=== PATIENT | female | born 1935 | race Caucasian/White ===

== ENCOUNTER 2017-05-14 10:39 | Emergency (ER) | payer MEDICARE, OTHER ==
[~2017-05-14] VITALS: Ht 162.6 cm; Wt 79.4 kg
[~2017-05-14 10:39] MED LIST: ALCLOMETASONE D15 GM TOP; AMOXICILLIN500 MG; ATENOLOL; CALCIUM 500+D1 EACH PO; CEFUROXIME; CEFUROXIME500 MG PO; CITRACEL; DOXYCYCLINE HY100 MG PO; ESTRACE42.5 GM TOP; FENOFIBRATE; FENOFIBRATE134 MG PO; FISH OIL; FLUOXETINE; FLUOXETINE HCL40 MG PO; GABAPENTIN100 MG PO; GABAPENTIN300 MG PO; GLIMEPIRIDE; GLIMEPIRIDE2 MG PO; HYDROCHLOROTHIAZIDE; HYDROCODON-ACE1 EA11 PO; L-THYROXINE; LEVOFLOXACIN500 MG; LEVOTHYROXINE50 MCG PO; LEVOTHYROXINE88 MCG PO; LISINOPRIL10 MG PO; LYRICA; METOPROLOL TART50 MG PO; NORCO 10-325 T1 EACH PO; NORCO 7.5-3251 EACH PO; OMEPRAZOLE; OMEPRAZOLE20 M1 PO; PHENAZOPYRIDIN100 MG PO; PROBIOTIC & AC1 EACH PO; PROPOXYPHENE; PROZAC20 MG PO; THERAGRAN-M; TOVIAZ4 MG PO; WARFARIN; WARFARIN SODIUM1 MG PO; Z.1.AMLODIPINE-BEN1; ZOLPIDEM; [UNRECOGNIZED DRUG - OTHER]
[2017-05-14] MEDS ORDERED: CEFTRIAXONE SOD 1 GM VIAL IM ONE (12:30)
[2017-05-14] MEDS ORDERED: CEFTIN250 MG/5 M PO (13:51)
[2017-05-14 14:20] VITALS: BP 159/60
== END 2017-05-14 14:00 | disposition home or self-care (01) ==
LOC: FSED 10:39
DX: M54.41 Lumbago with sciatica, right side (principal); N30.90 Cystitis, unspecified without hematuria; I10 Essential (primary) hypertension; E11.9 Type 2 diabetes mellitus without complications; Z87.891 Personal history of nicotine dependence
CPT/HCPCS: 87086; 87186; 99283; J0696

== ENCOUNTER → 2017-12-27 | Outpatient (CLI) | payer MEDICARE, OTHER ==
[~2017-12-27] MED LIST changes: +CEFTIN250 MG/5 M PO
== END ==
LOC: RAD 13:06
DX: M79.605 Pain in left leg (principal); M79.89 Other specified soft tissue disorders
CPT/HCPCS: 93971

== ENCOUNTER 2018-03-17 06:22 | Inpatient (IN) | payer MEDICARE, OTHER ==
[~2018-03-17] VITALS: Ht 162.6 cm; Wt 79.9 kg
[2018-03-17 07:24] LABS: BASOPHILS % 0.1 % (0.0-1.0); EOSINOPHILS % 0.2 % (0.0-6.0); HEMATOCRIT 36.5 % (34.2-44.1); HEMOGLOBIN 12.2 g/dL (12.0-16.0); MEAN CORPUSCULAR HEMOGLOBIN 31.2 pg (28-32); MEAN CORPUSCULAR HGB CONC 33.4 g/dL (31-35); MEAN CORPUSCULAR VOLUME 93.4 fL (81-99); MONOCYTES # (AUTO) 0.7 (0.2-0.8); NEUTROPHILS # (AUTO) 6.5 (2.1-6.9); NEUTROPHILS % 78.3 % (38.7-80.0); PLATELET COUNT 174 x10e3/uL (140-360); RED BLOOD COUNT 3.91 x10e6/uL (3.6-5.1); RED CELL DISTRIBUTION WIDTH 14.2 % (11.7-14.4)
[2018-03-17 07:33] LABS: PROTHROMBIN TIME 24.2 seconds (11.9-14.5)
[2018-03-17 07:34] LABS: PARTIAL THROMBOPLASTIN TIME 50.3 seconds (23.8-35.5)
[2018-03-17 07:43] LABS: ALANINE AMINOTRANSFERASE 23 IU/L (0-55); ALBUMIN 3.3 g/dL (3.5-5.0); ALKALINE PHOSPHATASE 29 IU/L (40-150); ANION GAP 15.2 mmol/L (8-16); BLOOD UREA NITROGEN 27 mg/dL (7-26); BUN/CREATININE RATIO 32 (6-25); CARBON DIOXIDE 26 mmol/L (22-29); CHLORIDE 99 mmol/L (98-107); CREATINE KINASE 199 IU/L (29-168); CREATININE, SERUM 0.84 mg/dL (0.57-1.11); EST GLOMERULAR FILTRATION RATE > 60 ML/MIN (60-); GLUCOSE 145 mg/dL (74-118); MAGNESIUM 1.7 MG/DL (1.3-2.1); POTASSIUM 4.2 mmol/L (3.5-5.1); SODIUM 136 mmol/L (136-145)
[2018-03-17 07:53] LABS: BILIRUBIN,URINE NEGATIVE (NEGATIVE); CLARITY,URINE HAZY (CLEAR); COLOR,URINE YELLOW (YELLOW); KETONES,URINE NEGATIVE (NEGATIVE); LEUKOCYTE ESTERASE ,URINE 2+ (NEGATIVE); NITRITE,URINE NEGATIVE (NEGATIVE); PROTEIN,URINE DIPSTICK TRACE (NEGATIVE); URINE UROBILINOGEN 0.2 mg/dL (0.2 - 1)
[2018-03-17 08:04] LABS: BACTERIA,URINE MANY /HPF; EPITHELIAL CELLS,URINE RARE /LPF
[2018-03-17] MEDS ORDERED: CEPHALEXIN250 MG PO (08:12)
[2018-03-17] MEDS ORDERED: METHENAMINE HIPP1 GM PO (08:12)
[2018-03-17] MEDS ORDERED: DILTIAZEM HCL VIAL 5 ML ONE (08:54)
[2018-03-17] MEDS ORDERED: DILTIAZEM HCL 5 MG/ML 5 ML VIAL IV STA (08:55)
--- NOTE | 2018-03-17 09:00 | Diagnostic Imaging Report ---
CT BRAIN WO HISTORY: Fall COMPARISON: Brain MRI 09/11/2010 Technique: Noncontrast axial scans were obtained from skull base to the vertex. Coronal and sagittal reconstructions obtained from the axial data. One or more of the following dose reduction techniques were used: Automated exposure control, adjustment of the mA and/or kV according to patient size, and/or utilization of iterative reconstruction technique. DISCUSSION: Scalp/Skull: Unremarkable. Brain sulci: Mildly prominent. Ventricles: Compensatory dilatation. Extra-axial spaces: No masses or fluid collections. Carotid siphon calcifications are present. Parenchyma: Mild bilateral deep white matter hypodensity is likely chronic microvascular ischemic change. Otherwise, no masses, hemorrhage, or large vascular territory acute infarct. Dural sinuses: No abnormal densities. Sellar/Suprasellar region: Intact. Skull base: Intact. Incidental findings: Both ocular lenses are thinned. IMPRESSION: 1. No acute intracranial abnormalities. 2. Mild supratentorial chronic microvascular ischemic change. Mild generalized cerebral volume loss. Signed by: Dr. Bentley Saini M.D. on 03/17/2018 8:57 AM
--- NOTE | 2018-03-17 09:05 | Diagnostic Imaging Report ---
CT CERVICAL SPINE WO HISTORY: Fall COMPARISON: Concurrent head CT TECHNIQUE: CT of the cervical spine without contrast. Sagittal and coronal reformations were created. One or more of the following dose reduction techniques were used: Automated exposure control, adjustment of the mA and/or kV according to patient size, and/or utilization of iterative reconstruction technique. FINDINGS: Bone demineralization limits evaluation. Cervical lordosis is straightened. There is no scoliosis or subluxation. No definite acute fracture or compression deformity is seen. The craniocervical junction is intact. No gross spinal canal masses are seen. The paravertebral and paraspinal soft tissues are unremarkable. Mild multilevel spondylosis is most prominent from C4-C5 to C6-C7. Grade 1 anterolisthesis of C7 on T1 is due to prominent left facet arthrosis. Right subclavian lead/line is partially visualized. A 0.9 cm peripherally calcified nodule is seen in the right thyroid lobe. Mild bilateral carotid bulb calcifications are present. IMPRESSION: 1. No acute osseous abnormalities. 2. Mild multilevel spondylosis, most prominent from C4-C5 to C6-C7. 3. Grade 1 anterolisthesis of C7 on T1 due to prominent left facet arthrosis. Signed by: Dr. Bentley Saini M.D. on 03/17/2018 9:02 AM
--- NOTE | 2018-03-17 09:07 | Diagnostic Imaging Report ---
PROCEDURE:HIP LEFT 2-3 VW (+/- PELVIS) COMPARISON:None. INDICATIONS:FALL LEFT HIP PAIN FINDINGS: No acute, displaced fracture or dislocation. The left femoral head projects appropriately over the acetabulum. Mild symmetric joint space narrowing of the hips. Coarse calcification projecting over the upper aspect of the symphysis pubis may represent a degenerated fibroid. Soft tissues are unremarkable. CONCLUSION: no acute osseous abnormality. No displaced left hip fracture. Dictated by: Jorge Jorgensen M.D. on 03/17/2018 at 9:17 Electronically approved by: Jorge Jorgensen M.D. on 03/17/2018 at 9:17
--- NOTE | 2018-03-17 09:09 | Diagnostic Imaging Report ---
PROCEDURE: CHEST SINGLE (PORTABLE) COMPARISON: None. INDICATIONS: fall FINDINGS: Right subclavian central venous port catheter tip projects over the expected region of the superior cavoatrial junction. Lungs are well-inflated. Calcified granulomata right lower lung. No airspace consolidation, pleural effusion, or pneumothorax. Tortuous thoracic aorta with atherosclerotic calcification. Otherwise normal cardiomediastinal contour for technique. No acute osseous abnormality. CONCLUSION: No acute cardiopulmonary abnormality. Dictated by: Jorge Jorgensen M.D. on 03/17/2018 at 9:19 Electronically approved by: Jorge Jorgensen M.D. on 03/17/2018 at 9:19
[2018-03-17] MEDS ORDERED: DIGOXIN INJ 0.25 MG/ML 2 ML AMP ONE (09:39)
[2018-03-17] MEDS ORDERED: ASPIRIN 81 MG CHEW TAB PO ONE (09:45)
[2018-03-17] MEDS ORDERED: DIGOXIN INJ 0.25 MG/ML 2 ML AMP IV ONE (09:45)
[2018-03-17] MEDS ORDERED: DIGOXIN INJ 0.25 MG/ML 2 ML AMP IV NR (10:00)
--- OUTSIDE RECORDS SUMMARY | 2018-03-17 10:09 | XMS REPORT ---
[facility] Address Unknown Phone Unavailable Care Team Providers Care Master At Arms Name Role Phone Yolis DELGADO Unavailable Unavailable Problems This patient has no known problems. Allergies, Adverse Reactions, Alerts This patient has no known allergies or adverse reactions. Medications This patient has no known medications. Results Test Description Test Time Test Comments Text Results Atomic Results Result Comments CHEST SINGLE (PORTABLE) 2018-03-17 09:19:00 [place] [address] Patient Name: MAURIZIO WINN MR #: [id number] : 1935 Age/Sex: 83/F Req #: [id number] Adm Physician: Ordered by: CHOLO DELGADO MD Report #: [id number] Location: ER Room/Bed: Procedure: [id number] DX/CHEST SINGLE (PORTABLE) Exam Date: Exam Time: REPORT STATUS: Signed PROCEDURE: CHEST SINGLE (PORTABLE) COMPARISON: None. INDICATIONS: fall FINDINGS: Right subclavian central venous port catheter tip projects over the expected region of the superior cavoatrial junction. Lungs are well-inflated. Calcified granulomata right lower lung. No airspace consolidation, pleural effusion, or pneumothorax. Tortuous thoracic aorta with atherosclerotic calcification. Otherwise normal cardiomediastinal contour for technique. No acute osseous abnormality. CONCLUSION: No acute cardiopulmonary abnormality. Dictated by: Mendoza Saldaña M.D. on 03/17/2018 at 9:19 Electronically approved by: Mendoza Saldaña M.D. on 03/17/2018 at 9:19 Dictated By: MENDOZA SALDAÑA MD 8 Transcribed By: DREW on 03/17/18918 COPY TO: CHOLO DELGADO MD HIP LEFT 2-3 VW (+/- PELVIS) 2018-03-17 09:17:00 [place] [address] Patient Name: MAURIZIO WINN MR #: [id number] : 1935 Age/Sex: 83/F Req #: [id number] Adm Physician: Ordered by: CHOLO DELGADO MD Report #: [id number] Location: ER Room/Bed: Procedure: [id number] DX/HIP LEFT 2-3 VW (+/- PELVIS) Exam Date: Exam Time: REPORT STATUS: Signed PROCEDURE: HIP LEFT 2-3 VW (+/- PELVIS) COMPARISON: None. INDICATIONS: FALL LEFT HIP PAIN FINDINGS: No acute, displaced fracture or dislocation. The left femoral head projects appropriately over the acetabulum. Mild symmetric joint space narrowing of the hips. Coarse calcification projecting over the upper aspect of the symphysis pubis may represent a degenerated fibroid. Soft tissues are unremarkable. CONCLUSION: no acute osseous abnormality. No displaced left hip fracture. Dictated by: Mendoza Saldaña M.D. on 03/17/2018 at 9:17 Electronically approved by: Mendoza Saldaña M.D. on 03/17/2018 at 9:17 Dictated By: MENDOZA SALDAÑA MD 6 Transcribed By: DREW on 03/17/18 0917 COPY TO: CHOLO DELGADO MD CT CERVICAL SPINE WO 2018-03-17 08:57:00 [place] [address] Patient Name: MAURIZIO WINN MR #: [id number] : 1935 Age/Sex: 83/F Req #: [id number] Adm Physician: Ordered by: CHOLO DELGADO MD Report #: [id number] Location: ER Room/Bed: Procedure: [id number] CT/CT CERVICAL SPINE WO Exam Date: 03/17/18 Exam Time: 809 REPORT STATUS: Signed CT CERVICAL SPINE WO HISTORY: Fall COMPARISO N: Concurrent head CT TECHNIQUE: CT of the cervical spine without contrast. Sagittal and coronal reformations were created. One or more of the following dose reduction techniques were used: Automated exposure control, adjustment of the mA and/or kV according to patient size, and/or utilization of iterative reconstruction technique. FINDINGS: Bone demineralization limits evaluation. Cervical lordosis is straightened. There is no scoliosis or subluxation. No definite acute fracture or compression deformity is seen. The craniocervical junction is intact. No gross spinal canal masses are seen. The paravertebral and paraspinal soft tissues are unremarkable. Mild multilevel spondylosis is most prominent from C4-C5 to C6-C7. Grade 1 anterolisthesis of C7 on T1 is due to prominent left facet arthrosis. Right subclavian lead/line is partially visualized. A 0.9 cm peripherally calcified nodule is seen in the right thyroid lobe. Mild bilateral carotid bulb calcifications are present. IMPRESSION: 1. No acute osseous abnormalities. 2. Mild multilevel spondylosis, most prominent from C4-C5 to C6-C7. 3. Grade 1 anterolisthesis of C7 on T1 due to prominent left facet arthrosis. Signed by: Dr. Bentley Saini M.D. on 03/17/2018 9:02 AM Dictated By: BENTLEY SAINI MD 1 Transcribed By: MIKA on 03/17/18901 COPY TO: CHOLO DELGADO MD CT BRAIN WO 2018-03-17 08:50:00 [place] [address] Patient Name: MAURIZIO WINN MR #: [id number] : 1935 Age/Sex: 83/F Req #: [id number] Adm Physician: Ordered by: CHOLO DELGADO MD Report #: [id number] Location: ER Room/Bed: Procedure: [id number] CT/CT BRAIN WO Exam Date: 03/17/18 Exam Time: 0810 REPORT STATUS: Signed CT BRAIN WO HISTORY: Fall COMPARISON: Brain MRI 09/11/2010 Technique: Noncontrast axial scans were obtained from skull base to the vertex. Coronal and sagittal reconstructions obtained from the axial data. One or more of the following dose reduction techniques were used: Automated exposure control, adjustment of the mA and/or kV according to patient size, and/or utilization of iterative reconstruction technique. DISCUSSION: Scalp/Skull: Unremarkable. Brain sulci: Mildly prominent. Ventricles: Compensatory dilatation. Extra-axial spaces: No masses or fluid collections. Carotid siphon calcifications are present. Parenchyma: Mild bilateral deep white matter hypodensity is likely chronic microvascular ischemic change. Otherwise, no masses, hemorrhage, or large vascular territory acute infarct. Dural sinuses: No abnormal densities. Sellar/Suprasellar region: Intact. Skull base: Intact. Incidental findings: Both ocular lenses are thinned. IMPRESSION: 1. No acute intracranial abnormalities. 2. Mild supratentorial chronic microvascular ischemic change. Mild generalized cerebral volume loss. Signed by: Dr. Bentley Saini M.D. on 03/17/2018 8:57 AM Dictated By: BENTLEY SAINI MD 6 Transcribed By: MIKA on 03/17/18856 COPY TO: CHOLO DELGADO MD
[2018-03-17] MEDS ORDERED: GLIMEPIRIDE2 MG PO (10:45)
--- NOTE | 2018-03-17 10:51 | NUR ---
pt tells nurse she is Diabetic at 1030 BS taken 131
[2018-03-17] MEDS ORDERED: CEFTRIAXONE SOD 1 GM VIAL IM ONE (12:00)
[2018-03-17] MEDS: CEFTRIAXONE SOD 1 GM VIAL IV SCH ×2 (12:27→12:29)
[2018-03-17] MEDS ORDERED: DILTIAZEM HCL 5 MG/ML 5 ML VIAL IV PRN (13:30)
--- NOTE | 2018-03-17 13:42 | Diagnostic Imaging Report ---
CT LUMBAR SPINE WO HISTORY: Fall COMPARISON: None. TECHNIQUE: Axial CT images of the lumbar spine were obtained without contrast. Coronal and sagittal reconstructions obtained from the axial data. One or more of the following dose reduction techniques were used: Automated exposure control, adjustment of the mA and/or kV according to patient size, and/or utilization of iterative reconstruction technique. DISCUSSION: Mild bone demineralization limits evaluation. There are 5 nonrib-bearing lumbar vertebral bodies. Lumbar lordosis is preserved. There is no significant scoliosis or subluxation. Partially visualized moderate to severe T11 vertebral compression fracture appears well corticated. There is complete loss of vertebral body height centrally without significant retropulsion. This may be chronic. No definite additional acute fracture or compression deformity is seen. No gross spinal canal mass is seen. There is mild paraspinal muscle atrophy in the lower lumbar spine. The paravertebral and paraspinal soft tissues are otherwise grossly unremarkable. Moderate multilevel spondylotic changes are present. There are mild degenerative changes in the bilateral sacroiliac joints. L1-L2: Disc bulge without gross canal or foraminal stenosis. L2-L3: Disc bulge without gross canal or foraminal stenosis. L3-L4: At least mild canal stenosis due to disc bulge and ligamentum flavum thickening. Mild right and mild to moderate left foraminal stenoses due to disc bulge and facet arthrosis. L4-L5: At least mild canal stenosis due to disc bulge and ligamentum flavum thickening. Moderate right and mild left foraminal stenoses due to uncovertebral and facet arthrosis. L5-S1: Grade 1 anterolisthesis of L5 on S1 due to severe bilateral L5-S1 facet arthrosis. At least mild canal stenosis due to uncovered disc bulge and ligamentum flavum thickening. Moderate to severe bilateral foraminal stenoses due to uncovered disc bulge and facet arthrosis. Mild bibasilar atelectasis is seen in the lungs. Perinephric fat stranding can be normal for age. Aortoiliac calcific atherosclerosis is present. Colonic diverticulosis is partially visualized. IMPRESSION: 1. Partially visualized moderate to severe T11 vertebral compression fracture may be chronic. No significant fracture retropulsion. 2. Otherwise, no definite acute osseous abnormalities. 3. Moderate multilevel spondylosis. 4. Grade 1 anterolisthesis of L5 on S1 due to severe bilateral L5-S1 facet arthrosis. 5. At least mild degenerative canal stenoses from L3-L4 to L5-S1. 6. Multilevel degenerative foraminal stenoses - moderate on the right at L4-L5; moderate to severe bilaterally at L5-S1. Signed by: Dr. Bentley Saini M.D. on 03/17/2018 1:39 PM
[2018-03-17] MEDS: LIDOCAINE 5% PATCH TP SCH (14:24)
--- NOTE | 2018-03-17 14:25 | NUR ---
VAGINAL BLEEDING OBSERVED MD NOTIFIED VELE[facility] CATHETER D/C AT THIS TIME
[2018-03-17 14:44] LABS: CHOL/HDL RATIO 2.1 (3.0-3.6)
--- NOTE | 2018-03-17 14:51 | Consultation ---
DATE OF CONSULTATION: March 17, 2018 CARDIOLOGY CONSULTATION REASON FOR CONSULTATION: Atrial fibrillation with rapid ventricular response. HISTORY OF PRESENT ILLNESS: This is an 83-year-old woman with history of DVT/PE, on warfarin, diabetes mellitus, hypertension, and hyperlipidemia, who presented with complaints of altered mental status and back pain. The patient has chronic back pain that has been worse in the last month. This morning the patient's daughter found the patient half off the bed due to inability to get the patient up. EMS was called, and the patient was transported to the ER. Of note, the patient's daughter indicates the patient was confused this morning as the patient thought she was in the hospital. The patient denies any chest pain, shortness of breath, orthopnea, PND, or edema. She does endorse palpitations when she gets upset. In the ER, evaluation revealed atrial fibrillation with rapid ventricular response for which cardiology is consulted. REVIEW OF SYSTEMS: Negative except as per HPI. PAST MEDICAL HISTORY: Diabetes mellitus, hypertension, hyperlipidemia, history of PE/DVT, on warfarin. PAST SURGICAL HISTORY: Hysterectomy, bladder suspension. SOCIAL HISTORY: She previously smoked 2 packs a day for 25 years. She quit at the age of 39. No alcohol or drugs. FAMILY HISTORY: Pertinent for mother with myocardial infarction. ALLERGIES: PLEASE SEE EMR. MEDICATIONS: Please see medication list. PHYSICAL EXAMINATION VITALS: Temperature 99.1 degrees, pulse 108, respiratory rate is 20, blood pressure 134/81, oxygen saturation 100%. GENERAL: Elderly woman in no acute distress. HEENT: Normocephalic and atraumatic. Pupils equal. No scleral icterus. NECK: Supple. No thyromegaly or cervical lymphadenopathy. No carotid bruits. LUNGS: Clear to auscultation bilaterally. No wheezes or crackles. CARDIOVASCULAR: Irregularly irregular. Tachycardic. No murmur. Normal S1 and S2. ABDOMEN: Soft and nontender. EXTREMITIES: No edema. NEURO: Nonfocal exam. Chest x-ray with no acute cardiopulmonary abnormality. Hip x-ray with no acute osseous abnormality. No displaced left hip fracture. Cervical spine CT with no acute osseous abnormalities. Mild multilevel spondylosis most prominent from C4-C5 to C6-C7. Grade 1 anterior listhesis of C7 on T1 due to permanent left facet arthrosis. Partially visualized moderate to severe T11 vertebral compression fracture may be chronic. No significant fracture retropulsion. Otherwise, no acute osseous abnormalities. Moderate multilevel spondylosis, grade 1 anterior listhesis of L5-S1 due to severe bilateral L5-S1 facet arthrosis. LABS: WBC is 8.26, hemoglobin 12.2, hematocrit 36.5, and platelets 174,000. Sodium 136, potassium 4.2, chloride 99, CO2 26, BUN 27, creatinine 0.84. INR 2. EKG with atrial fibrillation with rapid ventricular response, minimal voltage criteria for elevation, may be normal variant. Nonspecific S/T abnormalities probably due to digitalis effect. Abnormal ECG. IMPRESSION 1. Atrial fibrillation with rapid ventricular response. 2. History of deep venous thrombosis/pulmonary embolism, on warfarin therapy. 3. Hypertension. 4. Hyperlipidemia. 5. Diabetes mellitus. RECOMMENDATIONS: Check TSH. Obtain echocardiogram for further evaluation. Continue the patient on warfarin for anticoagulation. Her CHADS-VASc score is 5. Will obtain a fasting lipid panel. Titrate up metoprolol. Treatment of urinary tract infection per primary. Thank you for this consult. We will continue to follow. Job#: [id number] KAMRYN DUNN
--- NOTE | 2018-03-17 14:58 | NUR ---
PT C/O PAIN TO FEET STATES SHE NORMALLY TAKES GABAPENTIN FOR NEUROPATHY BUT ALSO TAKES HYDROCODONE 7.5 MG; PER DR ZACARIAS NEW ORDER FOR HYDROCODONE 7.5 MG AT THIS TIME
[2018-03-17] MEDS: HYDROCODONE/APAP 7.5MG-325MG 1 EA TAB PO PRN ×2 (15:00→22:22)
[2018-03-17 15:03] LABS: THYROID STIMULATING HORMONE 0.768 uIU/mL (0.350-4.940)
[2018-03-17] MEDS: ACETAMINOPHEN 325 MG TAB PO PRN (16:08)
--- NOTE | 2018-03-17 17:22 | NUR ---
Left a voicemail for Dr. Silvestre's answering service at this time.
--- NOTE | 2018-03-17 17:24 | NUR ---
Spoke to Dr. Silvestre. New orders obtained at this time.
[2018-03-17] MEDS: METOPROLOL TARTRATE 50 MG TAB PO SCH ×2 (17:39→23:15)
[2018-03-17 20:00] VITALS: BP 139/63
--- NOTE | 2018-03-17 20:00 | NUR ---
patient is a new admit that arrived via stretcher. patient is awake and talking. patient has been helped into the bed. bed is in lowest position and call perrin is within reach. will continue to monitor patient. Addendum: 03/18/18 at 0219 by Juanito Mckeon RN patient is noted with bruising to left buttock and left knee. no complaints of pain or discomfort to bruised areas. will continue to monitor patient.
[2018-03-17] MEDS ORDERED: SODIUM CHLORIDE 0.9% 250ML 250 ML ONE (20:33)
[2018-03-17] MEDS: MEROPENEM 1GM 100 ML IV SCH (21:48)
[2018-03-18] VITALS (7 sets, daily range): BP systolic 118–131; BP diastolic 53–72
[2018-03-18 00:59] LABS: CREATINE KINASE MB 1.6 ng/mL (0-5.0)
[2018-03-18 01:02] LABS: CHOL/HDL RATIO 2.5 (3.0-3.6)
[2018-03-18] MEDS: ACETAMINOPHEN 325 MG TAB PO PRN (03:15)
[2018-03-18] MEDS: MEROPENEM 1GM 100 ML IV SCH ×3 (04:22→20:53)
[2018-03-18] MEDS: METOPROLOL TARTRATE 50 MG TAB PO SCH ×3 (05:07→17:24)
--- NOTE | 2018-03-18 07:00 | NUR ---
received report from the night nurse. patient aware of change, in no distress. bed in lowest position and call perrin within reach.
[2018-03-18 07:55] LABS: CREATINE KINASE MB 1.4 ng/mL (0-5.0)
[2018-03-18] MEDS: LIDOCAINE 5% PATCH TP SCH (08:30)
[2018-03-18] MEDS: HYDROCODONE/APAP 7.5MG-325MG 1 EA TAB PO PRN ×2 (08:30→16:15)
--- NOTE | 2018-03-18 09:20 | NUR ---
CASE MANAGEMENT INITIAL ASSESSMENT Cash Manager to bedside to discuss plan of care with patient/family. CM/SW role and care transitions discussed. Anticipated discharge plan discussed along with duration of care. CM/SW discussed patients right to make decisions in care. CM/SW work hours given. Patient lives: HOUSE WITH DAUGHTER Admit/Transfer: VIA ED FROM HOME POA/Emergency contact: MUMTAZ ONTIVEROS [employer] FOR DR HOLLINGSWORTH Current/Previous Home Health: [facility] PCP/Follow-up Care: Yonatan AYOUB Current/Previous DME: [facility] Other Services: NONE Employment Status: RETIRED Areas of Concerns: NONE Referral Needs: NONE Education Needs: NONE IMM/REYES given and signed (if applicable): REYES Goal for discharge: RETURN HOME WITH NO NEEDS CM/SW left business card at the bedside with contact information. Name and number was also written on the patients whiteboard. Patient verbalized understanding of discussion. CM will follow-up with ongoing discharge and transition of care needs.
[2018-03-18] MEDS: CEFTRIAXONE SOD 1 GM/NS 50 ML 50 ML IV SCH (13:53)
[2018-03-18] MEDS: GABAPENTIN 300 MG CAP PO SCH ×2 (14:25→20:53)
--- NOTE | 2018-03-18 14:45 | NUR ---
Paged Dr. Villa on critical blood culture result
--- NOTE | 2018-03-18 16:35 | Progress Note ---
DATE: CARDIOLOGY PROGRESS NOTE SUBJECTIVE: Patient feeling better. Denies any chest pain, shortness of breath. OBJECTIVE VITAL SIGNS: Temperature 96.8, heart rate is 82, respirations are 19, blood pressure is 118/61, oxygen saturation is 94% on room air. GENERAL: Well-appearing elderly woman in no apparent distress. CARDIOVASCULAR: Irregularly irregular. Normal rate. Normal S1 and S2. LUNGS: Clear to auscultation. ABDOMEN: Soft, nontender. EXTREMITIES: No edema. CARDIOVASCULAR MEDICATIONS: Reviewed. LABORATORY DATA: Reviewed. INR is 2. TELEMETRY MONITORING: Reveals atrial fibrillation. IMPRESSIONS 1. Atrial fibrillation. 2. History OF deep venous thrombosis and pulmonary embolism. 3. Hypertension. 4. Hyperlipidemia. 5. Diabetes mellitus. RECOMMENDATIONS: Echocardiogram has been ordered and is pending results. Patient's heart rate is well controlled on current medication regimen. Continue warfarin for therapeutic INR. Will continue with rate control strategy. Job#: [id number] MORALES
[2018-03-18] MEDS: NON-FORMULARY MEDICATION (Methenamine Hippurate 1 TAB) PO SCH (17:00)
[2018-03-18] MEDS ORDERED: LISINOPRIL 10 MG TAB PO SCH (17:00)
[2018-03-18] MEDS ORDERED: NON-FORMULARY MEDICATION (Methenamine Hippurate 1 TAB) PO SCH (17:00)
[2018-03-18] MEDS: WARFARIN SOD 2 MG TAB PO SCH (17:23)
[2018-03-18] MEDS: LISINOPRIL 20 MG TAB PO SCH (17:23)
--- NOTE | 2018-03-18 17:33 | Diagnostic Imaging Report ---
MRI SPINE LUMBAR WO History: 83-year-old female status post fall with low back pain , Comparison studies:None Technique: Sagittal and axial T2 , sagittal T1 and IR, axial spin density oblique. Intravenous contrast: None Findings: Number of lumbar vertebral bodies: 5. Alignment: Focal kyphosis at T11 No scoliosis. Soft tissues: No T2 hyperintense inflammatory changes. Fatty infiltration of the paraspinous muscles. Paraspinal muscles: No signal abnormalities. Well-preserved. No atrophic changes Lower thoracic cord: Normal in signal and morphology. The tip of the conus is at L1-L2 . Cauda equina: No masses. No arachnoiditis. Vertebrae: Chronic T11 compression fracture with significant anterior wedge deformity. No associated STIR signal. Degenerative changes: L1-L2: Symmetric bulging disc with 3 mm of posterior mass effect. Spinal canal widely patent. Neuroforamina widely patent. L2-L3: Symmetric bulging disc with 3 mm of posterior mass effect. Thickening of the ligament flavum. Mild narrowing of spine canal. Moderate narrowing of the right foramen. L3-L4: Loss of disc height. Symmetric bulging disc with 3.4 mm in posterior mass effect. Thickening of the ligamentum flavum. Moderate to severe narrowing of the spinal canal. Moderate narrowing of bilateral foramen. L4-L5: Loss of disc height. Right asymmetric bulging disc with 2 mm of posterior mass effect. Thickening of the ligament flavum. Moderate to severe narrowing of the spinal canal. Severe right foraminal narrowing. Moderate to severe left foraminal narrowing. Advanced facet arthropathy. L5-S1: Loss of disc height. Spinal canal widely patent. Moderate to severe bilateral foraminal narrowing. Bilateral advanced facet arthropathy IMPRESSION: 1. Chronic T11 compression fracture 2. Spinal canal narrowing greatest at L3-L4 3. Foraminal stenosis greatest at right L4-L5 Signed by: Dr. Craig Garay M.D. on 03/18/2018 5:30 PM
--- NOTE | 2018-03-18 17:40 | Diagnostic Imaging Report ---
History:83-year-old female status post fall with mid back pain Comparison studies: CT lumbar spine 03/17/2018 Technique: Sagittal T1, T2 and STIR without contrast; axial and coronal T2. Findings: Curvature: Focal kyphosis at T11 compression fracture. No scoliosis. Paraspinal soft tissues: No signal abnormalities. Spinal cord: The spinal cord is normal in size and signal intensity through the tip of the conus at L1-L2. Vertebrae: Chronic T11 compression fracture with significant anterior wedge deformity and no STIR signal. Disk spaces: Last disc space at T11-T12. . Disk herniations: Symmetric bulging disc at T11-T12 with 2.7 mm of posterior mass effect. . Foramina: Moderate bilateral foraminal narrowing at T10-T11 and T11-T12 Spinal canal: Moderate narrowing spinal canal at T11-T12. IMPRESSION: Chronic T11 compression fracture, with associated disc herniation and foraminal narrowing. Signed by: Dr. Craig Garay M.D. on 03/18/2018 5:37 PM
--- NOTE | 2018-03-18 20:15 | NUR ---
PATIENT RESTING COMFORTABLY IN BED, NO RESPIRATORY DISTRESS OBSERVED. SHE DENIES CHEST PAIN, CALL LIGHT WITHIN EASY REACH, SHE'S INSTRUCTED TO CALL FOR ASSISTANCE NEEDED.
[2018-03-19] VITALS (7 sets, daily range): BP systolic 105–146; BP diastolic 49–84
[2018-03-19] MEDS: METOPROLOL TARTRATE 50 MG TAB PO SCH ×4 (00:22→19:00)
--- NOTE | 2018-03-19 01:06 | NUR ---
PATIENT IS SOUNDLY ASLEEP, SHE'S EASY TO AROUSE. NO RESPIRATORY DISTRESS OBSERVED, SHE DENIES CHEST PAIN. CALL LIGHT IN EASY REACH, BED ALARM ON.
--- NOTE | 2018-03-19 03:19 | NUR ---
PATIENT ENCOURAGED TO REPOSITION, NO DISTRESS OBSERVED, SHE DENIES CHEST PAIN. CALL LIGHT IN EASY REACH, BED ALARM ON.
[2018-03-19] MEDS ORDERED: SODIUM CHLORIDE 0.9% 250ML 250 ML ONE ×2 (04:31→20:30)
[2018-03-19] MEDS: MEROPENEM 1GM 100 ML IV SCH ×3 (04:50→19:21)
--- NOTE | 2018-03-19 04:50 | NUR ---
IV SITE RED, IV #[id number] INSERTED TO THE LEFT WRIST. PATIENT TOLERATED PROCEDURE WELL, IV ANTIBIOTIC INFUSING ORDERED.
[2018-03-19] MEDS: LEVOTHYROXINE SODIUM 50 MCG TAB PO SCH (06:41)
--- NOTE | 2018-03-19 08:44 | NUR ---
notified Dr. Yonatan Villa concerning patient's positive urine culture for ESBL and blood culture positive for gram negative rods, per MD consult Dr. Blackwell
[2018-03-19] MEDS ORDERED: FLUOXETINE HCL 40 MG PO SCH (09:00)
[2018-03-19] MEDS ORDERED: WARFARIN SOD 1 MG TAB PO SCH (09:00)
[2018-03-19] MEDS ORDERED: NON-FORMULARY MEDICATION (Fenofibrate,Micronized (Fenofibrate) 134 MG) PO SCH (09:00)
[2018-03-19] MEDS ORDERED: LEVOTHYROXINE SODIUM 50 MCG TAB PO SCH (09:00)
[2018-03-19] MEDS: LIDOCAINE 5% PATCH TP SCH (09:40)
[2018-03-19] MEDS: GLIMEPIRIDE 2 MG TAB PO SCH (09:40)
[2018-03-19] MEDS: GABAPENTIN 300 MG CAP PO SCH ×3 (09:40→20:10)
[2018-03-19] MEDS: NON-FORMULARY MEDICATION (Methenamine Hippurate 1 TAB) PO SCH ×2 (09:40→17:00)
[2018-03-19] MEDS: FENOFIBRATE 145 MG TAB PO SCH (09:40)
[2018-03-19] MEDS: FLUOXETINE HCL 20 MG CAP PO SCH (09:40)
[2018-03-19] MEDS: LISINOPRIL 20 MG TAB PO SCH ×2 (09:40→17:25)
[2018-03-19] MEDS: CEFTRIAXONE SOD 1 GM/NS 50 ML 50 ML IV SCH (15:35)
[2018-03-19] MEDS: HYDROCODONE/APAP 7.5MG-325MG 1 EA TAB PO PRN ×2 (15:40→21:40)
[2018-03-19] MEDS: WARFARIN SOD 2 MG TAB PO SCH (17:25)
[2018-03-19] MEDS: ACETAMINOPHEN 325 MG TAB PO PRN (17:25)
--- NOTE | 2018-03-19 18:50 | NUR ---
report given to litigation claim representative nurse, patient aware of change. Patient in no distress, alert and oriented. Call perrin within reach
[2018-03-19] MEDS ORDERED: CEFTRIAXONE SOD 1 GM VIAL IV SCH (19:30)
--- NOTE | 2018-03-19 20:10 | Consultation ---
DATE OF CONSULTATION: March 19, 2018 REASON FOR CONSULTATION: Back pain. The patient is an 83-year-old woman with chronic low back pain who presents with exacerbation of the low back pain. The pain does not radiate down the legs. She is able to walk with a walker. She had an MRI of the lumbar spine, which revealed an old compression fracture of T12, which is well healed. There is multilevel age appropriate facet disease and degenerative changes of the discs comminuting and moderate stenosis at L3-L4. There is no evidence of discitis. Incidentally, the patient has positive blood cultures and urine culture for gram-negative jacey. It is likely that the recent exacerbation of the back pain is related to her urosepsis. She does not require surgical treatment of the lumbar spine. I will sign off. Job#: [id number] KYA
--- NOTE | 2018-03-19 20:12 | Progress Note ---
DATE: March 19, 2018 CARDIOLOGY PROGRESS NOTE SUBJECTIVE: Feeling better. No chest pain or shortness of breath. OBJECTIVE VITAL SIGNS: Afebrile as documented in the EMR. GENERAL: Elderly white female, no acute distress, well-developed. CARDIOVASCULAR: Regular rate and rhythm. No murmurs, rubs, or gallops. LUNGS: Clear to auscultation. ABDOMEN: Soft, nontender. NEURO AND PSYCH: Alert and oriented to person, place and time. Normal affect. CARDIOVASCULAR MEDICATIONS: Reviewed. LABORATORY DATA: Reviewed. TELEMETRY MONITORING: Reveals normal sinus rhythm. IMPRESSION 1. Atrial fibrillation. 2. History of deep venous thrombosis and pulmonary embolism. 3. Hypertension. 4. Hyperlipidemia. 5. Diabetes mellitus. RECOMMENDATIONS: Heart rate is well controlled now. Continue warfarin for goal INR between 2 and 3. Continue rate control strategy. Job#: [id number] KYA
[2018-03-20] VITALS (7 sets, daily range): BP systolic 124–166; BP diastolic 63–86
[2018-03-20] MEDS: HYDROCODONE/APAP 7.5MG-325MG 1 EA TAB PO PRN ×3 (00:10→17:07)
[2018-03-20] MEDS: METOPROLOL TARTRATE 50 MG TAB PO SCH ×4 (00:39→17:55)
[2018-03-20] MEDS: MEROPENEM 1GM 100 ML IV SCH ×3 (03:45→19:37)
[2018-03-20] MEDS: LEVOTHYROXINE SODIUM 50 MCG TAB PO SCH (05:06)
--- NOTE | 2018-03-20 06:55 | NUR ---
Rounded with the power and recovery shift engineer nurse, patient aware of change. Patient in no distress, call perrin within reach, bed in lowest position.
--- NOTE | 2018-03-20 07:58 | NUR ---
Dr. Blackwell called regarding positive blood culture for ESBL, awaiting call back.
--- NOTE | 2018-03-20 08:00 | Progress Note ---
DATE: March 20, 2018 CARDIOLOGY PROGRESS NOTE SUBJECTIVE: No major events overnight. OBJECTIVE VITAL SIGNS: Temperature 96.8, pulse 80, respiratory rate 20, blood pressure 124/72, and satting 95% on room air. GENERAL: Elderly white female, no acute distress. CARDIOVASCULAR: Regular rate and rhythm. No murmurs, rubs, or gallops. Palpable carotid pulses. Palpable radial pulses LUNGS: Clear to auscultation bilaterally. ABDOMEN: Soft, nontender, nondistended. No masses. NEURO AND PSYCH: Alert and oriented to person, place, and time. Normal affect. CARDIOVASCULAR MEDICATIONS: Reviewed. LABORATORY DATA: Reviewed. TELEMETRY DATA: Reviewed, shows rate controlled atrial fibrillation. ASSESSMENT 1. Atrial fibrillation. 2. History of deep venous thrombosis and pulmonary embolism. 3. Hypertension. 4. Hyperlipidemia. 5. Diabetes. RECOMMENDATIONS: Heart rate well controlled. Continue warfarin with INR goal between 2 and 3 Echocardiogram results pending. Thank you for this consult. We will continue to follow. Job#: [id number] PSO
[2018-03-20] MEDS: NON-FORMULARY MEDICATION (Methenamine Hippurate 1 TAB) PO SCH ×2 (09:00→17:00)
--- NOTE | 2018-03-20 09:00 | NUR ---
PA for Dr. Blackwell making rounds and aware of Blood culture results.
[2018-03-20] MEDS: GLIMEPIRIDE 2 MG TAB PO SCH (09:33)
[2018-03-20] MEDS: FLUOXETINE HCL 20 MG CAP PO SCH (09:33)
[2018-03-20] MEDS: LISINOPRIL 20 MG TAB PO SCH ×2 (09:33→17:06)
[2018-03-20] MEDS: LIDOCAINE 5% PATCH TP SCH (09:33)
[2018-03-20] MEDS: FENOFIBRATE 145 MG TAB PO SCH (09:33)
[2018-03-20] MEDS: GABAPENTIN 300 MG CAP PO SCH ×3 (09:33→20:26)
--- NOTE | 2018-03-20 12:55 | Consultation ---
DATE OF CONSULTATION: REASON FOR CONSULTATION: UTI, recommendation on antibiotic with multidrug-resistant pathogen. HISTORY OF PRESENT ILLNESS: This patient, who is very well known to me, is a very pleasant 83-year-old white female with history of DVT, history of PE on Coumadin, history diabetes mellitus, hypertension, obesity, and hyperlipidemia. Apparently, she was found by her daughter at the house confused. The daughter called 911, the patient was admitted. The patient was given IV antibiotic. She is currently doing much better. 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 The patient has history of osteoarthritis, history of obesity, atrial fibrillation, history of DVT, and hypertension. Patient states since she came here, she is doing much better. LABORATORY DATA: Blood cultures showed ESBL E. coli, which was sensitive only to Invanz and meropenem. Her white count is 8.26, hemoglobin 12.2. Her sodium is 136, potassium 4.2, and creatinine 0.84. PHYSICAL EXAMINATION GENERAL: She is currently alert and oriented, does not seem to be in acute distress. VITAL SIGNS: Stable, currently afebrile. HEENT: Normocephalic, does not appear icteric. NECK: Supple. CHEST: Clear bilateral. HEART: S1, S2. No S3, S4, or murmur. ABDOMEN: Soft. Bowel sounds present. No tenderness. EXTREMITIES: No edema. SKIN: No rash. IMPRESSION AND PLAN 1. Sepsis on admission with pyelonephritis with multidrug-resistant ESBL. Agree with meropenem 500 IV q.6 hours. Discontinue Rocephin. Plan on 14 days since we start. 2. May need a PICC line. 3. Debility. 4. We will follow with you. Thank you for asking me to see this patient. Job#: [id number] KATHERINE
[2018-03-20] MEDS: WARFARIN SOD 2 MG TAB PO SCH (17:06)
--- NOTE | 2018-03-20 19:10 | NUR ---
Report given to oncoming shift and walking rounds done.
[2018-03-21] VITALS: BP 151/67
[2018-03-21] MEDS: METOPROLOL TARTRATE 50 MG TAB PO SCH ×3 (01:00→12:22)
[2018-03-21] MEDS: MEROPENEM 1GM 100 ML IV SCH ×2 (03:57→12:21)
[2018-03-21 04:00] VITALS: BP 160/73
[2018-03-21] MEDS: LEVOTHYROXINE SODIUM 50 MCG TAB PO SCH (04:33)
--- NOTE | 2018-03-21 05:11 | NUR ---
PATIENT'S BLOOD PRESSURE ELEVATED. ADMINISTERED METOPROLOL DOSE EARLY.
[2018-03-21 07:43] VITALS: BP 160/73
--- NOTE | 2018-03-21 07:49 | NUR ---
pt resting at this time, no c/o pain or s/s distress. will continue to monitor
[2018-03-21 08:00] VITALS: BP 134/64
[2018-03-21] MEDS: LIDOCAINE 5% PATCH TP SCH (08:59)
[2018-03-21] MEDS: LISINOPRIL 20 MG TAB PO SCH ×2 (08:59→16:05)
[2018-03-21] MEDS: GABAPENTIN 300 MG CAP PO SCH ×2 (08:59→16:04)
[2018-03-21] MEDS: FLUOXETINE HCL 20 MG CAP PO SCH (08:59)
[2018-03-21] MEDS: FENOFIBRATE 145 MG TAB PO SCH (08:59)
[2018-03-21] MEDS: GLIMEPIRIDE 2 MG TAB PO SCH (08:59)
[2018-03-21] MEDS: NON-FORMULARY MEDICATION (Methenamine Hippurate 1 TAB) PO SCH ×2 (08:59→15:53)
[2018-03-21] MEDS: HYDROCODONE/APAP 7.5MG-325MG 1 EA TAB PO PRN (09:06)
--- NOTE | 2018-03-21 11:51 | NUR ---
CM SPOKE TO PATIENT AT BEDSIDE REGARDING [facility]. PATIENT INFORMED OF [facility]. PATIENT GIVEN CHOICE AND CHOOSES [facility]. CHOICE LETTER SIGNED AND PLACED IN FRONT OF CHART. BASIL GARVIN, [facility] LIAISON PICKED UP CLINICAL. PENDING AUTH AND FACILITY APPROVAL FOR TRANSFER. MOT INITIATED AND PLACED IN PACKET ON FRONT OF CHART. PATIENT DISCHARGING TO [facility] H[facility]ITAL: [facility] Address: [address] [facility], [place] [address]
[2018-03-21 12:14] VITALS: BP 140/65
--- NOTE | 2018-03-21 14:34 | NUR ---
PATIENT ACCEPTED TO [facility]: PATIENT DISCHARGING TO [facility]: [facility] Address: [address], [place] [address] ROOM# [id number] CALL REPORT TO: ADMIN ON SITE: CLIFF BARRIENTOS, LOSS PREVENTION INVESTIGATOR RECEIVING PHYSICIAN: MAURICIO AYOUB MD
--- NOTE | 2018-03-21 14:49 | NUR ---
pt stable. report called to Cassia Puga for pt transfer.
[2018-03-21] MEDS: WARFARIN SOD 2 MG TAB PO SCH (16:05)
[2018-03-21 16:22] VITALS: BP 187/72
--- NOTE | 2018-03-21 16:56 | NUR ---
pt left via ems
== END 2018-03-21 16:48 | DRG 872 ==
LOC: ER 06:22 → ERHOLD 09:35 → IMCU 19:50 → OBSVTOIN 03-20 13:55
DX: A41.51 Sepsis due to Escherichia coli [E. coli] (principal); N39.0 Urinary tract infection, site not specified; M51.06 Intervertebral disc disorders with myelopathy, lumbar region; I48.91 Unspecified atrial fibrillation; Z79.01 Long term (current) use of anticoagulants; Z86.718 Personal history of other venous thrombosis and embolism; E78.5 Hyperlipidemia, unspecified; E11.9 Type 2 diabetes mellitus without complications; E66.9 Obesity, unspecified; Z68.30 Body mass index [BMI] 30.0-30.9, adult; Z16.12 Extended spectrum beta lactamase (ESBL) resistance; M54.5 Low back pain; M48.54XD Collapsed vertebra, not elsewhere classified, thoracic region, subsequent encounter for fracture with routine healing; M48.061 Spinal stenosis, lumbar region without neurogenic claudication; Z86.711 Personal history of pulmonary embolism
CPT/HCPCS: 36415; 51700; 70450; 71045; 72125; 72131; 72146; 72148; 80053; 80061; 81001; 82550; 82553; 82948; 83605; 83735; 84443; 84484; 85025; 85610; 85730; 87040; 87071; 87086; 87186; 87205; 93005; 93306; 96361; 96367; 99285; G0378; J0696; J1160; J7050

== ENCOUNTER 2018-10-25 17:23 | Inpatient (IN) | payer MEDICARE, OTHER ==
[~2018-10-25] VITALS: Ht 162.6 cm; Wt 80.1 kg
[~2018-10-25 17:23] MED LIST changes: +CEPHALEXIN250 MG PO; +METHENAMINE HIPP1 GM PO
--- NOTE | 2018-10-25 18:05 | NUR ---
DIRECT ADMISSION RECEIVED. PT IS AAOX4. PT FAMILY AT BEDSIDE. BED IS AT THE LOWEST POSITION AND LOCKED. CALL LIGHT WITH IN EASY REACH. PT DENIES NEEDS AT THIS TIME.
[2018-10-25 18:32] VITALS: BP 158/67
[2018-10-25] MEDS ORDERED: ACETAMINOPHEN 325 MG TAB PO PRN (18:45)
[2018-10-25 19:00] VITALS: BP 158/67
--- NOTE | 2018-10-25 19:00 | NUR ---
BEDSIDE SHIFT REPORT GIVEN TO THE DRUG PURCHASER RN. PT DENIED FURTHER NEEDS.
[2018-10-25] MEDS ORDERED: OMEPRAZOLE40 MG PO (19:15)
[2018-10-25] MEDS ORDERED: NORCO 7.5-3251 EACH PO (19:15)
[2018-10-25 19:29] VITALS: BP 181/77
[2018-10-25 19:30] VITALS: BP 181/77
[2018-10-25] MEDS ORDERED: SODIUM CHLORIDE 0.9% 1000ML 1,000 ML ONE (20:00)
--- NOTE | 2018-10-25 20:00 | NUR ---
Paged Dr. Yonatan Villa for insulin order clarification. Awaiting call back
[2018-10-25 20:11] LABS: BASOPHILS % 0.6 % (0.0-1.0); EOSINOPHILS # (AUTO) 0.2 (0.0-0.4); EOSINOPHILS % 3.6 % (0.0-6.0); HEMATOCRIT 35.4 % (34.2-44.1); HEMOGLOBIN 11.7 g/dL (12.0-16.0); LYMPHOCYTES # (AUTO) 1.8 (1.0-3.2); LYMPHOCYTES % 28.6 % (18.0-39.1); MEAN CORPUSCULAR HEMOGLOBIN 30.3 pg (28-32); MEAN CORPUSCULAR HGB CONC 33.1 g/dL (31-35); MEAN CORPUSCULAR VOLUME 91.7 fL (81-99); MONOCYTES # (AUTO) 0.7 (0.2-0.8); MONOCYTES % 10.2 % (4.4-11.3); NEUTROPHILS # (AUTO) 3.6 (2.1-6.9); NEUTROPHILS % 56.5 % (38.7-80.0); PLATELET COUNT 191 x10e3/uL (140-360); RED BLOOD COUNT 3.86 x10e6/uL (3.6-5.1); RED CELL DISTRIBUTION WIDTH 13.4 % (11.7-14.4)
[2018-10-25] MEDS: MEROPENEM 1GM 100 ML IV SCH (20:11)
[2018-10-25 20:25] LABS: INR 1.95; PROTHROMBIN TIME 22.9 seconds (11.9-14.5)
[2018-10-25 20:34] LABS: ALANINE AMINOTRANSFERASE 11 IU/L (0-55); ALBUMIN 3.4 g/dL (3.5-5.0); ALBUMIN/GLOBULIN RATIO 1.3 (0.8-2.0); ALKALINE PHOSPHATASE 42 IU/L (40-150); ANION GAP 13.8 mmol/L (8-16); BLOOD UREA NITROGEN 19 mg/dL (7-26); BUN/CREATININE RATIO 26 (6-25); CALCIUM 9.7 mg/dL (8.4-10.2); CARBON DIOXIDE 28 mmol/L (22-29); CHLORIDE 104 mmol/L (98-107); CREATININE, SERUM 0.74 mg/dL (0.57-1.11); EST GLOMERULAR FILTRATION RATE > 60 ML/MIN (60-); GLUCOSE 159 mg/dL (74-118); POTASSIUM 3.8 mmol/L (3.5-5.1); SODIUM 142 mmol/L (136-145)
[2018-10-25] MEDS: GABAPENTIN 300 MG CAP PO SCH (20:51)
--- NOTE | 2018-10-25 21:41 | NUR ---
Paged Dr. Yonatan Villa for insulin order clarification. Awaiting call back
--- NOTE | 2018-10-25 23:18 | NUR ---
Paged Dr. Yonatan Villa regarding elevated bp
[2018-10-25] MEDS ORDERED: DEXTROSE 50% SYRINGE 50 ML IV PRN (23:30)
--- NOTE | 2018-10-25 23:32 | NUR ---
Spoke with Dr. Villa, orders received.
[2018-10-25 23:45] VITALS: BP 204/77
[2018-10-26] VITALS (9 sets, daily range): BP systolic 150–204; BP diastolic 66–80
[2018-10-26] MEDS: LEVOTHYROXINE SODIUM 50 MCG TAB PO SCH (05:10)
[2018-10-26 06:21] LABS: BILIRUBIN,URINE NEGATIVE (NEGATIVE); CLARITY,URINE CLEAR (CLEAR); COLOR,URINE YELLOW (YELLOW); KETONES,URINE NEGATIVE (NEGATIVE); LEUKOCYTE ESTERASE ,URINE TRACE (NEGATIVE); NITRITE,URINE NEGATIVE (NEGATIVE); PROTEIN,URINE DIPSTICK TRACE (NEGATIVE); URINE UROBILINOGEN 0.2 mg/dL (0.2 - 1)
[2018-10-26 06:55] LABS: BACTERIA,URINE MODERATE /HPF; EPITHELIAL CELLS,URINE MANY /LPF; WBC,URINE (MAN) 21-50 /HPF (0-5)
--- NOTE | 2018-10-26 07:00 | NUR ---
BEDSIDE SHIFT REPORT RECEIVED FROM THE HYPERTRICHOLOGIST RN. PT DENIES NEEDS AT THIS TIME.
[2018-10-26] MEDS: INSULIN LISPRO 100 UNIT/1 ML 3ML VIAL SQ SCH ×4 (07:30→20:31)
[2018-10-26] MEDS: GLIMEPIRIDE 2 MG TAB PO SCH (07:58)
[2018-10-26] MEDS: AMLODIPINE BESYLATE 5 MG TAB PO SCH ×2 (08:00→16:40)
[2018-10-26] MEDS: LISINOPRIL 10 MG TAB PO SCH ×2 (08:00→16:40)
[2018-10-26] MEDS: GABAPENTIN 300 MG CAP PO SCH ×3 (08:00→20:31)
[2018-10-26] MEDS: FLUOXETINE HCL 20 MG CAP PO SCH (08:01)
[2018-10-26] MEDS: PANTOPRAZOLE SOD 40 MG TABEC PO SCH (08:01)
[2018-10-26] MEDS: FENOFIBRATE 145 MG TAB PO SCH (08:01)
[2018-10-26] MEDS: MEROPENEM 1GM 100 ML IV SCH ×2 (08:03→20:50)
--- NOTE | 2018-10-26 11:05 | NUR ---
Visit made by the Spiritual Care Department Pastoral Visitor, Linn Balbuena. PV provided pastoral presence, prayer, hospitality, and supportive listening. Pastoral Visitor informed pt/family of the scope of Records Administrator Services and availability. BENITA BARTON [employer] Spiritual Care Department O: [phone] Pager: [phone] ([phone] number calling from)
--- NOTE | 2018-10-26 12:00 | NUR ---
DR. AYOUB AT BEDSIDE TO SEE THE PTCindy SILVA TO ADMINISTER METOPROLOL PER THE
[2018-10-26] MEDS: METOPROLOL TARTRATE 50 MG TAB PO SCH ×2 (12:14→16:40)
--- NOTE | 2018-10-26 13:27 | NUR ---
PT OFF UNIT FOR PROCEDURE IN SAFE CONDITION.
--- NOTE | 2018-10-26 14:08 | NUR ---
PT BACK TO UNIT AFTER PROCEDURE. PT DENIES NEEDS AT THIS TIME.
--- NOTE | 2018-10-26 14:50 | Diagnostic Imaging Report ---
EXAMINATION: PA and lateral views of the chest. COMPARISON: No prior chest are available. MRI thoracic spine 03/17/2018 CLINICAL HISTORY: Chest congestion, cough DISCUSSION: Lines/tubes: Right upper chest Port-A-Cath, with catheter distal tip projecting in the right atrium. Lungs: The lungs are well inflated. 1.3 x 1.2 cm nodular density in the anterior aspect of the right lower lobe. Rest of the lungs is clear. There is no evidence of pneumonia or pulmonary edema. Pleura: There is no pleural effusion or pneumothorax. Heart and mediastinum: Mild enlargement of the cardiac silhouette. Pulmonary vasculature is normal. Atherosclerotic calcification of the thoracic and abdominal aorta Bones and soft tissues: No acute bony abnormalities. Anterior wedging of a T11 vertebral body, consistent with compression fracture, relatively stable since MRI of thoracic spine 03/17/2018 IMPRESSION: 1. Mild enlargement of the cardiac silhouette, without acute cardiopulmonary abnormalities. No consolidation or effusion. 2. 1.2 x 1.2 cm pulmonary nodule in the right lower lobe, which is indeterminate. Prior films, if available, would be helpful for comparison. Given the presence of a Port-A-Cath, this may represent a primary or metastatic lesion. 3. Old T11 compression fracture. Signed by: Dr. Juan Francisco Herrera M.D. on 10/26/2018 2:47 PM
--- NOTE | 2018-10-26 15:26 | NUR ---
dictated uti mdr
--- NOTE | 2018-10-26 15:31 | NUR ---
Nutrition Screen Note RD Recommendation for Physician: -Continue diet as ordered Plan of Care: RD following, monitoring for tolerance and adequacy Nutrition reason for involvement: Nutrition Risk Trigger MST Primary Diagnose(s): sepsis due to UTI PMH: DVT/PE, on warfarin, diabetes mellitus, hypertension, and hyperlipidemia Ht: 64in Wt: 176.5lb BMI: 30.3kg/m2 IBW: 120lb +/- 10% RD Assessment: (10/26) Chart reviewed. Labs and meds reviewed. 83yo F, who was admitted for UTI. Pending urine culture. Visited pt in the room. Pt reported good appetite without any GI complains. Pt denied any chewing or swallowing difficulty. Weight has been stable. Current diet is adequate and appropriate. Current Diet: ADA 1800 Malnutrition Evaluation (10/26/2018) The patient does not meet criteria for a specified degree of malnutrition at this time. Will re-evaluate at follow-up as appropriate. Diet Education Needs Assessment: Diet education not indicated. Nutrition Care Level: low Signed: Ivory Araujo, MS, RD, LD
--- NOTE | 2018-10-26 16:17 | NUR ---
OKAY TO GIVE COUMADIN TAB PER DR. AYOUB.
[2018-10-26] MEDS: WARFARIN SOD 1 MG TAB PO SCH (16:39)
--- NOTE | 2018-10-26 18:30 | NUR ---
PT C/O PAIN. LEFT FORE ARM 22 G IV REMOVED. TIP INTACT. NO BLEEDING NOTED. DRESSING APPLIED. PT DENIED FURTHER NEEDS.
--- NOTE | 2018-10-26 19:00 | NUR ---
BEDSIDE SHIFT REPORT GIVEN TO THE AUTOMATION QA TESTER RN. PT DENIED FURTHER NEEDS.
--- NOTE | 2018-10-26 20:40 | NUR ---
START NEW IV TO LEFT FOREARM 20G. PATIENT TOLERATED WELL
--- NOTE | 2018-10-26 21:50 | NUR ---
PAGED DR AYOUB REGARDING TO HIGH BP
--- NOTE | 2018-10-26 22:09 | Consultation ---
DATE OF CONSULTATION: REASON FOR CONSULTATION: UTI. HISTORY OF PRESENT ILLNESS: This patient is a very pleasant and well known to me, 83-year-old white female, comes in with urgency, frequency, and fever and chills. The patient saw Dr. Richie Villa, did urine cultures showed ESBL. The patient is known to have history of bacteriuria with ESBL. She has had history of multiple pyelonephritis before. The patient is being admitted and I am asked to see her. The patient is well known to me, who has history of obesity, DVT, pulmonary embolism, diabetes mellitus, hypertension, and hyperlipidemia. PAST SURGICAL HISTORY: Hysterectomy, bladder suspension. SOCIAL HISTORY: She used to smoke 2 packs a day for 25 years, but quit at age 39. No drug abuse or alcohol abuse. FAMILY HISTORY: Coronary artery disease. REVIEW OF SYSTEMS: HEENT: There is no headache, visual changes, or hearing changes. GI: There is no nausea, no vomiting, no diarrhea. JOINTS: There is chronic aches and pain. LABORATORY DATA: Reviewed. White count 6.44, hemoglobin 11.7, hematocrit 35. Today's sodium 142, potassium 3.8, creatinine 0.74, glucose 165. PHYSICAL EXAMINATION: GENERAL: She is currently alert, oriented, does not seem to be in acute distress. VITAL SIGNS: Stable. Currently afebrile. HEENT: She is not icteric. NECK: Supple. No JVD. No lymphadenopathy. No thyromegaly. CHEST: Clear bilaterally. HEART: S1, S2. No S3, S4. ABDOMEN: Soft. Bowel sounds present. No tenderness. EXTREMITIES: No edema. SKIN: There is no rash. MEDICATIONS: Medication list reviewed. She is currently on insulin, Lopressor, meropenem, Protonix, Norvasc, Neurontin, Synthroid. IMPRESSION: Urinary tract infection with multidrug resistant. Agree with meropenem. We will change to 500 IV every 8 hours. Recheck CBC. Recheck Chem panel. Other medical problems as above. Clinically, seems to be stable. We will follow. MD SEBASTIEN Hood/MAXIME /[id number]
--- NOTE | 2018-10-26 22:43 | NUR ---
SPOKE TO DR AYOUB ABOUT HIGH BP. NEW ORDER RECEIVED.
[2018-10-26] MEDS: HYDROCODONE/APAP 7.5MG-325MG 1 EA TAB PO SCH (23:08)
[2018-10-26] MEDS: HYDRALAZINE HCL 25 MG TAB PO SCH (23:10)
[2018-10-27] VITALS (8 sets, daily range): BP systolic 127–178; BP diastolic 62–84
[2018-10-27] MEDS: LEVOTHYROXINE SODIUM 50 MCG TAB PO SCH (04:59)
[2018-10-27] MEDS: HYDROCODONE/APAP 7.5MG-325MG 1 EA TAB PO SCH (04:59)
[2018-10-27] MEDS ORDERED: HYDROCODONE/APAP 7.5MG-325MG 1 EA TAB PO PRN (05:15)
--- NOTE | 2018-10-27 07:15 | NUR ---
PATIENT IN BED WITH HEAD OF BED ELEVATED WATCHING TV, NO S/S OF DISTRESS NOTED. DENIED PAIN AT THIS TIME. BED IN LOWER POSITION, CALL LIGHT AT REACH.
[2018-10-27] MEDS: INSULIN LISPRO 100 UNIT/1 ML 3ML VIAL SQ SCH ×4 (07:30→20:39)
[2018-10-27] MEDS: GLIMEPIRIDE 2 MG TAB PO SCH (09:21)
[2018-10-27] MEDS: MEROPENEM 1GM 100 ML IV SCH ×2 (09:21→21:04)
[2018-10-27] MEDS: PANTOPRAZOLE SOD 40 MG TABEC PO SCH (09:22)
[2018-10-27] MEDS: METOPROLOL TARTRATE 50 MG TAB PO SCH ×2 (09:22→17:24)
[2018-10-27] MEDS: FENOFIBRATE 145 MG TAB PO SCH (09:22)
[2018-10-27] MEDS: AMLODIPINE BESYLATE 5 MG TAB PO SCH ×2 (09:22→17:24)
[2018-10-27] MEDS: GABAPENTIN 300 MG CAP PO SCH ×3 (09:22→21:04)
[2018-10-27] MEDS: LISINOPRIL 10 MG TAB PO SCH ×2 (09:22→17:25)
[2018-10-27] MEDS: FLUOXETINE HCL 20 MG CAP PO SCH (09:22)
--- NOTE | 2018-10-27 10:53 | NUR ---
SPOKE WITH MD REGARDING BODY RASH, NEW ORDER RECEIVED.
--- NOTE | 2018-10-27 12:44 | NUR ---
CM SPOKE TO PATIENT AT BEDSIDE REGARDING DISCHARGE PLAN AND PLAN OF CARE. PATIENT AWARE DR. AYOUB WANTS TO TRANSFER TO [facility]. PATIENT REQUESTS [facility]. CLINICAL PICKED UP BY THEODORE GARVIN. CHOICE LETTER SIGNED AND PLACED IN CHART. PENDING INSURANCE AUTH. PLANS TO DISCHARGE TOMORROW MORNING. [facility] Address: [address], [place] [address] MOT INITIATED AND GIVEN TO WAFER FABRICATION OPERATOR
[2018-10-27] MEDS: HYDRALAZINE HCL 25 MG TAB PO SCH ×2 (14:40→21:04)
--- NOTE | 2018-10-27 15:52 | NUR ---
PATIENT ASSISTED WITH SHOWER. OUT OF BED TO CHAIR TALKING TO FAMILY MEMBER VISITING. CALL LIGHT AT REACH.
[2018-10-27] MEDS: WARFARIN SOD 1 MG TAB PO SCH (17:24)
[2018-10-27] MEDS: NYSTATIN/TRIAMCINOLONE 15 GM CR TOP SCH (17:59)
--- NOTE | 2018-10-27 22:30 | NUR ---
START NEW IV TO LEFT FOREARM 22G. PATIENT TOLERATED WELL
[2018-10-28 04:30] VITALS: BP 140/62
[2018-10-28] MEDS: LEVOTHYROXINE SODIUM 50 MCG TAB PO SCH (05:49)
--- NOTE | 2018-10-28 07:00 | NUR ---
RCD PT AT BED PT IS ALERT AND ORIENTED RESTING ON BED NO SIGNS OF ANY DISTRESS NOTED IV PATENT BED LOW AND LOCKED CALL LIGHT IN REACH
[2018-10-28] MEDS: INSULIN LISPRO 100 UNIT/1 ML 3ML VIAL SQ SCH ×3 (07:30→16:30)
[2018-10-28 07:55] VITALS: BP 164/72
[2018-10-28] MEDS: MEROPENEM 1GM 100 ML IV SCH (08:00)
[2018-10-28] MEDS: GLIMEPIRIDE 2 MG TAB PO SCH (08:00)
[2018-10-28 09:00] VITALS: BP 164/72
[2018-10-28] MEDS: AMLODIPINE BESYLATE 5 MG TAB PO SCH ×2 (09:00→17:00)
[2018-10-28] MEDS: METOPROLOL TARTRATE 50 MG TAB PO SCH ×2 (09:00→17:00)
[2018-10-28] MEDS: GABAPENTIN 300 MG CAP PO SCH ×2 (09:00→15:00)
[2018-10-28] MEDS: LISINOPRIL 10 MG TAB PO SCH ×2 (09:00→17:00)
[2018-10-28] MEDS: FENOFIBRATE 145 MG TAB PO SCH (09:00)
[2018-10-28] MEDS: FLUOXETINE HCL 20 MG CAP PO SCH (09:00)
[2018-10-28] MEDS: PANTOPRAZOLE SOD 40 MG TABEC PO SCH (09:00)
[2018-10-28] MEDS: HYDRALAZINE HCL 25 MG TAB PO SCH ×2 (09:00→15:00)
[2018-10-28] MEDS: NYSTATIN/TRIAMCINOLONE 15 GM CR TOP SCH ×2 (09:00→17:00)
--- NOTE | 2018-10-28 10:34 | NUR ---
PAGED DR AYOUB TO GET AN ORDER TO ACCESS TO PORT A CATH
--- NOTE | 2018-10-28 10:50 | NUR ---
DR AYOUB RETURNED CALL AND GOT THE ORDER TO ACCESS OF PORT A CATH
[2018-10-28 11:56] VITALS: BP 162/69
--- NOTE | 2018-10-28 14:20 | NUR ---
PT WENT TO PROCEDURE IN SAFE CONDITION
--- NOTE | 2018-10-28 14:49 | NUR ---
PT BACK AFTER THE PROCEDURE
[2018-10-28] MEDS ORDERED: SODIUM CHLORIDE 0.9% 50ML 50 ML ONE (14:50)
[2018-10-28] MEDS ORDERED: IOPAMIDOL 370 MG/ML 200 ML INFUS..BTL INJ ONE (14:51)
--- NOTE | 2018-10-28 15:00 | Diagnostic Imaging Report ---
EXAM: CT Chest WITH intravenous contrast 10/28/2018 9:54 AM INDICATION: Pulmonary Nodule COMPARISON: None TECHNIQUE: Chest was scanned utilizing a multidetector helical scanner from the lung apex through the level of the adrenal glands after administration of IV contrast. Coronal and sagittal reformations were obtained. Routine protocol was performed. IV CONTRAST: 100mL Isovue 370 RADIATION DOSE: Total DLP: 549 mGy*cm. Dose modulation, iterative reconstruction, and/or weight based adjustment of the mA/kV was utilized to reduce the radiation dose to as low as reasonably achievable. COMPLICATIONS: None FINDINGS: LINES/ TUBES: Right IJ tunneled chest port with tip terminating at the superior cavoatrial junction. LUNGS AND AIRWAYS: The central airways are patent. No focal consolidation or pulmonary edema. The nodular opacity seen on the prior chest radiograph of 10/26/2018 corresponds with a 13 mm right lower lobe calcified granuloma. Mild bibasilar dependent subsegmental atelectasis. No suspicious pulmonary nodules. PLEURA: No pleural effusion or pneumothorax. HEART AND MEDIASTINUM: The thyroid gland appears unremarkable. No supraclavicular lymphadenopathy. Several prominent paratracheal lymph nodes measure below 1 cm short axis and do not meet size criteria for lymphadenopathy. No hilar lymphadenopathy. Several subcentimeter calcified right hilar lymph nodes. No axillary, subpectoral, or internal mammary lymphadenopathy. The heart is at the upper limits of normal for size. No pericardial effusion. Scattered atherosclerotic calcifications of the coronary arteries. UPPER ABDOMEN: There is a 1 cm hypodense segment 4 lesion, too small to adequately assess on this single phase postcontrast image. Diffusely decreased hepatic parenchymal attenuation consistent with hepatic steatosis. Status post cholecystectomy. Coarse calcified granulomas throughout the nonenlarged spleen. The partially visualized kidneys appear unremarkable. The adrenal glands appear normal. The pancreas appears normal. BONES: Unchanged T11 compression fracture. No acute osseous injury. Diffuse osteopenia. Degenerative changes of the visualized spine. No suspicious lytic or blastic lesions. SOFT TISSUES: Unremarkable. IMPRESSION: Pulmonary nodule identified on prior chest radiograph corresponds with right lower lobe calcified granuloma. Along with calcified subcentimeter right hilar lymph nodes, this likely represents sequela of prior granulomatous disease. No suspicious pulmonary nodules. Atherosclerotic coronary artery calcifications. Hepatic steatosis. 1 cm segment 4 hypodense lesion is too small to adequately assess on this single phase contrast-enhanced chest CT. Hepatic ultrasound can be considered for further evaluation. Signed by: Chikis Reyes MD on 10/28/2018 2:57 PM
--- NOTE | 2018-10-28 15:35 | NUR ---
REPORT GIVEN TO JENNIFER AT [facility] AND NOTIFIED BOW REHAIRER
[2018-10-28 15:57] VITALS: BP 152/70
--- NOTE | 2018-10-28 16:06 | Progress Note ---
DATE: SUBJECTIVE: Ms. Chong is doing well. No new complaints. REVIEW OF SYSTEMS: HEENT: Negative. PULMONARY: Negative. CARDIAC: Negative. : Negative. GI: Negative. MEDICATIONS: Her medication list also reviewed. She is on hydralazine, Norvasc, Prozac, gabapentin, and meropenem. LABORATORY DATA: Her lab reviewed. White count 6.44. Her urine cultures came back negative. She had a CT of the chest, it showed pulmonary nodules corresponds with right lower lobe calcified granuloma, sequela of prior granulomatous disease. PHYSICAL EXAMINATION: GENERAL: She is currently alert, oriented, does not seem to be in acute distress. VITAL SIGNS: Stable, currently afebrile. HEENT: She is not icteric. NECK: Supple. No JVD. No carotid. No thyromegaly. CHEST: Clear bilateral. HEART: S1, S2. No S3, S4 or murmurs. ABDOMEN: Soft. Bowel sounds present. No tenderness. EXTREMITIES: No edema. IMPRESSION AND PLAN: Urinary tract infection, clinically resolved. Negative cultures, can discontinue antibiotic. Further recommendations to follow. MD SEBASTIEN Hood/MAXIME /[id number]
[2018-10-28] MEDS: WARFARIN SOD 1 MG TAB PO SCH (17:00)
--- NOTE | 2018-10-28 18:38 | NUR ---
PT DISCHARGED TO [facility] IN SAFE CONDITION
== END 2018-10-28 19:06 | DRG 872 ==
LOC: MED/SURG2 17:44
DX: A41.9 Sepsis, unspecified organism (principal); N39.0 Urinary tract infection, site not specified; E11.9 Type 2 diabetes mellitus without complications; I10 Essential (primary) hypertension; I48.91 Unspecified atrial fibrillation; G89.29 Other chronic pain; B96.20 Unspecified Escherichia coli [E. coli] as the cause of diseases classified elsewhere; Z16.12 Extended spectrum beta lactamase (ESBL) resistance; Z87.440 Personal history of urinary (tract) infections; E66.9 Obesity, unspecified; Z86.718 Personal history of other venous thrombosis and embolism; Z86.711 Personal history of pulmonary embolism; E78.5 Hyperlipidemia, unspecified; Z87.891 Personal history of nicotine dependence; Z88.1 Allergy status to other antibiotic agents; Z88.5 Allergy status to narcotic agent; Z88.8 Allergy status to other drugs, medicaments and biological substances; Z79.4 Long term (current) use of insulin; E03.9 Hypothyroidism, unspecified; K21.9 Gastro-esophageal reflux disease without esophagitis; R91.8 Other nonspecific abnormal finding of lung field; Z79.01 Long term (current) use of anticoagulants; Z68.30 Body mass index [BMI] 30.0-30.9, adult
CPT/HCPCS: 36415; 71046; 71260; 80053; 81001; 82948; 85025; 85610; 87086; 97139; J7030; Q9967

== ENCOUNTER 2019-01-08 12:27 | Inpatient (IN) | payer MEDICARE, OTHER ==
[~2019-01-08] VITALS: Ht 162.6 cm; Wt 79.4 kg
[~2019-01-08 12:27] MED LIST changes: +OMEPRAZOLE40 MG PO
[2019-01-08 13:45] LABS: BILIRUBIN,URINE NEGATIVE (NEGATIVE); CLARITY,URINE CLEAR (CLEAR); COLOR,URINE YELLOW (YELLOW); KETONES,URINE NEGATIVE (NEGATIVE); LEUKOCYTE ESTERASE ,URINE TRACE (NEGATIVE); NITRITE,URINE NEGATIVE (NEGATIVE); PROTEIN,URINE DIPSTICK 1+ (NEGATIVE); URINE UROBILINOGEN 0.2 mg/dL (0.2 - 1)
[2019-01-08 13:49] LABS: BASOPHILS % 0.7 % (0.0-1.0); EOSINOPHILS # (AUTO) 0.1 (0.0-0.4); EOSINOPHILS % 2.4 % (0.0-6.0); HEMATOCRIT 36.5 % (34.2-44.1); HEMOGLOBIN 11.9 g/dL (12.0-16.0); LYMPHOCYTES # (AUTO) 1.2 (1.0-3.2); LYMPHOCYTES % 19.9 % (18.0-39.1); MEAN CORPUSCULAR HEMOGLOBIN 29.7 pg (28-32); MEAN CORPUSCULAR HGB CONC 32.6 g/dL (31-35); MONOCYTES # (AUTO) 0.5 (0.2-0.8); MONOCYTES % 8.2 % (4.4-11.3); NEUTROPHILS % 68.5 % (38.7-80.0); PLATELET COUNT 216 x10e3/uL (140-360); RED BLOOD COUNT 4.01 x10e6/uL (3.6-5.1)
[2019-01-08] MEDS ORDERED: SODIUM CHLORIDE 0.9% 1000ML 1,000 ML IV SCH (13:52)
--- NOTE | 2019-01-08 13:52 | NUR ---
PATIENT AMBULATED TO BATHROOM WITH WALKER. URINE/STOOL MIXED, UNABLE TO USE FOR STOOL SAMPLE
[2019-01-08 13:55] LABS: INR 2.22; PARTIAL THROMBOPLASTIN TIME 52.2 seconds (23.8-35.5); PROTHROMBIN TIME 25.3 seconds (11.9-14.5)
[2019-01-08] MEDS ORDERED: ONDANSETRON HCL INJ 2MG/ML 2ML 2 MG/ML VIAL IV PRN (14:00)
[2019-01-08] MEDS ORDERED: SODIUM CHLORIDE 0.9% 500ML 500 ML IV ONE (14:00)
[2019-01-08] MEDS ORDERED: DEXTROSE 50% SYRINGE 50 ML IV PRN (14:00)
[2019-01-08] MEDS ORDERED: HYDROCODONE/APAP 7.5MG-325MG 1 EA TAB PO PRN (14:00)
[2019-01-08] MEDS ORDERED: VANCOMYCIN 250MG/5ML ORAL SOLN PO SCH (14:00)
[2019-01-08] MEDS ORDERED: MEROPENEM 1GM 100 ML IV SCH (14:00)
[2019-01-08 14:02] LABS: ALANINE AMINOTRANSFERASE 10 IU/L (0-55); ALBUMIN 3.5 g/dL (3.5-5.0); ALBUMIN/GLOBULIN RATIO 1.2 (0.8-2.0); ALKALINE PHOSPHATASE 30 IU/L (40-150); ANION GAP 10.9 mmol/L (8-16); BLOOD UREA NITROGEN 10 mg/dL (7-26); BUN/CREATININE RATIO 15 (6-25); CALCIUM 9.5 mg/dL (8.4-10.2); CARBON DIOXIDE 29 mmol/L (22-29); CHLORIDE 102 mmol/L (98-107); CREATINE KINASE 55 IU/L (29-168); CREATININE, SERUM 0.67 mg/dL (0.57-1.11); EST GLOMERULAR FILTRATION RATE > 60 ML/MIN (60-); GLUCOSE 139 mg/dL (74-118); POTASSIUM 3.9 mmol/L (3.5-5.1); SODIUM 138 mmol/L (136-145)
[2019-01-08 14:09] LABS: BACTERIA,URINE RARE /HPF; EPITHELIAL CELLS,URINE FEW /LPF
[2019-01-08 14:17] LABS: B-TYPE NATRIURETIC PEPTIDE2 482.9 pg/mL (0-100)
[2019-01-08 15:20] VITALS: BP 210/103
[2019-01-08 15:40] VITALS: BP 210/103
--- NOTE | 2019-01-08 15:40 | NUR ---
PATIENT RECEIVED FROM ER PER STRETCHER. ALERT AND VERBALLY RESPONSIVE. DENIED PAIN OR DISCOMFORT AT THIS TIME. SKIN WARM AND DRY TO TOUCH, RESPIRATION EVEN AND UNLABORED. ABDOMEN SOFT AND NON DISTENDED, STATED THAT SHE HAD MULTIPLE LOOSE STOOL. HAT PROVIDED FOR STOOL SPECIMEN COLLECTION. ABLE TO AMBULATED WITH HER WALKER TO THE RESTROOM, VOIDED LARGE AMOUNT OF YELLOW URINE. PATIENT ORIENTED TO SURROUNDINGS. BED IN LOWER POSITION AND LOCKED. CALL LIGHT AT REACH, INSTRUCTED TO CALL FOR ASSISTANCE NEEDED.
[2019-01-08] MEDS: INSULIN LISPRO 100 UNIT/1 ML 3ML VIAL SQ SCH ×2 (16:30→20:48)
[2019-01-08] MEDS: SODIUM CHLORIDE 0.9% 1000ML 1,000 ML IV SCH (16:58)
[2019-01-08] MEDS: GABAPENTIN 300 MG CAP PO SCH ×2 (16:58→20:48)
[2019-01-08] MEDS: METOPROLOL TARTRATE 50 MG TAB PO SCH (16:58)
[2019-01-08] MEDS: LISINOPRIL 10 MG TAB PO SCH (16:59)
[2019-01-08] MEDS ORDERED: METOPROLOL TARTRATE 50 MG TAB PO SCH (17:00)
[2019-01-08] MEDS ORDERED: LISINOPRIL 10 MG TAB PO SCH (17:00)
[2019-01-08] MEDS ORDERED: WARFARIN SOD 1 MG TAB PO SCH (17:30)
[2019-01-08] MEDS: VANCOMYCIN 250MG/5ML ORAL SOLN PO SCH ×2 (18:07→23:37)
[2019-01-08 19:46] VITALS: BP 187/87
[2019-01-08 20:27] VITALS: BP 187/87
[2019-01-09] VITALS (8 sets, daily range): BP systolic 156–195; BP diastolic 64–99
[2019-01-09] MEDS: MEROPENEM 1GM 100 ML IV SCH ×2 (01:39→18:30)
[2019-01-09] MEDS: VANCOMYCIN 250MG/5ML ORAL SOLN PO SCH ×4 (05:27→23:47)
[2019-01-09] MEDS: LEVOTHYROXINE SODIUM 50 MCG TAB PO SCH (05:27)
[2019-01-09] MEDS: SODIUM CHLORIDE 0.9% 1000ML 1,000 ML IV SCH ×3 (05:43→19:25)
[2019-01-09] MEDS: INSULIN LISPRO 100 UNIT/1 ML 3ML VIAL SQ SCH ×4 (07:30→20:01)
[2019-01-09] MEDS: METOPROLOL TARTRATE 50 MG TAB PO SCH ×2 (08:14→17:18)
[2019-01-09] MEDS: GABAPENTIN 300 MG CAP PO SCH ×3 (08:14→20:32)
[2019-01-09] MEDS: LISINOPRIL 10 MG TAB PO SCH ×2 (08:14→17:17)
[2019-01-09] MEDS: PANTOPRAZOLE SOD 40 MG TABEC PO SCH (08:14)
--- NOTE | 2019-01-09 10:52 | NUR ---
pt ambulated to bathroom with walker and standby assist; pt had BM and voided urine simultaneously; unable to acquire stool specimen for occult and C. diff testing.
[2019-01-09] MEDS ORDERED: XARELTO10 MG PO (16:47)
[2019-01-09] MEDS ORDERED: DIPHENHYDRAMINE HCL 25 MG CAP PO PRN (17:00)
[2019-01-09] MEDS: HYDROCODONE/APAP 7.5MG-325MG 1 EA TAB PO SCH ×2 (17:18→23:47)
[2019-01-09] MEDS: METHENAMINE HIPPURATE 1 GM PO SCH (17:34)
--- NOTE | 2019-01-09 17:40 | NUR ---
accessed with 3/4 inch Medley needle, good blood return.
--- NOTE | 2019-01-09 18:06 | NUR ---
01/08/19 late entry [id number]
--- NOTE | 2019-01-09 20:10 | NUR ---
BLOOD PRESSURE RECHECKED MANUALLY 174/ 92 MMHG. PATIENT IS ASYMPTOMATIC.
[2019-01-10] VITALS: BP 189/81
--- NOTE | 2019-01-10 00:09 | Consultation ---
DATE OF CONSULTATION: 01/08/2019 The patient was seen on 01/08. Discussed with the patient. Discussed with Internal Medicine. HISTORY OF PRESENT ILLNESS: This patient is well known to me from the admission. She is a very pleasant 84-year-old female, who called me earlier today complaining of fever and chills and not feeling well. I told the patient to come to emergency room. In the emergency room, she was noted to have fever and chills. She says she is feeling really bad. She comes here. She said she is having fever and chills, not feeling well, suprapubic pain. She is known to have history of recurrent urinary tract infection with bacteria. She does take a couple of antibiotic prophylaxis. The patient also is having diarrhea and I was not so sure if there is no blood or pus in it. She was seen in the emergency room. In the emergency room, she was evaluated. Discussed with the ER physician and admitted and started on meropenem and oral vancomycin. I told them to obtain blood cultures, urine cultures, as well as sounds for Clostridium difficile. REVIEW OF SYSTEMS: She is just feeling weak, not doing well, fever, chills, suprapubic discomfort, some nausea, but no vomiting. She feels urgency frequency, although this has been a chronic problem to her. HEENT: Negative. PULMONARY: Negative. CARDIAC: Negative. GENITOURINARY: As above. GASTROINTESTINAL: Nausea as above and diarrhea. LABORATORY DATA: Reviewed her white count was 5.4 and hemoglobin 11. Her sodium 138, potassium 3.9, and creatinine 0.67. PHYSICAL EXAMINATION: GENERAL: She is currently alert, oriented, does not seem to be in acute distress. VITAL SIGNS: Stable, currently afebrile. HEENT: She is not icteric. NECK: Supple. CHEST: Clear. HEART: S1 and S2. No murmurs. ABDOMEN: Soft. Bowel sounds present. EXTREMITIES: No edema. SKIN: No rash. IMPRESSION: 1. Sepsis, fever, and chills. I am not sure if she has pyelonephritis and urinary tract infection versus Clostridium difficile. The plan to obtain blood cultures, urine cultures, stools for Clostridium difficile, to put her on vancomycin p.o. and IV meropenem till we get the information. 2. History of bacteria. 3. History of congestive heart failure. 4. Debility. 5. We will follow. Discussed with the patient. Discussed with the medical team. MD SEBASTIEN Hood/MAXIME /[id number]
--- NOTE | 2019-01-10 02:15 | NUR ---
BLOOD PRESSURE IMPROVED 150/62 MMHG.
[2019-01-10] MEDS: MEROPENEM 1GM 100 ML IV SCH (02:33)
[2019-01-10 04:00] VITALS: BP 170/86
[2019-01-10] MEDS: HYDROCODONE/APAP 7.5MG-325MG 1 EA TAB PO SCH ×2 (05:29→12:00)
[2019-01-10] MEDS: VANCOMYCIN 250MG/5ML ORAL SOLN PO SCH ×2 (05:29→12:00)
[2019-01-10] MEDS: LEVOTHYROXINE SODIUM 50 MCG TAB PO SCH (05:29)
[2019-01-10 06:48] LABS: BASOPHILS % 0.4 % (0.0-1.0); EOSINOPHILS # (AUTO) 0.2 (0.0-0.4); EOSINOPHILS % 4.6 % (0.0-6.0); HEMATOCRIT 28.9 % (34.2-44.1); HEMOGLOBIN 9.2 g/dL (12.0-16.0); LYMPHOCYTES # (AUTO) 0.7 (1.0-3.2); LYMPHOCYTES % 16.3 % (18.0-39.1); MEAN CORPUSCULAR HEMOGLOBIN 30.2 pg (28-32); MEAN CORPUSCULAR HGB CONC 31.8 g/dL (31-35); MEAN CORPUSCULAR VOLUME 94.8 fL (81-99); MONOCYTES # (AUTO) 0.5 (0.2-0.8); MONOCYTES % 11.7 % (4.4-11.3); NEUTROPHILS % 66.6 % (38.7-80.0); PLATELET COUNT 134 x10e3/uL (140-360); RED BLOOD COUNT 3.05 x10e6/uL (3.6-5.1); RED CELL DISTRIBUTION WIDTH 14.2 % (11.7-14.4)
[2019-01-10] MEDS: INSULIN LISPRO 100 UNIT/1 ML 3ML VIAL SQ SCH ×2 (07:30→11:30)
--- NOTE | 2019-01-10 07:34 | NUR ---
PATIENT ASSISTED TO THE BED SIDE COMMODE AND BACK TO BED, VOIDED LARGE AMOUNT OF CLEAR YELLOW URINE. RIGHT CHEST PORT A CATH INTACT, IV FLUID INFUSING ORDERED. BED IN LOWER POSITION, CALL LIGHT AT REACH.
[2019-01-10 07:40] VITALS: BP 147/86
[2019-01-10 07:43] LABS: BLOOD UREA NITROGEN 11 mg/dL (7-26); BUN/CREATININE RATIO 17 (6-25); CALCIUM 8.8 mg/dL (8.4-10.2); CARBON DIOXIDE 27 mmol/L (22-29); CHLORIDE 106 mmol/L (98-107); CREATININE, SERUM 0.66 mg/dL (0.57-1.11); EST GLOMERULAR FILTRATION RATE > 60 ML/MIN (60-); GLUCOSE 107 mg/dL (74-118); SODIUM 139 mmol/L (136-145)
[2019-01-10 08:00] VITALS: BP 147/86
[2019-01-10] MEDS ORDERED: GLIMEPIRIDE 2 MG TAB PO SCH (08:00)
[2019-01-10] MEDS ORDERED: FLUOXETINE HCL 20 MG CAP PO SCH (09:00)
[2019-01-10] MEDS ORDERED: RIVAROXABAN 15 MG TABLET PO SCH (09:00)
[2019-01-10] MEDS: METHENAMINE HIPPURATE 1 GM PO SCH (09:00)
[2019-01-10] MEDS ORDERED: FENOFIBRATE MICRONIZED 134 MG PO SCH (09:00)
[2019-01-10] MEDS: METOPROLOL TARTRATE 50 MG TAB PO SCH (09:31)
[2019-01-10] MEDS: PANTOPRAZOLE SOD 40 MG TABEC PO SCH (09:31)
[2019-01-10] MEDS: LISINOPRIL 10 MG TAB PO SCH (09:31)
[2019-01-10] MEDS: GABAPENTIN 300 MG CAP PO SCH (09:31)
--- NOTE | 2019-01-10 11:29 | NUR ---
PATIENT SITTING UP IN BED TALKING TO FAMILY MEMBER VISITING. BED IN LOWER POSITION, CALL LIGHT AT REACH.
--- NOTE | 2019-01-10 11:32 | NUR ---
MET W THE PT AT THE BEDSIDE. EXPLAINED IMM LETTER. PT VERBALIZED UNDERSTANDING. IMM LETTER WAS SIGNED. COPY TO PT AND COPY TO THE CHART.
[2019-01-10 12:06] VITALS: BP 194/85
--- NOTE | 2019-01-10 14:40 | NUR ---
PATIENT DISCHARGED HOME. DISCHARGE INSTRUCTION AND FOLLOW UP GIVEN TO PATIENT AND DAUGHTER. THEY VERBALIZED UNDERSTANDING. PORT A CATH IV TO RIGHT UPPER CHEST REMOVED WITH TIP INTACT. ALL PERSONAL ITEMS TAKEN WITH PATIENT. LEFT UNIT PER WHEEL CHAIR TO FRONT LOBBY IN STABLE CONDITION.
== END 2019-01-10 14:44 | disposition home or self-care (01) | DRG 872 ==
LOC: ER 12:30 → ERHOLD 15:12 → MED/SURG3 15:20
DX: A41.9 Sepsis, unspecified organism (principal); N39.0 Urinary tract infection, site not specified; E86.0 Dehydration; I11.0 Hypertensive heart disease with heart failure; I50.9 Heart failure, unspecified; E11.40 Type 2 diabetes mellitus with diabetic neuropathy, unspecified; Z79.4 Long term (current) use of insulin; E66.9 Obesity, unspecified; Z68.30 Body mass index [BMI] 30.0-30.9, adult
CPT/HCPCS: 36415; 80048; 80053; 81001; 82550; 82553; 82948; 83605; 83880; 84484; 85025; 85610; 85730; 87040; 87086; 99284; J7030; J7040

== ENCOUNTER 2019-01-11 14:54 | Emergency (ER) | payer MEDICARE, OTHER ==
[~2019-01-11] VITALS: Ht 162.6 cm; Wt 79.4 kg
[~2019-01-11 14:54] MED LIST changes: +XARELTO10 MG PO
[2019-01-11 15:58] LABS: BASOPHILS % 0.6 % (0.0-1.0); EOSINOPHILS # (AUTO) 0.3 (0.0-0.4); EOSINOPHILS % 3.9 % (0.0-6.0); HEMATOCRIT 38.9 % (34.2-44.1); HEMOGLOBIN 12.5 g/dL (12.0-16.0); LYMPHOCYTES # (AUTO) 1.5 (1.0-3.2); MEAN CORPUSCULAR HEMOGLOBIN 29.6 pg (28-32); MEAN CORPUSCULAR HGB CONC 32.1 g/dL (31-35); MEAN CORPUSCULAR VOLUME 92.2 fL (81-99); MONOCYTES # (AUTO) 0.7 (0.2-0.8); MONOCYTES % 10.2 % (4.4-11.3); NEUTROPHILS # (AUTO) 4.4 (2.1-6.9); PLATELET COUNT 188 x10e3/uL (140-360); RED BLOOD COUNT 4.22 x10e6/uL (3.6-5.1); RED CELL DISTRIBUTION WIDTH 14.2 % (11.7-14.4)
[2019-01-11 16:09] LABS: INR 1.86; PROTHROMBIN TIME 22.1 seconds (11.9-14.5)
[2019-01-11 16:10] LABS: PARTIAL THROMBOPLASTIN TIME 43.3 seconds (23.8-35.5)
[2019-01-11 16:18] LABS: ALANINE AMINOTRANSFERASE 13 IU/L (0-55); ALBUMIN 3.6 g/dL (3.5-5.0); ALBUMIN/GLOBULIN RATIO 1.1 (0.8-2.0); ALKALINE PHOSPHATASE 40 IU/L (40-150); BLOOD UREA NITROGEN 16 mg/dL (7-26); BUN/CREATININE RATIO 19 (6-25); CALCIUM 10.1 mg/dL (8.4-10.2); CARBON DIOXIDE 27 mmol/L (22-29); CHLORIDE 102 mmol/L (98-107); CREATINE KINASE 89 IU/L (29-168); CREATININE, SERUM 0.83 mg/dL (0.57-1.11); EST GLOMERULAR FILTRATION RATE > 60 ML/MIN (60-); GLUCOSE 93 mg/dL (74-118); SODIUM 138 mmol/L (136-145)
--- NOTE | 2019-01-11 17:03 | Diagnostic Imaging Report ---
EXAMINATION: Head and cervical spine CT without contrast. HISTORY: Status post fall, head trauma, head and neck pain. COMPARISON: Head and cervical spine CT 03/19/2018 TECHNIQUE: Multidetector axial images were obtained without contrast from the foramen magnum to the vertex and through the cervical spine. The images were reconstructed using brain and bone algorithms. Thin section brain images were reformatted into coronal and sagittal planes. Dose modulation, iterative reconstruction, and/or weight based adjustment of the mA/kV was utilized to reduce the radiation dose to as low as reasonably achievable. HEAD CT FINDINGS: Skull/scalp: Large left parietal scalp swelling/hematoma without underlying fractures. Parenchyma: Stable mild white matter chronic microvascular ischemic changes. No mass, hemorrhage or CT evidence of acute vascular insult. Brain volume: Normal for age. Ventricles: No hydrocephalus or displacement. Arteries: No density suggestive of thrombus. Dural sinuses: No abnormal density. Extra-axial spaces: No abnormal density. Foramen magnum: No mass, Chiari malformation, or basilar invagination. Sella: No obvious mass. Paranasal/mastoid sinuses: Imaged portions unremarkable. CERVICAL SPINE CT FINDINGS: Alignment:Normal alignment and lordosis. Soft tissues: Normal. Vertebrae: Normal height and density. No acute fracture, infection or neoplasm. Degenerative changes: C1-C2: Normal C2-C3: Normal C3-C4: Normal C4-C5: Asymmetric right disc osteophyte complex formation and uncovertebral arthrosis. Mild to moderate right foraminal stenoses. C5-C6: Uncovertebral arthrosis is minimal and the left. No significant stenoses C6-C7: Asymmetric right disc osteophyte and uncovertebral arthrosis. Mild right foraminal stenoses C7-T1: Prominent facet arthrosis on the left without significant stenosis. Minimal degenerative anterolisthesis. IMPRESSION: Head CT: 1. Large acute left parietal scalp hematoma without underlying fractures. 2. No acute postraumatic intracranial hemorrhage. 3. Mild chronic microvascular ischemic changes. Cervical spine CT: 1. No acute fractures or dislocations. 2. Chronic degenerative changes as described are stable. Note: Acute post traumatic spinal cord, vascular or ligamentous injury cannot adequately be assessed with CT. Signed by: Dr. Hyun Morrison M.D. on 01/11/2019 5:00 PM
[2019-01-11] MEDS ORDERED: ASPIRIN 81 MG CHEW TAB PO ONE (18:00)
== END 2019-01-11 18:45 | disposition home or self-care (01) ==
LOC: ER 14:54
DX: S00.83XA Contusion of other part of head, initial encounter (principal); W18.30XA Fall on same level, unspecified, initial encounter; Y92.008 Other place in unspecified non-institutional (private) residence as the place of occurrence of the external cause; I10 Essential (primary) hypertension; E11.9 Type 2 diabetes mellitus without complications; E03.9 Hypothyroidism, unspecified; E78.5 Hyperlipidemia, unspecified; Z86.718 Personal history of other venous thrombosis and embolism
CPT/HCPCS: 36415; 70450; 72125; 80053; 82550; 82553; 82948; 84484; 85025; 85610; 85730; 93005; 99284

== ENCOUNTER → 2019-02-08 | Outpatient (CLI) | payer MEDICARE, OTHER ==
--- NOTE | 2019-02-08 12:44 | Diagnostic Imaging Report ---
EXAMINATION: LUMBAR 3 VIEW INDICATION: Lower back pain COMPARISON: None FINDINGS: Chronic T11 compression fracture with near complete collapse of the anterior vertebral body. No other compression fracture. Minimal retrolisthesis at L2-3 and L3-4. Minimal anterolisthesis at L5-S1. Multilevel degenerative changes with disc space narrowing, osteophyte formation, and facet arthropathy. Mild diffuse osteopenia. Diffuse atherosclerotic arterial calcifications. Nonobstructive bowel gas pattern. Status post cholecystectomy. IMPRESSION: Chronic T11 compression fracture with near complete collapse of the anterior vertebral body. Multilevel degenerative changes. Diffuse osteopenia. Signed by: Chikis Reyes MD on 02/08/2019 12:41 PM
== END ==
LOC: RAD 10:36
PROVIDERS: ATTEND Student in an Organized Health Care Education/Training Program
DX: M54.5 Low back pain (principal)
CPT/HCPCS: 72100

== ENCOUNTER 2019-08-14 02:47 | Emergency (ER) | payer MEDICARE, OTHER ==
[~2019-08-14] VITALS: Ht 162.6 cm; Wt 79.4 kg
--- NOTE | 2019-08-14 05:42 | Diagnostic Imaging Report ---
EXAMINATION: CHEST 2 VIEWS INDICATION: Chest wall pain COMPARISON: Chest x-ray 04/06/2019, Chest CT 10/28/2018 FINDINGS: TUBES and LINES: Right chest wall port with right subclavian central venous catheter component, tip in the right atrium.. LUNGS: Normal lung volumes. Right lower lobe calcified granuloma. Linear opacity in the left midlung likely atelectasis or scarring. No consolidations. PLEURA: No pleural effusion or pneumothorax. HEART AND MEDIASTINUM: Cardiac size is mildly enlarged. Aortic calcifications. BONES AND SOFT TISSUES: No acute osseous lesion. Soft tissues are unremarkable. Stated T11 vertebral body fracture. UPPER ABDOMEN: No free air under the diaphragm. Cholecystectomy clips. IMPRESSION: Moderate cardiomegaly and pulmonary vascular congestion. Signed by: Luis A Cuello DO on 08/14/2019 5:38 AM
--- NOTE | 2019-08-14 05:50 | NUR ---
NOTIFIED ISMA, PT DAUGHTER THAT HER MOTHER IS D/C AND READY TO BE PICKED UP FROM ED TO GO BACK HOME, STATES WILL MAKE HER WAY HERE.
[2019-08-14] MEDS ORDERED: FUROSEMIDE40 MG PO (17:01)
== END 2019-08-14 07:00 | disposition home or self-care (01) ==
LOC: ER 02:47
DX: S20.211A Contusion of right front wall of thorax, initial encounter (principal); W18.30XA Fall on same level, unspecified, initial encounter; Y92.003 Bedroom of unspecified non-institutional (private) residence as the place of occurrence of the external cause; I10 Essential (primary) hypertension; E11.9 Type 2 diabetes mellitus without complications; I48.91 Unspecified atrial fibrillation; E03.9 Hypothyroidism, unspecified; K21.9 Gastro-esophageal reflux disease without esophagitis; Z86.718 Personal history of other venous thrombosis and embolism
CPT/HCPCS: 71046; 93005; 99284

== ENCOUNTER 2019-08-14 11:10 | Inpatient (IN) | payer MEDICARE, OTHER ==
[~2019-08-14] VITALS: Ht 162.6 cm; Wt 79.4 kg
[2019-08-14 11:37] LABS: BASOPHILS % 0.5 % (0.0-1.0); EOSINOPHILS # (AUTO) 0.1 (0.0-0.4); EOSINOPHILS % 1.7 % (0.0-6.0); HEMATOCRIT 33.1 % (34.2-44.1); HEMOGLOBIN 9.9 g/dL (12.0-16.0); LYMPHOCYTES % 13.2 % (18.0-39.1); MEAN CORPUSCULAR HEMOGLOBIN 25.8 pg (28-32); MEAN CORPUSCULAR HGB CONC 29.9 g/dL (31-35); MEAN CORPUSCULAR VOLUME 86.2 fL (81-99); MONOCYTES # (AUTO) 0.7 (0.2-0.8); MONOCYTES % 9.2 % (4.4-11.3); NEUTROPHILS # (AUTO) 5.8 (2.1-6.9); NEUTROPHILS % 75.1 % (38.7-80.0); PLATELET COUNT 291 x10e3/uL (140-360); RED BLOOD COUNT 3.84 x10e6/uL (3.6-5.1)
[2019-08-14 11:55] LABS: INR 2.66; PROTHROMBIN TIME 30.4 seconds (11.9-14.5)
[2019-08-14 12:02] LABS: ALANINE AMINOTRANSFERASE 17 IU/L (0-55); ALBUMIN 3.6 g/dL (3.5-5.0); ALBUMIN/GLOBULIN RATIO 1.1 (0.8-2.0); ALKALINE PHOSPHATASE 51 IU/L (40-150); BLOOD UREA NITROGEN 20 mg/dL (7-26); BUN/CREATININE RATIO 24 (6-25); CALCIUM 9.2 mg/dL (8.4-10.2); CARBON DIOXIDE 30 mmol/L (22-29); CHLORIDE 102 mmol/L (98-107); CREATINE KINASE 94 IU/L (29-168); CREATININE, SERUM 0.85 mg/dL (0.57-1.11); EST GLOMERULAR FILTRATION RATE > 60 ML/MIN (60-); GLUCOSE 271 mg/dL (74-118); SODIUM 140 mmol/L (136-145)
--- NOTE | 2019-08-14 12:17 | Diagnostic Imaging Report ---
EXAM: CHEST SINGLE (PORTABLE) DATE: 08/14/2019 11:52 AM INDICATION: UTI, fall, chest pain COMPARISON: Earlier 08/14/2019 FINDINGS: Right subclavian chest port identified in stable position. The trachea is midline. Stable appearing calcified granuloma noted within the right lower lobe. Subsegmental atelectasis/scarring again noted within the left midlung. There is no evidence for new large focal consolidation, pneumothorax, or significant pleural effusion. The cardiomediastinal silhouette is stable in appearance. No acute osseous abnormality is identified. IMPRESSION: No significant interval change from the prior examination performed earlier 08/14/2019. Signed by: Dr. Shawn Dash MD on 08/14/2019 12:14 PM
[2019-08-14] MEDS ORDERED: ONDANSETRON HCL INJ 2MG/ML 2ML 2 MG/ML VIAL IV STA (12:24)
[2019-08-14] MEDS ORDERED: MORPHINE SULFATE 5 MG/ML VIAL IV ONE (12:30)
[2019-08-14 12:50] LABS: BILIRUBIN,URINE NEGATIVE (NEGATIVE); CLARITY,URINE SL CLOUDY (CLEAR); COLOR,URINE YELLOW (YELLOW); KETONES,URINE NEGATIVE (NEGATIVE); LEUKOCYTE ESTERASE ,URINE 1+ (NEGATIVE); NITRITE,URINE POSITIVE (NEGATIVE); PROTEIN,URINE DIPSTICK 2+ (NEGATIVE); URINE UROBILINOGEN 0.2 mg/dL (0.2 - 1)
[2019-08-14 13:24] LABS: BACTERIA,URINE MANY /HPF; RBC,URINE 0-5 /HPF (0-5)
[2019-08-14 13:25] LABS: EPITHELIAL CELLS,URINE MODERATE /LPF
[2019-08-14] MEDS ORDERED: MEROPENEM 1GM 100 ML IV SCH (13:30)
[2019-08-14] MEDS ORDERED: FUROSEMIDE INJ 10 MG/ML 4 ML VIAL IV ONE (14:15)
--- NOTE | 2019-08-14 14:16 | Emergency Department Note ---
History of Present Illnes History of Present Illness Chief Complaint: Genitourinary Stated Complaint: UTI- Chief Complaint Comment HERE FOR ECOLI IN URINE AND SHORTNESS OF BREATH AFTER FALL YESTERDAY History of Present Illness This is a 84 year old female arrived to the ED for dysuria- pt also complaining of chest pain after a mechanical fall yesterday. Historian: Patient Heel Sprayer Required: No Onset (how long ago): day(s) Location: chest pain- sternal Quality: pressure Radiation: non-radiation Severity: moderate Duration (how long): day(s) Timing of current episode: constant Progression: unchanged Chronicity: new Past Medical/Family History Physician Review I have reviewed the patient's past medical and family history. Any updates have been documented here. 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 NEUROPATHY Past Surgical History: Cholecysctectomy, Hysterectomy, Knee Replacement Other Surgery: BLADDER SUSPENSION Family History Family history of heart diseas: Yes Tetanus Last Tetanus: unknown Review of Systems Review of Systems Constitutional: no symptoms EENTM: no symptoms Cardiovascular: chest pain Gastointestinal/Abdominal: as per HPI, abdominal pain Genitourinary: dysuria, frequency Musculoskeletal: no symptoms Integumentary: no symptoms Neurological: no symptoms, other (oriented to self and place only ) Psychological: as per HPI Endocrine: no symptoms Hematological/Lymphatic: no symptoms Review of other systems All other systems reviewed and negative. Physical Exam Related Data Allergies: Coded Allergies: ciprofloxacin (Verified Allergy, Mild, RASH, 11/20/09) nitrofurantoin (Verified Allergy, Mild, RASH, 11/20/09) morphine (Verified Allergy, 11/09/14) Triage Vital Signs Vital Signs Date Time Temp Pulse Resp B/P (MAP) Pulse Ox O2 Delivery O2 Flow Rate FiO2 08/14/19 11:16 97.8 89 18 202/95 97 Physical Exam CONSTITUTIONAL Constitutional: well-developed, well-nourished HENT HENT: normocephalic, atraumatic, oropharynx clear/moist, nose normal HENT - Ear: left ext ear normal, right ext ear normal EYES Eyes: PERRL, conjunctivae normal NECK Neck: ROM normal PULMONARY Pulmonary: effort normal, breath sounds normal CARDIOVASCULAR Cardiovascular: regular rhythm, heart sounds normal, capillary refill normal, normal rate GASTROINTESTINAL Abdominal: soft (mild tenderness over suprapubic area ) GENITOURINARY SKIN Skin: warm, dry MUSCULOSKELETAL Musculoskeletal: ROM normal NEUROLOGICAL Neurological: alert PSYCHOLOGICAL Psychiatric/behavioral: mood/affect normal Results Laboratory Result Diagram: 08/14/19 1122 08/14/19 1122 Laboratory Laboratory Tests Test 08/14/19 13:10 08/14/19 11:22 08/14/19 11:18 Lactic Acid Level 1.9 mmol/L (0.5-2.0) White Blood Count 7.71 x10e3/uL (4.8-10.8) Red Blood Count 3.84 x10e6/uL (3.6-5.1) Hemoglobin 9.9 g/dL (12.0-16.0) Hematocrit 33.1 % (34.2-44.1) Mean Corpuscular Volume 86.2 fL (81-99) Mean Corpuscular Hemoglobin 25.8 pg (28-32) Mean Corpuscular Hemoglobin Concent 29.9 g/dL (31-35) Red Cell Distribution Width 15.0 % (11.7-14.4) Platelet Count 291 x10e3/uL (140-360) Neutrophils (%) (Auto) 75.1 % (38.7-80.0) Lymphocytes (%) (Auto) 13.2 % (18.0-39.1) Monocytes (%) (Auto) 9.2 % (4.4-11.3) Eosinophils (%) (Auto) 1.7 % (0.0-6.0) Basophils (%) (Auto) 0.5 % (0.0-1.0) Neutrophils # (Auto) 5.8 (2.1-6.9) Lymphocytes # (Auto) 1.0 (1.0-3.2) Monocytes # (Auto) 0.7 (0.2-0.8) Eosinophils # (Auto) 0.1 (0.0-0.4) Basophils # (Auto) 0.0 (0.0-0.1) Absolute Immature Granulocyte (auto 0.02 x10e3/uL (0-0.1) Prothrombin Time 30.4 seconds (11.9-14.5) Prothromb Time International Ratio 2.66 Sodium Level 140 mmol/L (136-145) Potassium Level 4.0 mmol/L (3.5-5.1) Chloride Level 102 mmol/L (98-107) Carbon Dioxide Level 30 mmol/L (22-29) Anion Gap 12.0 mmol/L (8-16) Blood Urea Nitrogen 20 mg/dL (7-26) Creatinine 0.85 mg/dL (0.57-1.11) Estimat Glomerular Filtration Rate > 60 ML/MIN (60-) BUN/Creatinine Ratio 24 (6-25) Glucose Level 271 mg/dL (74-118) Calcium Level 9.2 mg/dL (8.4-10.2) Total Bilirubin 0.5 mg/dL (0.2-1.2) Aspartate Amino Transf (AST/SGOT) 23 IU/L (5-34) Alanine Aminotransferase (ALT/SGPT) 17 IU/L (0-55) Alkaline Phosphatase 51 IU/L (40-150) Creatine Kinase 94 IU/L (29-168) Creatine Kinase MB 3.30 ng/mL (0-5.0) Troponin I 0.015 ng/mL (0-0.300) B-Type Natriuretic Peptide 1008.0 pg/mL (0-100) Total Protein 7.0 g/dL (6.5-8.1) Albumin 3.6 g/dL (3.5-5.0) Globulin 3.4 g/dL (2.3-3.5) Albumin/Globulin Ratio 1.1 (0.8-2.0) Urine Color Yellow (YELLOW) Urine Clarity Sl cloudy (CLEAR) Urine pH 7 (5 - 7) Urine Specific [place] 1.020 (1.010-1.025) Urine Protein 2+ (NEGATIVE) Urine Glucose (UA) 2+ (NEGATIVE) Urine Ketones Negative (NEGATIVE) Urine Blood 1+ (NEGATIVE) Urine Nitrite Positive (NEGATIVE) Urine Bilirubin Negative (NEGATIVE) Urine Urobilinogen 0.2 mg/dL (0.2 - 1) Urine Leukocyte Esterase 1+ (NEGATIVE) Urine RBC 0-5 /HPF (0-5) Urine WBC 11-20 /HPF (0-5) Urine Epithelial Cells Moderate /LPF (NONE) Urine Bacteria Many /HPF (NONE) Lab results reviewed: Yes (2w) Laboratory comments Labs reviewed- unremarkable CBC, CMP marked BNP elevation noted >1000, pt tachypneic, lasix given with improvement noted Laboratory Tests Test 08/14/19 11:18 08/14/19 11:22 Urine Protein 2+ Urine Blood 1+ Urine Leukocyte Esterase 1+ Hemoglobin 9.9 g/dL Hematocrit 33.1 % Mean Corpuscular Hemoglobin 25.8 pg Mean Corpuscular Hemoglobin Concent 29.9 g/dL Red Cell Distribution Width 15.0 % Lymphocytes (%) (Auto) 13.2 % Prothrombin Time 30.4 seconds Carbon Dioxide Level 30 mmol/L Glucose Level 271 mg/dL Microbiology Date/Time Source Procedure Growth Status 08/14/19 11:18 Urine,Clean Catch Urine Culture Pending Received UA- shows LE, urine culture and sensitivity reviewed shows ESBL with sensitivity to Meropenem/Imipenem Given pt's change in mental status concerns of impending Severe Sepsis Blood cultures, lactic acid obtained BSA (meropenem given) Pt admitted for IV antibiotics and further management Imaging Y: Yes Impressions FINDINGS: Right subclavian chest port identified in stable position. The trachea is midline. Stable appearing calcified granuloma noted within the right lower lobe. Subsegmental atelectasis/scarring again noted within the left midlung. There is no evidence for new large focal consolidation, pneumothorax, or significant pleural effusion. The cardiomediastinal silhouette is stable in appearance. No acute osseous abnormality is identified. Critical Care Time Critical care time exclusive o: separately billable procedures Subsequent provider I assumed direction of critical care for this patient from another provider of my specialty. Assessment & Plan Assessment & Plan Problems: (1) Urinary tract infection due to ESBL Klebsiella (2) Confusion (3) UTI (urinary tract infection) Assessment & Plan Severe Sepsis 2/2 ESBL UTI -blood cultures, lactic acid obtained (1.9, no indications for repeat lactic acid) -Meropenem started, pt admitted for further work up and management Reassessment Reassessment Vital Signs Date Time Temp Pulse Resp B/P (MAP) Pulse Ox O2 Delivery O2 Flow Rate FiO2 08/14/19 14:01 81 18 162/104 99 08/14/19 11:16 97.8 89 18 202/95 97 Pt re-evaluated at bedside, informed of the need for hospital admission, hemody namically stable at time of admission Depart Disposition: ADMITTED Last Vital Signs Date Time Temp Pulse Resp B/P (MAP) Pulse Ox O2 Delivery O2 Flow Rate FiO2 08/14/19 11:16 97.8 89 18 202/95 97 Home Meds Reported Medications Rivaroxaban (XARELTO) 10 Mg Tablet, 15 MG PO DAILY 01/09/19 Hydrocodone Bit/Acetaminophen (NORCO 7.5-325 TABLET) 1 Each Tablet, 1 EA PO Q6H, TAB 10/25/18 Omeprazole (OMEPRAZOLE) 40 Mg Capsule.dr, 20 MG PO DAILY 10/25/18 Glimepiride (GLIMEPIRIDE) 2 Mg Tablet, 2 MG PO DAILY, TAB 03/17/18 Methenamine Hippurate (METHENAMINE HIPPURATE) 1 Gm Tablet, 1 GM PO BID 03/17/18 Fluoxetine Hcl (FLUOXETINE HCL) 40 Mg Capsule, 40 MG PO DAILY 11/14/14 Metoprolol Tartrate (METOPROLOL TARTRATE) 50 Mg Tablet, 50 MG PO BID, TAB 06/24/14 Levothyroxine Sodium (LEVOTHYROXINE SODIUM) 50 Mcg Tablet, 50 MCG PO DAILY, TAB 06/24/14 Gabapentin (GABAPENTIN) 300 Mg Capsule, 600 MG PO TID, CAP 06/24/14 Fenofibrate,Micronized (FENOFIBRATE) 134 Mg Capsule, 134 MG PO DAILY 06/24/14 Lisinopril (LISINOPRIL) 10 Mg Tablet, 20 MG PO BID, TAB 06/24/14 Medications in the ED Morphine Sulfate 4 mg ONCE ONCE IV ; Start 08/14/19 at 12:30; Stop 08/14/19 at 12:31; Status UNV Ondansetron HCl 4 mg NOW STAT IV ; Start 08/14/19 at 12:24; Stop 08/14/19 at 12:27; Status DC Meropenem 100 ml @ 100 mls/hr Q12HR@0100,1300 IV ; Start 08/14/19 at 13:30; Stop 08/21/19 at 13:29 MARCIO ZACARIAS DO August 14, 2019 13:24
[2019-08-14 16:30] VITALS: BP 193/84
--- NOTE | 2019-08-14 16:30 | NUR ---
PT RECEIVED FROM ER. PT IS AAOX2. PERIODS OF CONFUSION FOR THE PT PER THE REPORT. EDUCATED PT ABOUT FALL PRECAUTIONS. PT VERBALIZED UNDERSTANDING. CALL LIGHT WITH IN EASY REACH. INSTRUCTED PT TO USE CALL LIGHT FOR ALL THE NEEDS. BED IS LOW AND LOCKED. SIDE RAILS X2. BED ALARM IS ON. PT DENIES NEEDS AT THIS TIME.
--- NOTE | 2019-08-14 16:45 | NUR ---
PAGED DR. Yonatan AYOUB REGARDING PT VITAL SIGNS. BP 194/81, HR 91 BLOOD SUGAR 146. WAITING FOR THE RESPONSE FROM THE .
[2019-08-14 17:00] VITALS: BP 193/84
--- NOTE | 2019-08-14 17:00 | NUR ---
HOME MEDS RECONFIRMED WITH PT AND DAUGHTER.
[2019-08-14] MEDS ORDERED: FUROSEMIDE40 MG PO (17:01)
--- NOTE | 2019-08-14 17:05 | NUR ---
PAGED RESPIRATORY REGARDING EKG PER HEALTH AND FITNESS INSTRUCTOR.
--- NOTE | 2019-08-14 17:25 | NUR ---
CALL BACK RECEIVED FROM DR. Yonatan AYOUB. NEW ORDERS RECEIVED. NO INSULIN FOR THE PT.
[2019-08-14] MEDS ORDERED: HYDROCODONE/APAP 7.5MG-325MG 1 EA TAB PO PRN (17:45)
[2019-08-14] MEDS: LISINOPRIL 20 MG TAB PO SCH (17:56)
[2019-08-14] MEDS: METOPROLOL TARTRATE 50 MG TAB PO SCH (17:56)
--- NOTE | 2019-08-14 18:00 | NUR ---
PT IS NON COMPLIANT WITH FALL PRECAUTIONS. PT IS AMBULATING WITHOUT ASSISTANCE. REFUSED YELLOW SOCKS.
--- NOTE | 2019-08-14 19:05 | NUR ---
Patient visited in room during nursing rounds. Patient alert and oriented x2. Ambulatory with standby assist in room prn. On scheduled IV antibiotics. Pt states she feels fine at this time. Call perrin within reach. Will monitor closely.
--- NOTE | 2019-08-14 19:10 | NUR ---
BEDSIDE SHIFT REPORT GIVEN TO THE TENANT SELECTOR RN. PT DENIED FURTHER NEEDS.
[2019-08-14 19:17] VITALS: BP 194/81
[2019-08-14 19:53] LABS: HYPOCHROMASIA SLIGHT; PLATELET ESTIMATE ADEQUATE; PLATELET MORPHOLOGY COMMENT FEW LARGE; RBC MORPHOLOGY COMMENT NORMAL
[2019-08-14 20:00] VITALS: BP 145/71
[2019-08-14 21:00] VITALS: BP 145/71
[2019-08-14] MEDS: MEROPENEM 1GM 100 ML IV SCH (22:30)
[2019-08-14] MEDS: GABAPENTIN 300 MG CAP PO SCH (22:30)
[2019-08-14] MEDS ORDERED: SODIUM CHLORIDE 0.9% 250ML 250 ML ONE (22:31)
[2019-08-15] VITALS (9 sets, daily range): BP systolic 136–194; BP diastolic 53–91
[2019-08-15 05:34] LABS: BASOPHILS % 0.4 % (0.0-1.0); EOSINOPHILS # (AUTO) 0.1 (0.0-0.4); EOSINOPHILS % 0.8 % (0.0-6.0); HEMATOCRIT 31.9 % (34.2-44.1); HEMOGLOBIN 9.7 g/dL (12.0-16.0); LYMPHOCYTES # (AUTO) 0.9 (1.0-3.2); LYMPHOCYTES % 12.6 % (18.0-39.1); MEAN CORPUSCULAR HEMOGLOBIN 25.7 pg (28-32); MEAN CORPUSCULAR HGB CONC 30.4 g/dL (31-35); MEAN CORPUSCULAR VOLUME 84.4 fL (81-99); MONOCYTES # (AUTO) 0.8 (0.2-0.8); NEUTROPHILS # (AUTO) 5.5 (2.1-6.9); NEUTROPHILS % 74.9 % (38.7-80.0); PLATELET COUNT 264 x10e3/uL (140-360); RED BLOOD COUNT 3.78 x10e6/uL (3.6-5.1); RED CELL DISTRIBUTION WIDTH 14.9 % (11.7-14.4)
[2019-08-15 05:59] LABS: ALANINE AMINOTRANSFERASE 16 IU/L (0-55); ALBUMIN 3.3 g/dL (3.5-5.0); ALKALINE PHOSPHATASE 39 IU/L (40-150); ANION GAP 13.6 mmol/L (8-16); BLOOD UREA NITROGEN 15 mg/dL (7-26); BUN/CREATININE RATIO 22 (6-25); CARBON DIOXIDE 26 mmol/L (22-29); CHLORIDE 104 mmol/L (98-107); CREATININE, SERUM 0.68 mg/dL (0.57-1.11); EST GLOMERULAR FILTRATION RATE > 60 ML/MIN (60-); GLUCOSE 164 mg/dL (74-118); POTASSIUM 3.6 mmol/L (3.5-5.1); SODIUM 140 mmol/L (136-145)
[2019-08-15] MEDS: MEROPENEM 1GM 100 ML IV SCH (06:15)
[2019-08-15] MEDS: LEVOTHYROXINE SODIUM 50 MCG TAB PO SCH (06:15)
[2019-08-15] MEDS: METOPROLOL TARTRATE 50 MG TAB PO SCH ×2 (06:16→16:34)
[2019-08-15] MEDS: PANTOPRAZOLE SOD 40 MG TABEC PO SCH (06:16)
[2019-08-15] MEDS: LISINOPRIL 20 MG TAB PO SCH ×2 (06:16→16:34)
--- NOTE | 2019-08-15 07:00 | NUR ---
BEDSIDE SHIFT REPORT RECEIVED FROM THE HEAVY FORGER RN. EDUCATED PT ABOUT FALL PRECAUTIONS. PT VERBALIZED UNDERSTANDING. CALL LIGHT WITH IN EASY REACH. INSTRUCTED PT TO USE CALL LIGHT FOR ALL THE NEEDS. BED IS LOW AND LOCKED. SIDE RAILS X2. BED ALARM IS ON. PT DENIES NEEDS AT THIS TIME.
[2019-08-15] MEDS: NON-FORMULARY MEDICATION (Methenamine Hippurate 1 GM) PO SCH ×2 (07:59→16:21)
[2019-08-15] MEDS: GLIMEPIRIDE 2 MG TAB PO SCH (08:00)
[2019-08-15] MEDS: FENOFIBRATE 145 MG TAB PO SCH (08:00)
[2019-08-15] MEDS: FUROSEMIDE 40 MG TAB PO SCH (08:00)
[2019-08-15] MEDS: GABAPENTIN 300 MG CAP PO SCH (08:00)
[2019-08-15] MEDS: RIVAROXABAN 15 MG TABLET PO SCH (08:10)
[2019-08-15] MEDS ORDERED: NON-FORMULARY MEDICATION (Fenofibrate,Micronized (Fenofibrate) 134 MG) PO SCH (09:00)
[2019-08-15] MEDS ORDERED: FLUOXETINE HCL 20 MG CAP PO SCH (09:00)
--- NOTE | 2019-08-15 10:13 | NUR ---
CONSULT [id number]
--- NOTE | 2019-08-15 11:00 | NUR ---
DR. Yonatan AYOUB AT BEDSIDE. INFORMED PT ELEVATED BP. NO NEW ORDERS RECEIVED.
[2019-08-15] MEDS: CEFTRIAXONE SOD 1 GM/NS 50 ML 50 ML IV SCH (12:30)
--- NOTE | 2019-08-15 12:38 | Consultation ---
DATE OF CONSULTATION: REASON FOR CONSULTATION: Altered mental status. HISTORY OF PRESENT ILLNESS: This patient, who is an 84-year-old female, well known to me, multiple UTI and bacteriuria. The patient comes in with altered mental status. The patient, who does not provide any further information. History was taken mainly from the chart. Discussed with Internal Medicine. The patient was currently on [place], Tricor, Neurontin, Protonix, lisinopril, and meropenem. LABORATORY DATA: Her blood cultures negative. Urine cultures, gram-negative rods. White count 7.79, hemoglobin 9.7, and hematocrit 31. Her sodium 140, potassium 3.6 with creatinine 0.65. PAST MEDICAL HISTORY: This patient, who is known to me from previous admissions for UTI and multiple sepsis. PAST SURGICAL HISTORY: Obesity, debility, and congestive heart failure. ALLERGIES: NKA. SOCIAL HISTORY: There is no smoking, drug abuse, or alcohol abuse. FAMILY HISTORY: Otherwise noncontributory. REVIEW OF SYSTEMS: Could not be obtained. PHYSICAL EXAMINATION: GENERAL: She is confused. Does not seem to be in acute distress. VITAL SIGNS: Stable, afebrile. HEENT: Not icteric. NECK: Supple. CHEST: Clear. HEART: S1 and S2. No S3, S4, or murmurs. ABDOMEN: Soft. IMPRESSION: Altered mental status, concerned of metabolic versus sepsis. Her white count is normal. There is no white count. There is no fever. I would recommend to discontinue oral medication, which can affect her mental status. Obtain blood cultures. We will put her on Rocephin in the meantime. Recheck CBC. Recheck chem panel. Obtain procalcitonin level. Obtain chest x-ray, CT of the abdomen and further recommendations to follow. MD SEBASTIEN Hood/MAXIME /[id number]
[2019-08-15] MEDS ORDERED: IOPAMIDOL 370 MG/ML 200 ML INFUS..BTL INJ ONE (14:45)
[2019-08-15] MEDS ORDERED: SODIUM CHLORIDE 0.9% 50ML 50 ML ONE (14:45)
--- NOTE | 2019-08-15 14:45 | NUR ---
PT OFF UNIT FOR CT IN SAFE CONDITION.
--- NOTE | 2019-08-15 15:48 | NUR ---
PT IS BACK TO UNIT AFTER CT. PT DENIES NEEDS AT THIS TIME.
[2019-08-15] MEDS: HYDRALAZINE HCL 25 MG TAB PO SCH ×2 (17:13→20:53)
--- NOTE | 2019-08-15 19:00 | NUR ---
BEDSIDE SHIFT REPORT GIVEN TO THE ACCOUNT SUPPORT ANALYST RN. PT DENIED FURTHER NEEDS.
--- NOTE | 2019-08-15 19:05 | NUR ---
Patient visited in room during nursing rounds. Patient alert and oriented x3. Ambulatory with standby assist in room prn. On scheduled IV antibiotics. Pt states she feels fine at this time. Call perrin within reach. Will monitor closely.
--- NOTE | 2019-08-15 19:47 | NUR ---
Paged Dr. Lexy Villa with regards to latest fingerstick blood glucose of 589. Pt claims she just ate. Awaiting on MD call back for further orders.
--- NOTE | 2019-08-15 20:00 | NUR ---
Dr. Lexy Villa called via phone and was informed of latest fingerstick blood glucose level of 589. MD ordered to change diet from cardiac to 1800 theodore ADA diet. MD ordered to just check patient and report to him fingerstick blood glucose after 2 hours.
--- NOTE | 2019-08-15 20:50 | NUR ---
Fingerstick blood glucose at this time was 202. Pt asymptomatic.
--- NOTE | 2019-08-15 22:10 | NUR ---
Fingerstick blood glucose was 243. Dr Lexy Villa was paged to report this result.
--- NOTE | 2019-08-15 22:45 | NUR ---
Dr. Lexy Villa called back and received latest fingerstick blood glucose as 243. No sliding scale ordered.
[2019-08-15] MEDS: HYDROCODONE/APAP 7.5MG-325MG 1 EA TAB PO PRN (23:55)
[2019-08-16] VITALS (8 sets, daily range): BP systolic 142–182; BP diastolic 63–88
[2019-08-16] MEDS: HYDROCODONE/APAP 7.5MG-325MG 1 EA TAB PO PRN ×3 (06:15→20:11)
[2019-08-16] MEDS: PANTOPRAZOLE SOD 40 MG TABEC PO SCH (06:15)
[2019-08-16] MEDS: LEVOTHYROXINE SODIUM 50 MCG TAB PO SCH (06:15)
--- NOTE | 2019-08-16 07:00 | NUR ---
BEDSIDE SHIFT REPORT RECEIVED FROM THE VARNISH DIPPER RN. EDUCATED PT ABOUT FALL PRECAUTIONS. PT VERBALIZED UNDERSTANDING. CALL LIGHT WITH IN EASY REACH. INSTRUCTED PT TO USE CALL LIGHT FOR ALL THE NEEDS. BED IS LOW AND LOCKED. SIDE RAILS X2. BED ALARM IS ON. PT DENIES NEEDS AT THIS TIME.
[2019-08-16] MEDS: NON-FORMULARY MEDICATION (Methenamine Hippurate 1 GM) PO SCH ×2 (08:19→16:12)
[2019-08-16] MEDS: GLIMEPIRIDE 2 MG TAB PO SCH (08:19)
[2019-08-16] MEDS: HYDRALAZINE HCL 25 MG TAB PO SCH ×3 (08:20→20:59)
[2019-08-16] MEDS: METOPROLOL TARTRATE 50 MG TAB PO SCH ×2 (08:20→16:13)
[2019-08-16] MEDS: FUROSEMIDE 40 MG TAB PO SCH (08:20)
[2019-08-16] MEDS: LISINOPRIL 20 MG TAB PO SCH ×2 (08:21→16:13)
[2019-08-16] MEDS: FENOFIBRATE 145 MG TAB PO SCH (08:21)
[2019-08-16] MEDS: RIVAROXABAN 15 MG TABLET PO SCH (08:21)
--- NOTE | 2019-08-16 09:37 | Diagnostic Imaging Report ---
EXAM: CT Abdomen and Pelvis WITH intravenous contrast INDICATION: Urinary tract infection COMPARISON: Lumbar spine CT 03/17/2018 TECHNIQUE: Abdomen and pelvis were scanned utilizing a multidetector helical scanner from the lung base to the pubic symphysis after administration of IV contrast. Coronal and sagittal reformations were obtained. Routine protocol was performed. Scan was performed during portal venous phase. IV CONTRAST: 100mL of Isovue 370 ORAL CONTRAST: Water RADIATION DOSE: Total DLP: 621 mGy*cm Dose modulation, iterative reconstruction, and/or weight based adjustment of the mA/kV was utilized to reduce the radiation dose to as low as reasonably achievable. FINDINGS: LOWER THORAX: 1 cm right lower lobe calcified granuloma. No focal consolidation. Mild bibasilar subsegmental atelectasis. Multichamber cardiomegaly. Port catheter tip in the proximal right atrium. HEPATOBILIARY: Unchanged 1 cm pericaval hypodense liver lesion. Diffuse hepatic steatosis. Status post cholecystectomy. SPLEEN: Calcified granulomas in the spleen. PANCREAS: No focal masses or ductal dilatation. ADRENALS: No adrenal nodules. KIDNEYS/URETERS: No hydronephrosis, stones, or solid mass lesions. PELVIC ORGANS/BLADDER: [place] calcifications at the bladder neck. Asymmetric soft tissue thickening measures up to 1.6 cm at the left posterior bladder just medial to the left ureteral orifice. Status post hysterectomy. PERITONEUM / RETROPERITONEUM: No free air or fluid. LYMPH NODES: No lymphadenopathy. VESSELS: Diffuse atherosclerotic calcifications of the nonaneurysmal abdominal aorta and major branches. GI TRACT: Severe diverticulosis. No CT evidence of diverticulitis. No abnormal bowel thickening. No bowel obstruction. Normal appendix. BONES AND SOFT TISSUES: Diffuse osteopenia. No acute osseous injury. Chronic T11 compression fracture, unchanged from the lumbar spine CT of 03/17/2018. IMPRESSION: Choking calcifications of the neck of the bladder and asymmetric soft tissue thickening/mass just medial to the left ureteral orifice. Recommend urological consult for possible cystoscopic evaluation. Unchanged 1 cm pericaval hypodense liver lesion remains indeterminate on this single phase contrast-enhanced CT. Severe diverticulosis. No CT evidence of diverticulitis. Chronic T11 compression fracture. Signed by: Chikis Reyes MD on 08/16/2019 9:23 AM
--- NOTE | 2019-08-16 11:43 | Progress Note ---
DATE: SUBJECTIVE: The patient is seen and evaluated. Available labs and notes reviewed. Discussed with the nurse. Uneventful night. Overall, the patient is back to her baseline mentally per my discussion with staff. REVIEW OF SYSTEMS: No nausea, vomiting, fever, chills, chest pain, shortness of breath, headache, rash, dysuria. The patient wants to go home. MEDICATION LIST: Reviewed. The patient is on Rocephin, antibiotic lane. LABORATORY STUDIES: No new CBC or BMP. Her white count was 7.29 with a hemoglobin level of 9.7 and platelet count of 264. Creatinine was 0.68. Procalcitonin level pending. Potassium of 3.6. MICROBIOLOGY: Urine culture showed ESBL Escherichia coli greater than 100,000 and also Streptococcus species CFU/mL. RADIOLOGY STUDIES: CT abdomen and pelvis on 08/14, sever diverticulosis with no CT evidence of diverticulitis. Also, showed choking calcification of the neck of the bladder and asymptomatic soft-tissue thickening/mass just medial to the left urethral orifice, was recommended urological consult for possible cystoscopy evaluation. PHYSICAL EXAMINATION: VITAL SIGNS: Temperature 97.3. The patient never had fever. Her maximum temperature is 99.3 this admission, pulse 93, respirations 20, and blood pressure 182/81. GENERAL: Alert and oriented, in no acute distress. CV: S1 and S2. CHEST: Equal expansion. Clear to auscultation. ABDOMEN: Soft, nontender. No distention. HEENT: Moist. No pallor. No JVD. ASSESSMENT AND PLAN: 1. Altered mental status, seems to be resolved. 2. Extended-spectrum beta-lactamase Escherichia coli and Streptococcus species on a urine culture. The patient does have some dysuria. CT as above, but remains afebrile with white counts within normal limits. She seems to be doing better with Rocephin, so not sure if the Escherichia coli extended-spectrum beta-lactamase is causing problem. We will discuss with Dr. Blackwell. 3. Anemia. 4. Hypertension. 5. Hyperlipidemia. 6. Hypothyroidism. The patient remains on Rocephin, wants to go home. Further management of this patient is based on daily findings on laboratory and physical examination. Discussed with Dr. Blackwell. Discussed with staff. Dictated by Russ Jain PA-C (Al) MD JAGUAR Hood/MAXIME /[id number]
--- NOTE | 2019-08-16 12:26 | NUR ---
DR. JEWELL INFORMED REGARDING NEW CONSULT.
[2019-08-16] MEDS ORDERED: DEXTROSE 50% SYRINGE 50 ML IV PRN (12:30)
[2019-08-16] MEDS: INSULIN REGULAR, HUMAN 100 UNIT/1 ML 3ML VIAL SQ SCH ×3 (13:00→20:59)
[2019-08-16] MEDS: CEFTRIAXONE SOD 1 GM/NS 50 ML 50 ML IV SCH (13:15)
--- NOTE | 2019-08-16 16:59 | Consultation ---
DATE OF CONSULTATION: 08/16/2019 Urology Consultation REASON FOR CONSULTATION: Complicated urinary tract infection and possible bladder outlet obstruction. HISTORY OF PRESENT ILLNESS: Marly Chong is an 84-year-old woman with recurrent urinary tract infections. The patient is currently admitted with an ESBL urinary tract infection. The patient in 2009 underwent cystoscopy with injection of perivesical Coaptite for intrinsic sphincteric deficiency and urinary incontinence, this procedure failed. The patient also saw a urogynecologist in the [facility], who did some sort of surgery in her bladder neck that did not work out as well. The patient is currently admitted with an E. coli ESBL as well as an Enterococcus urinary tract infection, and Urological consultation was sought due to abnormal CT findings. The patient denies any previous urolithiasis. PAST MEDICAL AND SURGICAL HISTORY: 1. Obesity. 2. Debility. 3. Congestive heart failure. 4. Diabetes mellitus. 5. Hypertension. 6. Hypercholesterolemia. 7. Status post total abdominal hysterectomy. 8. Bilateral salpingo-oophorectomy. 9. 4, para 4, by spontaneous vaginal delivery. CURRENT MEDICATIONS: Please refer to the MAR. SOCIAL HISTORY: The patient denies current smoking, ethanol, or drug use. She used to smoke, she quit. 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 She is . ALLERGIES: CIPRO, MORPHINE, AND NITROFURANTOIN. FAMILY HISTORY: Noncontributory to the active urological problems. The patient's daughter has rheumatoid arthritis and lives with her. REVIEW OF SYSTEMS: Discussed as above with history of present illness and past medical history, otherwise negative for all systems. PHYSICAL EXAMINATION: GENERAL: Elderly woman lying in bed, in no apparent distress. She is currently afebrile. VITAL SIGNS: Currently stable. ABDOMEN: Soft, nondistended, nontender. Obese. GENITOURINARY: The patient has a diaper at the present time, it is wet with urine, that is not bloody. For the remaining physical examination systems, please refer the ERT sheet and the history and physical. LABORATORY STUDIES: Urinalysis significant for 11 to 20 wbc's with many bacteria. Urine culture significant for ESBL E. coli as well as enterococcus. The patient creatinine is 0.68. White blood cell count 7290, hemoglobin 9.7, and platelets 264,000. CT scan of the abdomen and pelvis was done with contrast, it revealed junky calcification in the bladder neck and asymmetric soft tissue thickening measuring 1.6 cm in the left posterior bladder, just medial to the left ureteral orifice and the patient is status post hysterectomy. The patient has a T11 compression fracture, an unchanged 1 cm pericaval hyperdense liver lesion. ASSESSMENT: 1. Complicated urinary tract infections. 2. Mixed type urinary incontinence. 3. Obesity. 4. Anemia. PLANS: 1. Defer the hematological and electrolyte abnormalities to the primary team. 2. I deferred the choice of antibiotics to Infectious Disease consult. 3. Once the patient is an outpatient, we will follow her for a urodynamic study. 4. The patient will definitely need a cystoscopic examination due to the abnormalities noted on CT. Thank you much for involving us in care of your patient. We will be happy to follow her along with you as well as an outpatient. Selvin Montoya MD [place]/MODL /[id number] cc: MD MAURICIO Hood MD
--- NOTE | 2019-08-16 19:05 | NUR ---
Received patient awake, not in distress, call light within easy reach, advised to call for assistance anytime when needed. Will continue to monitor patient.
--- NOTE | 2019-08-16 19:15 | NUR ---
BEDSIDE SHIFT REPORT GIVEN TO THE CREAM TESTER RN. PT DENIED FURTHER NEEDS.
[2019-08-17] VITALS (9 sets, daily range): BP systolic 121–190; BP diastolic 63–93
[2019-08-17] MEDS: HYDROCODONE/APAP 7.5MG-325MG 1 EA TAB PO PRN ×3 (02:49→20:26)
[2019-08-17] MEDS: LEVOTHYROXINE SODIUM 50 MCG TAB PO SCH (05:16)
--- NOTE | 2019-08-17 07:16 | NUR ---
bedside rounding done with incoming nurse, call light within easy reach
[2019-08-17] MEDS: INSULIN REGULAR, HUMAN 100 UNIT/1 ML 3ML VIAL SQ SCH ×4 (07:30→21:00)
[2019-08-17] MEDS ORDERED: PHENAZOPYRIDINE HCL 100 MG TAB PO PRN (08:00)
[2019-08-17] MEDS: LISINOPRIL 20 MG TAB PO SCH ×2 (09:00→17:21)
[2019-08-17] MEDS: NON-FORMULARY MEDICATION (Methenamine Hippurate 1 GM) PO SCH ×2 (09:00→17:00)
[2019-08-17] MEDS: METOPROLOL TARTRATE 50 MG TAB PO SCH ×2 (09:41→17:20)
[2019-08-17] MEDS: FUROSEMIDE 40 MG TAB PO SCH (09:41)
[2019-08-17] MEDS: FENOFIBRATE 145 MG TAB PO SCH (09:42)
[2019-08-17] MEDS: PANTOPRAZOLE SOD 40 MG TABEC PO SCH (09:42)
[2019-08-17] MEDS: RIVAROXABAN 15 MG TABLET PO SCH (09:42)
[2019-08-17] MEDS: GLIMEPIRIDE 2 MG TAB PO SCH (09:43)
[2019-08-17] MEDS: HYDRALAZINE HCL 25 MG TAB PO SCH ×3 (09:43→20:25)
--- NOTE | 2019-08-17 11:44 | Progress Note ---
DATE: SUBJECTIVE: The patient is seen and evaluated. Available labs and notes reviewed. Discussed with the patient and Dr. Blackwell in details. REVIEW OF SYSTEMS: Remains comfortable in bed. No nausea, vomiting, fever, chills, chest pain, or shortness of breath. She thinks she is doing better. PHYSICAL EXAMINATION: VITAL SIGNS: Temperature 97.9, pulse is 107, respiration 22, and blood pressure 153/91. GENERAL: Alert and oriented x2. She does not know what year it is, but she knows her name and she knows in [place] and in hospital. CV: S1 and S2. CHEST: Equal expansion. Clear to auscultation. No acute distress. ABDOMEN: Soft, obese, and nontender. HEENT: Moist. No pallor. No JVD. EXTREMITIES: No edema. Moves all. No acute distress. MEDICATIONS: The patient as far as Infectious Disease point of view is on Rocephin. LABORATORY STUDIES: No new CBC or BMP available. MICROBIOLOGY: No new microbiology studies available. RADIOLOGY: No new radiology available. ASSESSMENT AND PLAN: 1. Altered mental status, seems to be improving. Urodynamic is scheduled as an outpatient after the patient is discharged. 2. Extended-spectrum beta-lactamases Escherichia coli and Streptococcus in a urine. Continue with antibiotics for now and other medical conditions including hypertension. 3. Hyperlipidemia. 4. Hypothyroidism. 5. Anemia. 6. Debility. 7. Obesity. 8. Continue to monitor the patient clinically and follow with the labs. Please refer to chart for more information. Dictated by Russ Jain PA-C (Al) Mert Blackwell MD /MODL /[id number]
[2019-08-17] MEDS: CEFTRIAXONE SOD 1 GM/NS 50 ML 50 ML IV SCH (13:34)
--- NOTE | 2019-08-17 19:24 | NUR ---
walking rounds complete, pt stable at shift change, bedside report given to on coming nurse.
--- NOTE | 2019-08-17 23:30 | NUR ---
Pt Blood pressure 190/94, p102. Called and left message for Dr. Lexy Villa to return call. Received call back at 12a. New orders given to give Metoprolol 50mg x1 now. Then increase Metoprolol 50mg from BID to TID. Medication given to patient and informed of new order prescribed my Dr. Villa. Will Cont to monitor patient.
[2019-08-18] VITALS (8 sets, daily range): BP systolic 130–176; BP diastolic 72–98
[2019-08-18] MEDS ORDERED: METOPROLOL TARTRATE 50 MG TAB PO ONE (00:15)
--- NOTE | 2019-08-18 00:30 | NUR ---
Rechecked patient blood pressure. 160/89, 94pulse. Pt resting quietly. No complains at this time
[2019-08-18] MEDS: LEVOTHYROXINE SODIUM 50 MCG TAB PO SCH (05:44)
[2019-08-18] MEDS: HYDROCODONE/APAP 7.5MG-325MG 1 EA TAB PO PRN ×3 (05:44→20:54)
[2019-08-18] MEDS: HYDRALAZINE HCL 25 MG TAB PO SCH ×3 (06:20→20:50)
[2019-08-18] MEDS: INSULIN REGULAR, HUMAN 100 UNIT/1 ML 3ML VIAL SQ SCH ×4 (07:30→21:00)
[2019-08-18] MEDS: NON-FORMULARY MEDICATION (Methenamine Hippurate 1 GM) PO SCH ×2 (09:00→17:40)
[2019-08-18] MEDS: PANTOPRAZOLE SOD 40 MG TABEC PO SCH (09:07)
[2019-08-18] MEDS: GLIMEPIRIDE 2 MG TAB PO SCH (09:07)
[2019-08-18] MEDS: FUROSEMIDE 40 MG TAB PO SCH (09:07)
[2019-08-18] MEDS: RIVAROXABAN 15 MG TABLET PO SCH (09:08)
[2019-08-18] MEDS: FENOFIBRATE 145 MG TAB PO SCH (09:08)
[2019-08-18] MEDS: LISINOPRIL 20 MG TAB PO SCH ×2 (09:08→17:40)
[2019-08-18] MEDS: METOPROLOL TARTRATE 50 MG TAB PO SCH ×3 (09:08→20:51)
--- NOTE | 2019-08-18 11:38 | Progress Note ---
DATE: SUBJECTIVE: The patient is seen and evaluated. Available labs and notes reviewed. REVIEW OF SYSTEMS: The patient complained of being depressed and she states that she was on Prozac at home. No nausea, vomiting, fever, chills, chest pain, shortness of breath. Dysuria better. PHYSICAL EXAMINATION: VITAL SIGNS: Temperature 98.7, pulse is 92, respiration 20, blood pressure 150/85. GENERAL: Alert and oriented, no acute distress. CV: S1, S2. CHEST: Equal expansion. Clear to auscultation. No acute distress. ABDOMEN: Soft, obese, and nontender. No distention. HEENT: Moist. No pallor. No JVD. EXTREMITIES: Moves all. No edema of the extremities. MEDICATION/ANTIBIOTICS: The patient is on Rocephin. LABORATORY STUDIES: No new CBC or BMP from today. Serology: Coronavirus PCR 08/14/2019 not detected. Blood culture 08/14/2019, negative. Urine culture showing enterococcus faecalis not VRE and E coli ESBL on 08/14/2019-patient most likely colonized. RADIOLOGY STUDIES: No new radiology studies available. ASSESSMENT AND PLAN: 1. Altered mental status, improving. 2. Extended-spectrum beta-lactamases Escherichia coli and Streptococcus on urine culture-most likely colonization since the patient's mental status has improved significantly being on Rocephin. 3. The patient is casual for urodynamic studies as outpatient. 4. Depression. 5. Hypothyroidism. 6. Hyperlipidemia. 7. Anemia. 8. Debility. 9. Obesity. 10. Hypertension. Current to monitor patient clinically. Follow with the labs. Discussed with Dr. Blackwell in details. Please refer to chart for more information. Dictated by Russ Jain PA-C (Al) Mert Blackwell MD /MODL /[id number]
[2019-08-18] MEDS ORDERED: FLUOXETINE HCL 20 MG CAP PO SCH (12:30)
[2019-08-18] MEDS: CEFTRIAXONE SOD 1 GM/NS 50 ML 50 ML IV SCH (13:46)
--- NOTE | 2019-08-18 19:09 | NUR ---
walking rounds complete, pt alert resp even and unlabored at shift change, report given to oncoming nurse.
--- NOTE | 2019-08-18 23:37 | NUR ---
Patient blood pressure 174/98, 84. Spoke with Dr. Tello pal for Dr. Yonatan Villa- New order for Hydralazine 10mg IV Q4hrs PRN for blood pressure > 150/90. Order read back to .
[2019-08-18] MEDS ORDERED: HYDRALAZINE HCL 20 MG/ML VIAL IV PRN (23:45)
[2019-08-19] VITALS (7 sets, daily range): BP systolic 127–159; BP diastolic 68–81
[2019-08-19] MEDS: HYDROCODONE/APAP 7.5MG-325MG 1 EA TAB PO PRN ×4 (02:25→21:52)
[2019-08-19] MEDS: LEVOTHYROXINE SODIUM 50 MCG TAB PO SCH (05:18)
--- NOTE | 2019-08-19 07:00 | NUR ---
BEDSIDE SHIFT REPORT RECEIVED FROM LIVESTOCK NUTRITIONIST RN. PT DENIES NEEDS AT THIS TIME.
[2019-08-19] MEDS: INSULIN REGULAR, HUMAN 100 UNIT/1 ML 3ML VIAL SQ SCH ×4 (07:30→21:50)
[2019-08-19] MEDS: NON-FORMULARY MEDICATION (Methenamine Hippurate 1 GM) PO SCH ×2 (08:18→17:00)
[2019-08-19] MEDS: PANTOPRAZOLE SOD 40 MG TABEC PO SCH (08:18)
[2019-08-19] MEDS: GLIMEPIRIDE 2 MG TAB PO SCH ×2 (08:18→17:31)
[2019-08-19] MEDS: METOPROLOL TARTRATE 50 MG TAB PO SCH ×3 (08:19→21:50)
[2019-08-19] MEDS: HYDRALAZINE HCL 25 MG TAB PO SCH ×3 (08:19→21:50)
[2019-08-19] MEDS: LISINOPRIL 20 MG TAB PO SCH ×2 (08:19→17:31)
[2019-08-19] MEDS: FUROSEMIDE 40 MG TAB PO SCH (08:19)
[2019-08-19] MEDS: FENOFIBRATE 145 MG TAB PO SCH (08:20)
[2019-08-19] MEDS: RIVAROXABAN 15 MG TABLET PO SCH (08:20)
[2019-08-19] MEDS: FLUOXETINE HCL 20 MG CAP PO SCH (08:20)
[2019-08-19] MEDS: CEFTRIAXONE SOD 1 GM/NS 50 ML 50 ML IV SCH (12:11)
[2019-08-19] MEDS: AMLODIPINE BESYLATE 5 MG TAB PO SCH (15:03)
--- NOTE | 2019-08-19 15:30 | NUR ---
Nutrition Screen Note RD Recommendation for Physician: -Continue current diet as ordered Plan of Care: RD following, monitoring for tolerance and adequacy Nutrition reason for involvement: Length of stay Primary Diagnose(s): UTI due to ESBL Klebsiella PMH: Obesity, Debility, Congestive heart failure, Diabetes mellitus, Hypertension, Hypercholesterolemia. Ht: 64 in Wt: 175 lb BMI: 30 kg/m2 IBW: [address] Assessment: (08/19/19) Chart reviewed. Labs and meds reviewed. Pt is an 84 year old female admitted with UTI. Family member was present at time of visit. Pt stated she is eating >50% of meals. It is recorded that pt consumed 75-100% of meals yesterday. Pt was unsure of any recent weight changes and stated she usually weighs 170 lbs. No N/V/D/C noted. Will continue to monitor unless consulted sooner Current Diet: 1800 ADA Malnutrition Evaluation (08/19/19) The patient does not meet criteria for a specified degree of malnutrition at this time. Will re-evaluate at follow-up as appropriate. Diet Education Needs Assessment: pt was interested in diet education materials regarding a diabetic diet Learner(s): pt, family member Barriers: None Cultural/Language Modifications: No cultural/language modifications Readiness: Acceptance Method: explanation/ discussion, handout Topics: Carbohydrate counting, reading the food label Understanding/Compliance: pt and family member verbalized understanding Nutrition Care Level: low Signed: Helena Allan, RD, LD
[2019-08-19] MEDS: MEROPENEM 500MG/ NS 50ML 50 ML IV SCH (17:38)
--- NOTE | 2019-08-19 18:38 | Progress Note ---
DATE: Internal Medicine Progress Note. SUBJECTIVE: The patient is doing well, complaining of back pain. OBJECTIVE: VITAL SIGNS: On the blood pressure 144/68, temperature 38.2, heart rate 95 per minute, respiratory rate is 20 per minute, ox saturation 97%. HEART: Regular rhythm. Normal S1, S2 sound. LUNGS: Clear bilaterally. ABDOMEN: Soft. LABORATORY DATA: On the CBC; white count normal 7.29, hemoglobin 9.7, hematocrit 31.9, platelet count 264,000. On the BMP shows sodium 140, potassium 3.6, chloride 104, CO2 26, BUN 15, creatinine 0.68, BUN and creatinine ratio 22, GFR is 60, glucose 164, calcium 9.0, total bilirubin 1.0, AST 25, ALT 16, alkaline phosphatase 39. Centeno virus test negative. CT of the abdomen and pelvis was done. calcifications on the neck of the bladder, asymmetric and soft tissue thickening mass medial to the left ureteral orifice. Recommend urological consultation for possible cystoscopic evaluation, unchanged 1 cm hypodense liver lesion remains indeterminate in this single phase contrast enhanced CT, severe diverticulosis no evidence of diverticulitis, chronic T11 compression fracture. IMPRESSION: 1. UTI. 2. Hypothyroidism. 3. Hyperlipidemia. 4. Hypertension. 5. Obesity. 6. Confusion. PLAN: Dr. Lynch has been consulted, she is going to see the patient as an outpatient, continue meropenem 500 mg IV q.6 hours, based on the urine culture report, continue Norvasc 5 mg daily, amoxicillin 250 mg q.8 hours. Continue fenofibrate 145 mg daily, Prozac 40 mg daily, furosemide 20 mg daily. Continue glimepiride 2 mg twice a day due to uncontrolled diabetes, this has been increased to 2 mg twice a day. Continue penicillin 25 mg three times a day. Continue apresoline 10 mg IV q.4 hours as needed for hypertension. Continue [place] 7.5/325 q.6 hours as needed for pain. Continue levothyroxine 50 mcg daily, lisinopril 20 mg twice a day, metoprolol 50 mg three times a day, Protonix 40 mg daily, Pyridium 100 mg three times a day as needed for muscle spasms, Xarelto 50 mg daily, Januvia 100 mg daily 1 g twice a day. MD CAMRYN Rizzo/MAXIME /[id number]
--- NOTE | 2019-08-19 19:05 | NUR ---
Patient visited in room during nursing rounds. Patient alert and oriented x3. Ambulatory in room with standby assist prn. On contact isolation for ESBL of urine. Pt on scheduled IV antibiotics. Intermittent pain on lower back and both feet but will me medicated accordingly. Call perrin within reach. Will monitor closely.
[2019-08-19] MEDS: AMOXICILLIN 250 MG CAP PO SCH (21:50)
[2019-08-19] MEDS ORDERED: AMOXICILLIN SUSP 250 MG/5 ML SUSP PO SCH (22:00)
[2019-08-20] VITALS (7 sets, daily range): BP systolic 130–150; BP diastolic 57–86
[2019-08-20] MEDS: HYDROCODONE/APAP 7.5MG-325MG 1 EA TAB PO PRN ×4 (03:37→23:15)
[2019-08-20] MEDS: MEROPENEM 500MG/ NS 50ML 50 ML IV SCH ×3 (06:20→11:50)
[2019-08-20] MEDS: AMOXICILLIN 250 MG CAP PO SCH (06:20)
[2019-08-20] MEDS: PANTOPRAZOLE SOD 40 MG TABEC PO SCH (06:20)
[2019-08-20] MEDS: LEVOTHYROXINE SODIUM 50 MCG TAB PO SCH (06:20)
--- NOTE | 2019-08-20 07:00 | NUR ---
BEDSIDE SHIFT REPORT RECEIVED FROM ANNUAL GIVING OFFICER RN. PT DENIES NEEDS AT THIS TIME.
[2019-08-20] MEDS: INSULIN REGULAR, HUMAN 100 UNIT/1 ML 3ML VIAL SQ SCH ×4 (07:30→21:13)
[2019-08-20] MEDS: NON-FORMULARY MEDICATION (Methenamine Hippurate 1 GM) PO SCH ×2 (09:00→16:34)
[2019-08-20] MEDS: GLIMEPIRIDE 2 MG TAB PO SCH ×2 (09:24→16:34)
[2019-08-20] MEDS: HYDRALAZINE HCL 25 MG TAB PO SCH ×3 (09:25→16:35)
[2019-08-20] MEDS: SITAGLIPTIN 100 MG TAB PO SCH (09:25)
[2019-08-20] MEDS: FUROSEMIDE 40 MG TAB PO SCH (09:25)
[2019-08-20] MEDS: METOPROLOL TARTRATE 50 MG TAB PO SCH ×3 (09:25→21:13)
[2019-08-20] MEDS: LISINOPRIL 20 MG TAB PO SCH ×2 (09:26→16:34)
[2019-08-20] MEDS: FLUOXETINE HCL 20 MG CAP PO SCH (09:26)
[2019-08-20] MEDS: FENOFIBRATE 145 MG TAB PO SCH (09:26)
[2019-08-20] MEDS: AMLODIPINE BESYLATE 5 MG TAB PO SCH (09:26)
[2019-08-20] MEDS: RIVAROXABAN 15 MG TABLET PO SCH (09:26)
--- NOTE | 2019-08-20 14:08 | NUR ---
PROGRESS [id number]
--- NOTE | 2019-08-20 14:16 | Progress Note ---
DATE: Internal Medicine Progress Note SUBJECTIVE: The patient is doing well except for pain. PHYSICAL EXAMINATION: HEART: Showed regular rhythm. Normal S1 and S2 sound. LUNGS: Clear bilaterally. ABDOMEN: Soft. VITAL SIGNS: Blood pressure 150/86, temperature 97.3, heart rate 82 per minute, respiratory rate 19 per minute, and oxygen saturation 100%. LABORATORY DATA: On the CBC; white blood count 7.29, hemoglobin 9.7, hematocrit 31.9, and platelet count 264,000. The blood sugar is 189. On the last BMP; sodium 140, potassium 3.6, chloride 104, CO2 26, BUN 15, creatinine 0.68, and glucose 164. AST 25, ALT 16, calcium 9.0, and alkaline phosphatase 39. Total protein 6.5, albumin 3.3, globulin 3.2, and procalcitonin 0.06. FINAL IMPRESSION: 1. Urinary tract infection. 2. Hypothyroidism. 3. Hyperlipidemia. 4. Hypertension. 5. Obesity. 6. Confusion. 7. Uncontrolled diabetes mellitus type 2. PLAN OF TREATMENT: We are going to continue with current medication regimen, which includes meropenem 500 g IV q.6 hours, amlodipine 5 mg daily, and amoxicillin 250 mg q.8 hours due to multidrug-resistant bacteria. Continue fenofibrate 145 mg daily, Prozac 40 mg daily, furosemide 40 mg daily, and glimepiride has been increased to 2 mg twice a day. Continue hydralazine 25 mg 3 times a day and hydralazine 10 mg IV q.4 hours as needed for hypertension. Continue with hydrocodone one tablet q.6 hours as needed for pain 7.5/325 mg tablet. Continue monitoring blood sugar before meals and at bedtime. Continue levothyroxine 50 mcg daily, lisinopril 20 mg twice a day, metoprolol 50 mg 3 times a day, Protonix 40 mg daily, and Pyridium 100 mg 3 times a day as needed for bladder spasms. Continue Xarelto 50 mg daily, Januvia 100 mg daily, and methenamine hippurate 1 g twice a day. We are going to increase the hydralazine to 25 mg q.6 hours due to uncontrolled hypertension. MD CAMRYN Rizzo/MAXIME /[id number]
--- NOTE | 2019-08-20 16:22 | Progress Note ---
DATE: SUBJECTIVE: Ms. Chong is doing better. She is alert and oriented. No complaints at present time. REVIEW OF SYSTEMS: HEENT: Negative. PULMONARY: Negative. CARDIAC: Negative. PHYSICAL EXAMINATION: GENERAL: She is currently alert and oriented. Does not seem to be in acute distress. VITAL SIGNS: Stable, afebrile. HEENT: She is not icteric. NECK: Supple. CHEST: Clear. HEART: S1 and S2. No S3, S4, or murmurs. ABDOMEN: Soft. Bowel sounds present. No tenderness. EXTREMITIES: No edema. SKIN: No rash. IMPRESSION: 1. Altered mental status, concerned this is metabolic. 2. Colonization with multidrug-resistant pathogen. Can discontinue antibiotic. 3. Discontinue amoxicillin. Discontinue meropenem. 4. History of hypertension, history of hypothyroidism. The patient probably could be discharged home on Wednesday with Hiprex 1 g p.o. b.i.d. Follow up as an outpatient. MD SEBASTIEN Hood/MAXIME /[id number]
--- NOTE | 2019-08-20 19:05 | NUR ---
Patient visited in room during nursing rounds. Patient alert and oriented x3. Ambulatory in room with standby assist prn. On contact isolation for ESBL of urine. Pt on scheduled IV antibiotics. Intermittent pain on lower back, chest and both feet but will me medicated accordingly. Otherwise, pt is stable. Call perrin within reach. Will monitor closely.
[2019-08-21] MEDS: HYDRALAZINE HCL 25 MG TAB PO SCH ×3 (00:19→11:34)
[2019-08-21 00:40] VITALS: BP 139/98
[2019-08-21 04:00] VITALS: BP 150/74
[2019-08-21] MEDS: HYDROCODONE/APAP 7.5MG-325MG 1 EA TAB PO PRN (05:00)
[2019-08-21] MEDS: LEVOTHYROXINE SODIUM 50 MCG TAB PO SCH (05:00)
[2019-08-21] MEDS: PANTOPRAZOLE SOD 40 MG TABEC PO SCH (05:00)
--- NOTE | 2019-08-21 07:00 | NUR ---
received bedside report. pt is alert sitting on the side of bed, states she has to use the bathroom. pt ambulated to restroom with walker and standby assist. no s/s of distress. pt was instructed to pull the restroom call light when she was finished so she can be helped back into bed.
[2019-08-21] MEDS: INSULIN REGULAR, HUMAN 100 UNIT/1 ML 3ML VIAL SQ SCH ×2 (07:30→11:35)
[2019-08-21 07:51] VITALS: BP 145/80
[2019-08-21 08:07] VITALS: BP 145/80
[2019-08-21] MEDS: NON-FORMULARY MEDICATION (Methenamine Hippurate 1 GM) PO SCH (08:58)
[2019-08-21] MEDS: SITAGLIPTIN 100 MG TAB PO SCH (08:59)
[2019-08-21] MEDS: GLIMEPIRIDE 2 MG TAB PO SCH (08:59)
[2019-08-21] MEDS: FUROSEMIDE 40 MG TAB PO SCH (08:59)
[2019-08-21] MEDS: METOPROLOL TARTRATE 50 MG TAB PO SCH (09:00)
[2019-08-21] MEDS: FENOFIBRATE 145 MG TAB PO SCH (09:00)
[2019-08-21] MEDS: LISINOPRIL 20 MG TAB PO SCH (09:00)
[2019-08-21] MEDS: AMLODIPINE BESYLATE 5 MG TAB PO SCH (09:00)
[2019-08-21] MEDS: FLUOXETINE HCL 20 MG CAP PO SCH (09:00)
[2019-08-21] MEDS: RIVAROXABAN 15 MG TABLET PO SCH (09:01)
[2019-08-21] MEDS ORDERED: HYDRALAZINE HCL25 MG PO (10:49)
[2019-08-21] MEDS ORDERED: METOPROLOL TART50 MG PO (10:50)
[2019-08-21] MEDS ORDERED: HIPREX1 GM PO (10:53)
[2019-08-21 11:24] VITALS: BP 137/76
--- NOTE | 2019-08-21 12:00 | Progress Note ---
DATE: SUBJECTIVE: The patient is seen and evaluated. Available labs and notes reviewed. Discussed with Dr. Villa. REVIEW OF SYSTEMS: The patient wants to go home. No nausea, vomiting, fever, chills, chest pain, or shortness of breath. OBJECTIVE: VITAL SIGNS: Temperature 97.5, pulse is 86, respirations 16, blood pressure 145/80. MEDICATIONS: Medication list reviewed. As far as Infectious Disease point of view, the patient is off antibiotics at this point. LABORATORY STUDIES: No new CBC or BMP available. MICROBIOLOGY: No new microbiology studies available RADIOLOGY: No new radiology studies available. PHYSICAL EXAMINATION: GENERAL: Alert and oriented, in no acute distress. CV: S1, S2. CHEST: Equal expansion. Clear to auscultation. No acute distress. ABDOMEN: Soft, nontender. No distention. HEENT: Moist. No pallor. No JVD. ASSESSMENT AND PLAN: 1. Altered mental status, concerned metabolic-resolved. 2. MDR colonization of the urine. 3. Status post antibiotic. 4. Hypertension. 5. Hypothyroidism. 6. Obesity/debility. 7. The patient is status post IV antibiotics. From Infectious Disease point of view, the patient can be discharged with Hiprex 1 p.o. b.i.d. for six months. The patient to follow up with Dr. Blackwell in 3 weeks. Further management of this patient is based on daily findings on laboratory and physical examination. Prescription in chart. Discussed with Dr. Villa as well. Please refer to chart for more information. MD SEBASTIEN Hood/MAXIME /[id number]
== END 2019-08-21 13:44 | disposition home or self-care (01) | DRG 871 ==
LOC: ER 11:10 → ERHOLD 13:07 → MED/SURG2 16:25
DX: A41.9 Sepsis, unspecified organism (principal); G93.41 Metabolic encephalopathy; N39.0 Urinary tract infection, site not specified; R41.82 Altered mental status, unspecified; I48.91 Unspecified atrial fibrillation; I25.10 Atherosclerotic heart disease of native coronary artery without angina pectoris; E11.9 Type 2 diabetes mellitus without complications; I11.0 Hypertensive heart disease with heart failure; I50.9 Heart failure, unspecified; E66.9 Obesity, unspecified; N39.46 Mixed incontinence; D64.9 Anemia, unspecified; B96.20 Unspecified Escherichia coli [E. coli] as the cause of diseases classified elsewhere; B95.2 Enterococcus as the cause of diseases classified elsewhere; E03.9 Hypothyroidism, unspecified; F32.9 Major depressive disorder, single episode, unspecified; E78.5 Hyperlipidemia, unspecified; R53.81 Other malaise; Z16.12 Extended spectrum beta lactamase (ESBL) resistance; Z90.710 Acquired absence of both cervix and uterus; Z68.30 Body mass index [BMI] 30.0-30.9, adult; Z87.440 Personal history of urinary (tract) infections; Z90.722 Acquired absence of ovaries, bilateral; Z90.79 Acquired absence of other genital organ(s); Z87.891 Personal history of nicotine dependence; Z79.84 Long term (current) use of oral hypoglycemic drugs
CPT/HCPCS: 36415; 71045; 74177; 80053; 81001; 82550; 82553; 82948; 83605; 83880; 84145; 84484; 85025; 85610; 87040; 87086; 87186; 87635; 93005; 96360; 96372; 99284; J0360; J0696; J1817; J1940; J7050; Q9967

== ENCOUNTER → 2019-10-09 | Day surgery (SDC) | payer MEDICARE, OTHER ==
[2019-10-04 11:06] LABS: BASOPHILS % 0.7 % (0.0-1.0); EOSINOPHILS # (AUTO) 0.2 (0.0-0.4); EOSINOPHILS % 2.8 % (0.0-6.0); HEMATOCRIT 33.8 % (34.2-44.1); LYMPHOCYTES # (AUTO) 1.5 (1.0-3.2); LYMPHOCYTES % 24.1 % (18.0-39.1); MEAN CORPUSCULAR HEMOGLOBIN 24.6 pg (28-32); MEAN CORPUSCULAR HGB CONC 29.6 g/dL (31-35); MONOCYTES # (AUTO) 0.6 (0.2-0.8); MONOCYTES % 10.1 % (4.4-11.3); NEUTROPHILS # (AUTO) 3.8 (2.1-6.9); PLATELET COUNT 268 x10e3/uL (140-360); RED BLOOD COUNT 4.07 x10e6/uL (3.6-5.1); RED CELL DISTRIBUTION WIDTH 17.7 % (11.7-14.4)
[2019-10-04 11:23] LABS: ANION GAP 14.4 mmol/L (8-16); BLOOD UREA NITROGEN 18 mg/dL (7-26); BUN/CREATININE RATIO 23 (6-25); CALCIUM 9.7 mg/dL (8.4-10.2); CARBON DIOXIDE 27 mmol/L (22-29); CHLORIDE 103 mmol/L (98-107); CREATININE, SERUM 0.78 mg/dL (0.57-1.11); EST GLOMERULAR FILTRATION RATE > 60 ML/MIN (60-); GLUCOSE 162 mg/dL (74-118); POTASSIUM 4.4 mmol/L (3.5-5.1); SODIUM 140 mmol/L (136-145)
--- NOTE | 2019-10-04 12:24 | Diagnostic Imaging Report ---
EXAMINATION: CHEST 2 VIEWS INDICATION: Pre-operative COMPARISON: Chest radiograph 08/14/2019 FINDINGS: LINES/TUBES:Right chest port unchanged. LUNGS:The lungs are well-inflated. New hazy peripheral left mid lung opacity. Unchanged right lower lung calcified granuloma. PLEURA:No pleural effusion or pneumothorax. MEDIASTINUM:The cardiomediastinal silhouette appears normal in size and shape. Atherosclerotic calcifications of the thoracic aorta. BONES/SOFT TISSUES:No acute osseous injury. Unchanged chronic T11 compression fracture. ABDOMEN:No free air under the diaphragm. IMPRESSION: New peripheral left midlung hazy opacity. Pneumonia should be clinically excluded in the preoperative setting. Signed by: Chikis Reyes MD on 10/04/2019 12:20 PM
[2019-10-04 13:28] LABS: ANISOCYTOSIS SLIGHT; HYPOCHROMASIA SLIGHT; PLATELET ESTIMATE ADEQUATE; PLATELET MORPHOLOGY COMMENT NORMAL
[2019-10-04 13:29] LABS: POLYCHROMASIA FEW; RBC MORPHOLOGY COMMENT ABNORMAL
[~2019-10-09] MED LIST changes: +ACETAMINOPHEN 1000 MG/100 ML IV ONE; +B&O 60MG R/S 60 MG SUPP PR ONE; +DESFLURANE 240 ML BTL INH ONE; +DEXAMETHASONE SOD PHOS INJ 4 MG/ML VIAL ONE; +FENTANYL CITRATE/PF 100MCG/2 ML INJ ONE; +FUROSEMIDE40 MG PO; +GENTAMICIN 80MG/NS 100 ML 100 ML IV ONE; +HIPREX1 GM PO; +HYDRALAZINE HCL25 MG PO; +HYDROMORPHONE 2MG/ML 2 MG/ML ML ONE; +IOPAMIDOL 300MG/ML 50ML INFUS..BTL IV ONE; +ONDANSETRON HCL INJ 2MG/ML 2ML 2 MG/ML VIAL ONE; +PIPERACILLIN/TAZO 2.25 GM 50 ML IV ONE; +PROPOFOL IV EMULSION 10 MG/ML 20 ML VIAL ONE
[2019-10-09 09:00] VITALS: BP 149/74
--- NOTE | 2019-11-06 06:31 | Operative Report ---
DATE OF PROCEDURE: 10/09/2019 SURGEON: Selvin Montoya MD PREOPERATIVE DIAGNOSIS: Urinary tract infections. POSTOPERATIVE DIAGNOSES: 1. Urinary tract infections. 2. Urethral stenosis. 3. Atrophic (senile) vaginitis. OPERATIONS PERFORMED: 1. Cystourethroscopy with calibration and dilation of urethra (separate procedure was performed for the urethral stenosis). 2. Cystourethroscopy with bilateral ureteral catheterization and retrograde ureteropyelography (separate procedure was performed for the urinary tract infections). 3. Interpretation of retrograde ureteropyelography, no radiologist present. 4. Pelvic examination under anesthesia. ANESTHESIA: General. COMPLICATIONS: None. CLINICAL SUMMARY: Marly Chong is an 84-year-old woman, who has had some sort of bladder neck surgery by another urologist. We believe that may have been procedure. The patient had other prior surgeries involving bulking agents. The patient is brought to the operating room for the above procedure. She is aware of the risks of bleeding, infection, injury to adjacent structures, need for further procedures and elected to proceed. OPERATIVE PROCEDURE IN DETAIL: Informed consent was verified. Marly Chong was properly identified, taken to the operating room, placed on the cystoscopy table in supine position. Anesthesia was uneventfully begun. The patient was then carefully gently repositioned in dorsal lithotomy position with all pressure points well padded. Her genitalia were prepared and draped in the usual sterile fashion. The cystoscope sheath with the visual obturator in place was inserted in patient's urethra. It was severely scarred. We popped across the blockage and into the patient's bladder. There was obvious signs of prior bulking agent injection. Panendoscopy of the bladder revealed trabeculations and a significant amount of debris within the bladder. Initially, this yellow debris appeared to be stones, but it was not, but appears to be old blood clots as well as old inflammatory substances. We evacuated all the stuff out of the bladder, but there were no suspicious lesions, there were no tumors, and there were no true stones. Ureteral catheter was used to cannulate each ureter and retrograde ureteropyelography was performed. Interpretation of retrograde ureteropyelography contrast was instilled in retrograde fashion bilaterally. There were no tumors, no stones, and no diverticula. Unobstructed drainage was observed bilaterally fluoroscopically. There was radiopaque material periurethrally, which we believe is previous bulking agent injection. We proceeded with finishing out her dilating procedure by dilating the patient's urethra with 32-Eritrean in size this allowed us to place a 24-Eritrean Dos Santos catheter, irrigated to and fro to ensure it worked properly. Pelvic examination under anesthesia revealed severely atrophic (senile) vaginitis. No abnormal palpable pelvic masses could be appreciated. There were no obvious mucosal lesions. The patient was then uneventfully reversed from anesthesia and taken to recovery room in stable condition. There were no complications to the procedure. She tolerated the procedure well. PLANS: Plans will be to follow the patient up in several weeks to remove her Dos Santos catheter. Ongoing urological followup is a must. MD SPENCER Masters/EDVINL /[id number]
== END | disposition home or self-care (01) ==
LOC: OR 05:15
PROVIDERS: ATTEND Urology
DX: N35.92 Unspecified urethral stricture, female (principal); N39.0 Urinary tract infection, site not specified; N32.89 Other specified disorders of bladder; N95.2 Postmenopausal atrophic vaginitis; N39.46 Mixed incontinence; E66.9 Obesity, unspecified; E03.9 Hypothyroidism, unspecified; E11.9 Type 2 diabetes mellitus without complications; I11.0 Hypertensive heart disease with heart failure; I50.9 Heart failure, unspecified; I48.91 Unspecified atrial fibrillation; F41.9 Anxiety disorder, unspecified; Z88.6 Allergy status to analgesic agent; Z88.1 Allergy status to other antibiotic agents; Z88.2 Allergy status to sulfonamides; Z01.810 Encounter for preprocedural cardiovascular examination; Z01.812 Encounter for preprocedural laboratory examination; Z01.818 Encounter for other preprocedural examination; Z11.59 Encounter for screening for other viral diseases; Z79.84 Long term (current) use of oral hypoglycemic drugs; Z79.02 Long term (current) use of antithrombotics/antiplatelets; Z68.30 Body mass index [BMI] 30.0-30.9, adult
CPT/HCPCS: 36415 ×2; 52281; 71046; 74420; 80048; 82948; 85025; 87071; 87086; 87186; 87205; 88305; 93005; C1758; J0131; J1100; J1170; J1580; J2405; J2543; J2704; J3010; Q9967; U0002; 88300

== ENCOUNTER 2020-01-16 06:46 | Emergency (ER) | payer MEDICARE, OTHER ==
[~2020-01-16] VITALS: Ht 162.6 cm; Wt 79.4 kg
[~2020-01-16 06:46] MED LIST changes: -ACETAMINOPHEN 1000 MG/100 ML IV ONE; -B&O 60MG R/S 60 MG SUPP PR ONE; -DESFLURANE 240 ML BTL INH ONE; -DEXAMETHASONE SOD PHOS INJ 4 MG/ML VIAL ONE; -FENTANYL CITRATE/PF 100MCG/2 ML INJ ONE; -GENTAMICIN 80MG/NS 100 ML 100 ML IV ONE; -HYDROMORPHONE 2MG/ML 2 MG/ML ML ONE; -IOPAMIDOL 300MG/ML 50ML INFUS..BTL IV ONE; -ONDANSETRON HCL INJ 2MG/ML 2ML 2 MG/ML VIAL ONE; -PIPERACILLIN/TAZO 2.25 GM 50 ML IV ONE; -PROPOFOL IV EMULSION 10 MG/ML 20 ML VIAL ONE
[2020-01-16 07:24] LABS: BASOPHILS # (AUTO) 0.1 (0.0-0.1); BASOPHILS % 0.8 % (0.0-1.0); EOSINOPHILS # (AUTO) 0.1 (0.0-0.4); EOSINOPHILS % 1.5 % (0.0-6.0); HEMATOCRIT 33.8 % (34.2-44.1); HEMOGLOBIN 10.1 g/dL (12.0-16.0); LYMPHOCYTES # (AUTO) 1.4 (1.0-3.2); LYMPHOCYTES % 19.6 % (18.0-39.1); MEAN CORPUSCULAR HEMOGLOBIN 24.2 pg (28-32); MEAN CORPUSCULAR HGB CONC 29.9 g/dL (31-35); MEAN CORPUSCULAR VOLUME 80.9 fL (81-99); MONOCYTES # (AUTO) 0.9 (0.2-0.8); MONOCYTES % 12.3 % (4.4-11.3); NEUTROPHILS # (AUTO) 4.7 (2.1-6.9); NEUTROPHILS % 65.5 % (38.7-80.0); PLATELET COUNT 300 x10e3/uL (140-360); RED BLOOD COUNT 4.18 x10e6/uL (3.6-5.1); RED CELL DISTRIBUTION WIDTH 17.4 % (11.7-14.4)
[2020-01-16 07:52] LABS: CLARITY,URINE SL CLOUDY (CLEAR); COLOR,URINE YELLOW (YELLOW); LEUKOCYTE ESTERASE ,URINE MODERATE (NEGATIVE); NITRITE,URINE POSITIVE (NEGATIVE)
[2020-01-16 07:53] LABS: BILIRUBIN,URINE NEGATIVE (NEGATIVE); KETONES,URINE NEGATIVE (NEGATIVE); PROTEIN,URINE DIPSTICK 1+ (NEGATIVE); URINE UROBILINOGEN 0.2 mg/dL (0.2 - 1)
[2020-01-16 08:04] LABS: BACTERIA,URINE MANY /HPF; EPITHELIAL CELLS,URINE FEW /LPF; RBC,URINE 0-5 /HPF (0-5); WBC,URINE (MAN) >50 /HPF (0-5)
[2020-01-16 08:16] LABS: ALANINE AMINOTRANSFERASE 20 IU/L (0-55); ALBUMIN 3.7 g/dL (3.5-5.0); ALBUMIN/GLOBULIN RATIO 1.1 (0.8-2.0); ALKALINE PHOSPHATASE 46 IU/L (40-150); ANION GAP 14.3 mmol/L (8-16); BLOOD UREA NITROGEN 20 mg/dL (7-26); BUN/CREATININE RATIO 23 (6-25); CALCIUM 10.7 mg/dL (8.4-10.2); CARBON DIOXIDE 28 mmol/L (22-29); CHLORIDE 100 mmol/L (98-107); CREATINE KINASE 69 IU/L (29-168); CREATININE, SERUM 0.88 mg/dL (0.57-1.11); EST GLOMERULAR FILTRATION RATE > 60 ML/MIN (60-); GLUCOSE 170 mg/dL (74-118); MAGNESIUM 1.3 MG/DL (1.3-2.1); POTASSIUM 4.3 mmol/L (3.5-5.1); SODIUM 138 mmol/L (136-145)
--- OUTSIDE RECORDS SUMMARY | 2020-01-16 08:21 | XMS REPORT | Continuity of Care Document ---
Author Author [facility] t Organization [facility] Address [address] [place] [address] Phone Unavailable Care Team Providers Care Art Glass Designer Name Role Phone ANITRA SHARPE, MAURICIO PCP MEDINA JEWELL Attphys Unavailable AYOUB, SOUHEIL Attphys Unavailable TED MILLER Attphys Unavailable ELLAJuan SALGIOVANNI Attphys Unavailable TIERRA, S AMBICA Attphys Unavailable AYOUB, SOUHEIL Admphys Unavailable Payers Payer Name Policy Type Policy Number Effective Date Expiration Date S ource Medicare A & B [id number] 2019 00:00:00 [facility] [id number] 2019 00:00[facility]00 [facility] [id number] 2011 00:00:00 [facility] Problems Condition Name Condition Details Condition Category Status Onset Date Resolution Date Last Treatment Date Treating Clinician Comments Source Pyelonephritis Pyelonephritis Problem Active 2015-09-20 00:00:00 [facility] Confusion Confusion Problem Active 2014-06-24 00:00:00 [facility] Fall at home Fall at home Problem Active 2014-06-24 00:00:00 [facility] Urinary tract infection UTI (urinary tract infection) Problem Active 2014-06-24 00:00:00 [facility] Chest pain Chest pain Problem Active [facility] Diarrhea Diarrhea Problem Active [facility] Syncope Syncope Problem Active [facility] Gastrointestinal hemorrhage GIH (gastrointestinal hemorrhage) Problem Active [facility] Allergies, Adverse Reactions, Alerts Allergy Name Allergy Type Status Severity Reaction(s) Onset Date Inacti ve Date Treating Clinician Comments Source Sulfa (Sulfonamide Antibiotics) DA Active 2015-08-25 00 :00:00 [facility] nitrofurantoin DA Active 2015-08-25 00:00:00 [facility] ciprofloxacin DA Active 2015-08-25 00:00:00 [facility] Morphine Allergy to Substance Active 2014-11-09 00:00:00 [facility] Nitrofurantoin Allergy to Substance Active Mild RASH 2009-11-20 00:00 :00 [facility] Ciprofloxacin Allergy to Substance Active Mild RASH 2009-11-20 00:00: 00 [facility] Medications Ordered Medication Name Filled Medication Name Start Date Stop Da te Current Medication? Ordering Clinician Indication Dosage Frequency Signature (SIG) Comments Components Source Cefuroxime Axetil (Ceftin) 250 Mg/5 Ml Susp.recon, 500 Mg Oral Cefuroxime Axetil (Ceftin) 250 Mg/5 Ml Susp.recon, 500 Mg Oral 2017-05-14 00:00:00 2018-03-05 3 00:00:00 Shirley Jurado Md 500 Twice A Day [facility] Fenofibrate,Micronized (Fenofibrate) 134 Mg Capsule Fe nofibrate,Micronized (Fenofibrate) 134 Mg Capsule Yes 134 Daily [facility] Fluoxetine Hcl 40 Mg Capsule Fluoxetine Hcl 40 Mg Capsule Y es 40 Daily [facility] Gabapentin 300 Mg Capsule Gabapentin 300 Mg Capsule Yes 600 Three Times A Day [facility] Glimepiride 2 Mg Tablet Glimepiride 2 Mg Tablet Yes 2 Daily [facility] Hydrocodone Bit/Acetaminophen (Midway 7.5-325 Tablet) 1 Each Tablet Hydrocodone Bit/Acetaminophen (Midway 7.5-325 Tablet) 1 Each Tablet Yes 1 Every 6 Hours [facility] Levothyroxine Sodium 50 Mcg Tablet Levothyroxine Sodium 50 Mcg Tablet Yes 50 Daily [facility] Lisinopril 10 Mg Tablet Lisinopril 10 Mg Tablet Yes 20 Twice A Day [facility] Methenamine Hippurate 1 Gm Tablet Methenamine Hippurate 1 Gm Tablet Yes 1 Twice A Day [facility] Metoprolol Tartrate 50 Mg Tablet Metoprolol Tartrate 50 Mg Tablet Yes 50 Twice A Day [facility] Omeprazole 40 Mg Capsule. Omeprazole 40 Mg Capsule. Yes 20 Daily [facility] Rivaroxaban (Xarelto) 10 Mg Tablet Rivaroxaban (Xarelto) 10 Mg Tablet Yes 15 Daily [facility] Cephalexin 250 Mg Capsule, 250 Mg Oral Cephalexin 250 Mg Capsule , 250 Mg Oral 2019-01-09 00:00:00 No 250 Twice A Day [facility] Warfarin Sodium 1 Mg Tablet, 2 Mg Oral Warfarin Sodium 1 Mg Tabl et, 2 Mg Oral 2019-01-09 00:00:00 No 2 Daily [facility] Calcium Carbonate/Vitamin D3 (Calcium 50 0+D Tablet Chew) 1 Each Tab.chew, 4 Tab Oral Calcium Carbonate/Vitamin D3 (Calcium 50 0+D Tablet Chew) 1 Each Tab.chew, 4 Tab Oral 2018-03-17 00:00:00 No 4 Twice A Day [facility] Cefuroxime Axetil (Cefuroxime) 500 Mg Tablet, 500 Mg O ral Cefuroxime Axetil (Cefuroxime) 500 Mg Tablet, 500 Mg Oral 2018-03-17 00:00:00 No 500 3XWK [facility] Glimepiride 2 Mg Tablet, 2 Mg Oral Glimepiride 2 Mg Tablet, 2 Mg Oral 2018-03-17 00:00:00 No 2 Daily [facility] Hydrocodone Bit/Acetaminophen (Midway 7.5-325 Tablet) 1 Each Tablet, 1 Ea Oral Hydrocodone Bit/Acetaminophen (Midway 7.5-325 Tablet) 1 Each Tablet, 1 Ea Oral 2018-03-17 00:00:00 No 1 As Needed [facility] Lactobac Cmb #3/Fos/Pantethine (Probioti c & Acidophilus Cap) 1 Each Capsule, 1 Cap Oral Lactobac Cmb #3/Fos/Pantethine (Probioti c & Acidophilus Cap) 1 Each Capsule, 1 Cap Oral 2018-03-17 00:00:00 No 1 Twic e A Day [facility] Omeprazole 20 Mg Tablet.dr, 20 Mg Oral Omeprazole 20 Mg Tablet.d r, 20 Mg Oral 2018-03-17 00:00:00 No 20 Daily [facility] Phenazopyridine Hcl 100 Mg Tablet, 200 Mg Oral Phenazo pyridine Hcl 100 Mg Tablet, 200 Mg Oral 2018-03-17 00:00:00 No 200 Twic e A Day [facility] Fesoterodine Fumarate (Toviaz) 4 Mg Tab.er.24h, 4 Mg O ral Fesoterodine Fumarate (Toviaz) 4 Mg Tab.er.24h, 4 Mg Oral 2016-08-20 00:00:00 No 4 Daily [facility] Fluoxetine Hcl (Prozac) 20 Mg Capsule, 40 Mg Oral Fluo xetine Hcl (Prozac) 20 Mg Capsule, 40 Mg Oral 2016-08-20 00:00:00 No 40 Bibiana y [facility] Alclometasone Dipropionate 15 Gm Cream..g., Topicall y Alclometasone Dipropionate 15 Gm Cream..g., Topically 2016-08-19 00:00:00 No Twice A Day [facility] Estradiol (Estrace) 42.5 Gm Cr, 1 Each Topically Estra diol (Estrace) 42.5 Gm Cr, 1 Each Topically 2016-08-19 00:00:00 No 1 2XWK [facility] Hydrocodone Bit/Acetaminophen (Midway 10-325 Tablet) 1 Each Tablet, Oral Hydrocodone Bit/Acetaminophen (Midway 10-325 Tablet) 1 Each Tablet, Oral 2016-08-19 00:00:00 No As Needed [facility] Doxycycline Hyclate 100 Mg Capsule, 100 Mg Oral Doxycy bhat Hyclate 100 Mg Capsule, 100 Mg Oral 2014-11-15 00:00:00 No 100 Twi ce A Day [facility] Fluoxetine Hcl (Prozac) 20 Mg Capsule, 20 Mg Oral Fluo xetine Hcl (Prozac) 20 Mg Capsule, 20 Mg Oral 2014-11-14 00:00:00 No 20 Bibiana y [facility] Gabapentin 100 Mg Capsule, 200 Mg Oral Gabapentin 100 Mg Capsule , 200 Mg Oral 2014-11-14 00:00:00 No 200 Twice Daily Breakfas t & Lunch [facility] Hydrocodone Bit/Acetaminophen (Hydrocodo n-Acetaminophen 5-325) 1 Each Tablet, 1 Dose Oral Hydrocodone Bit/Acetaminophen (Hydrocodo n-Acetaminophen 5-325) 1 Each Tablet, 1 Dose Oral 2014-11-14 00:00:00 No 1 Every 4 Hours as needed for Pain [facility] Amlodipine Besylate/Benazepril (Amlodipine-Benazepril 5-10 Mg) 1 Each Capsule, Amlodipine Besylate/Benazepril (Amlodipine-Benazepril 5-10 Mg) 1 Each Capsule, 2014-06-24 00:00:00 [facility] Atenolol , Atenolol , 2014-06-24 00:00:00 [facility] Cefuroxime , Cefuroxime , 2014-06-24 00:00:00 [facility] Citracel + D , Citracel + D , 2014-06-24 00:00:00 [facility] Fenofibrate , Fenofibrate , 2014-06-24 00:00:00 [facility] Fish Oil , Fish Oil , 2014-06-24 00:00:00 [facility] Fluoxetine , Fluoxetine , 2014-06-24 00:00:00 [facility] Glimepiride , Glimepiride , 2014-06-24 00:00:00 [facility] Hydrochlorothiazide , Hydrochlorothiazide , 2014-06-24 00:00:00 [facility] L-Thyroxine , L-Thyroxine , 2014-06-24 00:00:00 [facility] Lyrica , Lyrica , 2014-06-24 00:00:00 [facility] Omeprazole , Omeprazole , 2014-06-24 00:00:00 [facility] Propoxyphene , Propoxyphene , 2014-06-24 00:00:00 [facility] Theragran-M , Theragran-M , 2014-06-24 00:00:00 [facility] Warfarin , Warfarin , 2014-06-24 00:00:00 [facility] Zolpidem , Zolpidem , 2014-06-24 00:00:00 [facility] Procedures Procedure Date / Time Performed Performing Clinician [facility] e Colonoscopy with polypectomy 2019-06-02 00:00:00 DEVON AYOUB [facility] Computed tomography of brain without radiopaque contrast 202 00:00:00 MAURICIO AYOUB [facility] MRI joint upr extrem w/o dye 2019-04-26 00:00:00 KAYLA JARAMILLO I [facility] X-ray of chest, two views 2019-04-06 00:00:00 MAURICIO AYOUB [facility] Computed tomography of brain without radiopaque contrast 201 12-13-08 00:00:00 TED RUEDA [facility] Computed tomography of cervical spine without contrast 01-11 00:00:00 TED RUEDA [facility] Computed tomography of chest with contrast 2018-10-28 00:00:00 MAURICIO DIALLO [facility] X-ray of chest, two views 2018-10-26 00:00:00 MAURICIO AYOUB [facility] Encounters Start Date/Time End Date/Time Encounter Type Admission Type Attendi ng Clinicians Care Facility Care Department Encounter ID Source 2019-05-31 17:11:00 2019-06-04 14:47:00 Discharged Inpatient (obs) 1 MAURICIO AYOUB [facility] [id number] [facility] 2019-04-26 08:25:00 2019-04-26 08:25:00 Registered Clinic 3 KAYLA GRADY [facility] [id number] [facility] 2019-04-06 15:53:00 2019-04-06 15:53:00 [id number] [facility] 2019-02-08 10:36:00 2019-02-08 10:36:00 Registered Clinic 3 KAYLA GRADY [facility] [id number] [facility] 2019-01-11 14:54:00 2019-01-11 18:45:00 Departed Emergency Room 1 MARCIO MAYORGA [facility] [id number] [facility] 2019-01-08 15:12:00 2019-01-10 14:44:00 Discharged Inpatient [facility] [id number] [facility] 2018-10-25 17:44:00 2018-10-28 19:06:00 [facility] [id number] [facility] 2018-03-20 13:55:00 2018-03-21 16:48:00 Discharged Inpatient 1 JEANNINE AYOUBRONNI [facility] [id number] [facility] 2017-12-27 13:06:00 2017-12-27 13:06:00 Registered Clinic [facility] [id number] [facility] 2017-05-14 10:39:00 2017-05-14 14:00:00 Departed Emergency Room [facility] [id number] [facility] 2016-08-20 07:10:00 2016-08-20 07:10:00 Registered Surgical Day Care [facility] [id number] [facility] Results Test Description Test Time Test Comments Results Result Comments Source - CT C-SPINE W/O CONT 2020-01-02 07:21:00 Name : MAURIZIO WINN [facility] Bean Zazueta : 1935 Age/S: 84 / F [address] [place] [address] Unit #: [id number] Loc: [place] [address] Phys: Nba Enriquez DO Acct: [id number] Dis Date: Status: REG ER PHONE #: [phone] Exam Date: 01/02/2020 07 FAX #: [phone] Reason: NECK PAIN EXAMS: CPT CODE: [id number] CT C-SPINE W/O CONT 19449 CT cervical spine without contrast 01/02/2020 HISTORY: Neck pain. PROCEDURE: Multiple axial images from the skull base to the thoracic inlet were obtained without contrast. Coronal and sagittal reconstructed images were performed CT imaging performed at this location utilizes radiation dose optimization techniques which include one or more of the following: -Automated exposure control -Adjustment of the mA and/or kV according to patient size -Use of iterative reconstruction technique CT Radiation Dose DLP 258.61 mGy-cm No prior exams are available for comparison FINDINGS: There is straightening of the cervical spine. Vertebral body heights are maintained. No malalignment is identified. There is no lucency to suggest an acute fracture. No aggressive lesion is present. No prevertebral soft tissue swelling is evident. No lymphadenopathy or mass lesion is present. Mild bilateral carotid calcifications are present. C2-C3: No significant spinal canal stenosis or neural foraminal narrowing. C3-C4: No significant spinal canal stenosis or neural foraminal narrowing. C4-C5: Disc space narrowing is present with moderate lateral osteophytes. There is moderate right neural foraminal narrowing. No significant left neural foraminal narrowing or spinal canal stenosis. C5-C6: Disc space narrowing and osteophytes are present. There is mild bilateral neural foraminal narrowing but no significant spinal canal stenosis. C6-C7: Disc space narrowing and osteophytes are present. There is mild bilateral neural foraminal narrowing and no significant spinal canal stenosis. C7-T1: Left facet hypertrophy results in mild left neural foraminal narrowing. No right neural foraminal narrowing or spinal canal PAGE 1 Signed Report (CONTINUED) Name: MAURIZIO WINN [facility] Bean Zazueta : 1935 Age/S: 84 / F [address] [place] [address] Unit #: [id number] Loc: [place] [address] Phys: Nba Enriquez DO Acct: [id number] Dis Date: Status: REG ER PHONE #: [phone] Exam Date: 01/02/2020 07 FAX #: [phone] Reason: NECK PAIN EXAMS: CPT CODE: [id number] CT C-SPINE W/O CONT 78907 <Continued> stenosis. IMPRESSION: 1. No fracture or dislocation involving cervical spine. 2. Straightening of cervical spine may be related to patient positioning or muscle spasm. 3. Moderate right neural foraminal narrowing at C4-5. 4. Other mild degenerative changes as described. SL: [id number] at 0721 Reported and signed by: Justin Buck M.D. CC: Nba Enriquez DO Technologist:RT Paula(R)(CT) CTDI: DLP: Trnscb Date/Time: 01/02/2020 (720) [email or web address] Orig Print D/T: S: 01/02/2020 (723) PAGE 2 Signed Report ALCOHOL 2020-01-02 07:17:00 Test Item ALCOHOL (test code = ALC) 4.9 mg/dL <10 N Et hyl Alcohol Interpretation: 100 mg/dL - Legally Intoxicated 300-400 mg/dL - Severely Intoxicated >400 mg/dL - Potentially LethalThe pharmacological response to blood alcohol levels mayvary from individual to individual. Signs of intoxicationcan be observed at levels of 50-100 mg/dL. Results are for Medical purposes only, and not for Legal orEmployment evaluation purposes. BASIC METABOLIC [id number] 07:17:00* Test Item Value Reference Range Interpretation Comments SODIUM (test code = NA) 138 mEq/L 134-147 N POTASSIUM (test code = K) 3.8 mEq/L 3.4-5.0 N CHLORIDE (test code = CL) 102 mEq/L 100-108 N CARBON DIOXIDE (test code = CO2) 29 mEq/L 21-33 N ANION GAP (test code = GAP) 11 0-20 N GLUCOSE (test code = GLU) 145 mg/dL 70-110 H BLOOD UREA NITROGEN (test code = BUN) 19 mg/dL 7-18 H GLOMERULAR FILTRATION RATE (test code = GFR) 59.5 70-80 L Units of measure = ml/min/1.73 m2 CREATININE (test code = CREAT) 0.9 mg/dL 0.6-1.3 N CALCIUM (test code = CA) 9.7 mg/dL 8.0-10.5 N HEPATIC FUNCTION [id number] 07:17:00* Test Item Value Reference Range Interpretation Comments TOTAL PROTEIN (test code = PROT) 6.8 g/dL 6.4-8.2 N ALBUMIN (test code = ALB) 3.80 g/dL 3.4-5.0 N BILIRUBIN TOTAL (test code = BILT) 0.60 mg/dL 0.0-1.0 N BILIRUBIN DIRECT (test code = BILD) 0.30 MG/DL 0.0-0.30 N BILIRUBIN INDIRECT (test code = BILIND) 0.30 MG/DL SGOT/AST (test code = AST) 39 IUnit/L 15-37 H SGPT/ALT (test code = ALT) 14 IUnit/L 30-65 L ALKALINE PHOSPHATASE TOTAL (test code = ALKP) 46 IUnit/L 20-125 N [id number] 07:17:00* Test Item Value Reference Range Interpretation Comments TROPONIN-I (test code = TROPI) 0.017 ng/mL 0.000-0.045 N Negative: <= 0.045 Positive: >= 0.046 Correlation with serial results, other cardiac markers andclinical findings is necessary to determine the clinicalsignificance of this result. Results using different methodologies should not be comparedto one another as quantitative results may vary by method. PROTHROMBIN [id number] 07:15:00* Test Item Value Reference Range Interpretation Comments PROTHROMBIN TIME PATIENT (test code = PTP) 16.5 SECONDS 9.3-12.9 H INTERNATIONAL NORMAL RATIO (test code = INR) 1.5 0.8-1.2 H TARGET INR BY INDICATION Indication INR1. Prophylaxis of venous thrombosis 2.0 - 3.0 (orthopedic surgery), Prophylaxis of venous thrombosis (other than high-risk surgery), Treatment of Deep Vein Thrombosis/Pulmonary Embolism, Prevention of systemic embolism - Tissue heart valves, Acute Myocardial Infarction (to prevent systemic embolism), Valvular heart disease, Atrial Fibrillation, Bileaflet mechanical valve in aortic position.2. Mechanical prosthetic valves (high risk), 2.5 - 3.5 Presence of Lupus Anticoagulant or Antiphospholipid Antibodies, Prevention of systemic embolism - Acute Myocardial Infarction (to prevent recurrent infarct). THROMBOPLASTIN TIME [id number] 07:15:00* Test Item Value Reference Range Interpretation Comments THROMBOPLASTIN TIME PARTIAL (test code = PTT) 28.9 Seconds 25.0-39. 5 N Therapeutic Range: 50.4 - 88.3 Seconds Effective 07/19/2018 - CT HEAD/BRAIN W/O [id number] 07:03:00 Name: MAURIZIO WINN [facility] : 1935 Age/S: 84 / F [address] [place] [address] Unit #: [id number] Loc: [place] [address] Phys: Nba Enriquez DO Acct: [id number] Dis Date: Status: REG ER PHONE #: [phone] Exam Date: 01/02/2020 0700 FAX #: [phone] Reason: fall/ head injury EXAMS: CPT CODE: [id number] CT HEAD/BRAIN W/O CONT 07972 CT head without contrast 01/02/2020 HISTORY: Fall. Head injury PROCEDURE: Multiple axial images from the skull base to the skull vertex were obtained without contrast. Coronal and sagittal reconstructed images were performed CT imaging performed at this location utilizes radiation dose optimization techniques which include one or more of the following: -Automated exposure control -Adjustment of the mA and/or kV according to patient size -Use of iterative reconstruction technique CT Radiation Dose DLP 522.55 mGy-cm No prior exams are available for comparison FINDINGS: Left frontal scalp soft tissue swelling is present. No acute intracranial hemorrhage, midline shift, extra-axial fluid collection, or hydrocephalus is present. No cortical hypodensity to suggest an acute infarct is present. There is moderate atrophy. There are moderate white matter hypodensities. The visualized mastoid air cells are clear. There is no paranasal sinus air-fluid level. Distal internal carotid arterial theodore cifications are present. IMPRESSION: 1. No acute intrac ranial abnormality. 2. Moderate atrophy and moderate chronic microvascu lar ischemic changes. SL: [id number] at 0703 Reported and signed by: Justin Buck M.D. CC: Nba Enriquez DO Technologist:Marina Valderrama RT(R)(CT) CTDI: DLP: Trnscb Date/Time: 01/02/2020 (702) [email or web address] Orig Print D/T: S: 01/02/2020 (705) PAGE 1 Signed Report CBC W/AUTO [id number] 06:59:00* Test Item Value Reference Range Interpretation Comments WHITE BLOOD CELL (test code = WBC) 7.19 x10 3/uL 4.5-11.0 N RED BLOOD CELL (test code = RBC) 4.06 x10 6/uL 3.54-5.02 N HEMOGLOBIN (test code = HGB) 10.1 g/dL 11.0-15.0 L HEMATOCRIT (test code = HCT) 34.2 % 33.0-45.0 N MEAN CELL VOLUME (test code = MCV) 84.2 fL 81.0-99.0 N MEAN CELL HGB (test code = MCH) 24.9 pg 27.0-33.0 L MEAN CELL HGB CONCETRATION (test code = MCHC) 29.5 g/dL 33.0-37. 0 L RED CELL DISTRIBUTION WIDTH CV (test code = RDW) 17.2 % 11.5- 14.5 H RED CELL DISTRIBUTION WIDTH SD (test code = RDW-SD) 52.9 fL 37 .0-54.0 N PLATELET COUNT (test code = PLT) 286 x10 3/uL 150-400 N MEAN PLATELET VOLUME (test code = MPV) 10.9 fL 7.0-9.0 H NEUTROPHIL % (test code = NT%) 75.2 % 56.0-77.0 N IMMATURE GRANULOCYTE % (test code = IG%) 0.3 % 0.0-2.0 N LYMPHOCYTE % (test code = LY%) 12.9 % 14.0-32.0 L MONOCYTE % (test code = MO%) 8.3 % 4.8-9.0 N EOSINOPHIL % (test code = EO%) 2.5 % 0.3-3.7 N BASOPHIL % (test code = BA%) 0.8 % 0.0-2.0 N NUCLEATED RBC % (test code = NRBC%) 0.0 % 0-0 N NEUTROPHIL # (test code = NT#) 5.40 x10 3/uL 2.0-7.6 N IMMATURE GRANULOCYTE # (test code = IG#) 0.02 x10 3/uL 0.00-0.03 N LYMPHOCYTE # (test code = LY#) 0.93 x10 3/uL 1.0-3.8 L MONOCYTE # (test code = MO#) 0.60 x10 3/uL 0.1-0.8 N EOSINOPHIL # (test code = EO#) 0.18 x10 3/uL 0.0-0.2 N BASOPHIL # (test code = BA#) 0.06 x10 3/uL 0.0-0.2 N NUCLEATED RBC # (test code = NRBC#) 0.00 x10 3/uL 0.0-0.1 N MANUAL DIFF REQUIRED (test code = MDIFF) NO - XR PELVIS 04/06 [id number] 06:30:00 FAX: Nba Fernando DO [phone] [place]: St: REG Name: Shraddha MICHAELMAURIZIO CANALES [facility] : [birth year] Age/S: 84/F [address] [place] [address] Unit #: [id number] Loc: [place] [address] Phys: Nba Enriquez DO Acct: [id number] Dis Date: Status: REG ER PHONE #: [phone] Exam Date: 01/02/2020 06 FAX #: [phone] Reason: PELVIC PAIN EXAMS: CPT CODE: [id number] XR PELVIS 1/2 VIEWS 62288 Study: - XR PELVIS 1/2 VIEWS 01/01 6:12 AM Patient Name: MAURIZIO WINN MR: [id number] : 1935; Age: 84 years y/o Female Ordering Physician: Afsaneh Enriquez DO Clinical Indication: Pelvic pain related to a fall. Comparison: None PELVIS, 1 view: IMPR ESSION: No acute fracture, dislocation, or suspicious focal os seous lesion. Mild foreshortening of both femoral necks is li francisco related to positioning, but could be further evaluated with additio nal views if clinically indicated. Mild to moderate shawnee mbosacral spondylosis and facet arthrosis. 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 The soft tissues are normal. SL: ANALISA- Electronic ally Signed by Daya Muniz on 01/02/2020 at 0630 Reported and signed by: Gregor calderon M.D. CC: Nba Enriquez DO Brianne hnologist: RT Kendall([place]) Trnscrd Date/T jamar/By: 01/02/2020 (0630) : By: [email or web address] Orig Print D/T: S: 0 (8597) PAGE 1 Signed Report - XR CHEST 1 [id number] 06:29:00 FAX: Nba Fernando DO [phone] [place]: St: REG Name: MAURIZIO RAGSDALE [facility] : [birth year] Age/S: 84/F [address] [place] [address] Unit #: [id number] Loc: [place] [address] Phys: Nba Enriquez DO Acct: [id number] Dis Date: Status: REG ER PHONE #: [phone] Exam Date: 01/02/2020621 FAX #: [phone] Reason: CHEST PAIN EXAMS: CPT CODE: [id number] XR CHEST 1 V 76719 Study: - XR CHEST 1 V 01/02/2020 6:12 AM Patient Name: MAURIZIO WINN MR: [id number] : 1935; Age: 84 years y/o Female Ordering Physician: Nba Enriquez DO Clinical Indication: CHEST PAIN Comparison: FINDINGS LUNGS: The lungs are clear of cons olidation, pleural effusion, and pneumothorax. Stable calcified granuloma in the right lung base. Stable focal eventration of the right hemidiaphr agm. HEART AND MEDIASTINUM: Interval mild cardiomegaly. LINES: Interval right subclavian Port-A-Cath with tip overlying the at riocaval junction. OSSEOUS STRUCTURES: No fracture, dislocation, o r suspicious focal osseous lesion. OTHER: None. IMPRESSION: Interval mild cardiomegaly. Old granulomatous disease. SL: ALICE INTER-H at 0629 Reported and signed by: Gregor Mnuiz M.D. PAGE 1 Signed Report (CONTINUED) FAX: Nba Fernando DO [phone] [place]: St: REG Name: MAURIZIO WINN [facility] : 1935 Age/S: 84/F [address] [place], [place] [address] Unit #: [id number] Loc: [place] [address] Phys: Nba Enriquez DO Acct: [id number] Dis Date: Status: REG ER PHONE #: [phone] Exam Date: 01/02/2020621 FAX #: [phone] Reason: CHEST PAIN EXAMS: CPT CODE: [id number] XR CHEST 1 V 73319 <Continued> CC: Nba Enriquez DO Technologist: RT Kendall(R) Trnscrd Date/Time/By: 01/02/2020 (628) : By: [email or web address] Orig Print D/T: S: 01/02/2020 (0671) PAGE 2 Signed Report CHEST 2 VIEWS 2019-10-04 12:18:00 [place] [address] Patient Name: MAURIZIO WINN MR #: [id number] : 1935 Age/Sex: 84/F Req #: [id number] Adm Physician: Ordered by: MEDINA JEWELL MD Report #: [id number] Location: OR Room/Bed: Procedure: DX/CHEST 2 VIEWS Exam Date: 10/04/19 Exam Time: 1156 REPORT STATUS: Signed EXAMINATION: CHEST 2 VIEWS INDICATION: Pre-operative COMPARISON: Chest radiograph 08/14/2019 FINDINGS: LINES/TUBES:Right chest port unchanged. LUNGS:The lungs are well-inflated. New hazy peripheral left mid lung opacity. Unchanged right lower lung calcified granuloma. PLEURA:No pleural effusion or pneumot horax. MEDIASTINUM:The cardiomediastinal silhouette appears normal in size and shape. Atherosclerotic calcifications of the thoracic aorta. BONES/SO FT TISSUES:No acute osseous injury. Unchanged chronic T11 compression fracture . ABDOMEN:No free air under the diaphragm. IMPRESSION: New perip heral left midlung hazy opacity. Pneumonia should be clinically excluded in th e preoperative setting. Signed by: Jocelyn Mathur MD on 10/04/2019 12:20 PM Dictated By: JOCELYN MATHUR MD 1220 COPY TO: MEDINA JEWELL MD CT ABDOMEN/PELVIS [id number] 09:12:00 [place] [address] Patient Name: MAURIZIO WINN MR #: [id number] : 1935 Age/Sex: 84/F Req #: [id number] Adm Physician: MAURICIO AYOUB MD Ordered by: AUSTYN VERA MD Report #: [id number] Location: MED/SURG2 Room/Bed: [facility] Procedure: [id number] CT/CT ABDOMEN/PE LVIS W Exam Date: 08/15/19 Exam Time: 1512 REPORT STATUS: Signed EXAM: CT Abdomen and Pelvis WITH intravenous contrast INDICATION: Urinary tract infection COMPARISON: Lumbar spine CT 03/17/2018 TECHNIQUE: Abdomen and pelvis were scanned utilizing a multidetector helical scanner from the lung base to the pubic symphysis after administration of IV contrast. Coronal and sagittal refo rmations were obtained. Routine protocol was performed. Scan was performed dur ing portal venous phase. IV CONTRAST: 100mL of Isovue 370 ORAL CONTR AST: Water RADIATION DOSE: Total DLP: 621 mGy*cm Dose modulation, i terative reconstruction, and/or weight based adjustment of the mA/kV was utili zed to reduce the radiation dose to as low as reasonably achievable. FIN DINGS: LOWER THORAX: 1 cm right lower lobe calcified granuloma. No focal con solidation. Mild bibasilar subsegmental atelectasis. Multichamber cardiomegaly . Port catheter tip in the proximal right atrium. HEPATOBILIARY: Unchanged 1 cm pericaval hypodense liver lesion. Diffuse hepatic steatosis. Status post cholecystectomy. SPLEEN: Calcified granulomas in the spleen. PANCREAS: No focal masses or ductal dilatation. ADRENALS: No adrenal nodules. KIDN EYS/URETERS: No hydronephrosis, stones, or solid mass lesions. PELVIC ORGANS/B LADDER: [place] calcifications at the bladder neck. Asymmetric soft tissue thic kening measures up to 1.6 cm at the left posterior bladder just medial to the left ureteral orifice. Status post hysterectomy. PERITONEUM / RETROPERITONE UM: No free air or fluid. LYMPH NODES: No lymphadenopathy. VESSELS: Diffuse atherosclerotic calcifications of the nonaneurysmal abdominal aorta and major branches. GI TRACT: Severe diverticulosis. No CT evidence of diverticulitis . No abnormal bowel thickening. No bowel obstruction. Normal appendix. AIDAN PB AND SOFT TISSUES: Diffuse osteopenia. No acute osseous injury. Chronic T11 compression fracture, unchanged from the lumbar spine CT of 03/17/2018. IM PRESSION: Choking calcifications of the neck of the bladder and asymmetric so ft tissue thickening/mass just medial to the left ureteral orifice. Recommend urological consult for possible cystoscopic evaluation. Unchanged 1 cm pe ricaval hypodense liver lesion remains indeterminate on this single phase cont rast-enhanced CT. Severe diverticulosis. No CT evidence of diverticulitis. Chronic T11 compression fracture. Signed by: Jocelyn Mathur MD on 08/16/19 9:23 AM Dictated By: JOCELYN MATHUR MD 2 Transcribed By: MIKA on 08/16/19922 COPY TO: AUSTYN VERA MD CHEST SINGLE (PORTABLE)2019-08-14 12:11:00 [place] [address] Patient Name: MAURIZIO WINN MR #: [id number] : 1935 Age/Sex: 84/F Req #: [id number] Adm Physician: Ordered by: MARCIO ZACARIAS DO Report #: [id number] Location: ER Room/Bed: Procedure: [id number] DX/CHEST SIN GLE (PORTABLE) Exam Date: 08/14/19 Exam Time: 1152 REPORT STATUS: Signed EXAM: CHEST SINGLE (PORTABLE) DATE: 08/14/2019 11:52 AM INDICATION: UTI, fall, chest pain COMPARISON: Earlier 08/14/2019 FINDINGS: Right subclavia n chest port identified in stable position. The trachea is midline. Stable appearing calcified granuloma noted within the right lower lobe. Subsegmental atelectasis/scarring again noted within the left midlung. There is no evidence for new large focal consolidation, pneumothorax, or significant pleural effus ion. The cardiomediastinal silhouette is stable in appearance. No acute oss eous abnormality is identified. IMPRESSION: No significant interv al change from the prior examination performed earlier 08/14/2019. Signed by: Dr. Shawn Dash MD on 08/14/2019 12:14 PM Dictated By: SHAWN DASH MD 1214 Transcribed By: MIKA on 08/14/19 1214 COPY TO: MARCIO ZACARIAS DO CHEST 2 [id number] 05:36:00 [place] [address] Patient Name: MAURIZIO WINN MR #: [id number] : 1935 Age/Sex: 84/F Req #: [id number] Adm Physician: Ordered by: TED MILLER DO Report #: [id number] Location: ER Room/Bed: Procedure: [id number] DX/CHEST 2 VIEWS Exam Date: 08/14/19 Exam Time: 0340 REPORT STATUS: Signed EXAMINATION: CHEST 2 VIEWS INDICATION: Chest wall pain COMPARISON: Chest x-ray 020, Chest CT 10/28/2018 FINDINGS: TUBES and LINES: Right chest wall port with right subclavian central venous catheter component, tip in the right atrium.. LUNGS: Normal lung volumes. Right lower lobe calcified gra nuloma. Linear opacity in the left midlung likely atelectasis or scarring. No consolidations. PLEURA: No pleural effusion or pneumothorax. HEART A ND MEDIASTINUM: Cardiac size is mildly enlarged. Aortic calcifications. AIDAN PB AND SOFT TISSUES: No acute osseous lesion. Soft tissues are unremarkable . Stated T11 vertebral body fracture. UPPER ABDOMEN: No free air under the diaphragm. Cholecystectomy clips. IMPRESSION: Moderate cardiomegaly a nd pulmonary vascular congestion. Signed by: Luis A Edgar DO on 0 5:38 AM Dictated By: LUIS A EDGAR DO 7 Transcribed By: MIKA on 08/14/19537 COPY TO: TED MILLER DO Bedside [id number] 20:58:00* Test Item Value Reference Range Interpretation Comments Bedside Glucose (test code = 43573-5) 138 70-120 H Meter ID: [id number] CenterUrine [id number] 20:33:00* Test Item Value Reference Range Interpretation Comments Urine Color (test code = 5778-6) YELLOW YELLOW [facility] Mqkprse7562-09-99 20:33:00* Test Item Value Reference Range Interpretation Comments Urine Clarity (test code = 73770-2) HAZY CLEAR [facility] Specific Zxniyke2875-47-04 20:33:00 * Test Item Value Reference Range Interpretation Comments Urine Specific [place] (test code = 5811-5) 1.015 1.010-1.02 5 [facility] [id number] 20:33:00* Test Item Value Reference Range Interpretation Comments Urine pH (test code = 53791-8) 6 5-7 [facility] Leukocyte Gjwrmgjy3659-33-73 20:33:00* Test Item Value Reference Range Interpretation Comments Urine Leukocyte Esterase (test code = 5799-2) NEGATIVE NEGATIVE [facility] Jtsmymc5640-49-71 20:33:00* Test Item Value Reference Range Interpretation Comments Urine Nitrite (test code = 54154-8) NEGATIVE NEGATIVE [facility] Iwvegab8488-53-87 20:33:00* Test Item Value Reference Range Interpretation Comments Urine Protein (test code = 5804-0) NEGATIVE NEGATIVE [facility] Glucose (UA)2019-06-03 20:33:00* Test Item Value Reference Range Interpretation Comments Urine Glucose (UA) (test code = 2349-9) NEGATIVE NEGATIVE [facility] Vjnexsm6691-06-28 20:33:00* Test Item Value Reference Range Interpretation Comments Urine Ketones (test code = 68186-9) NEGATIVE NEGATIVE [facility] Nurpytoebxsi2872-31-26 20:33:00* Test Item Value Reference Range Interpretation Comments Urine Urobilinogen (test code = 50386-0) 0.2 0.2-1 [facility] Rmnsygcxe8082-37-65 20:33:00* Test Item Value Reference Range Interpretation Comments Urine Bilirubin (test code = 1978-6) NEGATIVE NEGATIVE [facility] Mvmjd5331-91-15 20:33:00* Test Item Value Reference Range Interpretation Comments Urine Blood (test code = 73894-5) NEGATIVE NEGATIVE [facility] [id number] 20:33:00* Test Item Value Reference Range Interpretation Comments Urine WBC (test code = 5821-4) >50 0-5 H [facility] [id number] 20:33:00* Test Item Value Reference Range Interpretation Comments Urine RBC (test code = 77031-8) NONE 0-5 [facility] Tinbcvqz7359-36-65 20:33:00* Test Item Value Reference Range Interpretation Comments Urine Bacteria (test code = 23392-6) MANY NONE H [facility] Epithelial Xycsj4942-50-70 20:33:00 * Test Item Value Reference Range Interpretation Comments Urine Epithelial Cells (test code = 21297-8) MANY NONE [facility] Center[facility]2020-02-29 18:48:00* Test Item Value Reference Range Interpretation Comments Hemoglobin (test code = 83510-1) 10.6 12.0-16.0 L [facility] Center[facility]ematocrit2020-02-29 18:48:00* Test Item Value Reference Range Interpretation Comments Hematocrit (test code = 4544-3) 33.4 34.2-44.1 L [facility] CenterCT BRAIN [id number] 07:09:00 [place] [address] Patient Name: MAURIZIO WINN MR #: [id number] : 1935 Age/Sex: 84/F Req #: [id number] Adm Physician: MAURICIO AYOUB MD Ordered by: MAURICIO AYOUB MD Report #: [id number] Location: MED/SURG2 Room/Bed: [facility] Procedure: [id number] C T/CT BRAIN WO Exam Date: 06/02/19 Exam Time: 0641 REPORT STATUS: Signed Exam: Head CT without contrast History: Trauma, fall Comparison studies: Multiple head CTs which date to 12/31/2010, most recent head CT 01/11/2019 Technique: Axial images were obtained from the skull base to the vertex. Coronal and sagi ttal images reconstructed from the axial data. Dose modulation, iterative rec onstruction, and/or weight based adjustment of the mA/kV was utilized to reduc e the radiation dose to as low as reasonably achievable. Radiation dose : Total DLP: 806.22 mGy*cm. Estimated effective dose: DLP x 0.015 Intra venous contrast: None Findings: Scalp: No abnormalities. Bones: No f ractures or concerning lytic or blastic lesions. Incidental small left frontal outer table osteoma and lucent foci in the right parietal calvarium (possibly hemangiomas) are unchanged from remote exams which date to 12/23/2010. Br ain sulci: Moderately prominent. Ventricles: Mild compensatory dilatation. No hydrocephalus. Extra-axial spaces: No masses, no fluid collection. Paren chyma: No mass, acute hemorrhage or acute cortical vascular insults. A few sc attered hypodensities in the supratentorial white matter are nonspecific but a re most compatible with chronic small vessel ischemic changes. Sellar/cardoza prasellar region: No abnormalities. Craniocervical junction: Patent foramen ma gnum. No Chiari one malformation. Incidental findings: Atherosclerotic c alcifications in the carotid siphons. IMPRESSION: No intracranial ab normalities. Chronic findings: 1. Mild generalized parenchymal volume lo ss. 2. Mild microvascular ischemic changes. Signed by: Dr. Mendoza Singh M.D. on 06/02/2019 7:17 AM Dictated By: MENDOZA SINGH MD Electronical ly Signed By: MENDOZA SINGH MD on 06/02/19716 Transcribed By: MIKA on 716 COPY TO: MAURICIO AYOUB MD MRI SHOULDER LEFT WO 2019-04-26 10:02:00 [place] [address] Patient Name: MAURIZIO WINN MR #: [id number] : 1935 Age/Sex: 84/F Req #: [id number] Adm Physician: Ordered by: KAYLA JARAMILLO MD Report #: [id number] Location: MRI Room/Bed: Procedure: [id number] MRI/ MRI SHOULDER LEFT WO Exam Date: Exam Time: REPORT STATUS: Signed MRI of the left shoulder without contrast. History: Shoulder pain. Decreased range of mo tion. Fall. Comparison: None Technique: Coronal PD FS, sagital PD FS, and axial PD and PD FS. Findings: Rotator cuff: Rotator cuff tendinosis with midsubstance degeneration and articular sided partial tear involving the anterior fibers of the supraspinatus and infraspinatus tendons at the humeral insertion site. This is best seen on series 4 image 15 coronal. Osseous a cromion complex: Type II acromion with mild lateral downsloping. Moderate dege nerative arthrosis at the acromioclavicular joint with undersurface spurring a nd narrowing of the supraspinatus tendon outlet. Glenohumeral joint: Degene ration and fraying of the labrum. The articular cartilage surfaces are within. The humeral head is well-seated in the glenoid fossa. Moderate size glenohume ral joint effusion and synovitis extending into the subcoracoid space. Bi ceps tendon: Intra-articular biceps tendinosis with fraying of the biceps anch or. Other findings: Fracture deformity at the superior lateral humeral head with associated bone marrow edema and soft tissue edema best seen on coronal series 4 image 14 through 19. Impression: Fracture deformity at the sup erior lateral humeral head with associated bone marrow edema and soft tissue e ward. Rotator cuff tendinosis with midsubstance degeneration and articular sided partial tear involving the anterior fibers of the supraspinatus and in fraspinatus tendons at the humeral insertion site Moderate size glenohumera l joint effusion and synovitis extending into the subcoracoid space. Intr a-articular biceps tendinosis with fraying of the biceps anchor. Signed by: Dr. Nasir Sampson M.D. on 04/26/2019 10:06 AM Dictated By: NASIR SAMPSON MD, MD 1006 Transcribed By: MIKA on 04/26/19 1006 COPY TO: KAYLA JARAMILLO MD CHEST 2 [id number] 16:35:00 [place] [address] Patient Name: MAURIZIO WINN MR #: [id number] : 1935 Age/Sex: 84/F Req #: [id number] Adm Physician: Ordered by: MAURICIO AYOUB MD Report #: [id number] Location: [facility] Room/Bed: Procedure: [id number] DX/ CHEST 2 VIEWS Exam Date: 04/06/19 Exam Time: 1600 REPORT STATUS: Signed EXAMINATION: CHEST 2 VIEWS INDICATION: Cough COMPARISON: Chest radiograph 10/04 FINDINGS: LINES/TUBES:Right chest port unchanged. ANA ROSA GS:The lungs are mildly hyper inflated. No focal pneumonia or pulmonary edema. Unchanged 13 mm right lower lobe calcified granuloma. PLEURA:No pleural ef fusion or pneumothorax. MEDIASTINUM:Cardiomediastinal silhouette is stably enlarged. Atherosclerotic calcifications of the thoracic aorta. BONES/SOF T TISSUES:Unchanged T11 compression fracture. ABDOMEN:No free air under the diaphragm. IMPRESSION: No focal pneumonia or pulmonary edema. S igned by: Jocelyn Mathur MD on 04/06/2019 4:38 PM Dictated By: JOCELYN MATHUR MD 1638 Transcribed By: CHILANGO Castaneda on 04/06/191637 COPY TO: MAURICIO AYOUB MD LUMBAR 3 VIEW 2019-02-08 12:39:00 [place] [address] Patient Name: MAURIZIO WINN MR #: [id number] : 1935 Age/Sex: 84/F Req #: [id number] Adm Physician: Ordered by: KAYLA JARAMILLO MD Report #: [id number] Location: [facility] Room/Bed: Procedure: [id number] DX/L UMBAR 3 VIEW Exam Date: 02/08/19 Exam Time: 1115 REPORT STATUS: Signed EXAMINATION: LUMBAR 3 VIEW INDICATION: Lower back pain COMPARISON: None FINDINGS: Chronic T11 compression fracture with near complete collapse of the anterior vertebral body. No other compression fracture. Minimal retroli sthesis at L2-3 and L3-4. Minimal anterolisthesis at L5-S1. Multilevel degener ative changes with disc space narrowing, osteophyte formation, and facet arthr opathy. Mild diffuse osteopenia. Diffuse atherosclerotic arterial calcificatio ns. Nonobstructive bowel gas pattern. Status post cholecystectomy. IMPRES BLUE: Chronic T11 compression fracture with near complete collapse of the ant erior vertebral body. Multilevel degenerative changes. Diffuse osteopenia . Signed by: Jocelyn Mathur MD on 02/08/2019 12:41 PM Dictated By: KENNETH MATHUR MD 1241 Transcribed By: MIKA on 02/08/19 1241 COPY TO: KAYLA JARAMILLO MD Blood Oyeymnb9880-58-35 13:38:00* Test Item Value Reference Range Interpretation Comments Blood Culture (test code = [id number]) NO GROWTH AFTER 5 DAYS, FINAL [facility]PORT [facility] [id number] 16:52:00 [facility] [address] [place] [address] Patient Name: MAURIZIO WINN MR #: [id number] : 1935 Age/Sex: 84/F Req #: [id number] Adm Physician: Ordered by: TED RUEDA LADLE MECHANIC Report #: [id number] Location: ER Room/Bed: Procedure: [id number] CT /CT BRAIN WO Exam Date: 01/11/19 Exam Time: 1617 REPORT STATUS: Signed EXAMINATION: Head and cervical spine CT without contrast. HISTORY: Status post fall, h ead trauma, head and neck pain. COMPARISON: Head and cervical spine CT 018 TECHNIQUE: Multidetector axial images were obtained without contrast from the foramen magnum to the vertex and through the cervical spine. The images we re reconstructed using brain and bone algorithms. Thin section brain images w ere reformatted into coronal and sagittal planes. Dose modulation, iterative reconstruction, and/or weight based adjustment of the mA/kV was utilized to r educe the radiation dose to as low as reasonably achievable. HEAD CT F INDINGS: Skull/scalp: Large left parietal scalp swelling/hematoma without underlying fractures. Parenchyma: Stable mild white matter chronic mi crovascular ischemic changes. No mass, hemorrhage or CT evidence of acute vasc ular insult. Brain volume: Normal for age. Ventricles: No hydro cephalus or displacement. Arteries: No density suggestive of thrombus. Dural sinuses: No abnormal density. Extra-axial spaces: No abnor mal density. Foramen magnum: No mass, Chiari malformation, or basilar in vagination. Sella: No obvious mass. Paranasal/mastoid sinuses: Imaged portions unremarkable. CERVICAL SPINE CT FINDINGS: Alignment: Normal alignment and lordosis. Soft tissues: Normal. Vertebrae: Nor mal height and density. No acute fracture, infection or neoplasm. Dege nerative changes: C1-C2: Normal C2-C3: Normal C3-C4: Normal C4-C5: Asymmetric right disc osteophyte complex formation and uncovertebral ar throsis. Mild to moderate right foraminal stenoses. C5-C6: Uncovertebral ar throsis is minimal and the left. No significant stenoses C6-C7: Asymmetri c right disc osteophyte and uncovertebral arthrosis. Mild right foraminal sten oses C7-T1: Prominent facet arthrosis on the left without significant steno sis. Minimal degenerative anterolisthesis. IMPRESSION: Head CT: 1. Large acute left parietal scalp hematoma without underlying fractures. 2. No acute postraumatic intracranial hemorrhage. 3. Mild chronic microvascular i schemic changes. Cervical spine CT: 1. No acute fractures or dislocation s. 2. Chronic degenerative changes as described are stable. Note: Acute post traumatic spinal cord, vascular or ligamentous injury cannot adequately b e assessed with CT. Signed by: Dr. Shayla Morrison M.D. on 01/11/2019 5:00 PM Dictated By: SHAYLA MORRISON MD 99 COPY TO: NAY RUEDA NP CT CERVICAL SPINE [id number] 16:52:00 [place] [address] Patient Name: MAURIZIO WINN MR #: [id number] : 1935 Age/Sex: 84/F Req #: [id number] Adm Physician: Ordered by: TED RUEDA NP Report #: [id number] Location: ER Room/Bed: Procedure: [id number] CT /CT CERVICAL SPINE WO Exam Date: 01/11/19 Exam Time: 1617 REPORT STATUS: Signed EXAM INATION: Head and cervical spine CT without contrast. HISTORY: Status pos t fall, head trauma, head and neck pain. COMPARISON: Head and cervical spine C T 03/19/2018 TECHNIQUE: Multidetector axial images were obtained without contr ast from the foramen magnum to the vertex and through the cervical spine. The images were reconstructed using brain and bone algorithms. Thin section brain images were reformatted into coronal and sagittal planes. Dose modulation, iterative reconstruction, and/or weight based adjustment of the mA/kV was util ized to reduce the radiation dose to as low as reasonably achievable. HEAD CT FINDINGS: Skull/scalp: Large left parietal scalp swelling/hematom a without underlying fractures. Parenchyma: Stable mild white matter c hronic microvascular ischemic changes. No mass, hemorrhage or CT evidence of a cute vascular insult. Brain volume: Normal for age. Ventricles: No hydrocephalus or displacement. Arteries: No density suggestive of t hrombus. Dural sinuses: No abnormal density. Extra-axial spaces: No abnormal density. Foramen magnum: No mass, Chiari malformation, or b asilar invagination. Sella: No obvious mass. Paranasal/mastoid sinuses: Imaged portions unremarkable. CERVICAL SPINE CT FINDINGS: A lignment:Normal alignment and lordosis. Soft tissues: Normal. Verteb teo: Normal height and density. No acute fracture, infection or neoplasm. Degenerative changes: C1-C2: Normal C2-C3: Normal C3-C4: Nor mal C4-C5: Asymmetric right disc osteophyte complex formation and uncoverte bral arthrosis. Mild to moderate right foraminal stenoses. C5-C6: Uncover tebral arthrosis is minimal and the left. No significant stenoses C6-C7: Asymmetric right disc osteophyte and uncovertebral arthrosis. Mild right darcy inal stenoses C7-T1: Prominent facet arthrosis on the left without signific ant stenosis. Minimal degenerative anterolisthesis. IMPRESSION: Head CT: 1. Large acute left parietal scalp hematoma without underlying fractures. 2. No acute postraumatic intracranial hemorrhage. 3. Mild chronic microv ascular ischemic changes. Cervical spine CT: 1. No acute fractures or di slocations. 2. Chronic degenerative changes as described are stable. Not e: Acute post traumatic spinal cord, vascular or ligamentous injury cannot spencer quately be assessed with CT. Signed by: Dr. Shayla Morrison M.D. on 01/11/2019 5:00 PM Dictated By: SHAYLA MORRISON MD 99 Transcribed By: MIKA on 01/11/191699 COPY TO: TED RUEDA NP Creatine Kinase [id number] 16:28:00* Test Item Value Reference Range Interpretation Comments Creatine Kinase MB (test code = 99037-0) 2.30 0-5.0 [place] [id number] 16:28:00* Test Item Value Reference Range Interpretation Comments Troponin I (test code = KIU0329) 0.007 0-0.300 [facility] [id number] 16:28:00* Test Item Value Reference Range Interpretation Comments Creatine Kinase MB (test code = 01346-0) 2.30 0-5.0 [place] [id number] 16:28:00* Test Item Value Reference Range Interpretation Comments Troponin I (test code = HON5750) 0.007 0-0.300 [facility] Partial Thromboplast Time 2019-01-11 16:24:00* Test Item Value Reference Range Interpretation Comments Activated Partial Thromboplast Time (test code = 79609-7) 43.3 23.8-35.5 H [facility] Thromboplast Time 2019-01-11 16:24:00* Test Item Value Reference Range Interpretation Comments Activated Partial Thromboplast Time (test code = 74321-1) 43.3 23.8-35.5 [facility] Ycnth2061-98-25 16:23:00* Test Item Value Reference Range Interpretation Comments Sodium Level (test code = 2951-2) 138 136-145 [facility] Yewtv3850-40-37 16:23:00* Test Item Value Reference Range Interpretation Comments Potassium Level (test code = 2823-3) 4.0 3.5-5.1 [facility] CenterChloride Mjqwc6389-27-11 16:23:00* Test Item Value Reference Range Interpretation Comments Chloride Level (test code = 2075-0) 102 98-107 [facility] CenterCarbon Dioxide Rmukl7246-04-02 16:23:00* Test Item Value Reference Range Interpretation Comments Carbon Dioxide Level (test code = 2028-9) 27 22-29 [facility] CenterAnion Oud3529-49-83 16:23:00* Test Item Value Reference Range Interpretation Comments Anion Gap (test code = 63660-5) 13.0 8-16 [facility] CenterBlood Urea Sfapkaqo8895-70-38 16:23:00* Test Item Value Reference Range Interpretation Comments Blood Urea Nitrogen (test code = 3094-0) 16 7-26 [facility] CenterCreatinine2019-10-09 16:23:00* Test Item Value Reference Range Interpretation Comments Creatinine (test code = 2160-0) 0.83 0.57-1.11 [facility] CenterBUN/Creatinine Gwbmv1389-11-60 16:23:00* Test Item Value Reference Range Interpretation Comments BUN/Creatinine Ratio (test code = 3097-3) 19 6-25 [facility] CenterEstimat Glomerular Filtration Rate 2019-01-11 16:23:00* Test Item Value Reference Range Interpretation Comments Estimat Glomerular Filtration Rate (test code = 069643453) > 60 >60 Ranges were taken from the National Kidney Disease Education Program and the [facility] literature.Reference ranges:60 or greater: Twyubs19-71 ( for 3 consecutive months): Chronic kidney disease 15 or less: Kidney failureEnnis Regional Medical CenterGlucose Lpzpx6384-81-09 16:23:00* Test Item Value Reference Range Interpretation Comments Glucose Level (test code = IBQ0037) 93 74-118 [facility] CenterCalcium Cnyhe6392-89-33 16:23:00* Test Item Value Reference Range Interpretation Comments Calcium Level (test code = 14059-8) 10.1 8.4-10.2 [facility] CenterTotal Ffoenpoov7266-21-50 16:23:00* Test Item Value Reference Range Interpretation Comments Total Bilirubin (test code = 1975-2) 0.5 0.2-1.2 [facility] CenterAspartate Amino Transf (AST/SGOT) 2019-01-11 16:23:00* Test Item Value Reference Range Interpretation Comments Aspartate Amino Transf (AST/SGOT) (test code = Aspartate Amino Transf (AST/SGOT)) 21 5-34 [facility] CenterAlanine Aminotransferase (ALT/SGPT) 2019-01-11 16:23:00* Test Item Value Reference Range Interpretation Comments Alanine Aminotransferase (ALT/SGPT) (test code = 1742-6) 13 0-55 [facility] CenterTotal Halsidb7641-69-73 16:23:00* Test Item Value Reference Range Interpretation Comments Total Protein (test code = 2885-2) 7.0 6.5-8.1 [facility] CenterAlbumin2019-10-09 16:23:00* Test Item Value Reference Range Interpretation Comments Albumin (test code = 1751-7) 3.6 3.5-5.0 [facility] CenterGlobulin2019-10-09 16:23:00* Test Item Value Reference Range Interpretation Comments Globulin (test code = 97128-4) 3.4 2.3-3.5 [facility] CenterAlbumin/Globulin Afoji2432-89-11 16:23:00 * Test Item Value Reference Range Interpretation Comments Albumin/Globulin Ratio (test code = 1759-0) 1.1 0.8-2.0 [facility] CenterAlkaline Ixsrxbuzzsh6968-43-07 16:23:00* Test Item Value Reference Range Interpretation Comments Alkaline Phosphatase (test code = 6768-6) 40 40-150 [facility] CenterCreatine Crwefp6720-69-12 16:23:00* Test Item Value Reference Range Interpretation Comments Creatine Kinase (test code = 2157-6) 89 29-168 [facility] Uvghh8543-53-40 16:23:00* Test Item Value Reference Range Interpretation Comments Sodium Level (test code = 2951-2) 138 136-145 [facility] CenterPotassium Hdjzk5649-14-96 16:23:00* Test Item Value Reference Range Interpretation Comments Potassium Level (test code = 2823-3) 4.0 3.5-5.1 [facility] CenterChloride Prkmp5515-91-63 16:23:00* Test Item Value Reference Range Interpretation Comments Chloride Level (test code = 2075-0) 102 98-107 [facility] CenterCarbon Dioxide Kbxid9902-30-31 16:23:00* Test Item Value Reference Range Interpretation Comments Carbon Dioxide Level (test code = 2028-9) 27 22-29 [facility] CenterAnion Dik5583-90-97 16:23:00* Test Item Value Reference Range Interpretation Comments Anion Gap (test code = 70827-1) 13.0 8-16 [facility] CenterBlood Urea Seugspmy6356-94-57 16:23:00* Test Item Value Reference Range Interpretation Comments Blood Urea Nitrogen (test code = 3094-0) 16 7-26 [facility] CenterCreatinine2019-10-09 16:23:00* Test Item Value Reference Range Interpretation Comments Creatinine (test code = 2160-0) 0.83 0.57-1.11 [facility] CenterBUN/Creatinine Nizhh5507-82-11 16:23:00* Test Item Value Reference Range Interpretation Comments BUN/Creatinine Ratio (test code = 3097-3) 19 6-25 [facility] CenterEstimat Glomerular Filtration Rate 2019-01-11 16:23:00* Test Item Value Reference Range Interpretation Comments Estimat Glomerular Filtration Rate (test code = 236740250) > 60 >60 Ranges were taken from the National Kidney Disease Education Program and the [facility] literature.Reference ranges:60 or greater: Dubbyb46-82 ( for 3 consecutive months): Chronic kidney disease 15 or less: Kidney failureEnnis Regional Medical CenterGlucose Aaowr1093-00-40 16:23:00* Test Item Value Reference Range Interpretation Comments Glucose Level (test code = WZH8204) 93 74-118 [facility] CenterCalcium Sbewa6788-69-45 16:23:00* Test Item Value Reference Range Interpretation Comments Calcium Level (test code = 23579-7) 10.1 8.4-10.2 [facility] CenterTotal Fmhwaugbj2919-03-07 16:23:00* Test Item Value Reference Range Interpretation Comments Total Bilirubin (test code = 1975-2) 0.5 0.2-1.2 [facility] CenterAspartate Amino Transf (AST/SGOT) 2019-01-11 16:23:00* Test Item Value Reference Range Interpretation Comments Aspartate Amino Transf (AST/SGOT) (test code = Aspartate Amino Transf (AST/SGOT)) 21 5-34 [facility] CenterAlanine Aminotransferase (ALT/SGPT) 2019-01-11 16:23:00* Test Item Value Reference Range Interpretation Comments Alanine Aminotransferase (ALT/SGPT) (test code = 1742-6) 13 0-55 [facility] CenterTotal Vdmmbfy2311-70-67 16:23:00* Test Item Value Reference Range Interpretation Comments Total Protein (test code = 2885-2) 7.0 6.5-8.1 [facility] CenterAlbumin2019-10-09 16:23:00* Test Item Value Reference Range Interpretation Comments Albumin (test code = 1751-7) 3.6 3.5-5.0 [facility] CenterGlobulin2019-10-09 16:23:00* Test Item Value Reference Range Interpretation Comments Globulin (test code = 16520-1) 3.4 2.3-3.5 [facility] CenterAlbumin/Globulin Bggid5930-76-84 16:23:00 * Test Item Value Reference Range Interpretation Comments Albumin/Globulin Ratio (test code = 1759-0) 1.1 0.8-2.0 [facility] CenterAlkaline Fzhqprmqsnp8168-07-93 16:23:00* Test Item Value Reference Range Interpretation Comments Alkaline Phosphatase (test code = 6768-6) 40 40-150 [facility] CenterCreatine Vvxjwi8853-92-98 16:23:00* Test Item Value Reference Range Interpretation Comments Creatine Kinase (test code = 2157-6) 89 29-168 [facility] CenterProthrombin Keio6206-39-67 16:10:00* Test Item Value Reference Range Interpretation Comments Prothrombin Time (test code = 5902-2) 22.1 11.9-14.5 H [facility] CenterProthromb Time International Ratio 2019-01-11 16:10:00* Test Item Value Reference Range Interpretation Comments Prothromb Time International Ratio (test code = 6301-6) 1.86 Oral Anticoagulant Therapy INR Values:1. Low Intensity Therapy 1.5 - 2.02 . Moderate Intensity Therapy 2.0 - 3.03. High Intensity Therapy(1) 2.5 - 3. 54. High Intensity Therapy(2) 3.0 - 4.05. Panic Value INR > 5.0 [facility] CenterProthrombin Sebi6333-73-97 16:10:00* Test Item Value Reference Range Interpretation Comments Prothrombin Time (test code = 5902-2) 22.1 11.9-14.5 H [facility] CenterProthromb Time International Ratio 2019-01-11 16:10:00* Test Item Value Reference Range Interpretation Comments Prothromb Time International Ratio (test code = 6301-6) 1.86 Oral Anticoagulant Therapy INR Values:1. Low Intensity Therapy 1.5 - 2.02 . Moderate Intensity Therapy 2.0 - 3.03. High Intensity Therapy(1) 2.5 - 3. 54. High Intensity Therapy(2) 3.0 - 4.05. Panic Value INR > 5.0 [facility] CenterWhite Blood Cabfe1266-45-09 16:01:00* Test Item Value Reference Range Interpretation Comments White Blood Count (test code = 6690-2) 6.99 4.8-10.8 [facility] CenterRed Blood Hoanl0544-81-33 16:01:00* Test Item Value Reference Range Interpretation Comments Red Blood Count (test code = 789-8) 4.22 3.6-5.1 [facility] CenterHemoglobin2019-10-09 16:01:00* Test Item Value Reference Range Interpretation Comments Hemoglobin (test code = 61089-4) 12.5 12.0-16.0 [facility] CenterHematocrit2019-10-09 16:01:00* Test Item Value Reference Range Interpretation Comments Hematocrit (test code = 4544-3) 38.9 34.2-44.1 [facility] CenterMean Corpuscular Ueaswx1506-78-53 16:01:00* Test Item Value Reference Range Interpretation Comments Mean Corpuscular Volume (test code = 787-2) 92.2 81-99 [facility] CenterMean Corpuscular Qsxbgxfqui3261-14-89 16:01:00* Test Item Value Reference Range Interpretation Comments Mean Corpuscular Hemoglobin (test code = 785-6) 29.6 28-32 [facility] CenterMean Corpuscular Hemoglobin Concent 2019-01-11 16:01:00* Test Item Value Reference Range Interpretation Comments Mean Corpuscular Hemoglobin Concent (test code = 786-4) 32.1 31-35 [facility] CenterRed Cell Distribution Mnryh4328-69-01 16:01:00* Test Item Value Reference Range Interpretation Comments Red Cell Distribution Width (test code = 98022-7) 14.2 11.7 -14.4 [facility] CenterPlatelet Usecd8808-46-94 16:01:00* Test Item Value Reference Range Interpretation Comments Platelet Count (test code = 777-3) 188 140-360 [facility] CenterNeutrophils (%) (Auto)2019-01-11 16:01:00 * Test Item Value Reference Range Interpretation Comments Neutrophils (%) (Auto) (test code = 47669-4) 63.0 38.7-80.0 [facility] CenterLymphocytes (%) (Auto)2019-01-11 16:01:00 * Test Item Value Reference Range Interpretation Comments Lymphocytes (%) (Auto) (test code = 736-9) 22.0 18.0-39.1 [facility] CenterMonocytes (%) (Auto)2019-01-11 16:01:00* Test Item Value Reference Range Interpretation Comments Monocytes (%) (Auto) (test code = 5905-5) 10.2 4.4-11.3 [facility] CenterEosinophils (%) (Auto)2019-01-11 16:01:00 * Test Item Value Reference Range Interpretation Comments Eosinophils (%) (Auto) (test code = 713-8) 3.9 0.0-6.0 [facility] CenterBasophils (%) (Auto)2019-01-11 16:01:00* Test Item Value Reference Range Interpretation Comments Basophils (%) (Auto) (test code = 706-2) 0.6 0.0-1.0 [facility] CenterIM GRANULOCYTES %2019-01-11 16:01:00* Test Item Value Reference Range Interpretation Comments IM GRANULOCYTES % (test code = IM GRANULOCYTES %) 0.3 0.0- 1.0 [facility] CenterNeutrophils # (Auto)2019-01-11 16:01:00* Test Item Value Reference Range Interpretation Comments Neutrophils # (Auto) (test code = 751-8) 4.4 2.1-6.9 [facility] CenterLymphocytes # (Auto)2019-01-11 16:01:00* Test Item Value Reference Range Interpretation Comments Lymphocytes # (Auto) (test code = 44771-6) 1.5 1.0-3.2 [facility] CenterMonocytes # (Auto)2019-01-11 16:01:00* Test Item Value Reference Range Interpretation Comments Monocytes # (Auto) (test code = 742-7) 0.7 0.2-0.8 [facility] CenterEosinophils # (Auto)2019-01-11 16:01:00* Test Item Value Reference Range Interpretation Comments Eosinophils # (Auto) (test code = 711-2) 0.3 0.0-0.4 [facility] CenterBasophils # (Auto)2019-01-11 16:01:00* Test Item Value Reference Range Interpretation Comments Basophils # (Auto) (test code = 704-7) 0.0 0.0-0.1 [facility] CenterAbsolute Immature Granulocyte (auto 2019-01-11 16:01:00* Test Item Value Reference Range Interpretation Comments Absolute Immature Granulocyte (auto (ginger t code = Absolute Immature Granulocyte (auto) 0.02 0-0.1 [facility] CenterWhite Blood Difrl7996-13-55 16:01:00* Test Item Value Reference Range Interpretation Comments White Blood Count (test code = 6690-2) 6.99 4.8-10.8 [facility] CenterRed Blood Fqwun9005-43-64 16:01:00* Test Item Value Reference Range Interpretation Comments Red Blood Count (test code = 789-8) 4.22 3.6-5.1 [facility] CenterMean Corpuscular Rfykvg2031-46-85 16:01:00* Test Item Value Reference Range Interpretation Comments Mean Corpuscular Volume (test code = 787-2) 92.2 81-99 [facility] CenterMean Corpuscular Gsjyefqlsz1767-04-49 16:01:00* Test Item Value Reference Range Interpretation Comments Mean Corpuscular Hemoglobin (test code = 785-6) 29.6 28-32 [facility] CenterMean Corpuscular Hemoglobin Concent 2019-01-11 16:01:00* Test Item Value Reference Range Interpretation Comments Mean Corpuscular Hemoglobin Concent (test code = 786-4) 32.1 31-35 [facility] CenterRed Cell Distribution Roqsy7151-37-97 16:01:00* Test Item Value Reference Range Interpretation Comments Red Cell Distribution Width (test code = 77232-9) 14.2 11.7 -14.4 [facility] CenterPlatelet Fbfup3518-50-31 16:01:00* Test Item Value Reference Range Interpretation Comments Platelet Count (test code = 777-3) 188 140-360 [facility] CenterNeutrophils (%) (Auto)2019-01-11 16:01:00 * Test Item Value Reference Range Interpretation Comments Neutrophils (%) (Auto) (test code = 46523-6) 63.0 38.7-80.0 [facility] CenterLymphocytes (%) (Auto)2019-01-11 16:01:00 * Test Item Value Reference Range Interpretation Comments Lymphocytes (%) (Auto) (test code = 736-9) 22.0 18.0-39.1 [facility] CenterMonocytes (%) (Auto)2019-01-11 16:01:00* Test Item Value Reference Range Interpretation Comments Monocytes (%) (Auto) (test code = 5905-5) 10.2 4.4-11.3 [facility] CenterEosinophils (%) (Auto)2019-01-11 16:01:00 * Test Item Value Reference Range Interpretation Comments Eosinophils (%) (Auto) (test code = 713-8) 3.9 0.0-6.0 [facility] CenterBasophils (%) (Auto)2019-01-11 16:01:00* Test Item Value Reference Range Interpretation Comments Basophils (%) (Auto) (test code = 706-2) 0.6 0.0-1.0 [facility] CenterIM GRANULOCYTES %2019-01-11 16:01:00* Test Item Value Reference Range Interpretation Comments IM GRANULOCYTES % (test code = IM GRANULOCYTES %) 0.3 0.0- 1.0 [facility] CenterNeutrophils # (Auto)2019-01-11 16:01:00* Test Item Value Reference Range Interpretation Comments Neutrophils # (Auto) (test code = 751-8) 4.4 2.1-6.9 [facility] CenterLymphocytes # (Auto)2019-01-11 16:01:00* Test Item Value Reference Range Interpretation Comments Lymphocytes # (Auto) (test code = 73740-2) 1.5 1.0-3.2 [facility] CenterMonocytes # (Auto)2019-01-11 16:01:00* Test Item Value Reference Range Interpretation Comments Monocytes # (Auto) (test code = 742-7) 0.7 0.2-0.8 [facility] CenterEosinophils # (Auto)2019-01-11 16:01:00* Test Item Value Reference Range Interpretation Comments Eosinophils # (Auto) (test code = 711-2) 0.3 0.0-0.4 [facility] CenterBasophils # (Auto)2019-01-11 16:01:00* Test Item Value Reference Range Interpretation Comments Basophils # (Auto) (test code = 704-7) 0.0 0.0-0.1 [facility] CenterAbsolute Immature Granulocyte (auto 2019-01-11 16:01:00* Test Item Value Reference Range Interpretation Comments Absolute Immature Granulocyte (auto (ginger t code = Absolute Immature Granulocyte (auto) 0.02 0-0.1 [facility] CenterBedside Ouebvoy2150-87-78 15:36:00* Test Item Value Reference Range Interpretation Comments Bedside Glucose (test code = 93231-7) 96 70-120 Meter ID: [id number] CenterBlood Culture 2019-01-11 13:38:00* Test Item Value Reference Range Interpretation Comments Blood Culture (test code = 05665097) NO GROWTH AFTER 72 HOURS [facility]CR [facility]A [facility] DIGITAL 2019-01-11 08:27:46 - SCR MAMM BILATERAL CORA CAD DIGITALBILATERAL DIGITAL SCREENING MAMMOGRAM 3D/2D WITH CAD: 01/11/2019CLINICAL: Asymptomatic. Digital breast tomosynthesis was performed in addition to routine CC and MLO views. Current mammographic images were evaluated by either a [employer] M-Vu or a [employer] Image[employer]er CAD (computer aided detection system). Comparison is made to exams dated 11/01/2017 mammogram, 10/29/2016 mammogram, and 10/30/2015 mammogram - [facility]. There are scattered fibroglandular tissues in both breasts. There are benign vascular calcifications in both breasts. No suspicious mass, architectural distortion, malignant type calcification, or lymph node abnormality detected. Breast architecture is stable compared to prior exams.IMPRESSION: BENIGNThere is no mammographic evidence of malignancy. Resume annual screening mammography in one year. Anabel iraheta/patricia:01/11/2019 08:27:46 [employer]pillar Operator: Nerissa BONILLA, [facility]letter sent: BIRADS 1-2 Normal Mammogram BI-RADS: 2 Benign Blood Ltonpif9381-41-24 13:38:00* Test Item Value Reference Range Interpretation Comments Blood Culture (test code = 61305625) NO GROWTH AFTER 48 HOURS [facility] CenterBedside Axokkdc1134-48-89 11:55:00* Test Item Value Reference Range Interpretation Comments Bedside Glucose (test code = 75478-0) 99 70-120 Meter ID: [id number] [facility] Hospitalodium Level 2019-01-10 07:46:00* Test Item Value Reference Range Interpretation Comments Sodium Level (test code = 2951-2) 139 136-145 [facility] CenterPotassium Dsint0815-69-55 07:46:00* Test Item Value Reference Range Interpretation Comments Potassium Level (test code = 2823-3) 4.0 3.5-5.1 [facility] CenterChloride Vuxdm9871-06-18 07:46:00* Test Item Value Reference Range Interpretation Comments Chloride Level (test code = 2075-0) 106 98-107 [facility] CenterCarbon Dioxide Hkebr8471-95-42 07:46:00* Test Item Value Reference Range Interpretation Comments Carbon Dioxide Level (test code = 2028-9) 27 22-29 [facility] CenterAnion Toe3827-86-98 07:46:00* Test Item Value Reference Range Interpretation Comments Anion Gap (test code = 25968-6) 10.0 8-16 [facility] CenterBlood Urea Nkndzytf4518-61-26 07:46:00* Test Item Value Reference Range Interpretation Comments Blood Urea Nitrogen (test code = 3094-0) 11 7-26 [facility] CenterCreatinine2019-10-08 07:46:00* Test Item Value Reference Range Interpretation Comments Creatinine (test code = 2160-0) 0.66 0.57-1.11 [facility] CenterBUN/Creatinine Amfsk4677-64-10 07:46:00* Test Item Value Reference Range Interpretation Comments BUN/Creatinine Ratio (test code = 3097-3) 17 6-25 [facility] CenterEstimat Glomerular Filtration Rate 2019-01-10 07:46:00* Test Item Value Reference Range Interpretation Comments Estimat Glomerular Filtration Rate (test code = 229363093) > 60 >60 Ranges were taken from the National Kidney Disease Education Program and the [facility] Kidney Foundation literature.Reference ranges:60 or greater: Fbrlzg73-24 ( for 3 consecutive months): Chronic kidney disease 15 or less: Kidney failureEnnis [facility] Medical CenterGlucose Cpiri3678-35-39 07:46:00* Test Item Value Reference Range Interpretation Comments Glucose Level (test code = RME1390) 107 74-118 [facility] CenterCalcium Xfsil6040-19-56 07:46:00* Test Item Value Reference Range Interpretation Comments Calcium Level (test code = 13755-6) 8.8 8.4-10.2 [facility] CenterWhite Blood Ujhag4672-00-48 07:33:00* Test Item Value Reference Range Interpretation Comments White Blood Count (test code = 6690-2) 4.54 4.8-10.8 L [facility] CenterRed Blood Gkvhz6777-93-64 07:33:00* Test Item Value Reference Range Interpretation Comments Red Blood Count (test code = 789-8) 3.05 3.6-5.1 L [facility] CenterHemoglobin2019-10-08 07:33:00* Test Item Value Reference Range Interpretation Comments Hemoglobin (test code = 47928-5) 9.2 12.0-16.0 L [facility] CenterHematocrit2019-10-08 07:33:00* Test Item Value Reference Range Interpretation Comments Hematocrit (test code = 4544-3) 28.9 34.2-44.1 L [facility] CenterMean Corpuscular Ejsnqx8378-69-29 07:33:00* Test Item Value Reference Range Interpretation Comments Mean Corpuscular Volume (test code = 787-2) 94.8 81-99 [facility] CenterMean Corpuscular Mcigpslkci0822-08-81 07:33:00* Test Item Value Reference Range Interpretation Comments Mean Corpuscular Hemoglobin (test code = 785-6) 30.2 28-32 [facility] CenterMean Corpuscular Hemoglobin Concent 2019-01-10 07:33:00* Test Item Value Reference Range Interpretation Comments Mean Corpuscular Hemoglobin Concent (test code = 786-4) 31.8 31-35 [facility] CenterRed Cell Distribution Nnihm2613-08-04 07:33:00* Test Item Value Reference Range Interpretation Comments Red Cell Distribution Width (test code = 95623-3) 14.2 11.7 -14.4 [facility] CenterPlatelet Rvjzz9985-54-65 07:33:00* Test Item Value Reference Range Interpretation Comments Platelet Count (test code = 777-3) 134 140-360 L [facility] CenterNeutrophils (%) (Auto)2019-01-10 07:33:00 * Test Item Value Reference Range Interpretation Comments Neutrophils (%) (Auto) (test code = 48522-1) 66.6 38.7-80.0 [facility] CenterLymphocytes (%) (Auto)2019-01-10 07:33:00 * Test Item Value Reference Range Interpretation Comments Lymphocytes (%) (Auto) (test code = 736-9) 16.3 18.0-39.1 L [facility] CenterMonocytes (%) (Auto)2019-01-10 07:33:00* Test Item Value Reference Range Interpretation Comments Monocytes (%) (Auto) (test code = 5905-5) 11.7 4.4-11.3 H [facility] CenterEosinophils (%) (Auto)2019-01-10 07:33:00 * Test Item Value Reference Range Interpretation Comments Eosinophils (%) (Auto) (test code = 713-8) 4.6 0.0-6.0 [facility] CenterBasophils (%) (Auto)2019-01-10 07:33:00* Test Item Value Reference Range Interpretation Comments Basophils (%) (Auto) (test code = 706-2) 0.4 0.0-1.0 [facility] CenterIM GRANULOCYTES %2019-01-10 07:33:00* Test Item Value Reference Range Interpretation Comments IM GRANULOCYTES % (test code = IM GRANULOCYTES %) 0.4 0.0- 1.0 [facility] CenterNeutrophils # (Auto)2019-01-10 07:33:00* Test Item Value Reference Range Interpretation Comments Neutrophils # (Auto) (test code = 751-8) 3.0 2.1-6.9 [facility] CenterLymphocytes # (Auto)2019-01-10 07:33:00* Test Item Value Reference Range Interpretation Comments Lymphocytes # (Auto) (test code = 72787-7) 0.7 1.0-3.2 L [facility] CenterMonocytes # (Auto)2019-01-10 07:33:00* Test Item Value Reference Range Interpretation Comments Monocytes # (Auto) (test code = 742-7) 0.5 0.2-0.8 [facility] CenterEosinophils # (Auto)2019-01-10 07:33:00* Test Item Value Reference Range Interpretation Comments Eosinophils # (Auto) (test code = 711-2) 0.2 0.0-0.4 [facility] CenterBasophils # (Auto)2019-01-10 07:33:00* Test Item Value Reference Range Interpretation Comments Basophils # (Auto) (test code = 704-7) 0.0 0.0-0.1 [facility] CenterAbsolute Immature Granulocyte (auto 2019-01-10 07:33:00* Test Item Value Reference Range Interpretation Comments Absolute Immature Granulocyte (auto (ginger t code = Absolute Immature Granulocyte (auto) 0.02 0-0.1 [facility] CenterB-Type Natriuretic Xstlicq8528-93-77 14:18:00* Test Item Value Reference Range Interpretation Comments B-Type Natriuretic Peptide (test code = 10040-7) 482.9 0-100 [facility] [facility] Natriuretic Tfnsasv3974-45-39 14:18:00* Test Item Value Reference Range Interpretation Comments B-Type Natriuretic Peptide (test code = 75778-5) 482.9 0-100 [facility] Jyydewf6975-07-34 14:18:00* Test Item Value Reference Range Interpretation Comments B-Type Natriuretic Peptide (test code = 33794-9) 482.9 0-100 [facility] Mjznjhu2977-06-35 14:18:00* Test Item Value Reference Range Interpretation Comments B-Type Natriuretic Peptide (test code = 31245-0) 482.9 0-100 [facility] CenterCreatine Kinase KQ7047-66-60 14:14:00* Test Item Value Reference Range Interpretation Comments Creatine Kinase MB (test code = 59784-3) 1.70 0-5.0 [facility] CenterTroponin [id number] 14:14:00* Test Item Value Reference Range Interpretation Comments Troponin I (test code = ABR8891) < 0.001 0-0.300 [facility] CenterCreatine Kinase VE4922-74-90 14:14:00* Test Item Value Reference Range Interpretation Comments Creatine Kinase MB (test code = 08397-0) 1.70 0-5.0 [facility] CenterTroponin [id number] 14:14:00* Test Item Value Reference Range Interpretation Comments Troponin I (test code = JCS6135) < 0.001 0-0.300 [facility] CenterUrine FRK3112-73-05 14:09:00* Test Item Value Reference Range Interpretation Comments Urine WBC (test code = 5821-4) 6-10 0-5 [facility] CenterUrine NDY5867-77-01 14:09:00* Test Item Value Reference Range Interpretation Comments Urine RBC (test code = 44074-3) 6-10 0-5 H [facility] CenterU[facility] Gpoinddp2094-84-77 14:09:00* Test Item Value Reference Range Interpretation Comments Urine Bacteria (test code = 18336-7) RARE NONE [facility] CenterU[facility] Epithelial Zblwn4923-16-65 14:09:00 * Test Item Value Reference Range Interpretation Comments Urine Epithelial Cells (test code = 63961-0) FEW NONE [facility] CenterU[facility] ZLT1208-31-77 14:09:00* Test Item Value Reference Range Interpretation Comments Urine WBC (test code = 5821-4) 6-10 0-5 [facility] CenterU[facility] BDN4626-69-29 14:09:00* Test Item Value Reference Range Interpretation Comments Urine RBC (test code = 12417-9) 6-10 0-5 H [facility] CenterUrine Awlbukac7255-84-19 14:09:00* Test Item Value Reference Range Interpretation Comments Urine Bacteria (test code = 77414-7) RARE NONE [facility] CenterU[facility] Epithelial Cyyvl1707-73-99 14:09:00 * Test Item Value Reference Range Interpretation Comments Urine Epithelial Cells (test code = 94574-3) FEW NONE [facility] CenterU[facility] WPZ2687-58-54 14:09:00* Test Item Value Reference Range Interpretation Comments Urine WBC (test code = 5821-4) 6-10 0-5 [facility] CenterU[facility] DFR8958-15-65 14:09:00* Test Item Value Reference Range Interpretation Comments Urine RBC (test code = 32883-2) 6-10 0-5 H [facility] CenterUrine Nyieuotb0836-15-47 14:09:00* Test Item Value Reference Range Interpretation Comments Urine Bacteria (test code = 65606-9) RARE NONE [facility] CenterUrine Epithelial Odeaj4771-57-77 14:09:00 * Test Item Value Reference Range Interpretation Comments Urine Epithelial Cells (test code = 03781-4) FEW NONE [facility] CenterWhite Blood Xtbng0004-03-69 14:07:00* Test Item Value Reference Range Interpretation Comments White Blood Count (test code = 6690-2) 5.84 4.8-10.8 [facility] CenterRed Blood Eebya5820-51-24 14:07:00* Test Item Value Reference Range Interpretation Comments Red Blood Count (test code = 789-8) 4.01 3.6-5.1 [facility] CenterHemoglobin2019-10-06 14:07:00* Test Item Value Reference Range Interpretation Comments Hemoglobin (test code = 57749-2) 11.9 12.0-16.0 L [facility] CenterHematocrit2019-10-06 14:07:00* Test Item Value Reference Range Interpretation Comments Hematocrit (test code = 4544-3) 36.5 34.2-44.1 [facility] CenterMean Corpuscular Ixsrvu1670-53-83 14:07:00* Test Item Value Reference Range Interpretation Comments Mean Corpuscular Volume (test code = 787-2) 91.0 81-99 [facility] CenterMean Corpuscular Vjqspsdmxv6272-40-95 14:07:00* Test Item Value Reference Range Interpretation Comments Mean Corpuscular Hemoglobin (test code = 785-6) 29.7 28-32 [facility] CenterMean Corpuscular Hemoglobin Concent 2019-01-08 14:07:00* Test Item Value Reference Range Interpretation Comments Mean Corpuscular Hemoglobin Concent (test code = 786-4) 32.6 31-35 [facility] CenterRed Cell Distribution Fbxwx2436-84-94 14:07:00* Test Item Value Reference Range Interpretation Comments Red Cell Distribution Width (test code = 75932-6) 14.0 11.7 -14.4 [facility] CenterPlatelet Mmrfh9127-63-19 14:07:00* Test Item Value Reference Range Interpretation Comments Platelet Count (test code = 777-3) 216 140-360 [facility] CenterNeutrophils (%) (Auto)2019-01-08 14:07:00 * Test Item Value Reference Range Interpretation Comments Neutrophils (%) (Auto) (test code = 47927-8) 68.5 38.7-80.0 [facility] CenterLymphocytes (%) (Auto)2019-01-08 14:07:00 * Test Item Value Reference Range Interpretation Comments Lymphocytes (%) (Auto) (test code = 736-9) 19.9 18.0-39.1 [facility] CenterMonocytes (%) (Auto)2019-01-08 14:07:00* Test Item Value Reference Range Interpretation Comments Monocytes (%) (Auto) (test code = 5905-5) 8.2 4.4-11.3 [facility] CenterEosinophils (%) (Auto)2019-01-08 14:07:00 * Test Item Value Reference Range Interpretation Comments Eosinophils (%) (Auto) (test code = 713-8) 2.4 0.0-6.0 [facility] CenterBasophils (%) (Auto)2019-01-08 14:07:00* Test Item Value Reference Range Interpretation Comments Basophils (%) (Auto) (test code = 706-2) 0.7 0.0-1.0 [facility] CenterIM GRANULOCYTES %2019-01-08 14:07:00* Test Item Value Reference Range Interpretation Comments IM GRANULOCYTES % (test code = IM GRANULOCYTES %) 0.3 0.0- 1.0 [facility] CenterNeutrophils # (Auto)2019-01-08 14:07:00* Test Item Value Reference Range Interpretation Comments Neutrophils # (Auto) (test code = 751-8) 4.0 2.1-6.9 [facility] CenterLymphocytes # (Auto)2019-01-08 14:07:00* Test Item Value Reference Range Interpretation Comments Lymphocytes # (Auto) (test code = 49287-7) 1.2 1.0-3.2 [facility] CenterMonocytes # (Auto)2019-01-08 14:07:00* Test Item Value Reference Range Interpretation Comments Monocytes # (Auto) (test code = 742-7) 0.5 0.2-0.8 [facility] CenterEosinophils # (Auto)2019-01-08 14:07:00* Test Item Value Reference Range Interpretation Comments Eosinophils # (Auto) (test code = 711-2) 0.1 0.0-0.4 [facility] CenterBasophils # (Auto)2019-01-08 14:07:00* Test Item Value Reference Range Interpretation Comments Basophils # (Auto) (test code = 704-7) 0.0 0.0-0.1 [facility] CenterAbsolute Immature Granulocyte (auto 2019-01-08 14:07:00* Test Item Value Reference Range Interpretation Comments Absolute Immature Granulocyte (auto (ginger t code = Absolute Immature Granulocyte (auto) 0.02 0-0.1 [facility] CenterProthrombin Xjik1030-00-85 14:07:00* Test Item Value Reference Range Interpretation Comments Prothrombin Time (test code = 5902-2) 25.3 11.9-14.5 H [facility] CenterProthromb Time International Ratio 2019-01-08 14:07:00* Test Item Value Reference Range Interpretation Comments Prothromb Time International Ratio (test code = 6301-6) 2.22 Oral Anticoagulant Therapy INR Values:1. Low Intensity Therapy 1.5 - 2.02 . Moderate Intensity Therapy 2.0 - 3.03. High Intensity Therapy(1) 2.5 - 3. 54. High Intensity Therapy(2) 3.0 - 4.05. Panic Value INR > 5.0 [facility] CenterActivated Partial Thromboplast Time 2019-01-08 14:07:00* Test Item Value Reference Range Interpretation Comments Activated Partial Thromboplast Time (test code = 15406-2) 52.2 23.8-35.5 H [facility] CenterProthrombin Aaji5247-89-43 14:07:00* Test Item Value Reference Range Interpretation Comments Prothrombin Time (test code = 5902-2) 25.3 11.9-14.5 H [facility] CenterProthromb Time International Ratio 2019-01-08 14:07:00* Test Item Value Reference Range Interpretation Comments Prothromb Time International Ratio (test code = 6301-6) 2.22 Oral Anticoagulant Therapy INR Values:1. Low Intensity Therapy 1.5 - 2.02 . Moderate Intensity Therapy 2.0 - 3.03. High Intensity Therapy(1) 2.5 - 3. 54. High Intensity Therapy(2) 3.0 - 4.05. Panic Value INR > 5.0 [facility] CenterActivated Partial Thromboplast Time 2019-01-08 14:07:00* Test Item Value Reference Range Interpretation Comments Activated Partial Thromboplast Time (test code = 31408-4) 52.2 23.8-35.5 [facility] Wqckg4749-72-34 14:06:00* Test Item Value Reference Range Interpretation Comments Sodium Level (test code = 2951-2) 138 136-145 [facility] CenterPotassium Sgulf9463-10-21 14:06:00* Test Item Value Reference Range Interpretation Comments Potassium Level (test code = 2823-3) 3.9 3.5-5.1 [facility] CenterChloride Bsgdo9727-45-00 14:06:00* Test Item Value Reference Range Interpretation Comments Chloride Level (test code = 2075-0) 102 98-107 [facility] CenterCarbon Dioxide Febjc7873-82-68 14:06:00* Test Item Value Reference Range Interpretation Comments Carbon Dioxide Level (test code = 2028-9) 29 22-29 [facility] CenterAnion Exy0928-08-68 14:06:00* Test Item Value Reference Range Interpretation Comments Anion Gap (test code = 20915-6) 10.9 8-16 [facility] CenterBlood Urea Claslkzb0970-29-84 14:06:00* Test Item Value Reference Range Interpretation Comments Blood Urea Nitrogen (test code = 3094-0) 10 7-26 [facility] CenterCreatinine2019-10-06 14:06:00* Test Item Value Reference Range Interpretation Comments Creatinine (test code = 2160-0) 0.67 0.57-1.11 [facility] CenterBUN/Creatinine Xzciy7910-78-89 14:06:00* Test Item Value Reference Range Interpretation Comments BUN/Creatinine Ratio (test code = 3097-3) 15 6-25 [facility] CenterEstimat Glomerular Filtration Rate 2019-01-08 14:06:00* Test Item Value Reference Range Interpretation Comments Estimat Glomerular Filtration Rate (test code = 194709121) > 60 >60 Ranges were taken from the National Kidney Disease Education Program and the [facility] Foundation literature.Reference ranges:60 or greater: Zbtzgk08-57 ( for 3 consecutive months): Chronic kidney disease 15 or less: Kidney failureEnnis [facility] Medical CenterGlucose Cnpvl5794-12-16 14:06:00* Test Item Value Reference Range Interpretation Comments Glucose Level (test code = UOE4204) 139 74-118 H [facility] CenterCalcium Iqlex2600-50-32 14:06:00* Test Item Value Reference Range Interpretation Comments Calcium Level (test code = 97487-1) 9.5 8.4-10.2 [facility] CenterLactic Acid Wokvv5687-65-64 14:06:00* Test Item Value Reference Range Interpretation Comments Lactic Acid Level (test code = Lactic Acid Level) 12.7 4.5- 19.8 [facility] CenterTotal Usveubetl5301-50-52 14:06:00* Test Item Value Reference Range Interpretation Comments Total Bilirubin (test code = 1975-2) 0.5 0.2-1.2 [facility] CenterAspartate Amino Transf (AST/SGOT) 2019-01-08 14:06:00* Test Item Value Reference Range Interpretation Comments Aspartate Amino Transf (AST/SGOT) (test code = Aspartate Amino Transf (AST/SGOT)) 18 5-34 [facility] CenterAlanine Aminotransferase (ALT/SGPT) 2019-01-08 14:06:00* Test Item Value Reference Range Interpretation Comments Alanine Aminotransferase (ALT/SGPT) (test code = 1742-6) 10 0-55 [facility] CenterTotal Rtgciih3869-69-34 14:06:00* Test Item Value Reference Range Interpretation Comments Total Protein (test code = 2885-2) 6.5 6.5-8.1 [facility] CenterAlbumin2019-10-06 14:06:00* Test Item Value Reference Range Interpretation Comments Albumin (test code = 1751-7) 3.5 3.5-5.0 [facility] CenterGlobulin2019-10-06 14:06:00* Test Item Value Reference Range Interpretation Comments Globulin (test code = 59539-9) 3.0 2.3-3.5 [facility] CenterAlbumin/Globulin Wsxbz9767-84-62 14:06:00 * Test Item Value Reference Range Interpretation Comments Albumin/Globulin Ratio (test code = 1759-0) 1.2 0.8-2.0 [facility] CenterAlkaline Crfwqpnnlow0493-37-11 14:06:00* Test Item Value Reference Range Interpretation Comments Alkaline Phosphatase (test code = 6768-6) 30 40-150 L [facility] CenterCreatine Ebfhds6940-20-14 14:06:00* Test Item Value Reference Range Interpretation Comments Creatine Kinase (test code = 2157-6) 55 29-168 [facility] CenterLactic Acid Jhczu7004-46-13 14:06:00* Test Item Value Reference Range Interpretation Comments Lactic Acid Level (test code = Lactic Acid Level) 12.7 4.5- 19.8 [facility] CenterTotal Bzphydeme1259-96-78 14:06:00* Test Item Value Reference Range Interpretation Comments Total Bilirubin (test code = 1975-2) 0.5 0.2-1.2 [facility] CenterAspartate Amino Transf (AST/SGOT) 2019-01-08 14:06:00* Test Item Value Reference Range Interpretation Comments Aspartate Amino Transf (AST/SGOT) (test code = Aspartate Amino Transf (AST/SGOT)) 18 5-34 [facility] CenterAlanine Aminotransferase (ALT/SGPT) 2019-01-08 14:06:00* Test Item Value Reference Range Interpretation Comments Alanine Aminotransferase (ALT/SGPT) (test code = 1742-6) 10 0-55 [facility] CenterTotal Orjlhib6932-92-54 14:06:00* Test Item Value Reference Range Interpretation Comments Total Protein (test code = 2885-2) 6.5 6.5-8.1 [facility] CenterAlbumin2019-10-06 14:06:00* Test Item Value Reference Range Interpretation Comments Albumin (test code = 1751-7) 3.5 3.5-5.0 [facility] CenterGlobulin2019-10-06 14:06:00* Test Item Value Reference Range Interpretation Comments Globulin (test code = 93274-4) 3.0 2.3-3.5 [facility] CenterAlbumin/Globulin Zghcf9481-68-41 14:06:00 * Test Item Value Reference Range Interpretation Comments Albumin/Globulin Ratio (test code = 1759-0) 1.2 0.8-2.0 [facility] CenterAlkaline Ksqyxjkrzjc9025-88-18 14:06:00* Test Item Value Reference Range Interpretation Comments Alkaline Phosphatase (test code = 6768-6) 30 40-150 L [facility] CenterCreatine Cmdjas8080-65-80 14:06:00* Test Item Value Reference Range Interpretation Comments Creatine Kinase (test code = 2157-6) 55 29-168 [facility] CenterLactic Acid Rozdn1577-53-27 14:06:00* Test Item Value Reference Range Interpretation Comments Lactic Acid Level (test code = Lactic Acid Level) 12.7 4.5- 19.8 [facility] CenterLactic Acid Cykhw1954-33-50 14:06:00* Test Item Value Reference Range Interpretation Comments Lactic Acid Level (test code = Lactic Acid Level) 12.7 4.5- 19.8 [facility] CenterUrine Jufef7319-54-24 13:59:00* Test Item Value Reference Range Interpretation Comments Urine Color (test code = 5778-6) YELLOW YELLOW [facility] CenterUrine Uadfyuq5082-00-91 13:59:00* Test Item Value Reference Range Interpretation Comments Urine Clarity (test code = 71221-1) CLEAR CLEAR [facility] CenterUrine Specific Mhzmdfi2269-05-08 13:59:00 * Test Item Value Reference Range Interpretation Comments Urine Specific [place] (test code = 5811-5) 1.010 1.010-1.02 5 [facility] CenterUrine gS2528-89-07 13:59:00* Test Item Value Reference Range Interpretation Comments Urine pH (test code = 00906-3) 7 5-7 [facility] CenterUrine Leukocyte Nfeaxedh7649-73-22 13:59:00* Test Item Value Reference Range Interpretation Comments Urine Leukocyte Esterase (test code = 40083-3) TRACE NEGATIV E H [facility] CenterUrine Yvjeuxb6346-53-22 13:59:00* Test Item Value Reference Range Interpretation Comments Urine Nitrite (test code = 18854-6) NEGATIVE NEGATIVE [facility] CenterUrine Xcvalnz0179-26-85 13:59:00* Test Item Value Reference Range Interpretation Comments Urine Protein (test code = 73662-9) 1+ NEGATIVE H [facility] CenterUrine Glucose (UA)2019-01-08 13:59:00* Test Item Value Reference Range Interpretation Comments Urine Glucose (UA) (test code = 50629-9) NEGATIVE NEGATIVE [facility] CenterUrine Tetuzbi2203-42-68 13:59:00* Test Item Value Reference Range Interpretation Comments Urine Ketones (test code = 26637-6) NEGATIVE NEGATIVE [facility] CenterUrine Mmzjmjqskuht8761-93-68 13:59:00* Test Item Value Reference Range Interpretation Comments Urine Urobilinogen (test code = 64725-9) 0.2 0.2-1 [facility] Bgegybrrw2260-74-65 13:59:00* Test Item Value Reference Range Interpretation Comments Urine Bilirubin (test code = 1977-8) NEGATIVE NEGATIVE [facility] Omdze5721-07-25 13:59:00* Test Item Value Reference Range Interpretation Comments Urine Blood (test code = 97731-3) TRACE NEGATIVE H [facility] CenterUrine Jbmrq5795-73-63 13:59:00* Test Item Value Reference Range Interpretation Comments Urine Color (test code = 5778-6) YELLOW YELLOW [facility] CenterUrine Jhykltp6612-20-92 13:59:00* Test Item Value Reference Range Interpretation Comments Urine Clarity (test code = 07376-1) CLEAR CLEAR [facility] CenterUrine Specific Gtzcghj7573-85-50 13:59:00 * Test Item Value Reference Range Interpretation Comments Urine Specific [place] (test code = 5811-5) 1.010 1.010-1.02 5 [facility] CenterUrine qM8322-60-33 13:59:00* Test Item Value Reference Range Interpretation Comments Urine pH (test code = 90264-8) 7 5-7 [facility] CenterUrine Leukocyte Zleptoya9126-13-95 13:59:00* Test Item Value Reference Range Interpretation Comments Urine Leukocyte Esterase (test code = 82635-2) TRACE NEGATIV E H [facility] CenterUrine Gixsatt9002-31-35 13:59:00* Test Item Value Reference Range Interpretation Comments Urine Nitrite (test code = 37381-5) NEGATIVE NEGATIVE [facility] Nbeuugy8874-17-25 13:59:00* Test Item Value Reference Range Interpretation Comments Urine Protein (test code = 03040-0) 1+ NEGATIVE H [facility] Glucose (UA)2019-01-08 13:59:00* Test Item Value Reference Range Interpretation Comments Urine Glucose (UA) (test code = 63055-8) NEGATIVE NEGATIVE [facility] CenterUrine Zeqqnpt8355-18-55 13:59:00* Test Item Value Reference Range Interpretation Comments Urine Ketones (test code = 97316-7) NEGATIVE NEGATIVE [facility] CenterUrine Oqftzrnkjpzo4301-99-51 13:59:00* Test Item Value Reference Range Interpretation Comments Urine Urobilinogen (test code = 64828-7) 0.2 0.2-1 [facility] CenterUrine Qsculukcy3751-61-23 13:59:00* Test Item Value Reference Range Interpretation Comments Urine Bilirubin (test code = 1977-8) NEGATIVE NEGATIVE [facility] Lnbsn7093-60-54 13:59:00* Test Item Value Reference Range Interpretation Comments Urine Blood (test code = 91146-9) TRACE NEGATIVE H [facility] CenterUrine Dftxz2504-95-64 13:59:00* Test Item Value Reference Range Interpretation Comments Urine Color (test code = 5778-6) YELLOW YELLOW [facility] CenterUrine Lhdcgfk4970-59-37 13:59:00* Test Item Value Reference Range Interpretation Comments Urine Clarity (test code = 86716-9) CLEAR CLEAR [facility] CenterUrine Specific Lkludzu4037-85-88 13:59:00 * Test Item Value Reference Range Interpretation Comments Urine Specific [place] (test code = 5811-5) 1.010 1.010-1.02 5 [facility] CenterUrine oK8648-11-31 13:59:00* Test Item Value Reference Range Interpretation Comments Urine pH (test code = 14508-7) 7 5-7 [facility] CenterUrine Leukocyte Zjewtbqg7165-88-58 13:59:00* Test Item Value Reference Range Interpretation Comments Urine Leukocyte Esterase (test code = 06834-0) TRACE NEGATIV E H [facility] CenterUrine Wlwgsru5845-50-72 13:59:00* Test Item Value Reference Range Interpretation Comments Urine Nitrite (test code = 65032-7) NEGATIVE NEGATIVE [facility] CenterUrine Pnkzhpt6972-14-13 13:59:00* Test Item Value Reference Range Interpretation Comments Urine Protein (test code = 29592-6) 1+ NEGATIVE H [facility] CenterUrine Glucose (UA)2019-01-08 13:59:00* Test Item Value Reference Range Interpretation Comments Urine Glucose (UA) (test code = 11935-4) NEGATIVE NEGATIVE [facility] CenterUrine Uifbmwx1407-57-21 13:59:00* Test Item Value Reference Range Interpretation Comments Urine Ketones (test code = 32582-6) NEGATIVE NEGATIVE [facility] CenterU[facility] Mkrgujlhkhxs9370-76-14 13:59:00* Test Item Value Reference Range Interpretation Comments Urine Urobilinogen (test code = 11136-5) 0.2 0.2-1 [facility] CenterUrine Ywrvfvegk4632-01-97 13:59:00* Test Item Value Reference Range Interpretation Comments Urine Bilirubin (test code = 1977-8) NEGATIVE NEGATIVE [facility] CenterU[facility] Vnsok4891-92-82 13:59:00* Test Item Value Reference Range Interpretation Comments Urine Blood (test code = 87448-1) TRACE NEGATIVE H [facility] CenterBedside Yjabror7771-07-04 15:50:00* Test Item Value Reference Range Interpretation Comments Bedside Glucose (test code = 17511-3) 92 70-120 Meter ID: [id number] [facility] Glucose 2018-10-28 15:50:00* Test Item Value Reference Range Interpretation Comments Bedside Glucose (test code = 04710-2) 92 70-120 Meter ID: [id number] [facility] E2378-77-14 14:47:00 [facility] [address] [address] Patient Name: MAURIZIO WINN MR #: [id number] : 1935 Age/Sex: 83/F Req #: [id number] Adm Physician: MAURICIO AYOUB MD Ordered by: MAURICIO AYOUB MD Report #: [id number] Location: [facility]UR[facility] Room/Bed: [facility] Procedure: [id number] C T/CT CHEST W Exam Date: 10/28/18 Exam Time: 1420 REPORT STATUS: Signed EXAM: CT Chest WITH intravenous contrast 10/28/2018 9:54 AM INDICATION: Pulmonary Nodule COMPARISON: None TECHNIQUE: Chest was scanned utilizing a multidetector alejandro theodore scanner from the lung apex through the level of the adrenal glands after a dministration of IV contrast. Coronal and sagittal reformations were obtained. Routine protocol was performed. IV CONTRAST: 100mL Isovue 370 RADIATION DOSE: Total DLP: 549 mGy*cm. Dose modulation, iterative reconstruction, and/or weight based adjustment of the mA/kV was utilized to reduce the radiation dose to as low as reasonably achievable. COMPLICATIONS: None FINDINGS: LINES/ TUBES: Right IJ tunneled chest port with tip terminating at the superior cavoatrial junction. LUNGS AND AIRWAYS: The central airways are patent. No focal consolidation or pulmonary edema. The nodular opacity seen on the prior chest radiograph of 10/26/2018 corresponds with a 13 mm right lower lobe calcified granuloma. Mild bibasilar dependent subsegmental atelectasis. No darius picious pulmonary nodules. PLEURA: No pleural effusion or pneumothorax. HEART AND MEDIASTINUM: The thyroid gland appears unremarkable. No supraclavi cular lymphadenopathy. Several prominent paratracheal lymph nodes measure belo w 1 cm short axis and do not meet size criteria for lymphadenopathy. No hilar lymphadenopathy. Several subcentimeter calcified right hilar lymph nodes. No a xillary, subpectoral, or internal mammary lymphadenopathy. The heart is at the upper limits of normal for size. No pericardial effusion. Scattered atheroscl erotic calcifications of the coronary arteries. UPPER ABDOMEN: There is a 1 cm hypodense segment 4 lesion, too small to adequately assess on this sin gle phase postcontrast image. Diffusely decreased hepatic parenchymal attenuat ion consistent with hepatic steatosis. Status post cholecystectomy. Coarse theodore cified granulomas throughout the nonenlarged spleen. The partially visualized kidneys appear unremarkable. The adrenal glands appear normal. The pancreas ap pears normal. BONES: Unchanged T11 compression fracture. No acute osseous i njury. Diffuse osteopenia. Degenerative changes of the visualized spine. No cardoza spicious lytic or blastic lesions. SOFT TISSUES: Unremarkable. IMPRE SSION: Pulmonary nodule identified on prior chest radiograph corresponds with right lower lobe calcified granuloma. Along with calcified subcentimeter right hilar lymph nodes, this likely represents sequela of prior granulomatous dis ease. No suspicious pulmonary nodules. Atherosclerotic coronary artery ca lcifications. Hepatic steatosis. 1 cm segment 4 hypodense lesion is too sma ll to adequately assess on this single phase contrast-enhanced chest CT. Hepat ic ultrasound can be considered for further evaluation. Signed by: Mandy Mathur MD on 10/28/2018 2:57 PM Dictated By: JOCELYN MATHUR MD [id number] Transcribed By: MIKA on 10/28/18 1 071 COPY TO: MAURICIO AYOUB MD CHEST 2 JJFFP0896-31-86 14:42:00 [facility] [address] [address] Patient Name: MAURIZIO WINN MR #: [id number] : 1935 Age/Sex: 83[id number] Req #: [id number] Adm Physician: MAURICIO AYOUB MD Ordered by: MAURICIO AYOUB MD Report #: [id number] Location: MED/SURG2 Room/Bed: [facility] Procedure: [id number] D X/CHEST 2 VIEWS Exam Date: 10/26/18 Exam Time: 1325 REPORT STATUS: Signed EXAMINA TION: PA and lateral views of the chest. COMPARISON: No prior chest are renan ilable. MRI thoracic spine 03/17/2018 CLINICAL HISTORY: Chest congestion, cough DISCUSSION: Lines/tubes: Right upper chest Port-A-Cath, wi th catheter distal tip projecting in the right atrium. Lungs: The lungs are well inflated. 1.3 x 1.2 cm nodular density in the anterior aspect of the right lower lobe. Rest of the lungs is clear. There is no evidence of pneumoni a or pulmonary edema. Pleura: There is no pleural effusion or pneumothorax . Heart and mediastinum: Mild enlargement of the cardiac silhouette. Pulm onary vasculature is normal. Atherosclerotic calcification of the thoracic and abdominal aorta Bones and soft tissues: No acute bony abnormalities. A nterior wedging of a T11 vertebral body, consistent with compression fracture, relatively stable since MRI of thoracic spine 03/17/2018 IMPRESSION: 1. Mild enlargement of the cardiac silhouette, without acute cardiopulmonary abnormalities. No consolidation or effusion. 2. 1.2 x 1.2 cm pulmonary no dule in the right lower lobe, which is indeterminate. Prior films, if availabl e, would be helpful for comparison. Given the presence of a Port-A-Cath, this may represent a primary or metastatic lesion. 3. Old T11 compression frac ture. Signed by: Dr. Juan Francisco Muro M.D. on 10/26/2018 2:47 PM Dictated By: JUAN FRANCISCO MURO MD 46 Transcribed By: MIKA on 10/26/181446 COPY TO: MAURICIO AYOUB MD Urine [id number] 06:55:00* Test Item Value Reference Range Interpretation Comments Urine WBC (test code = 5821-4) 21-50 0-5 [facility] CCW9611-08-58 06:55:00* Test Item Value Reference Range Interpretation Comments Urine RBC (test code = 04715-6) 6-10 0-5 H [facility] Zzwzccmm8969-07-72 06:55:00* Test Item Value Reference Range Interpretation Comments Urine Bacteria (test code = 60908-0) MODERATE NONE [facility] Epithelial Marod3388-74-68 06:55:00 * Test Item Value Reference Range Interpretation Comments Urine Epithelial Cells (test code = 42098-8) MANY NONE [facility] Psxgz3907-33-90 06:52:00* Test Item Value Reference Range Interpretation Comments Urine Color (test code = 5778-6) YELLOW YELLOW [facility] Ixlyoak9392-07-42 06:52:00* Test Item Value Reference Range Interpretation Comments Urine Clarity (test code = 16532-9) CLEAR CLEAR [facility] Center[facility] Specific Keqyhey6374-50-91 06:52:00 * Test Item Value Reference Range Interpretation Comments Urine Specific [place] (test code = 5811-5) 1.015 1.010-1.02 5 [facility] kU8698-71-31 06:52:00* Test Item Value Reference Range Interpretation Comments Urine pH (test code = 60554-6) 7 5-7 [facility] Leukocyte Wdudhmbu4102-78-28 06:52:00* Test Item Value Reference Range Interpretation Comments Urine Leukocyte Esterase (test code = 90916-3) TRACE NEGATIV E H [facility] Center[facility] Bezsdit9793-34-67 06:52:00* Test Item Value Reference Range Interpretation Comments Urine Nitrite (test code = 75194-6) NEGATIVE NEGATIVE [facility] Wkuenog3270-03-16 06:52:00* Test Item Value Reference Range Interpretation Comments Urine Protein (test code = 34005-2) TRACE NEGATIVE H [facility] Center[facility] Glucose (UA)2018-10-26 06:52:00* Test Item Value Reference Range Interpretation Comments Urine Glucose (UA) (test code = 28456-2) NEGATIVE NEGATIVE [facility] Nrtlkgf0092-46-10 06:52:00* Test Item Value Reference Range Interpretation Comments Urine Ketones (test code = 40703-3) NEGATIVE NEGATIVE [facility] Dswgactrngfu5924-95-92 06:52:00* Test Item Value Reference Range Interpretation Comments Urine Urobilinogen (test code = 28339-1) 0.2 0.2-1 [facility] Hipfgicfz3353-46-63 06:52:00* Test Item Value Reference Range Interpretation Comments Urine Bilirubin (test code = 1977-8) NEGATIVE NEGATIVE [facility] Iqruw8372-70-93 06:52:00* Test Item Value Reference Range Interpretation Comments Urine Blood (test code = 13106-4) TRACE NEGATIVE [facility] Tnjrv8971-18-70 20:34:00* Test Item Value Reference Range Interpretation Comments Sodium Level (test code = 2951-2) 142 136-145 [facility] CenterPotassium Vvuhh4042-87-43 20:34:00* Test Item Value Reference Range Interpretation Comments Potassium Level (test code = 2823-3) 3.8 3.5-5.1 [facility] CenterChloride Fkprs3720-73-96 20:34:00* Test Item Value Reference Range Interpretation Comments Chloride Level (test code = 2075-0) 104 98-107 [facility] CenterCarbon Dioxide Iyilv8147-55-53 20:34:00* Test Item Value Reference Range Interpretation Comments Carbon Dioxide Level (test code = 2028-9) 28 22-29 [facility] CenterAnion Hda3785-82-76 20:34:00* Test Item Value Reference Range Interpretation Comments Anion Gap (test code = 47284-9) 13.8 8-16 [facility] CenterBlood Urea Jnzybpgm2469-35-48 20:34:00* Test Item Value Reference Range Interpretation Comments Blood Urea Nitrogen (test code = 3094-0) 19 7-26 [facility] CenterCreatinine2019-07-23 20:34:00* Test Item Value Reference Range Interpretation Comments Creatinine (test code = 2160-0) 0.74 0.57-1.11 [facility] CenterBUN/Creatinine Lllcm8313-37-93 20:34:00* Test Item Value Reference Range Interpretation Comments BUN/Creatinine Ratio (test code = 3097-3) 26 6-25 H [facility] CenterEstimat Glomerular Filtration Rate 2018-10-25 20:34:00* Test Item Value Reference Range Interpretation Comments Estimat Glomerular Filtration Rate (test code = 436416849) > 60 >60 Ranges were taken from the National Kidney Disease Education Program and the [facility] Kid[facility] Foundation literature.Reference ranges:60 or greater: Rxcifu88-63 ( for 3 consecutive months): Chronic kidney disease 15 or less: Kidney failureEnnis Regional Medical CenterGlucose Lulas7861-73-17 20:34:00* Test Item Value Reference Range Interpretation Comments Glucose Level (test code = TER3230) 159 74-118 H [facility] CenterCalcium Uzopu0961-31-14 20:34:00* Test Item Value Reference Range Interpretation Comments Calcium Level (test code = 73126-9) 9.7 8.4-10.2 [facility] CenterTotal Fpiuczuum5577-59-58 20:34:00* Test Item Value Reference Range Interpretation Comments Total Bilirubin (test code = 1975-2) 0.3 0.2-1.2 [facility] CenterAspartate Amino Transf (AST/SGOT) 2018-10-25 20:34:00* Test Item Value Reference Range Interpretation Comments Aspartate Amino Transf (AST/SGOT) (test code = Aspartate Amino Transf (AST/SGOT)) 17 5-34 [facility] CenterAlanine Aminotransferase (ALT/SGPT) 2018-10-25 20:34:00* Test Item Value Reference Range Interpretation Comments Alanine Aminotransferase (ALT/SGPT) (test code = 1742-6) 11 0-55 [facility] CenterTotal Erljtuz0248-13-73 20:34:00* Test Item Value Reference Range Interpretation Comments Total Protein (test code = 2885-2) 6.0 6.5-8.1 L [facility] CenterAlbumin2019-07-23 20:34:00* Test Item Value Reference Range Interpretation Comments Albumin (test code = 1751-7) 3.4 3.5-5.0 L [facility] CenterGlobulin2019-07-23 20:34:00* Test Item Value Reference Range Interpretation Comments Globulin (test code = 73920-6) 2.6 2.3-3.5 [facility] CenterAlbumin/Globulin Engqx8798-97-82 20:34:00 * Test Item Value Reference Range Interpretation Comments Albumin/Globulin Ratio (test code = 1759-0) 1.3 0.8-2.0 [facility] CenterAlkaline Hmqvelhzoav6784-80-51 20:34:00* Test Item Value Reference Range Interpretation Comments Alkaline Phosphatase (test code = 6768-6) 42 40-150 [facility] CenterProthrombin Srsm2007-74-21 20:27:00* Test Item Value Reference Range Interpretation Comments Prothrombin Time (test code = 5902-2) 22.9 11.9-14.5 H [facility] CenterProthromb Time International Ratio 2018-10-25 20:27:00* Test Item Value Reference Range Interpretation Comments Prothromb Time International Ratio (test code = 6301-6) 1.95 Oral Anticoagulant Therapy INR Values:1. Low Intensity Therapy 1.5 - 2.02 . Moderate Intensity Therapy 2.0 - 3.03. High Intensity Therapy(1) 2.5 - 3. 54. High Intensity Therapy(2) 3.0 - 4.05. Panic Value INR > 5.0 [facility] CenterWhite Blood Ehxhb4073-07-36 20:14:00* Test Item Value Reference Range Interpretation Comments White Blood Count (test code = 6690-2) 6.44 4.8-10.8 [facility] CenterRed Blood Yvakr3173-95-88 20:14:00* Test Item Value Reference Range Interpretation Comments Red Blood Count (test code = 789-8) 3.86 3.6-5.1 [facility] CenterHemoglobin2019-07-23 20:14:00* Test Item Value Reference Range Interpretation Comments Hemoglobin (test code = 58054-9) 11.7 12.0-16.0 L [facility] CenterHematocrit2019-07-23 20:14:00* Test Item Value Reference Range Interpretation Comments Hematocrit (test code = 4544-3) 35.4 34.2-44.1 [facility] CenterMean Corpuscular Mssoda9072-97-04 20:14:00* Test Item Value Reference Range Interpretation Comments Mean Corpuscular Volume (test code = 787-2) 91.7 81-99 [facility] CenterMean Corpuscular Auotetyskj0894-57-15 20:14:00* Test Item Value Reference Range Interpretation Comments Mean Corpuscular Hemoglobin (test code = 785-6) 30.3 28-32 [facility] CenterMean Corpuscular Hemoglobin Concent 2018-10-25 20:14:00* Test Item Value Reference Range Interpretation Comments Mean Corpuscular Hemoglobin Concent (test code = 786-4) 33.1 31-35 [facility] CenterRed Cell Distribution Ucbgx1943-93-46 20:14:00* Test Item Value Reference Range Interpretation Comments Red Cell Distribution Width (test code = 40764-9) 13.4 11.7 -14.4 [facility] CenterPlatelet Emqgk3865-14-08 20:14:00* Test Item Value Reference Range Interpretation Comments Platelet Count (test code = 777-3) 191 140-360 [facility] CenterNeutrophils (%) (Auto)2018-10-25 20:14:00 * Test Item Value Reference Range Interpretation Comments Neutrophils (%) (Auto) (test code = 94466-4) 56.5 38.7-80.0 [facility] CenterLymphocytes (%) (Auto)2018-10-25 20:14:00 * Test Item Value Reference Range Interpretation Comments Lymphocytes (%) (Auto) (test code = 736-9) 28.6 18.0-39.1 [facility] CenterMonocytes (%) (Auto)2018-10-25 20:14:00* Test Item Value Reference Range Interpretation Comments Monocytes (%) (Auto) (test code = 5905-5) 10.2 4.4-11.3 [facility] CenterEosinophils (%) (Auto)2018-10-25 20:14:00 * Test Item Value Reference Range Interpretation Comments Eosinophils (%) (Auto) (test code = 713-8) 3.6 0.0-6.0 [facility] CenterBasophils (%) (Auto)2018-10-25 20:14:00* Test Item Value Reference Range Interpretation Comments Basophils (%) (Auto) (test code = 706-2) 0.6 0.0-1.0 [facility] CenterIM GRANULOCYTES %2018-10-25 20:14:00* Test Item Value Reference Range Interpretation Comments IM GRANULOCYTES % (test code = IM GRANULOCYTES %) 0.5 0.0- 1.0 [facility] CenterNeutrophils # (Auto)2018-10-25 20:14:00* Test Item Value Reference Range Interpretation Comments Neutrophils # (Auto) (test code = 751-8) 3.6 2.1-6.9 [facility] CenterLymphocytes # (Auto)2018-10-25 20:14:00* Test Item Value Reference Range Interpretation Comments Lymphocytes # (Auto) (test code = 46815-0) 1.8 1.0-3.2 [facility] CenterMonocytes # (Auto)2018-10-25 20:14:00* Test Item Value Reference Range Interpretation Comments Monocytes # (Auto) (test code = 742-7) 0.7 0.2-0.8 [facility] CenterEosinophils # (Auto)2018-10-25 20:14:00* Test Item Value Reference Range Interpretation Comments Eosinophils # (Auto) (test code = 711-2) 0.2 0.0-0.4 [facility] CenterBasophils # (Auto)2018-10-25 20:14:00* Test Item Value Reference Range Interpretation Comments Basophils # (Auto) (test code = 704-7) 0.0 0.0-0.1 [facility] CenterAbsolute Immature Granulocyte (auto 2018-10-25 20:14:00* Test Item Value Reference Range Interpretation Comments Absolute Immature Granulocyte (auto (ginger t code = Absolute Immature Granulocyte (auto) 0.03 0-0.1 [facility]2018-12-18 07:15:00* Test Item Value Reference Range Interpretation Comments Blood Culture (test code = 85369909) NO GROWTH AFTER 5 DAYS, FINAL REPORT [facility]2018-12-18 07:15:00* Test Item Value Reference Range Interpretation Comments Blood Culture (test code = 08468754) NO GROWTH AFTER 5 DAYS, FINAL REPORT [facility]2018-12-16 07:15:00* Test Item Value Reference Range Interpretation Comments Blood Culture (test code = 78607556) NO GROWTH AFTER 72 HOURS [facility]2018-12-16 07:11:00* Test Item Value Reference Range Interpretation Comments Blood Culture (test code = 600-7) Organism: ESCHERICHIA COLI-ESBL [facility]2018-12-16 07:11:00* Test Item Value Reference Range Interpretation Comments Blood Culture (test code = 600-7) Organism: ESCHERICHIA COLI-ESBL [facility]2018-12-16 07:11:00* Test Item Value Reference Range Interpretation Comments Blood Culture (test code = 600-7) No Result Data Provided [facility]2018-12-16 07:11:00* Test Item Value Reference Range Interpretation Comments Blood Culture (test code = 600-7) No Result Data Provided [facility] Qbjdmms0579-49-06 07:11:00* Test Item Value Reference Range Interpretation Comments Blood Culture (test code = 600-7) No Result Data Provided [facility]2018-12-15 08:09:00* Test Item Value Reference Range Interpretation Comments Urine Culture (test code = 630-4) Organism: ESCHERICHIA COLI-ESBL [facility]2018-12-15 08:09:00* Test Item Value Reference Range Interpretation Comments Urine Culture (test code = 630-4) Organism: ESCHERICHIA COLI-ESBL [facility]2018-12-15 08:09:00* Test Item Value Reference Range Interpretation Comments Urine Culture (test code = 630-4) No Result Data Provided [facility]2018-12-15 08:09:00* Test Item Value Reference Range Interpretation Comments Urine Culture (test code = 630-4) No Result Data Provided [facility]2018-12-15 08:09:00* Test Item Value Reference Range Interpretation Comments Urine Culture (test code = 630-4) No Result Data Provided [facility] CenterMRI SPINE THORACIC EP7807-01-23 17:30:00 [facility] [address] [place] [address] Patient Name: MAURIZIO WINN MR #: [id number] : 1935 Age/Sex: 83/F Req #: [id number] Adm Physician: MAURICIO AYOUB MD Ordered by: TOBY CLIFFORD MD Report #: [id number] Location: [facility] Room/Bed: [address] [address] Procedure: [id number] MRI/MRI SPINE THORACIC WO Exam Date: 03/17/18 Exam T jamar: 1856 REPORT STATUS: Signed History:83-year-old female status post fall with mid back pain Comparison stud ies: CT lumbar spine 03/17/2018 Technique: Sagittal T1, T2 and STIR without co ntrast; axial and coronal T2. Findings: Curvature: Focal kyphosis a t T11 compression fracture. No scoliosis. Paraspinal soft tissues: No signal a bnormalities. Spinal cord: The spinal cord is normal in size and signal intens ity through the tip of the conus at L1-L2. Vertebrae: Chronic T11 compr ession fracture with significant anterior wedge deformity and no STIR signal. Disk spaces: Last disc space at T11-T12. . Disk herniations: Symmetric bu lging disc at T11-T12 with 2.7 mm of posterior mass effect. . Foramina: Mode rate bilateral foraminal narrowing at T10-T11 and T11-T12 Spinal canal: Modera te narrowing spinal canal at T11-T12. IMPRESSION: Chronic T11 com pression fracture, with associated disc herniation and foraminal narrowing. Signed by: Dr. Craig Villanueva M.D. on 03/18/2018 5:37 PM Dictated By: CRAIG VILLANUEVA MD 36 Transcribed By: MIKA on 03/18/181736 COPY TO: TOBY CLIFFORD MD MRI SPINE LUMBAR [id number] 17:15:00 [address] [address] Patient Name: MAURIZIO WINN MR #: [id number] : 1935 Age/Sex: 83/F Req #: [id number] Adm Physician: MAURICIO AYOUB MD Ordered by: TOBY CLIFFORD MD Report #: [id number] Location: [facility] Room/Bed: [address] [address] Procedure: [id number] MRI/MRI SPINE LUMBAR WO Exam Date: 03/17/18 Exam Jeremiah e: 9108 REPORT STATUS: Signed MR I SPINE LUMBAR WO History: 83-year-old female status post fall with low ba ck pain , Comparison studies:None Technique: Sagittal and axi al T2 , sagittal T1 and IR, axial spin density oblique. Intravenous contrast: None Findings: Number of lumbar vertebral bodies: 5. Alignment: Focal kyphosis at T11 No scoliosis. Soft tissues: No T2 hyperintense inflammat ory changes. Fatty infiltration of the paraspinous muscles. Paraspinal muscl es: No signal abnormalities. Well-preserved. No atrophic changes Lower tho racic cord: Normal in signal and morphology. The tip of the conus is at L1-L2 . Cauda equina: No masses. No arachnoiditis. Vertebrae: Chronic T11 c ompression fracture with significant anterior wedge deformity. No associated S TIR signal. Degenerative changes: L1-L2: Symmetric bulging disc with 3 mm of posterior mass effect. Spinal canal widely patent. Neuroforamina wide ly patent. L2-L3: Symmetric bulging disc with 3 mm of posterior mass eff ect. Thickening of the ligament flavum. Mild narrowing of spine canal. Moderat e narrowing of the right foramen. L3-L4: Loss of disc height. Symmetric bulging disc with 3.4 mm in posterior mass effect. Thickening of the ligament um flavum. Moderate to severe narrowing of the spinal canal. Moderate narrowin g of bilateral foramen. L4-L5: Loss of disc height. Right asymmetric bulg ing disc with 2 mm of posterior mass effect. Thickening of the ligament flavum . Moderate to severe narrowing of the spinal canal. Severe right foraminal kodi rowing. Moderate to severe left foraminal narrowing. Advanced facet arthropath y. L5-S1: Loss of disc height. Spinal canal widely patent. Moderate to se eddie bilateral foraminal narrowing. Bilateral advanced facet arthropathy IMPRESSION: 1. Chronic T11 compression fracture 2. Spinal canal kodi rowing greatest at L3-L4 3. Foraminal stenosis greatest at right L4-L5 Signed by: Dr. Craig Villanueva M.D. on 03/18/2018 5:30 PM Dictated By: ST BILLY VILLANUEVA MD 29 T ranscribed By: MIKA on 03/18/181729 COPY TO: TOBY CLIFFORD MD Creatine Mqfocw3026-27-91 07:55:00* Test Item Value Reference Range Interpretation Comments Creatine Kinase (test code = 2157-6) 101 -168 [facility] CenterCreatine Kinase XS2716-72-76 07:55:00* Test Item Value Reference Range Interpretation Comments Creatine Kinase MB (test code = 96419-2) 1.40 0-5.0 [facility] CenterTroponin Y4319-68-25 07:55:00* Test Item Value Reference Range Interpretation Comments Troponin I (test code = WSS9119) 0.006 0-0.300 [facility] CenterCreatine Tnkpsk2821-22-54 07:55:00* Test Item Value Reference Range Interpretation Comments Creatine Kinase (test code = 2157-6) 101 29-168 [facility] CenterCreatine Kinase QJ9101-46-16 07:55:00* Test Item Value Reference Range Interpretation Comments Creatine Kinase MB (test code = 86324-7) 1.40 0-5.0 [facility] CenterTroponin Z4643-65-63 07:55:00* Test Item Value Reference Range Interpretation Comments Troponin I (test code = FXZ7514) 0.006 0-0.300 [facility] CenterTriglycerides Stobe1603-81-08 01:14:00* Test Item Value Reference Range Interpretation Comments Triglycerides Level (test code = 2571-8) 112 0-149 [facility] CenterCholesterol Zxcns0569-27-23 01:14:00* Test Item Value Reference Range Interpretation Comments Cholesterol Level (test code = 2093-3) 95 0-199 Less than 200 mg/dL Low Iocl024 - 239 mg/dL Borderline Dxds618 m g/dl and greater High Risk [facility] CenterLDL Ilajhkijnwx0439-39-97 01:14:00* Test Item Value Reference Range Interpretation Comments LDL Cholesterol (test code = 2089-1) 35 60-130 L [facility] Fqgtcxdaund4439-30-37 01:14:00* Test Item Value Reference Range Interpretation Comments HDL Cholesterol (test code = 2085-9) 38 40-60 L [facility] CenterCholesterol/HDL Skuge7838-41-25 01:14:00 * Test Item Value Reference Range Interpretation Comments Cholesterol/HDL Ratio (test code = 9830-1) 2.5 3.0-3.6 L [facility] CenterTriglycerides Lcfiq5816-31-78 01:14:00* Test Item Value Reference Range Interpretation Comments Triglycerides Level (test code = 2571-8) 112 0-149 [facility] CenterCholesterol Yojub1783-13-12 01:14:00* Test Item Value Reference Range Interpretation Comments Cholesterol Level (test code = 2093-3) 95 0-199 Less than 200 mg/dL Low Mphz538 - 239 mg/dL Borderline Bqno951 m g/dl and greater High Risk [facility] CenterLDL Uadfoykzhlp4245-55-04 01:14:00* Test Item Value Reference Range Interpretation Comments LDL Cholesterol (test code = 2089-1) 35 60-130 L [facility] Ulultqlzgpf2983-72-97 01:14:00* Test Item Value Reference Range Interpretation Comments HDL Cholesterol (test code = 2085-9) 38 40-60 L [facility] CenterCholesterol/HDL Nqzdc3614-52-70 01:14:00 * Test Item Value Reference Range Interpretation Comments Cholesterol/HDL Ratio (test code = 9830-1) 2.5 3.0-3.6 L [facility] CenterTriglycerides Xpupt6778-61-62 01:14:00* Test Item Value Reference Range Interpretation Comments Triglycerides Level (test code = 2571-8) 112 0-149 [facility] CenterCholesterol Cltxh1108-37-82 01:14:00* Test Item Value Reference Range Interpretation Comments Cholesterol Level (test code = 2093-3) 95 0-199 Less than 200 mg/dL Low Nlmy868 - 239 mg/dL Borderline Izlu547 m g/dl and greater High Risk [facility] CenterLDL Mqbgfgiibsx8616-30-50 01:14:00* Test Item Value Reference Range Interpretation Comments LDL Cholesterol (test code = 2089-1) 35 60-130 L [facility] Aecylwtmbsa4193-33-81 01:14:00* Test Item Value Reference Range Interpretation Comments HDL Cholesterol (test code = 2085-9) 38 40-60 L [facility] CenterCholesterol/HDL Pgbph8170-78-13 01:14:00 * Test Item Value Reference Range Interpretation Comments Cholesterol/HDL Ratio (test code = 9830-1) 2.5 3.0-3.6 L [facility] CenterTriglycerides Adley4926-95-60 01:14:00* Test Item Value Reference Range Interpretation Comments Triglycerides Level (test code = 2571-8) 112 0-149 [facility] CenterCholesterol Usxim9379-79-82 01:14:00* Test Item Value Reference Range Interpretation Comments Cholesterol Level (test code = 2093-3) 95 0-199 Less than 200 mg/dL Low Nfxa401 - 239 mg/dL Borderline Kmgb901 m g/dl and greater High Risk [facility] CenterLDL Siyjifkftxa7171-24-77 01:14:00* Test Item Value Reference Range Interpretation Comments LDL Cholesterol (test code = 2089-1) 35 60-130 L [facility] Hpttrabgvzl6918-48-85 01:14:00* Test Item Value Reference Range Interpretation Comments HDL Cholesterol (test code = 2085-9) 38 40-60 L [facility] CenterCholesterol/HDL Xgtui2449-61-08 01:14:00 * Test Item Value Reference Range Interpretation Comments Cholesterol/HDL Ratio (test code = 9830-1) 2.5 3.0-3.6 L [facility] CenterTriglycerides Odxjb8222-52-43 01:14:00* Test Item Value Reference Range Interpretation Comments Triglycerides Level (test code = 2571-8) 112 0-149 [facility] CenterCholesterol Eahnx2784-70-01 01:14:00* Test Item Value Reference Range Interpretation Comments Cholesterol Level (test code = 2093-3) 95 0-199 Less than 200 mg/dL Low Uxfm536 - 239 mg/dL Borderline Svjf001 m g/dl and greater High Risk [facility] CenterLDL Wiazkdzvmkh2376-13-90 01:14:00* Test Item Value Reference Range Interpretation Comments LDL Cholesterol (test code = 2089-1) 35 60-130 L [facility] CenterHDL Xcgrlployie0280-20-41 01:14:00* Test Item Value Reference Range Interpretation Comments HDL Cholesterol (test code = 2085-9) 38 40-60 L [facility] CenterCholesterol/HDL Jwlbt4268-55-43 01:14:00 * Test Item Value Reference Range Interpretation Comments Cholesterol/HDL Ratio (test code = 9830-1) 2.5 3.0-3.6 L [facility] CenterBedside Xtonicz4514-37-80 20:35:00* Test Item Value Reference Range Interpretation Comments Bedside Glucose (test code = 76439-6) 106 70-120 Meter ID: [id number] Regional Medical CenterThyroid Stimulating Hormone (TSH)2018-03-17 15:07:00* Test Item Value Reference Range Interpretation Comments Thyroid Stimulating Hormone (TSH) (test code = 51802-4) 0.768 0.350-4.940 [facility] CenterThyroid Stimulating Hormone (TSH) 2018-03-17 15:07:00* Test Item Value Reference Range Interpretation Comments Thyroid Stimulating Hormone (TSH) (test code = 49495-9) 0.768 0.350-4.940 [facility] CenterThyroid Stimulating Hormone (TSH) 2018-03-17 15:07:00* Test Item Value Reference Range Interpretation Comments Thyroid Stimulating Hormone (TSH) (test code = 25501-9) 0.768 0.350-4.940 [facility] CenterThyroid Stimulating Hormone (TSH) 2018-03-17 15:07:00* Test Item Value Reference Range Interpretation Comments Thyroid Stimulating Hormone (TSH) (test code = 49114-1) 0.768 0.350-4.940 [facility] CenterThyroid Stimulating Hormone (TSH) 2018-03-17 15:07:00* Test Item Value Reference Range Interpretation Comments Thyroid Stimulating Hormone (TSH) (test code = 90141-7) 0.768 0.350-4.940 [facility] CenterCT LUMBAR SPINE NO1305-04-26 13:26:00 [facility] [address] [place] [address] Patient Name: MAURIZIO WINN MR #: [id number] : 1935 Age/Sex: 83/F Req #: [id number] Adm Physician: MAURICIO AYOUB MD Ordered by: MARCIO MAYORGA MD Report #: [id number] Location: [facility] Room/Bed: [place] [address] Procedure: [id number] CT/CT LUMBAR SPINE WO Exam Date: 03/17/18 Exam Time: 1245 REPORT STATUS: Signed CT L UMBAR SPINE WO HISTORY: Fall COMPARISON: None. TECHNIQUE: Axi al CT images of the lumbar spine were obtained without contrast. Coronal and sagittal reconstructions obtained from the axial data. One or more of the fol lowing dose reduction techniques were used: Automated exposure control, adjust ment of the mA and/or kV according to patient size, and/or utilization of iter ative reconstruction technique. DISCUSSION: Mild bone demineralization li mits evaluation. There are 5 nonrib-bearing lumbar vertebral bodies. Lumbar lordosis is preserved. There is no significant scoliosis or subluxation. Partially visualized moderate to severe T11 vertebral compression fracture matteo ears well corticated. There is complete loss of vertebral body height centrall y without significant retropulsion. This may be chronic. No definite additi onal acute fracture or compression deformity is seen. No gross spinal canal ma ss is seen. There is mild paraspinal muscle atrophy in the lower lumbar spine. The paravertebral and paraspinal soft tissues are otherwise grossly unremar kable. Moderate multilevel spondylotic changes are present. There are mild degenerative changes in the bilateral sacroiliac joints. L1-L2: Disc bulge without gross canal or foraminal stenosis. L2-L3: Disc bulge without gross canal or foraminal stenosis. L3-L4: At least mild canal stenosis due to d isc bulge and ligamentum flavum thickening. Mild right and mild to moderate le ft foraminal stenoses due to disc bulge and facet arthrosis. L4-L5: At le ast mild canal stenosis due to disc bulge and ligamentum flavum thickening. Mo derate right and mild left foraminal stenoses due to uncovertebral and facet a rthrosis. L5-S1: Grade 1 anterolisthesis of L5 on S1 due to severe bilatera l L5-S1 facet arthrosis. At least mild canal stenosis due to uncovered disc bu lge and ligamentum flavum thickening. Moderate to severe bilateral foraminal s tenoses due to uncovered disc bulge and facet arthrosis. Mild bibasilar a telectasis is seen in the lungs. Perinephric fat stranding can be normal for a ge. Aortoiliac calcific atherosclerosis is present. Colonic diverticulosis is partially visualized. IMPRESSION: 1. Partially visualized moderate to s evere T11 vertebral compression fracture may be chronic. No significant fractu re retropulsion. 2. Otherwise, no definite acute osseous abnormalities. 3. Moderate multilevel spondylosis. 4. Grade 1 anterolisthesis of L5 on S1 due to severe bilateral L5-S1 facet arthrosis. 5. At least mild degenerative ca nal stenoses from L3-L4 to L5-S1. 6. Multilevel degenerative foraminal stenos es - moderate on the right at L4-L5; moderate to severe bilaterally at L5-S1. Signed by: Dr. Bentley Saini M.D. on 03/17/2018 1:39 PM Dictated B y: BENTLEY SAINI MD 38 COPY TO: MARCIO MAYORGA MD CHEST SINGLE (PORTABLE)2018-03-17 09:19:00 [place] [address] Patient Name: MAURIZIO WINN MR #: [id number] : 1935 Age/Sex: 83/F Req #: [id number] Adm Physician: Ordered by: CHOLO DELGADO MD Report #: [id number] Location: ER Room/Bed: Procedure: [id number] DX/C HEST SINGLE (PORTABLE) Exam Date: Exam Time: REPORT STATUS: Signed PROCEDURE: CHEST SINGLE (PORTABLE) COMPARISON: None. INDICATIONS: fall FINDINGS: Right subclavian central venous port catheter tip projects over the expected region of the superior cavoatrial junction. Lungs are well-inflated. C alcified granulomata right lower lung. No airspace consolidation, pleural eff usion, or pneumothorax. Tortuous thoracic aorta with atherosclerotic calci fication. Otherwise normal cardiomediastinal contour for technique. No acute osseous abnormality. CONCLUSION: No acute cardiopulmonary abnor mality. Dictated by: Mendoza Jorgensen M.D. on 03/17/2018 at 9:19 E lectronically approved by: Mendoza Jorgensen M.D. on 03/17/2018 at 9:19 Dictated By: MENDOZA JORGENSEN MD 8 Transcribed By: DREW on 03/17/18918 COPY TO: KARAN DELGADO MD HIP LEFT 2-3 VW (+/- PELVIS)2018-03-17 09:17:00 [facility] [address] [place] [address] Patient Name: MAURIZIO WINN MR #: [id number] : 1935 Age/Sex: 83/F Req #: [id number] Adm Physician: Ordered by: CHOLO DELGADO MD Report #: [id number] Location: ER Room/Bed: Procedure: [id number] DX/H IP LEFT 2-3 VW (+/- PELVIS) Exam Date: Exam Time: REPORT STATUS: Signed PROCEDURE: HIP LEFT 2-3 VW (+/- PELVIS) COMPARISON: None. INDICATIONS: F ALL LEFT HIP PAIN FINDINGS: No acute, displaced fracture or dislocati on. The left femoral head projects appropriately over the acetabulum. Mild sy mmetric joint space narrowing of the hips. Coarse calcification projecting ov er the upper aspect of the symphysis pubis may represent a degenerated fibroi d. Soft tissues are unremarkable. CONCLUSION: no acute os seous abnormality. No displaced left hip fracture. Dictated by: Mendoza Jorgensen M.D. on 03/17/2018 at 9:17 Electronically approved by: Mendoza Jorgensen M.D. on 03/17/2018 at 9:17 Dictated By: MENDOZA JORGENSEN MD Electronical ly Signed By: MENDOZA JORGENSEN MD on 03/17/18916 Transcribed By: DREW on 916 COPY TO: CHOLO DELGADO MD CT CERVICAL SPINE [id number] 08:57:00 [facility] [address] [place], [place] [address] Patient Name: MAURIZIO WINN MR #: [id number] : 1935 Age/Sex: 83/F [facility] #: [id number] Req #: [id number] Adm Physician: Ordered by: CHOLO DELGADO MD Report #: [id number] Location: ER Room/Bed: Procedure: [id number] CT/C T CERVICAL SPINE WO Exam Date: 03/17/18 Exam Time: 0 810 REPORT STATUS: Signed CT CER VICAL SPINE WO HISTORY: Fall COMPARISON: Concurrent head [employer]IST NIQUE: CT of the cervical spine without contrast. Sagittal and coronal reform ations were created. One or more of the following dose reduction techniques w ere used: Automated exposure control, adjustment of the mA and/or kV according to patient size, and/or utilization of iterative reconstruction technique. FINDINGS: Bone demineralization limits evaluation. Cervical lordosis is straightened. There is no scoliosis or subluxation. No definite acute fract ure or compression deformity is seen. The craniocervical junction is intact. No gross spinal canal masses are seen. The paravertebral and paraspinal s oft tissues are unremarkable. Mild multilevel spondylosis is most prominen t from C4-C5 to C6-C7. Grade 1 anterolisthesis [...] COPY TO: CHOLO DELGADO MD CT BRAIN [id number] 08:50:00 [place] [address] Patient Name: MAURIZIO WINN MR #: [id number] : 1935 Age/Sex: 83/F Req #: [id number] Adm Physician: Ordered by: CHOLO DELGADO MD Report #: [id number] Location: ER Room/Bed: Procedure: [id number] CT/C T BRAIN WO Exam Date: 03/17/18 Exam Time: 0810 REPORT STATUS: Signed CT BRAIN WO HISTORY: Fall COMPARISON: Brain MRI 09/11/2010 Technique: Noncontr ast axial scans were obtained from skull base to the vertex. Coronal and sagi ttal reconstructions obtained from the axial data. One or more of the followi ng dose reduction techniques were used: Automated exposure control, adjustment of the mA and/or kV according to patient size, and/or utilization of iterative reconstruction technique. DISCUSSION: Scalp/Skull: Unremarkable. B rain sulci: Mildly prominent. Ventricles: Compensatory dilatation. Extra-axi al spaces: No masses or fluid collections. Carotid siphon calcifications a re present. Parenchyma: Mild bilateral deep white matter hypodensity is likely chronic microvascular ischemic change. Otherwise, no masses, hemorrh age, or large vascular territory acute infarct. Dural sinuses: No abnormal densities. Sellar/Suprasellar region: Intact. Skull base: Intact. Inciden noy findings: Both ocular lenses are thinned. IMPRESSION: 1. No acute in tracranial abnormalities. 2. Mild supratentorial chronic microvascular ischem ic change. Mild generalized cerebral volume loss. Signed by: Dr. Fuad Saini M.D. on 03/17/2018 8:57 AM Dictated By: BENTLYE SAINI MD E lectronically Signed By: BENTLEY SAINI MD on 03/17/18856 Transcribed By: Sona WONG on 03/17/18856 COPY TO: CHOLO DELGADO MD Urine WBC 2018-03-17 08:04:00* Test Item Value Reference Range Interpretation Comments Urine WBC (test code = 5821-4) 11-20 0-5 H [facility] CenterUrine DWF3110-38-04 08:04:00* Test Item Value Reference Range Interpretation Comments Urine RBC (test code = 12381-9) 11-20 0-5 H [facility] CenterUrine Sljyxmtr4657-66-88 08:04:00* Test Item Value Reference Range Interpretation Comments Urine Bacteria (test code = 01411-6) MANY NONE H [facility] CenterUrine Epithelial Gupuq7945-31-02 08:04:00 * Test Item Value Reference Range Interpretation Comments Urine Epithelial Cells (test code = 68256-8) RARE NONE [facility] CenterUrine Jhwxt9442-74-33 07:53:00* Test Item Value Reference Range Interpretation Comments Urine Color (test code = 5778-6) YELLOW YELLOW [facility] CenterUrine Ubqnlvp7352-34-59 07:53:00* Test Item Value Reference Range Interpretation Comments Urine Clarity (test code = 52797-5) HAZY CLEAR [facility] CenterUrine Specific Ystfunr5440-74-92 07:53:00 * Test Item Value Reference Range Interpretation Comments Urine Specific [place] (test code = 5811-5) 1.015 1.010-1.02 5 [facility] CenterUrine jR2604-26-69 07:53:00* Test Item Value Reference Range Interpretation Comments Urine pH (test code = 79272-4) 6 5-7 [facility] CenterU[facility] Leukocyte Phmielrr2435-00-65 07:53:00* Test Item Value Reference Range Interpretation Comments Urine Leukocyte Esterase (test code = 5799-2) 2+ NEGATIVE H [facility] CenterUrine Djqxzoh0192-89-04 07:53:00* Test Item Value Reference Range Interpretation Comments Urine Nitrite (test code = 13001-1) NEGATIVE NEGATIVE [facility] CenterUrine Rdvaber6987-42-43 07:53:00* Test Item Value Reference Range Interpretation Comments Urine Protein (test code = 5804-0) TRACE NEGATIVE H [facility] CenterUrine Glucose (UA)2018-03-17 07:53:00* Test Item Value Reference Range Interpretation Comments Urine Glucose (UA) (test code = 2349-9) NEGATIVE NEGATIVE [facility] Eptocks7508-74-30 07:53:00* Test Item Value Reference Range Interpretation Comments Urine Ketones (test code = 97316-3) NEGATIVE NEGATIVE [facility] Soshayldselv0581-11-44 07:53:00* Test Item Value Reference Range Interpretation Comments Urine Urobilinogen (test code = 75463-0) 0.2 0.2-1 [facility] Wbzjkvagj0754-05-27 07:53:00* Test Item Value Reference Range Interpretation Comments Urine Bilirubin (test code = 1978-6) NEGATIVE NEGATIVE [facility] Sosvb5397-92-29 07:53:00* Test Item Value Reference Range Interpretation Comments Urine Blood (test code = 29031-9) 4+ NEGATIVE [facility] Jscff6505-77-42 07:47:00* Test Item Value Reference Range Interpretation Comments Sodium Level (test code = 2951-2) 136 136-145 [facility] CenterPotassium Forso9183-70-69 07:47:00* Test Item Value Reference Range Interpretation Comments Potassium Level (test code = 2823-3) 4.2 3.5-5.1 [facility] CenterChloride Jzvpy8624-22-88 07:47:00* Test Item Value Reference Range Interpretation Comments Chloride Level (test code = 2075-0) 99 98-107 [facility] CenterCarbon Dioxide Wskbt9622-03-86 07:47:00* Test Item Value Reference Range Interpretation Comments Carbon Dioxide Level (test code = 2028-9) 26 22-29 [facility] CenterAnion Kvs5957-01-81 07:47:00* Test Item Value Reference Range Interpretation Comments Anion Gap (test code = 68524-0) 15.2 8-16 [facility] CenterBlood Urea Eqlqljqx7406-78-09 07:47:00* Test Item Value Reference Range Interpretation Comments Blood Urea Nitrogen (test code = 3094-0) 27 7-26 H [facility] CenterCreatinine2018-12-13 07:47:00* Test Item Value Reference Range Interpretation Comments Creatinine (test code = 2160-0) 0.84 0.57-1.11 [facility] CenterBUN/Creatinine Pntqe3621-04-27 07:47:00* Test Item Value Reference Range Interpretation Comments BUN/Creatinine Ratio (test code = 3097-3) 32 6-25 H [facility] CenterEstimat Glomerular Filtration Rate 2018-03-17 07:47:00* Test Item Value Reference Range Interpretation Comments Estimat Glomerular Filtration Rate (test code = 865110268) > 60 >60 Ranges were taken from the National Kidney Disease Education Program and the [facility] Kidney Foundation literature.Reference ranges:60 or greater: Beebco72-99 ( for 3 consecutive months): Chronic kidney disease 15 or less: Kidney failureEnnis Regional Medical CenterGlucose Jpvcs4642-52-60 07:47:00* Test Item Value Reference Range Interpretation Comments Glucose Level (test code = ZNW0350) 145 74-118 H [facility] CenterCalcium Amthk5067-78-37 07:47:00* Test Item Value Reference Range Interpretation Comments Calcium Level (test code = 20446-0) 10.0 8.4-10.2 [facility] CenterMagnesium Rfddx2997-23-10 07:47:00* Test Item Value Reference Range Interpretation Comments Magnesium Level (test code = 11688-8) 1.7 1.3-2.1 [facility] CenterTotal Xtrtlecof3560-89-89 07:47:00* Test Item Value Reference Range Interpretation Comments Total Bilirubin (test code = 1975-2) 0.8 0.2-1.2 [facility] CenterAspartate Amino Transf (AST/SGOT) 2018-03-17 07:47:00* Test Item Value Reference Range Interpretation Comments Aspartate Amino Transf (AST/SGOT) (test code = Aspartate Amino Transf (AST/SGOT)) 25 5-34 [facility] CenterAlanine Aminotransferase (ALT/SGPT) 2018-03-17 07:47:00* Test Item Value Reference Range Interpretation Comments Alanine Aminotransferase (ALT/SGPT) (test code = 1742-6) 23 0-55 [facility] CenterTotal Oaqjdsx0525-99-73 07:47:00* Test Item Value Reference Range Interpretation Comments Total Protein (test code = 2885-2) 6.5 6.5-8.1 [facility] CenterAlbumin2018-12-13 07:47:00* Test Item Value Reference Range Interpretation Comments Albumin (test code = 1751-7) 3.3 3.5-5.0 L [facility] CenterGlobulin2018-12-13 07:47:00* Test Item Value Reference Range Interpretation Comments Globulin (test code = 34792-3) 3.2 2.3-3.5 [facility] CenterAlbumin/Globulin Dssos7799-81-91 07:47:00 * Test Item Value Reference Range Interpretation Comments Albumin/Globulin Ratio (test code = 1759-0) 1.0 0.8-2.0 [facility] CenterAlkaline Nqhkjotaetk1599-24-46 07:47:00* Test Item Value Reference Range Interpretation Comments Alkaline Phosphatase (test code = 6768-6) 29 40-150 L [facility] CenterMagnesium Jdudb5837-13-49 07:47:00* Test Item Value Reference Range Interpretation Comments Magnesium Level (test code = 28273-5) 1.7 1.3-2.1 [facility] CenterMagnesium Umwoz6977-03-29 07:47:00* Test Item Value Reference Range Interpretation Comments Magnesium Level (test code = 19316-6) 1.7 1.3-2.1 [facility] CenterMagnesium Fdvwx9553-04-89 07:47:00* Test Item Value Reference Range Interpretation Comments Magnesium Level (test code = 41186-6) 1.7 1.3-2.1 [facility] CenterMagnesium Jnhnv7069-69-02 07:47:00* Test Item Value Reference Range Interpretation Comments Magnesium Level (test code = 20801-2) 1.7 1.3-2.1 [facility] CenterLactic Acid Zecof3235-24-37 07:36:00* Test Item Value Reference Range Interpretation Comments Lactic Acid Level (test code = Lactic Acid Level) 10.1 4.5- 19.8 [facility] CenterLactic Acid Tdheb5450-84-08 07:36:00* Test Item Value Reference Range Interpretation Comments Lactic Acid Level (test code = Lactic Acid Level) 10.1 4.5- 19.8 [facility] CenterProthrombin Ukdg5257-47-22 07:35:00* Test Item Value Reference Range Interpretation Comments Prothrombin Time (test code = 5902-2) 24.2 11.9-14.5 H [facility] CenterProthromb Time International Ratio 2018-03-17 07:35:00* Test Item Value Reference Range Interpretation Comments Prothromb Time International Ratio (test code = 6301-6) 2.00 Oral Anticoagulant Therapy INR Values:1. Low Intensity Therapy 1.5 - 2.02 . Moderate Intensity Therapy 2.0 - 3.03. High Intensity Therapy(1) 2.5 - 3. 54. High Intensity Therapy(2) 3.0 - 4.05. Panic Value INR > 5.0 [facility] CenterActivated Partial Thromboplast Time 2018-03-17 07:35:00* Test Item Value Reference Range Interpretation Comments Activated Partial Thromboplast Time (test code = 27851-0) 50.3 23.8-35.5 H [facility] CenterActivated Partial Thromboplast Time 2018-03-17 07:35:00* Test Item Value Reference Range Interpretation Comments Activated Partial Thromboplast Time (test code = 08694-2) 50.3 23.8-35.5 H [facility] CenterWhite Blood Hhuvn7493-31-13 07:32:00* Test Item Value Reference Range Interpretation Comments White Blood Count (test code = 6690-2) 8.26 4.8-10.8 [facility] CenterRed Blood Dkeol2634-85-26 07:32:00* Test Item Value Reference Range Interpretation Comments Red Blood Count (test code = 789-8) 3.91 3.6-5.1 [facility] CenterHemoglobin2018-12-13 07:32:00* Test Item Value Reference Range Interpretation Comments Hemoglobin (test code = 64780-4) 12.2 12.0-16.0 [facility] CenterHematocrit2018-12-13 07:32:00* Test Item Value Reference Range Interpretation Comments Hematocrit (test code = 4544-3) 36.5 34.2-44.1 [facility] CenterMean Corpuscular Jihouj8848-85-06 07:32:00* Test Item Value Reference Range Interpretation Comments Mean Corpuscular Volume (test code = 787-2) 93.4 81-99 [facility] CenterMean Corpuscular Zocnhfwwva4512-46-03 07:32:00* Test Item Value Reference Range Interpretation Comments Mean Corpuscular Hemoglobin (test code = 785-6) 31.2 28-32 [facility] CenterMean Corpuscular Hemoglobin Concent 2018-03-17 07:32:00* Test Item Value Reference Range Interpretation Comments Mean Corpuscular Hemoglobin Concent (test code = 786-4) 33.4 31-35 [facility] CenterRed Cell Distribution Ysjxb7251-33-58 07:32:00* Test Item Value Reference Range Interpretation Comments Red Cell Distribution Width (test code = 65226-6) 14.2 11.7 -14.4 [facility] CenterPlatelet Gnutq3581-12-60 07:32:00* Test Item Value Reference Range Interpretation Comments Platelet Count (test code = 777-3) 174 140-360 [facility] CenterNeutrophils (%) (Auto)2018-03-17 07:32:00 * Test Item Value Reference Range Interpretation Comments Neutrophils (%) (Auto) (test code = 57786-9) 78.3 38.7-80.0 [facility] CenterLymphocytes (%) (Auto)2018-03-17 07:32:00 * Test Item Value Reference Range Interpretation Comments Lymphocytes (%) (Auto) (test code = 736-9) 12.0 18.0-39.1 L [facility] CenterMonocytes (%) (Auto)2018-03-17 07:32:00* Test Item Value Reference Range Interpretation Comments Monocytes (%) (Auto) (test code = 5905-5) 9.0 4.4-11.3 [facility] CenterEosinophils (%) (Auto)2018-03-17 07:32:00 * Test Item Value Reference Range Interpretation Comments Eosinophils (%) (Auto) (test code = 713-8) 0.2 0.0-6.0 [facility] CenterBasophils (%) (Auto)2018-03-17 07:32:00* Test Item Value Reference Range Interpretation Comments Basophils (%) (Auto) (test code = 706-2) 0.1 0.0-1.0 [facility] CenterIM GRANULOCYTES %2018-03-17 07:32:00* Test Item Value Reference Range Interpretation Comments IM GRANULOCYTES % (test code = IM GRANULOCYTES %) 0.4 0.0- 1.0 [facility] CenterNeutrophils # (Auto)2018-03-17 07:32:00* Test Item Value Reference Range Interpretation Comments Neutrophils # (Auto) (test code = 751-8) 6.5 2.1-6.9 [facility] CenterLymphocytes # (Auto)2018-03-17 07:32:00* Test Item Value Reference Range Interpretation Comments Lymphocytes # (Auto) (test code = 75992-9) 1.0 1.0-3.2 [facility] CenterMonocytes # (Auto)2018-03-17 07:32:00* Test Item Value Reference Range Interpretation Comments Monocytes # (Auto) (test code = 742-7) 0.7 0.2-0.8 [facility] CenterEosinophils # (Auto)2018-03-17 07:32:00* Test Item Value Reference Range Interpretation Comments Eosinophils # (Auto) (test code = 711-2) 0.0 0.0-0.4 [facility] CenterBasophils # (Auto)2018-03-17 07:32:00* Test Item Value Reference Range Interpretation Comments Basophils # (Auto) (test code = 704-7) 0.0 0.0-0.1 [facility] CenterAbsolute Immature Granulocyte (auto 2018-03-17 07:32:00* Test Item Value Reference Range Interpretation Comments Absolute Immature Granulocyte (auto (ginger t code = Absolute Immature Granulocyte (auto) 0.03 0-0.1 [facility] CenterBedside Qumvqky3782-18-17 08:06:00* Test Item Value Reference Range Interpretation Comments Bedside Glucose (test code = 43613-3) 101 70-120 Meter ID: [id number] Regional Medical CenterWhite Blood Count 2016-08-17 10:57:00* Test Item Value Reference Range Interpretation Comments White Blood Count (test code = 6690-2) 5.6 4.5-10.6 [facility] [id number] 10:57:00* Test Item Value Reference Range Interpretation Comments Red Blood Count (test code = 789-8) 4.00 3.6-5.1 [facility]oglobin2017-[facility]-15 10:57:00* Test Item Value Reference Range Interpretation Comments Hemoglobin (test code = 43939-8) 12.5 11.6-14.5 [facility]Hematocrit2017-05-15 10:57:00* Test Item Value Reference Range Interpretation Comments Hematocrit (test code = 4544-3) 37.7 34.2-44.1 [facility] CenterMean Corpuscular Acaeeh7281-69-74 10:57:00* Test Item Value Reference Range Interpretation Comments Mean Corpuscular Volume (test code = 787-2) 94.3 81-99 [facility]Mean Corpuscular Dyaskjcoda9716-53-49 10:57:00* Test Item Value Reference Range Interpretation Comments Mean Corpuscular Hemoglobin (test code = 785-6) 31.3 28-32 [facility] Hemoglobin Concent 2016-08-17 10:57:00* Test Item Value Reference Range Interpretation Comments Mean Corpuscular Hemoglobin Concent (test code = 786-4) 33.2 31-35 [facility] Cell Distribution Ddopl5570-72-47 10:57:00* Test Item Value Reference Range Interpretation Comments Red Cell Distribution Width (test code = 86230-5) 13.3 11.7 -14.4 [facility] CenterPlatelet Iwyik0291-13-78 10:57:00* Test Item Value Reference Range Interpretation Comments Platelet Count (test code = 777-3) 180 140-360 [facility] CenterNeutrophils (%) (Auto)2016-08-17 10:57:00 * Test Item Value Reference Range Interpretation Comments Neutrophils (%) (Auto) (test code = 08123-5) 52.9 38.7-80.0 [facility] CenterLymphocytes (%) (Auto)2016-08-17 10:57:00 * Test Item Value Reference Range Interpretation Comments Lymphocytes (%) (Auto) (test code = 736-9) 33.6 18.0-39.1 [facility] CenterMonocytes (%) (Auto)2016-08-17 10:57:00* Test Item Value Reference Range Interpretation Comments Monocytes (%) (Auto) (test code = 5905-5) 9.8 4.4-11.3 [facility] CenterEosinophils (%) (Auto)2016-08-17 10:57:00 * Test Item Value Reference Range Interpretation Comments Eosinophils (%) (Auto) (test code = 713-8) 3.0 0.0-6.0 [facility] CenterBasophils (%) (Auto)2016-08-17 10:57:00* Test Item Value Reference Range Interpretation Comments Basophils (%) (Auto) (test code = 706-2) 0.5 0.0-1.0 [facility] CenterIM GRANULOCYTES %2016-08-17 10:57:00* Test Item Value Reference Range Interpretation Comments IM GRANULOCYTES % (test code = IM GRANULOCYTES %) 0.2 0.0- 1.0 [facility] CenterNeutrophils # (Auto)2016-08-17 10:57:00* Test Item Value Reference Range Interpretation Comments Neutrophils # (Auto) (test code = 751-8) 3.0 2.1-6.9 [facility] CenterLymphocytes # (Auto)2016-08-17 10:57:00* Test Item Value Reference Range Interpretation Comments Lymphocytes # (Auto) (test code = 36644-8) 1.9 1.0-3.2 [facility] CenterMonocytes # (Auto)2016-08-17 10:57:00* Test Item Value Reference Range Interpretation Comments Monocytes # (Auto) (test code = 742-7) 0.6 0.2-0.8 [facility] CenterEosinophils # (Auto)2016-08-17 10:57:00* Test Item Value Reference Range Interpretation Comments Eosinophils # (Auto) (test code = 711-2) 0.2 0.0-0.4 [facility] CenterBasophils # (Auto)2016-08-17 10:57:00* Test Item Value Reference Range Interpretation Comments Basophils # (Auto) (test code = 704-7) 0.0 0.0-0.1 [facility] CenterAbsolute Immature Granulocyte (auto 2016-08-17 10:57:00* Test Item Value Reference Range Interpretation Comments Absolute Immature Granulocyte (auto (ginger t code = Absolute Immature Granulocyte (auto) 0.01 0-0.1 [facility]
[2020-01-16] MEDS ORDERED: CEFTRIAXONE SOD 1 GM/NS 50 ML 50 ML IV ONE (08:30)
--- NOTE | 2020-01-16 08:32 | Emergency Department Note ---
History of Present Illnes History of Present Illness Chief Complaint: General Medicine Complaints History of Present Illness This is a 85 year old female Patient in from home with complaints of general malaise and feeling weak since last night. Patient had a recent fall about 2 weeks ago for which she was seen at [facility]. Patient reports that she was recently treated for a UTI with antibiotics. Patient has followed up with Dr. Villa after that visit. Patient does report her blood pressure being high recently. No other complaints verbalized at this time. Patient is A&Ox4. No acute distress noted. Historian: Patient Arrival Mode: Car [employer]er Required: No Onset (how long ago): hour(s) Location: GENERALIZED Quality: MALAISE Radiation: Reports non-radiation Severity: moderate Onset quality: gradual Timing of current episode: constant Progression: unchanged Chronicity: recurrent Context: Denies recent illness Relieving factors: none Exacerbating factors: none Associated symptoms: Reports denies other symptoms Past Medical/Family History Physician Review I have reviewed the patient's past medical and family history. Any updates have been documented here. 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 Past Surgical History: Cholecysctectomy, Hysterectomy, Knee Replacement Other Surgery: BLADDER SUSPENSION Social History Smoking Cessation: Never Smoker Counseling Performed: No Alcohol Use: None Any Illegal Drug Use: No TB Exposure/Symptoms: No Physically hurt or threatened: No Family History Family history of heart diseas: Yes Other Last Tetanus: unknown Any Pre-Existing Lines (PICC,: No Review of Systems Review of Systems Constitutional: Reports as per HPI, Reports malaise, Reports weakness EENTM: Reports no symptoms Cardiovascular: Reports no symptoms Respiratory: Reports no symptoms Gastrointestinal: Reports no symptoms Genitourinary: Reports no symptoms Musculoskeletal: Reports no symptoms Integumentary: Reports no symptoms Neurological: Reports no symptoms Psychological: Reports no symptoms Endocrine: Reports no symptoms Hematological/Lymphatic: Reports no symptoms Physical Exam Related Data Allergies: Coded Allergies: ciprofloxacin (Verified Allergy, Mild, RASH, 11/20/09) nitrofurantoin (Verified Allergy, Mild, RASH, 11/20/09) Sulfa (Sulfonamide Antibiotics) (Verified Allergy, Unknown, 10/09/19) morphine (Verified Allergy, Unknown, 10/09/19) Triage Vital Signs Vital Signs Date Time Temp Pulse Resp B/P (MAP) Pulse Ox O2 Delivery O2 Flow Rate FiO2 01/16/20 06:55 97.8 85 16 180/98 100 Room Air Vital signs reviewed: Yes Physical Exam CONSTITUTIONAL Constitutional: Present well-developed, Present well-nourished HENT HENT: Present normocephalic, Present atraumatic, Present oropharynx clear/moist, Present nose normal HENT L/R: Present left ext ear normal, Present right ext ear normal EYES Eyes: Reports PERRL, Reports conjunctivae normal NECK Neck: Present ROM normal PULMONARY Pulmonary: Present effort normal, Present breath sounds normal CARDIOVASCULAR Cardiovascular: Present irregular rhythm, Present heart sounds normal, Present capillary refill normal, Present normal rate GASTROINTESTINAL Abdominal: Present soft, Present nontender, Present bowel sounds normal GENITOURINARY Genitourinary: Present exam deferred SKIN Skin: Present warm, Present dry MUSCULOSKELETAL Musculoskeletal: Present ROM normal NEUROLOGICAL Neurological: Present alert, Present oriented x 3, Present no gross motor or sensory deficits PSYCHOLOGICAL Psychological: Present mood/affect normal, Present judgement normal Results Laboratory Result Diagram: 01/16/20 0710 01/16/20 0710 Laboratory Laboratory Tests Test 01/16/20 07:10 White Blood Count 7.14 x10e3/uL (4.8-10.8) Red Blood Count 4.18 x10e6/uL (3.6-5.1) Hemoglobin 10.1 g/dL (12.0-16.0) Hematocrit 33.8 % (34.2-44.1) Mean Corpuscular Volume 80.9 fL (81-99) Mean Corpuscular Hemoglobin 24.2 pg (28-32) Mean Corpuscular Hemoglobin Concent 29.9 g/dL (31-35) Red Cell Distribution Width 17.4 % (11.7-14.4) Platelet Count 300 x10e3/uL (140-360) Neutrophils (%) (Auto) 65.5 % (38.7-80.0) Lymphocytes (%) (Auto) 19.6 % (18.0-39.1) Monocytes (%) (Auto) 12.3 % (4.4-11.3) Eosinophils (%) (Auto) 1.5 % (0.0-6.0) Basophils (%) (Auto) 0.8 % (0.0-1.0) Neutrophils # (Auto) 4.7 (2.1-6.9) Lymphocytes # (Auto) 1.4 (1.0-3.2) Monocytes # (Auto) 0.9 (0.2-0.8) Eosinophils # (Auto) 0.1 (0.0-0.4) Basophils # (Auto) 0.1 (0.0-0.1) Absolute Immature Granulocyte (auto 0.02 x10e3/uL (0-0.1) Urine Color Yellow (YELLOW) Urine Clarity Sl cloudy (CLEAR) Urine pH 8 (5 - 7) Urine Specific [place] 1.020 (1.010-1.025) Urine Protein 1+ (NEGATIVE) Urine Glucose (UA) Negative (NEGATIVE) Urine Ketones Negative (NEGATIVE) Urine Blood Trace (NEGATIVE) Urine Nitrite Positive (NEGATIVE) Urine Bilirubin Negative (NEGATIVE) Urine Urobilinogen 0.2 mg/dL (0.2 - 1) Urine Leukocyte Esterase Moderate (NEGATIVE) Urine RBC 0-5 /HPF (0-5) Urine WBC >50 /HPF (0-5) Urine Epithelial Cells Few /LPF (NONE) Urine Bacteria Many /HPF (NONE) Sodium Level 138 mmol/L (136-145) Potassium Level 4.3 mmol/L (3.5-5.1) Chloride Level 100 mmol/L (98-107) Carbon Dioxide Level 28 mmol/L (22-29) Anion Gap 14.3 mmol/L (8-16) Blood Urea Nitrogen 20 mg/dL (7-26) Creatinine 0.88 mg/dL (0.57-1.11) Estimat Glomerular Filtration Rate > 60 ML/MIN (60-) BUN/Creatinine Ratio 23 (6-25) Glucose Level 170 mg/dL (74-118) Calcium Level 10.7 mg/dL (8.4-10.2) Magnesium Level 1.3 MG/DL (1.3-2.1) Total Bilirubin 0.9 mg/dL (0.2-1.2) Aspartate Amino Transf (AST/SGOT) 36 IU/L (5-34) Alanine Aminotransferase (ALT/SGPT) 20 IU/L (0-55) Alkaline Phosphatase 46 IU/L (40-150) Creatine Kinase 69 IU/L (29-168) Creatine Kinase MB 2.10 ng/mL (0-5.0) Troponin I 0.018 ng/mL (0-0.300) B-Type Natriuretic Peptide 428.7 pg/mL (0-100) Total Protein 7.1 g/dL (6.5-8.1) Albumin 3.7 g/dL (3.5-5.0) Globulin 3.4 g/dL (2.3-3.5) Albumin/Globulin Ratio 1.1 (0.8-2.0) Lab results reviewed: Yes Procedures 12 Lead ECG Interpretation ECG Interpretation : ECG: ECG 1 Cotton Buyer: Interpreted by ED physician Date: Jan 16, 2020 Time: 07:25 Rhythm: atrial fibrillation Rate: normal BPM: 87 QRS axis: left ST segments normal: Yes T waves normal: Yes Clinical Impression: abnormal ECG Additional Comments POOR RWP Assessment & Plan Medical Decision Making MDM general malaise, dysuria - likely uti - check cbc, chem, cardiacs, ecg, ua/cx - r/o stemi/nstemi, renal insuff, anemia, uti Reassessment Reassessment I REVIEWED PREVIOUS CX/SENS's - LAST ONE 10/09/19 GREW E COLI AND ENTEROCOCCUS - BOTH SENS TO AMPICILLIN - WILL DC HOME WITH AUGMENTIN, I SPOKE WITH DR Cyn JEWELL - HE WILL F/U CX FROM TODAY AND SEE PT IN CLINIC - F/U S TALYA, RTED PRN Assessment & Plan Final Impression: (1) UTI (urinary tract infection) Depart Disposition: HOME, SELF-CARE Last Vital Signs Date Time Temp Pulse Resp B/P (MAP) Pulse Ox O2 Delivery O2 Flow Rate FiO2 01/16/20 06:55 97.8 85 16 180/98 100 Room Air Home Meds Reported Medications Metoprolol Tartrate (METOPROLOL TARTRATE) 50 Mg Tablet, 50 MG PO TID, #90 TAB 08/21/19 Furosemide (FUROSEMIDE) 40 Mg Tablet, 40 MG PO PRN 08/14/19 Rivaroxaban (XARELTO) 10 Mg Tablet, 15 MG PO DAILY 01/09/19 Hydrocodone Bit/Acetaminophen (NORCO 7.5-325 TABLET) 1 Each Tablet, 1 EA PO Q6H, TAB 10/25/18 Omeprazole (OMEPRAZOLE) 40 Mg Capsule.dr, 20 MG PO DAILY 10/25/18 Glimepiride (GLIMEPIRIDE) 2 Mg Tablet, 2 MG PO DAILY, TAB 03/17/18 Methenamine Hippurate (METHENAMINE HIPPURATE) 1 Gm Tablet, 1 GM PO BID 03/17/18 Fluoxetine Hcl (FLUOXETINE HCL) 40 Mg Capsule, 40 MG PO DAILY 11/14/14 Levothyroxine Sodium (LEVOTHYROXINE SODIUM) 50 Mcg Tablet, 50 MCG PO DAILY, TAB 06/24/14 Gabapentin (GABAPENTIN) 300 Mg Capsule, 600 MG PO TID, CAP 06/24/14 Fenofibrate,Micronized (FENOFIBRATE) 134 Mg Capsule, 134 MG PO DAILY 06/24/14 Lisinopril (LISINOPRIL) 10 Mg Tablet, 20 MG PO BID, TAB 06/24/14 Medications in the ED Ceftriaxone Sodium 50 ml @ 100 mls/hr ONCE ONCE IV ; Start 01/16/20 at 08:30; Stop 01/16/20 at 08:59; Status UNV CHOLO DELGADO MD Jan 16, 2020 08:32
[2020-01-16 08:44] LABS: INR 1.55; PARTIAL THROMBOPLASTIN TIME 38.9 seconds (23.8-35.5); PROTHROMBIN TIME 19.3 seconds (11.9-14.5)
== END 2020-01-16 09:47 | disposition home or self-care (01) ==
LOC: ER 07:30
DX: N39.0 Urinary tract infection, site not specified (principal); I10 Essential (primary) hypertension; E11.65 Type 2 diabetes mellitus with hyperglycemia; E11.40 Type 2 diabetes mellitus with diabetic neuropathy, unspecified; E78.5 Hyperlipidemia, unspecified; I48.91 Unspecified atrial fibrillation; K21.9 Gastro-esophageal reflux disease without esophagitis; R94.31 Abnormal electrocardiogram [ECG] [EKG]
CPT/HCPCS: 36415; 80053; 81001; 82550; 82553; 83735; 83880; 84484; 85025; 85610; 85730; 87086; 93005; 99284; J0696; 87186

== ENCOUNTER 2020-01-23 15:22 | Inpatient (IN) | payer MEDICARE, OTHER ==
[~2020-01-23] VITALS: Ht 162.6 cm; Wt 87.3 kg
--- NOTE | 2020-01-23 15:29 | Emergency Department Note ---
History of Present Illnes History of Present Illness Chief Complaint: General Medicine Complaints History of Present Illness This is a 85 year old female sent by Dr Blackwell for evaluation of continued diarrheal illness. . Arrival Mode: [place] [facility] Onset (how long ago): day(s) (3) Radiation: Reports non-radiation Severity: moderate Duration (how long): day(s) (3) Timing of current episode: constant Progression: worsening Chronicity: recurrent Context: Reports recent illness Relieving factors: none Exacerbating factors: none Associated symptoms: Reports weakness Treatments prior to arrival: none Previous service: medications given, one or more referrals, re-evaluation Past Medical/Family History Physician Review I have reviewed the patient's past medical and family history. Any updates have been documented here. 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 Past Surgical History: Cholecysctectomy, Hysterectomy, Knee Replacement Other Surgery: BLADDER SUSPENSION Social History Smoking Cessation: Never Smoker Alcohol Use: None Any Illegal Drug Use: No Other Last Tetanus: unknown Review of Systems Review of Systems Constitutional: Reports weakness EENTM: Reports no symptoms Cardiovascular: Reports no symptoms Respiratory: Reports no symptoms Gastrointestinal: Reports diarrhea, Reports nausea Genitourinary: Reports no symptoms Musculoskeletal: Reports no symptoms Integumentary: Reports no symptoms Neurological: Reports no symptoms Psychological: Reports no symptoms Endocrine: Reports no symptoms Hematological/Lymphatic: Reports no symptoms Physical Exam Related Data Allergies: Coded Allergies: ciprofloxacin (Verified Allergy, Mild, RASH, 11/20/09) nitrofurantoin (Verified Allergy, Mild, RASH, 11/20/09) Sulfa (Sulfonamide Antibiotics) (Verified Allergy, Unknown, 10/09/19) morphine (Verified Allergy, Unknown, 10/09/19) Triage Vital Signs Vital Signs Date Time Temp Pulse Resp B/P (MAP) Pulse Ox O2 Delivery O2 Flow Rate FiO2 01/23/20 15:33 97.6 78 16 143/90 97 Room Air Vital signs reviewed: Yes Physical Exam CONSTITUTIONAL Constitutional: Present ill appearing HENT HENT: Present normocephalic, Present atraumatic, Present oropharynx clear/moist, Present nose normal HENT L/R: Present left ext ear normal, Present right ext ear normal EYES Eyes: Reports PERRL, Reports conjunctivae normal NECK Neck: Present ROM normal PULMONARY Pulmonary: Present effort normal, Present breath sounds normal CARDIOVASCULAR Cardiovascular: Present regular rhythm, Present heart sounds normal, Present capillary refill normal, Present normal rate GASTROINTESTINAL Abdominal: Present soft, Present nontender, Present bowel sounds normal GENITOURINARY Genitourinary: Present exam deferred SKIN Skin: Present warm, Present dry MUSCULOSKELETAL Musculoskeletal: Present ROM normal NEUROLOGICAL Neurological: Present alert, Present oriented x 3, Present no gross motor or sensory deficits PSYCHOLOGICAL Psychological: Present mood/affect normal, Present judgement normal Results Laboratory Lab results reviewed: Yes Imaging Imaging results reviewed: Yes Impressions [place] [id number] Patient Name: MAURIZIO WINN MR #: [id number] : 1935 Age/Sex: 85/F Req #: [id number] Adm Physician: Ordered by: TED MILLER DO Report #: [id number] Location: ER Room/Bed: Procedure: [id number] CT/CT ABDOMEN/PELVIS W Exam Date: 01/23/20 Exam Time: 163 REPORT STATUS: Signed EXAM: CT of the abdomen and pelvis with intravenous contrast HISTORY: ^diarrheal illness ^[id number] ^1630 COMPARISON: 08/15/2019 TECHNIQUE: Abdomen and pelvis were scanned utilizing a multidetector helical scanner. Coronal and sagittal reformations were obtained. Scan was performed during the portal venous phase. DOSE REDUCTION: The examination was performed according to the departmental dose-optimization program, which includes automated exposure control, adjustment of the mA and/or kV according to patient size and/or use of iterative reconstruction technique. FINDINGS: LINES and TUBES: None. LOWER THORAX: Small bilateral pleural effusions. Cardiomegaly. Coronary calcifications. HEPATOBILIARY: 1 cm pericaval hypodense lesion. Low hepatic attenuation. No biliary ductal dilation. GALLBLADDER: Cholecystectomy. SPLEEN: No splenomegaly. PANCREAS: No focal masses or ductal dilatation. ADRENALS: No adrenal nodules. KIDNEYS/URETERS: Kidneys enhance symmetrically. No hydronephrosis. Subcentimeter hypodensity in the left kidney is too small to characterize. No stones. GI TRACT: Diverticulosis, most severe at the sigmoid colon, without evidence of acute diverticulitis. No abnormal distention, wall thickening, or evidence of bowel obstruction. Appendix is normal. PELVIC ORGANS/BLADDER: Bladder stones with debris. LYMPH NODES: No lymphadenopathy. VESSELS: Scattered vascular calcifications. PERITONEUM / RETROPERITONEUM: No free air or fluid. BONES: Scattered degenerative changes. Old T11 compression fracture. SOFT TISSUES: Unremarkable. IMPRESSION: 1. No findings to explain this patient's diarrhea. 2. Additional stable findings as described above. Specifically, recommend nonemergent multiphase CT or MRI for evaluation of the indeterminate liver lesion. Signed by: Lucio Howell MD on 01/23/2020 5:01 PM Dictated By: LUCIO HOWELL DO 00 Transcribed By: MIKA on 01/23/201700 COPY TO: TED MILLER DO~ Assessment & Plan Medical Decision Making MDM Diff Dx : covid-19 infection, c diff colitis, UTI, sepsis, ischemic colitis, Assessment & Plan Final Impression: (1) Diarrhea (2) UTI (urinary tract infection) Depart Disposition: ADMITTED Home Meds Reported Medications Metoprolol Tartrate (METOPROLOL TARTRATE) 50 Mg Tablet, 50 MG PO TID, #90 TAB 08/21/19 Furosemide (FUROSEMIDE) 40 Mg Tablet, 40 MG PO PRN 08/14/19 Rivaroxaban (XARELTO) 10 Mg Tablet, 15 MG PO DAILY 01/09/19 Hydrocodone Bit/Acetaminophen (NORCO 7.5-325 TABLET) 1 Each Tablet, 1 EA PO Q6H, TAB 10/25/18 Omeprazole (OMEPRAZOLE) 40 Mg Capsule.dr, 20 MG PO DAILY 10/25/18 Glimepiride (GLIMEPIRIDE) 2 Mg Tablet, 2 MG PO DAILY, TAB 03/17/18 Methenamine Hippurate (METHENAMINE HIPPURATE) 1 Gm Tablet, 1 GM PO BID 03/17/18 Fluoxetine Hcl (FLUOXETINE HCL) 40 Mg Capsule, 40 MG PO DAILY 11/14/14 Levothyroxine Sodium (LEVOTHYROXINE SODIUM) 50 Mcg Tablet, 50 MCG PO DAILY, TAB 06/24/14 Gabapentin (GABAPENTIN) 300 Mg Capsule, 600 MG PO TID, CAP 06/24/14 Fenofibrate,Micronized (FENOFIBRATE) 134 Mg Capsule, 134 MG PO DAILY 06/24/14 Lisinopril (LISINOPRIL) 10 Mg Tablet, 20 MG PO BID, TAB 06/24/14 TED MILLER DO Jan 23, 2020 15:29
[2020-01-23] MEDS ORDERED: SODIUM CHLORIDE 0.9% 1000ML 1,000 ML IV STA (15:33)
--- OUTSIDE RECORDS SUMMARY | 2020-01-23 15:59 | XMS REPORT | Continuity of Care Document ---
Author Author [facility] t Organization [facility] Address [address] [place] [address] Phone Unavailable Care Team Providers Care Kiln Furniture Saw Tender Name Role Phone ANITRA SHARPE, MD MARTÍNEZ PCP HAMEMILY, MEDINA Attphys Unavailable AYOUB, SOUHEIL Attphys Unavailable MILLERTED Attphys Unavailable ELLA, I SALMAN Attphys Unavailable TIERRA, S AMBICA Attphys Unavailable AYOUB, SOUHEIL Admphys Unavailable Payers Payer Name Policy Type Policy Number Effective Date Expiration Date S oscar [facility] Ppo [id number] 2019 00:00:00 [facility] Medicare A & B [id number] 1999 00:00:00 [facility] Cdc Review [id number] [facility] Hmo [id number] 2011 00:00:00 [facility] Problems Condition Name Condition Details Condition Category Status Onset Date Resolution Date Last Treatment Date Treating Clinician Comments Source Pyelonephritis Pyelonephritis Problem Active 2015-09-20 00:00:00 [facility] Confusion Confusion Problem Active 2014-06-24 00:00:00 [facility] Fall at home Fall at home Problem Active 2014-06-24 00:00:00 [facility] Urinary tract infection UTI (urinary tract infection) Problem Active 2014-06-24 00:00:00 [facility] Chest pain Chest pain Problem Active [facility] Diarrhea Diarrhea Problem Active [facility] Syncope Syncope Problem Active [facility] Gastrointestinal hemorrhage GIH (gastrointestinal hemorrhage) Problem Active [facility] Urinary tract infection due to extended- spectrum beta lactamase (ESBL)-producing Klebsiella Problem Active [facility] Allergies, Adverse Reactions, Alerts Allergy Name Allergy Type Status Severity Reaction(s) Onset Date Inacti ve Date Treating Clinician Comments Source Sulfa (Sulfonamide Antibiotics) Allergy to substance Active 2019-10-09 00:00:00 [facility] Morphine Allergy to substance Active 2019-10-09 00:00:00 [facility] Sulfa (Sulfonamide Antibiotics) DA Active 2015-08-25 00 :00:00 [facility] nitrofurantoin DA Active 2015-08-25 00:00:00 [facility] ciprofloxacin DA Active 2015-08-25 00:00:00 [facility] Nitrofurantoin Allergy to substance Active Mild RASH 2009-11-20 00:00 :00 [facility] Ciprofloxacin Allergy to substance Active Mild RASH 2009-11-20 00:00: 00 [facility] Family History Family Member Diagnosis Comments Start Date Stop Date Source 33 FATHER Family history of malignant neoplasm [facility] 33 FATHER Family history of leukemia [facility] 33 FATHER Family history of myocardial infarction [facility] 32 MOTHER Family history of congestive heart failure [facility] 32 MOTHER Family history of malignant neoplasm [facility] 09 BROTHER Family history of malignant neoplasm of bone [facility] 18 DAUGHTER Family history of diabetes mellitus [facility] 18 DAUGHTER Family history of arthritis [facility] Social History Social Habit Start Date Stop Date Quantity Comments Source Sex Assigned At 1935 00:00:00 1935 00:00:[address] [facility] Medications Ordered Medication Name Filled Medication Name Start Date Stop Da te Current Medication? Ordering Clinician Indication Dosage Frequency Signature (SIG) Comments Components Source Cefuroxime Axetil (Ceftin) 250 Mg/5 Ml SUSP.RECON Cefu roxime Axetil (Ceftin) 250 Mg/5 Ml SUSP.RECON 2017-05-14 12:51:00 2018-03-17 00:00:00 No 500 Twice A Day [facility] Fenofibrate,Micronized (Fenofibrate) 134 Mg CAPSULE Fe nofibrate,Micronized (Fenofibrate) 134 Mg CAPSULE Yes [address] [facility] Fluoxetine Hcl Fluoxetine Hcl Yes [address] [facility] Furosemide Furosemide Yes [address] [facility] Gabapentin Gabapentin Yes [address] [facility] Glimepiride Glimepiride Yes [address] [facility] Hydrocodone Bit/Acetaminophen (Kemah 7.5-325 Tablet) 1 Each TABLET Hydrocodone Bit/Acetaminophen (Kemah 7.5-325 Tablet) 1 Each TABLET Yes 1 Every 6 Hours [facility] Levothyroxine Sodium Levothyroxine Sodium Yes [address] [facility] Lisinopril Lisinopril Yes [address] [facility] Methenamine Hippurate Methenamine Hippurate Yes [address] [facility] Metoprolol Tartrate Metoprolol Tartrate Yes [address] A [address] [facility] Omeprazole Omeprazole Yes 20 Daily [facility] Rivaroxaban (Xarelto) 10 Mg TABLET Rivaroxaban (Xarelto) 10 Mg TABLET Yes [address] [facility] Hydralazine Hcl Hydralazine Hcl 2019-10-03 00:00:00 No 25 Three Times A Day [facility] Methenamine Hippurate (Hiprex) 1 Gm TABLET Methenamine Hippurate (Hiprex) 1 Gm TABLET 2019-10-03 00:00:00 No [address] [facility] Metoprolol Tartrate Metoprolol Tartrate 2019-10-03 00:00:00 No 50 Twice A Day [facility] Cephalexin Cephalexin 2019-01-09 00:00:00 No [address] [facility] Warfarin Sodium Warfarin Sodium 2019-01-09 00:00:[address] [facility] Calcium Carbonate/Vitamin D3 (Calcium 500+D Tablet Cortney w) 1 Each TAB.CHEW Calcium Carbonate/Vitamin D3 (Calcium 500+D Tablet Chew) 1 Each TAB.CHEW 2018-03-17 00:00:00 No [address] [facility] Cefuroxime Axetil (Cefuroxime) 500 Mg TABLET Cefuroxim e Axetil (Cefuroxime) 500 Mg TABLET 2018-03-17 00:00:[address] [facility] Glimepiride Glimepiride 2018-03-17 00:00:[address] [facility] Hydrocodone Bit/Acetaminophen (Kemah 7.5-325 Tablet) 1 Each TABLET Hydrocodone Bit/Acetaminophen (Kemah 7.5-325 Tablet) 1 Each TABLET 2018-03-05 3 00:00:00 No 1 As Needed [facility] Lactobac Cmb #3/Fos/Pantethine (Probiotic & Acidophilu s Cap) 1 Each CAPSULE Lactobac Cmb #3/Fos/Pantethine (Probiotic & Acidophilus Cap) 1 Each CAPSULE 2018-03-17 00:00:00 No [address] [facility] Omeprazole Omeprazole 2018-03-17 00:00:[address] [facility] Phenazopyridine Hcl Phenazopyridine Hcl 2018-03-17 00:00:00 No 200 Twice A Day [facility] Fesoterodine Fumarate (Toviaz) 4 Mg TAB.ER.24H Fesoter odine Fumarate (Toviaz) 4 Mg TAB.ER.24H 2016-08-20 00:00:[address] [facility] Fluoxetine Hcl (Prozac) 20 Mg CAPSULE Fluoxetine Hcl (Prozac) 20 Mg CAPSULE 2016-08-20 00:00:[address] [facility] Alclometasone Dipropionate Alclometasone Dipropionate 2016 00:00:00 [address] Tw[address] A Day [facility] Estradiol (Estrace) 42.5 Gm CR Estradiol (Estrace) 42.5 Gm CR 2016-08-19 00:00:[address] [facility] Hydrocodone Bit/Acetaminophen (Kemah 10-325 Tablet) 1 Each TABLET Hydrocodone Bit/Acetaminophen (Kemah 10-325 Tablet) 1 Each TABLET 2016-08-19 00:00:00 No As Needed [facility] Doxycycline Hyclate Doxycycline Hyclate 2014-11-15 00:00:00 No 100 Twice A Day [facility] Fluoxetine Hcl (Prozac) 20 Mg CAPSULE Fluoxetine Hcl (Prozac) 20 Mg CAPSULE 2014-11-14 00:00:[address] [facility] Gabapentin Gabapentin 2014-11-14 00:00:00 No 200 Twice Daily Breakfast & Lunch [facility] Hydrocodone Bit/Acetaminophen (Hydrocodon-Acetaminophe n 5-325) 1 Each TABLET Hydrocodone Bit/Acetaminophen (Hydrocodon-Acetaminophen 5-325) 1 Each TABLET 2014-11-14 00:00:00 No 1 Every 4 Hours as nee ded for Pain [facility] Amlodipine Besylate/Benazepril (Amlodipine-Benazepril 5-10 Mg) 1 Each CAPSULE Amlodipine Besylate/Benazepril (Amlodipine-Benazepril 5-10 Mg) 1 Each CAPSULE 2014-06-24 00:00:[address] [facility] Atenolol Atenolol 2014-06-24 00:00:00 [facility] Cefuroxime Cefuroxime 2014-06-24 00:00:00 [facility] Citracel + D Citracel + D 2014-06-24 00:00:00 [facility] Fenofibrate Fenofibrate 2014-06-24 00:00:00 [facility] Fish Oil Fish Oil 2014-06-24 00:00:00 [facility] Fluoxetine Fluoxetine 2014-06-24 00:00:00 [facility] Glimepiride Glimepiride 2014-06-24 00:00:00 [facility] Hydrochlorothiazide Hydrochlorothiazide 2014-06-24 00:00:00 [facility] L-Thyroxine L-Thyroxine 2014-06-24 00:00:00 [facility] Lyrica Lyrica 2014-06-24 00:00:00 [facility] Omeprazole Omeprazole 2014-06-24 00:00:00 [facility] Propoxyphene Propoxyphene 2014-06-24 00:00:00 [facility] Theragran-M Theragran-M 2014-06-24 00:00:00 [facility] Warfarin Warfarin 2014-06-24 00:00:00 [facility] Zolpidem Zolpidem 2014-06-24 00:00:00 [facility] Vital Signs Vital Name Observation Time Observation Value Comments Source Weight 2020-01-16 06:55:00 175 [lb_av] [facility] BMI (Body Mass Index) 2020-01-16 06:55:00 30.0 kg/m2 [facility] Body Temperature 2019-10-09 07:45:00 97.4 [degF] [facility] Procedures Procedure Date / Time Performed Performing Clinician [facility] e CYSTOSCOPY AND TREATMENT 2019-10-09 00:00:00 [facility] X-ray of chest, two views 2019-10-04 00:00:00 [facility] Computed tomography of abdomen and pelvis with contrast 00:00:00 [facility] X-ray of chest, two views 2019-08-14 00:00:00 [facility] Computed tomography of brain without radiopaque contrast 00:00:[address] [place] [facility] COLONOSCOPY W/LESION REMOVAL 2019-05-31 00:00:00 [facility] MRI joint upr extrem w/o dye 2019-04-26 00:00:00 [facility] X-ray of chest, two views 2019-04-06 00:00:00 AYOUBMAURICIO [place] [facility] Plan of Care Planned Activity Planned Date Details Comments Source Instructions Urinary Tract Infection - Women [facility] Encounters Start Date/Time End Date/Time Encounter Type Admission Type Attendi [facility] Care Department Encounter ID Source 2020-01-16 07:30:00 2020-01-16 09:47:00 Departed Emergency Room [facility] [id number] [facility] 2019-10-09 05:15:00 2019-10-09 05:15:00 Registered Surgical Day Car e 3 MEDINA JEWELL [facility] [id number] [facility] 2019-08-14 13:07:00 2019-08-21 13:44:00 Discharged Inpatient 1 JEANNINE AYOUBRONNI [facility] [id number] [facility] 2019-08-14 02:47:00 2019-08-14 07:00:00 Departed Emergency Room 1 TED MILLER [facility] [id number] [facility] 2019-05-31 16:11:00 2019-06-04 13:47:00 Discharged Inpatient (obs) 1 JEANNINE AYOUBRONNI [facility] [id number] [facility] 2019-04-26 07:25:00 2019-04-26 07:25:00 Registered Clinic 3 KAYLA GRADY [facility] [id number] [facility] 2019-04-06 14:53:00 2019-04-06 14:53:00 Registered Clinic 3 MAURICIO AYOUB [facility] [id number] 2019-02-08 10:36:00 2019-02-08 10:36:00 Registered Clinic 3 KAYLA GRADY [facility] [id number] [facility] 2019-01-11 14:54:00 2019-01-11 18:45:00 Departed Emergency Room 1 MARCIO MAYORGA [facility] [id number] [facility] 2019-01-08 15:12:00 2019-01-10 14:44:00 Discharged Inpatient [facility] [id number] [facility] 2018-10-25 17:44:00 2018-10-28 19:06:00 Discharged Inpatient 9 MAURICIO AYOUB [facility] [id number] [facility] 2018-03-20 13:55:00 2018-03-21 16:48:00 [facility] [id number] [facility] 2017-12-27 13:06:00 2017-12-27 13:06:00 Registered Clinic [facility] [id number] [facility] 2017-05-14 10:39:00 2017-05-14 14:00:00 Departed Emergency Room [facility] [id number] [facility] 2016-08-20 07:10:00 2016-08-20 07:10:00 Registered Surgical Day Care [facility] [id number] [facility] Results Test Description Test Time Test Comments Results Result Comments Source Blood leukocytes automated count (number/volume) 2020-01-16 07:10:00 Test Item White Blood Count (test code = 6690-2) 7.14 4.8-10.8 [facility] erythrocytes automated count (number/volume)2020-01-16 07:10:00* Test Item Value Reference Range Interpretation Comments Red Blood Count (test code = 789-8) 4.18 3.6-5.1 [facility] hemoglobin measurement (moles/volume)2020-01-16 07:10:00* Test Item Value Reference Range Interpretation Comments Hemoglobin (test code = 05407-3) 10.1 12.0-16.0 [facility] blood hematocrit (volume fraction)2020-01-16 07:10:00* Test Item Value Reference Range Interpretation Comments Hematocrit (test code = 4544-3) 33.8 34.2-44.1 [facility] CenterAutom[facility] erythrocyte mean corpuscular [id number] 07:10:00* Test Item Value Reference Range Interpretation Comments Mean Corpuscular Volume (test code = 787-2) 80.9 81-99 [facility] CenterAutom[facility] erythrocyte mean corpuscular hemoglobin (mass per erythrocyte)2020-01-16 07:10:00* Test Item Value Reference Range Interpretation Comments Mean Corpuscular Hemoglobin (test code = 785-6) 24.2 28-32 [facility] CenterAutom[facility] erythrocyte mean corpuscular hemoglobin concentration measurement (mass/volume)2020-01-16 07:10:00* Test Item Value Reference Range Interpretation Comments Mean Corpuscular Hemoglobin Concent (test code = 786-4) 29.9 31-35 [facility] CenterRD KorRj-[id number] 07:10:00* Test Item Value Reference Range Interpretation Comments Red Cell Distribution Width (test code = 11189-1) 17.4 11.7 -14.4 [facility] (count/volume)2020-01-16 07:10:00* Test Item Value Reference Range Interpretation Comments Platelet Count (test code = 777-3) 300 140-360 [facility] segmented neutrophil count as percentage of total nevdtwzbvn4401-98-74 07:10:00* Test Item Value Reference Range Interpretation Comments Neutrophils (%) (Auto) (test code = 31586-8) 65.5 38.7-80.0 [facility] Center[facility] lymphocyte count as percentage ot total [id number] 07:10:00* Test Item Value Reference Range Interpretation Comments Lymphocytes (%) (Auto) (test code = 736-9) 19.6 18.0-39.1 [facility] CenterAutom[facility] blood monocyte count as percentage of total [id number] 07:10:00* Test Item Value Reference Range Interpretation Comments Monocytes (%) (Auto) (test code = 5905-5) 12.3 4.4-11.3 [facility] Center[facility] blood eosinophil count as percentage of total ngxriczctx9862-13-51 07:10:00* Test Item Value Reference Range Interpretation Comments Eosinophils (%) (Auto) (test code = 713-8) 1.5 0.0-6.0 [facility] CenterAutom[facility] blood basophil count as percentage of total [id number] 07:10:00* Test Item Value Reference Range Interpretation Comments Basophils (%) (Auto) (test code = 706-2) 0.8 0.0-1.0 [facility] CenterFluoroscopic procedure less than one hour [id number] 07:10:00* Test Item Value Reference Range Interpretation Comments IM GRANULOCYTES % (test code = IM GRANULOCYTES %) 0.3 0.0- 1.0 [facility] CenterAutom[facility] blood neutrophil count 2020-01-16 07:10:00* Test Item Value Reference Range Interpretation Comments Neutrophils # (Auto) (test code = 751-8) 4.7 2.1-6.9 [facility] CenterBlood lymphocytes count (number/volume) 2020-01-16 07:10:00* Test Item Value Reference Range Interpretation Comments Lymphocytes # (Auto) (test code = 97213-2) 1.4 1.0-3.2 [facility]Bl[facility] monocytes automated count (number/volume)2020-01-16 07:10:00* Test Item Value Reference Range Interpretation Comments Monocytes # (Auto) (test code = 742-7) 0.9 0.2-0.8 [facility] CenterAutom[facility] blood eosinophil count 2020-01-16 07:10:00* Test Item Value Reference Range Interpretation Comments Eosinophils # (Auto) (test code = 711-2) 0.1 0.0-0.4 [facility] CenterAutom[facility] blood basophil count (count/volume)2020-01-16 07:10:00* Test Item Value Reference Range Interpretation Comments Basophils # (Auto) (test code = 704-7) 0.1 0.0-0.1 [facility] CenterFluoroscopic procedure less than one hour [id number] 07:10:00* Test Item Value Reference Range Interpretation Comments Absolute Immature Granulocyte (auto (ginger t code = Absolute Immature Granulocyte (auto) 0.02 0-0.1 [facility] CenterProthrombin time (PT) in platelet poor plasma by coagulation [id number] 07:10:00* Test Item Value Reference Range Interpretation Comments Prothrombin Time (test code = 5902-2) 19.3 11.9-14.5 [facility] CenterINR in Platelet poor plasma by Coagulation [id number] 07:10:00* Test Item Value Reference Range Interpretation Comments Prothromb Time International Ratio (test code = 6301-6) 1.55 Oral Anticoagulant Therapy INR Values:1. Low Intensity Therapy 1.5 - 2.02 . Moderate Intensity Therapy 2.0 - 3.03. High Intensity Therapy(1) 2.5 - 3. 54. High Intensity Therapy(2) 3.0 - 4.05. Panic Value INR > 5.0 [facility] CenterActivated partial thromboplastin time (aPTT) in platelet poor plasma by coagulation [id number] 07:10:00* Test Item Value Reference Range Interpretation Comments Activated Partial Thromboplast Time (test code = 34471-3) 38.9 23.8-35.5 [facility] CenterUrine color [id number] 07:10:00* Test Item Value Reference Range Interpretation Comments Urine Color (test code = 5778-6) YELLOW YELLOW [facility] CenterUrine gqnjgmc2801-22-13 07:10:00* Test Item Value Reference Range Interpretation Comments Urine Clarity (test code = 00433-7) SL CLOUDY CLEAR [facility] Center[facility] gravity of Urine by Test strip 2020-01-16 07:10:00* Test Item Value Reference Range Interpretation Comments Urine Specific Drayden (test code = 5811-5) 1.020 1.010-1.[address] [facility] CenterU[facility] pH measurement by automated test [id number] 07:10:00* Test Item Value Reference Range Interpretation Comments Urine pH (test code = 53958-9) 8 5-7 [facility] CenterUrine leukocyte esterase detection by emtzhtvo1395-47-54 07:10:00* Test Item Value Reference Range Interpretation Comments Urine Leukocyte Esterase (test code = 5799-2) MODERATE NEGATIVE [facility] CenterUrine nitrite [id number] 07:10:00* Test Item Value Reference Range Interpretation Comments Urine Nitrite (test code = 20663-2) POSITIVE NEGATIVE [facility] CenterUrine protein measurement by test strip (mass/volume)2020-01-16 07:10:00* Test Item Value Reference Range Interpretation Comments Urine Protein (test code = 5804-0) 1+ NEGATIVE [facility] CenterUrine glucose [id number] 07:10:00* Test Item Value Reference Range Interpretation Comments Urine Glucose (UA) (test code = 2349-9) NEGATIVE NEGATIVE [facility] CenterUrine ketones detection by automated test [id number] 07:10:00* Test Item Value Reference Range Interpretation Comments Urine Ketones (test code = 76430-4) NEGATIVE NEGATIVE [facility] CenterUrine urobilinogen measurement by test strip (mass/volume)2020-01-16 07:10:00* Test Item Value Reference Range Interpretation Comments Urine Urobilinogen (test code = 65059-6) 0.2 0.2-1 [facility] CenterU[facility] total bilirubin measurement (mass/volume)2020-01-16 07:10:00* Test Item Value Reference Range Interpretation Comments Urine Bilirubin (test code = 1978-6) NEGATIVE NEGATIVE [facility] CenterUrine erythrocytes [id number] 07:10:00* Test Item Value Reference Range Interpretation Comments Urine Blood (test code = 27931-2) TRACE NEGATIVE [facility] CenterAutomated urine sediment leukocyte count by microscopy (number/high power field)2020-01-16 07:10:00* Test Item Value Reference Range Interpretation Comments Urine WBC (test code = 5821-4) >50 0-5 [facility] CenterErythrocytes detection in urine sediment by light [id number] 07:10:00* Test Item Value Reference Range Interpretation Comments Urine RBC (test code = 05712-1) 0-5 0-5 [facility] CenterBacteria detection in urine sediment by light [id number] 07:10:00* Test Item Value Reference Range Interpretation Comments Urine Bacteria (test code = 27245-4) MANY NONE [facility] CenterEpithelial cells detection in urine sediment by light [id number] 07:10:00* Test Item Value Reference Range Interpretation Comments Urine Epithelial Cells (test code = 72914-5) FEW NONE [facility] Centererum or plasma sodium measurement (moles/volume)2020-01-16 07:10:00* Test Item Value Reference Range Interpretation Comments Sodium Level (test code = 2951-2) 138 136-[address] [facility] Centererum or plasma potassium measurement (moles/volume)2020-01-16 07:10:00* Test Item Value Reference Range Interpretation Comments Potassium Level (test code = 2823-3) 4.3 3.5-5.[address] [facility] Centererum or plasma chloride measurement (moles/volume)2020-01-16 07:10:00* Test Item Value Reference Range Interpretation Comments Chloride Level (test code = 2075-0) 100 98-[address] [facility] Centererum or plasma carbon dioxide, total measurement (moles/volume)2020-01-16 07:10:00* Test Item Value Reference Range Interpretation Comments Carbon Dioxide Level (test code = 2028-9) 28 22-[address] [facility] Centererum or plasma anion [id number] 07:10:00* Test Item Value Reference Range Interpretation Comments Anion Gap (test code = 97836-6) 14.3 8-[address] [facility] Centererum or plasma urea nitrogen measurement (mass/volume)2020-01-16 07:10:00* Test Item Value Reference Range Interpretation Comments Blood Urea Nitrogen (test code = 3094-0) 20 7-[address] [facility] or plasma creatinine measurement (mass/volume)2020-01-16 07:10:00* Test Item Value Reference Range Interpretation Comments Creatinine (test code = 2160-0) 0.88 0.57-1.[address] [facility] or plasma urea nitrogen/creatinine mass wsobb4387-54-49 07:10:00* Test Item Value Reference Range Interpretation Comments BUN/Creatinine Ratio (test code = 3097-3) 23 6-25 [facility] CenterEstimated glomerular filtration rate (GFR) pubhrvqgwhviq6674-71-60 07:10:00* Test Item Value Reference Range Interpretation Comments Estimat Glomerular Filtration Rate (test code = 902346716) > 60 >60 Ranges were taken from the National Kidney Disease Education Program and the [facility] literature.Reference ranges:60 or greater: Uektpz51-27 ( for 3 consecutive months): Chronic kidney disease 15 or less: Kidney failureSt. David's [facility] Medical CenterGlucose twghrqdbzex7307-85-01 07:10:00* Test Item Value Reference Range Interpretation Comments Glucose Level (test code = SBB1376) 170 74-[address] [facility]rum or plasma calcium measurement (mass/volume)2020-01-16 07:10:00* Test Item Value Reference Range Interpretation Comments Calcium Level (test code = 08240-6) 10.7 8.4-10.[address] [facility] or plasma magnesium measurement (mass/volume)2020-01-16 07:10:00* Test Item Value Reference Range Interpretation Comments Magnesium Level (test code = 10112-6) 1.3 1.3-2.[address] [facility] or plasma total bilirubin measurement (mass/volume)2020-01-16 07:10:00* Test Item Value Reference Range Interpretation Comments Total Bilirubin (test code = 1975-2) 0.9 0.2-1.2 [facility] CenterFluoroscopic procedure less than one hour xxveuurr0170-46-81 07:10:00* Test Item Value Reference Range Interpretation Comments Aspartate Amino Transf (AST/SGOT) (test code = Aspartate Amino Transf (AST/SGOT)) 36 5-[address] [facility]rum or plasma alanine aminotransferase measurement (enzymatic activity/volume)2020-01-16 07:10:00* Test Item Value Reference Range Interpretation Comments Alanine Aminotransferase (ALT/SGPT) (test code = 1742-6) 20 0-[address] [facility]rum or plasma protein measurement (mass/volume)2020-01-16 07:10:00* Test Item Value Reference Range Interpretation Comments Total Protein (test code = 2885-2) 7.1 6.5-8.[address] [facility] or plasma albumin measurement (mass/volume)2020-01-16 07:10:00* Test Item Value Reference Range Interpretation Comments Albumin (test code = 1751-7) 3.7 3.5-5.0 [facility] CenterPlasma globulin measurement (mass/volume) 2020-01-16 07:10:00* Test Item Value Reference Range Interpretation Comments Globulin (test code = 38921-1) 3.4 2.3-3.[address] [facility]rum or plasma albumin/globulin mass tjcac2053-74-27 07:10:00* Test Item Value Reference Range Interpretation Comments Albumin/Globulin Ratio (test code = 1759-0) 1.1 0.8-2.[address] [facility]ererum or plasma alkaline phosphatase measurement (enzymatic activity/volume)2020-01-16 07:10:00* Test Item Value Reference Range Interpretation Comments Alkaline Phosphatase (test code = 6768-6) 46 40-150 [facility] CenterBNP Aay-rVeq1078-81-13 07:10:00* Test Item Value Reference Range Interpretation Comments B-Type Natriuretic Peptide (test code = 22960-9) 428.7 0-[address] [facility] Centererum or plasma creatine kinase measurement (enzymatic activity/volume)2020-01-16 07:10:00* Test Item Value Reference Range Interpretation Comments Creatine Kinase (test code = 2157-6) 69 29-[address] [facility]ererum or plasma creatine kinase MB measurement (mass/volume)2020-01-16 07:10:00* Test Item Value Reference Range Interpretation Comments Creatine Kinase MB (test code = 46851-6) 2.10 0-5.0 [facility] CenterTroponin I measurement by highly sensitive enzyme aeukjqpofxt7862-98-57 07:10:00* Test Item Value Reference Range Interpretation Comments Troponin I (test code = 92634-8) 0.018 0-0.300 [facility] C-SPINE W/O JJPW0464-49-50 07:21:00 Name: MAURIZIO WINN [facility] : 1935 Age/S: 84 / F [address] [place] [address] Blvd Unit #: [id number] Loc: [place] [address] Phys: Jinny Enriquez mmed DO Acct: [id number] Di s Date: Status: REG ER PHONE #: [phone] Exam Date: 01/02/2020 07 FAX #: Reason: NECK PAIN EXAMS: CPT CODE: [id number] CT C-SPINE W/ O CONT 16285 CT cervical spine without contrast 01/02/2020 HISTORY: Neck pain. PROCEDURE: M ultiple axial images from the skull base to the thoracic inlet were obtain ed without contrast. Coronal and sagittal reconstructed images were perfo rmed CT imaging performed at this location utilizes radiation dose o ptimization techniques which include one or more of the following: -Automa lachelle exposure control -Adjustment of the mA and/or kV according to patient size -Use of iterative reconstruction technique CT Radiation Dose DL P 258.61 mGy-cm No prior exams are available for comparison FINDINGS: There is straightening of the cervical spine. Vertebral body heights are maintained. No malalignment is identified. There is no lucency to suggest an acute fracture. No aggressive lesion is present. No prevertebral soft tissue swelling is evident. No lymphadenopath y or mass lesion is present. Mild bilateral carotid calcifications are present. C2-C3: No significant spinal canal stenosis or neural foraminal narrowing. C3-C4: No significant spinal canal jalen nosis or neural foraminal narrowing. C4-C5: Disc space narro wing is present with moderate lateral osteophytes. There is moderate righ t neural foraminal narrowing. No significant left neural foraminal narrow ing or spinal canal stenosis. C5-C6: Disc space narrowing and oste ophytes are present. There is mild bilateral neural foraminal narrowing b ut no significant spinal canal stenosis. C6-C7: Disc space n arrowing and osteophytes are present. There is mild bilateral neural fora tamika narrowing and no significant spinal canal stenosis. C7 -T1: Left facet hypertrophy results in mild left neural foraminal narrowin g. No right neural foraminal narrowing or spinal canal PAGE 1 Signed Report (CONTINUED) Name: MAURIZIO WINN [facility] : 1935 Age/S: 84 / F [address] [place] [address] Blvd Unit #: [id number] Loc: [place] [address] Phys: Nba Enriquez DO Acct: [id number] Dis Date: tus: REG ER PHONE #: [phone] Exam Date : 01/02/2020 0700 FAX #: [phone] Reason: NECK JEWELS N EXAMS: CPT CODE: [id number] CT C-SPINE W/O CONT 76154 <Continued> stenosis. IMPRESSION: 1. No fracture or dislocation involving cervical spine. 2. Straightening of cervical spine may be related to patient positioning or muscle spasm. 3. Moderate right neural foraminal narrowing at C4-5. 4. Other mild degenerative changes as described. SL: [id number] at 0721 Reported and signed by: Justin Buck M.D. CC: Nba Enriquez DO Technologist:Marina Valderrama RT(R)(CT) CTDI: DLP: Trnscb Date/Time: 01/02/2020 (720) [email or web address] Orig Print D/T: S: 01/02/2020 (0409) PAGE 2 Signed Report BRLWEUC5202-32-76 07:17:00* Test Item Value Reference Range Interpretation Comments ALCOHOL (test code = ALC) 4.9 mg/dL [...] for Legal orEmployment evaluation purposes. BASIC METABOLIC LPUBV9243-92-65 07:17:00* Test Item Value Reference Range Interpretation [...] CA) 9.7 mg/dL 8.0-10.5 N HEPATIC FUNCTION QAZYJ8587-82-16 07:17:00* Test Item Value Reference Range Interpretation [...] code = ALKP) 46 IUnit/L 20-125 N IJNYGNCR-W5693-17-29 07:17:00* Test Item Value Reference Range Interpretation Comments TROPONIN-I (test code = TROPI) 0.017 ng/mL 0.000-0.045 N Negative: <= 0.045 Positive: >= 0.046 Correlation with serial results, other cardiac markers andclinical findings is necessary to determine the clinicalsignificance of this result. Results using different methodologies should not be comparedto one another as quantitative results may vary by method. PROTHROMBIN MBAL8563-61-47 07:15:00* Test Item Value Reference Range Interpretation [...] Infarction (to prevent recurrent infarct). THROMBOPLASTIN TIME BQNTABP5058-50-84 07:15:00* Test Item Value Reference Range Interpretation Comments THROMBOPLASTIN TIME PARTIAL (test code = PTT) 28.9 Seconds 25.0-39. 5 N Therapeutic Range: 50.4 - 88.3 Seconds Effective 07/19/2018 - CT HEAD/BRAIN W/O VYYI3497-60-66 07:03:00 Name: MAURIZIO WINN [facility] : 1935 Age/S: 84 / F [address] [place] [address] Unit #: [id number] Loc: [place] [address] Phys: Nba Enriquez DO Acct: [id number] Dis Date: Status: REG ER PHONE #: [phone] Exam Date: 01/02/2020 0700 FAX #: [phone] Reason: fall/ head injury EXAMS: CPT CODE: [id number] CT HEAD/BRAIN W/O CONT 90836 CT head without contrast 01/02/2020 HISTORY: Fall. [...] moderate chronic microvascu lar ischemic changes. SL: [id number] at 0703 Reported and signed by: Justin Buck M.D. CC: Nba Enriquez DO Technologist:Marina Valderrama RT(R)(CT) CTDI: DLP: Trnscb Date/Time: 01/02/2020 (702) [email or web address] Orig Print D/T: S: 01/02/2020 (705) PAGE 1 Signed Report CBC W/AUTO UKCE1829-72-08 06:59:00* Test Item Value Reference Range Interpretation [...] code = MDIFF) NO - XR PELVIS / VITSK9647-45-01 06:30:00 FAX: Nba Fernando DO [phone] [place]: St: REG Name: MAURIZIO RAGSDALE [facility] : [birth year] Age/S: 84/F [address] [place] [address] Unit #: [id number] Loc: [place] [address] Phys: Nba Enriquez DO Acct: [id number] Dis Date: Status: REG ER PHONE #: [phone] Exam Date: 01/02/2020622 FAX #: [phone] Reason: PELVIC PAIN EXAMS: CPT CODE: [id number] XR PELVIS 1/2 VIEWS 07418 Study: - XR PELVIS 1/2 VIEWS 01/01 6:12 AM Patient Name: MAURIZIO WINN MR: [id number] : 1935; Age: 84 years y/o Female [...] joints. The soft tissues are normal. SL: TPAINTER-H Electronic ally Signed by Daya Muniz on 01/02/2020 at 0630 Reported and signed by: Gregor calderon M.D. CC: Nba Enriquez DO Brianne hnologist: Krista Polo, RT(R) Trnscrd Date/T jamar/By: 01/02/2020 (629) : By: [email or web address] Orig Print D/T: S: 0 (2781) PAGE 1 Signed Report - XR CHEST 1 [id number] 06:29:00 FAX: Nba Fernando DO [phone] [place]: St: REG Name: MAURIZIO RAGSDALE [facility] : [birth year] Age/S: 84/F [address] [place] [address] Unit #: [id number] Loc: [place] [address] Phys: Nba Enriquez DO Acct: [id number] Dis Date: Status: REG ER PHONE #: [phone] Exam Date: 01/02/2020621 FAX #: [phone] Reason: CHEST PAIN EXAMS: CPT CODE: [id number] XR CHEST 1 V 22444 Study: - XR CHEST 1 V 01/02/2020 6 :12 AM Patient Name: MAURIZIO WINN MR: [id number] D OB: 1935; Age: 84 years y/o Female Ordering Physician: Nba perez DO Clinical Indication: CHEST PAIN Comparison: FINDINGS [...] Interval mild cardiomegaly. Old granulomatous disease. SL: TPA INTER-H at 0629 Reported and signed by: Gregor Muniz M.D. PAGE 1 Signed Report (CONTINUED) FAX: Nba Fernando DO [phone] [place]: St: REG Name: MAURIZIO WINN [facility] : 1935 Age/S: 84/F [address] [place] [address] Blvd Unit #: [id number] [place]: [place] [address] Phys: Nba Enriquez DO Acct: [id number] Dis Date: Status: REG ER PHONE #: [phone] Exam Date: 01/02/2020621 FAX #: [phone] Reason: CHEST PAIN EXAMS: CPT CODE: [id number] XR CHEST 1 V 93150 <Continued> CC: Nba Enriquez DO Technologist: Krista Polo, RT(R) Trnscrd Date/Time/By: 01/02/2020 (628) : By: [email or web address] Orig Print D/T: S: 01/02/2020 (32) PAGE 2 Signed Report Bacteria identification in wound by dqdxnwm0230-04-88 14:52:00* Test Item Value Reference Range Interpretation Comments Wound Culture (test code = 6462-6) ESCHERICHIA COLI [facility] CenterCapillary blood glucose measurement by glucometer (mass/volume)2019-10-09 06:04:00* Test Item Value Reference Range Interpretation Comments Bedside Glucose (test code = 90261-5) 159 70-120 Meter ID: [id number]. [facility]'s [facility] CenterFluoroscopic procedure less than one hour ipspnetx7569-60-51 12:23:00* Test Item Value Reference Range Interpretation Comments Coronavirus (PCR) (test code = Coronavirus (PCR)) NOT DETECTED NOTD ETECTED SARS-COV-2 (COVID19), HIGHRISK, RT-PCRNegative results do not preclude SARS-CoV- 2 infection and should not be used as the sole basis for patient management deci sions. Negative results must be combined with clinical observations, patient his tory, and epidemiological information. Optimum specimen types and timing for pea k viral levels during infections caused by SARS-CoV-2 have not been determined. Collection of multiple specimens ot types of specimens may be necessary to detec t virus. Improper specimen collection and handling, sequence variability under p rimers/probes, or organism present below the limit of detection may lead to fals e negative results. Positive and negative predictive values of testing are highl y dependent on prevalance. False negative test results are more likely when prev alence is high.The expected result is negative (not detected).The SARS-CoV-2 ginger t is intended for the qualitative detection of nucleic acid from SARS-CoV-2 in n asopharyngeal and oropharyngeal swab samples from patients who meet COVID-19 cli nical and or epidemiological criteria. For lower respiratory tract specimens, th e assay is submitted for authoriztion by FDA under an Emergency Use Authorizatio n (EUA). Testing methodology is real time RT-PCR. If received as separate collec tion devices, nasopharygeal and oropharyngeal specimens are combined for analysi s. Additional specimens may be split to a separate accession for analysi and rep orting as this test includes a single unit of service.Test results must be corre lated with clinical presentation and evaluated in the context of other laborator y and epidemiologic data. Test performance can be affected because the epidemiol ogy and clinical spectrum of infection caused by SARS-CoV-2 is not fully known. For example, the optimum types of specimens to collect and when during the cours e of infection these specimens are most likely to contain detectable viral RNA m ay not be known.This test has not been Food and Drug Administration (FDA) cleare d or approved and has been authorized by FDA under an Emergency Use Authorizatio n (EUA). The test is only authorized for the duration of the declaration that ci rcumstances exist justifying the authorization of emergency use of in vitro diag nostic tests for detection and/or diagnosis of SARS-CoV-2 under section 564(b) o f the Act, 21 U.S.C. section 360bbb-3(b)(1), unless the authorization is termina lachelle or revoked sooner. [facility] are certified under the [facility] Laboratory Improvement Amendments of 1988 (CLIA), 42 U.S.C. section 263a , to perform high complexity tests.Testing performed by [facility] [address] [place], [place] [phone] Director: Vinay Alarcon M.D.CLIA # [id number] [facility] 2 BPBXN5172-54-05 12:18:00 [facility] [address] [address] Patient Name: MAURIZIO WINN MR #: [id number] : 1935 Age/Sex: 84/F Req #: [id number] Adm Physician: Ordered by: MEDINA JEWELL MD Report #: [id number] Location: OR Room/Bed: Procedure: [id number] DX/CHEST 2 VIEWS Exam Date: 10/04/19 Exam [...] MD 1220 COPY TO: MEDINA JEWELL MD Blood platelets count by estimate (number/volume)2019-10-04 10:58:00* Test Item Value Reference Range Interpretation Comments Platelet Estimate (test code = 53013-1) ADEQUATE [facility] CenterPlatelet xvxhigiwtp1289-47-78 10:58:00* Test Item Value Reference Range Interpretation Comments Platelet Morphology Comment (test code = 38012-9) NORMAL [facility] CenterBlood polychromasia detection by light pmiktmokuf5144-31-12 10:58:00* Test Item Value Reference Range Interpretation Comments Polychromasia (test code = 78704-2) FEW [facility] CenterBlood hypochromia detection by light cemjjgamhm5846-49-81 10:58:00* Test Item Value Reference Range Interpretation Comments Hypochromasia (test code = 728-6) SLIGHT [facility] CenterBlood anisocytosis detection by light qcyuabqzgq0593-83-44 10:58:00* Test Item Value Reference Range Interpretation Comments Anisocytosis (test code = 702-1) SLIGHT [facility] CenterRB jcndgtmmfy6361-80-86 10:58:00* Test Item Value Reference Range Interpretation Comments Red Cell Morphology Comment (test code = 6742-1) ABNORMAL [facility] CenterCT ABDOMEN/PELVIS [id number] 09:12:00 [facility] [address] [place] [address] Patient Name: MAURIZIO WINN MR #: [id number] : 1935 Age/Sex: 84/F Req #: [id number] Adm Physician: MAURICIO AYOUB MD Ordered by: AUSTYN VERA MD Repor t #: [id number] Location: MED/SURG2 Room/Bed : [facility] Procedure: [id number] CT/CT ABDOMEN/PE LVIS W Exam Date: 08/15/19 Exam Time: 1512 REPORT STATUS: Signed EXAM: CT Abdomen an d Pelvis WITH intravenous contrast INDICATION: Urinary tract infection COMPARISON: Lumbar spine CT 03/17/2018 TECHNIQUE: Abdomen and pelvis wer e scanned utilizing a multidetector helical scanner from [...] or solid mass lesions. PELVIC ORGANS/B LADDER: [place] calcifications at the bladder neck. Asymmetric soft [...] on 08/16/19922 COPY TO: AUSTYN VERA MD Procalcitonin (PCT) lecmn6448-51-24 12:15:00* Test Item Value Reference Range Interpretation Comments Procalcitonin (test code = 892259669) 0.06 0.00-0.08 A procalcitonin (PCT) level above 2.0 ng/mL on the firstday of ICU admission is associated with a high risk forprogression to severe sepsis and/or septic shock. A PCT level below 0.5 ng/mL on the first day of ICUadmission is associated with a low risk for progressionto severe sepsis and/or septic shock.Note: Concentrati ons <0.5 ng/mL do not exclude aninfection, on account of localized infections (withoutsystemic signs) which can be associated with such lowconcentrations, or a systemic infection in its initialstages (<6 hours).Furthermore, increased procalcitonin can occur withoutinfection. PCT concentrations between 0.5 and 2.0 ng/mLshould be interpreted taking into account the patient'shistory. It is recommended to retest PCT within 6-24 hoursif any concentrations <2 ng/mL are obtained.Performed at: [facility] [id number] Director: Julian Valentin MD, Phone: [phone]. David's [facility] Medical CenterBlood jluvqqn4884-53-83 13:15:00* Test Item Value Reference Range Interpretation Comments Blood Culture (test code = 73674926) NO GROWTH AFTER 5 DAYS, FINAL REPORT [facility] CenterFluoroscopic procedure less than one hour zzgcedcu8810-50-83 13:10:00* Test Item Value Reference Range Interpretation Comments Lactic Acid Level (test code = Lactic Acid Level) 1.9 0.5- 2.0 [facility] CenterCHEST SINGLE (PORTABLE)2019-08-14 12:11:[address] [place] [address] Patient Name: MAURIZIO WINN MR #: [id number] : 1935 Age/Sex: 84/F Req #: [id number] Adm Physician: Ordered by: MARCIO ZACARIAS DO Report #: [id number] Location: ER Room/Bed: Procedure: [id number] DX/CHEST SIN GLE (PORTABLE) Exam Date: 08/14/19 Exam Time: 1152 REPORT STATUS: Signed EXAM: CHES T SINGLE (PORTABLE) DATE: 08/14/2019 11:52 AM INDICATION: [...] 12:14 PM Dictated By: SHAWN DASH MD 13 Transcribed By: MIKA on 08/14/194 COPY TO: MARCIO ZACARIAS DO Bacterial urine ksjfvin3064-43-25 11:18:00* Test Item Value Reference Range Interpretation Comments Urine Culture (test code = 630-4) ESCHERICHIA COLI-ESBL [facility] CenterCHES 2 CCAVI9206-79-78 05:36:00 [facility] [address] [address] Patient Name: MAURIZIO WINN MR #: [id number] : 1935 Age/Sex: 84/F Req #: [id number] Adm Physician: Ordered by: TED MILLER DO Report #: [id number] Location: ER Room/Bed: Procedure: [id number] DX/CHEST 2 VIEWS Exam Date: 08/14/19 Exam Time: 0340 REPORT STATUS: Signed EXAMINATION: CHEST 2 VIE WS INDICATION: Chest wall pain COMPARISON: Chest x-ray [...] 08/14/19537 COPY TO: TED MILLER DO Bedside Qkwooit8608-75-21 20:58:00* Test Item Value Reference Range Interpretation Comments Bedside Glucose (test code = 08990-8) 138 70-120 H Meter ID: [id number]. [facility]'s [facility] Medical CenterUrine Xkfjr6021-91-97 20:33:00* Test Item Value Reference Range Interpretation Comments Urine Color (test code = 5778-6) YELLOW YELLOW [facility] CenterUrine Dinhnnn9594-74-41 20:33:00* Test Item Value Reference Range Interpretation Comments Urine Clarity (test code = 06396-9) HAZY CLEAR [facility] CenterUrine Specific Bguytsg3061-05-58 20:33:00 * Test Item Value Reference Range Interpretation Comments Urine Specific [place] (test code = 5811-5) 1.015 1.010-1.[address] [facility] CenterUrine gV2584-36-79 20:33:00* Test Item Value Reference Range Interpretation Comments Urine pH (test code = 81016-0) 6 5-7 [facility] CenterUrine Leukocyte Cnshwgxs0382-20-55 20:33:00* Test Item Value Reference Range Interpretation Comments Urine Leukocyte Esterase (test code = 5799-2) NEGATIVE NEGATIVE [facility] CenterUrine Koohtfw4769-45-48 20:33:00* Test Item Value Reference Range Interpretation Comments Urine Nitrite (test code = 29423-2) NEGATIVE NEGATIVE [facility] CenterUrine Kulgmmn5795-19-26 20:33:00* Test Item Value Reference Range Interpretation Comments Urine Protein (test code = 5804-0) NEGATIVE NEGATIVE [facility] CenterUrine Glucose (UA)2019-06-03 20:33:00* Test Item Value Reference Range Interpretation Comments Urine Glucose (UA) (test code = 2349-9) NEGATIVE NEGATIVE [facility] CenterUrine Solumnb3146-80-95 20:33:00* Test Item Value Reference Range Interpretation Comments Urine Ketones (test code = 38061-6) NEGATIVE NEGATIVE [facility] CenterUrine Faswxjswajwr0515-29-71 20:33:00* Test Item Value Reference Range Interpretation Comments Urine Urobilinogen (test code = 19105-4) 0.2 0.2-1 [facility] CenterUrine Hvzyhanyx0330-70-08 20:33:00* Test Item Value Reference Range Interpretation Comments Urine Bilirubin (test code = 1978-6) NEGATIVE NEGATIVE [facility] CenterUrine Thjet9478-47-88 20:33:00* Test Item Value Reference Range Interpretation Comments Urine Blood (test code = 79131-1) NEGATIVE NEGATIVE [facility] CenterUrine DCR1244-30-76 20:33:00* Test Item Value Reference Range Interpretation Comments Urine WBC (test code = 5821-4) >50 0-[address] [facility] CenterUrine KZX2433-89-31 20:33:00* Test Item Value Reference Range Interpretation Comments Urine RBC (test code = 90403-1) NONE 0-5 [facility] CenterUrine Qhefzgja7447-30-49 20:33:00* Test Item Value Reference Range Interpretation Comments Urine Bacteria (test code = 94685-6) MANY NONE H [facility] CenterUrine Epithelial Geqat0327-66-84 20:33:00 * Test Item Value Reference Range Interpretation Comments Urine Epithelial Cells (test code = 83568-2) MANY NONE [facility] CenterHemoglobin2020-02-29 18:48:00* Test Item Value Reference Range Interpretation Comments Hemoglobin (test code = 95368-8) 10.6 12.0-16.[address] [facility] CenterHematocrit2020-02-29 18:48:00* Test Item Value Reference Range Interpretation Comments Hematocrit (test code = 4544-3) 33.4 34.2-44.[address] [facility] [facility] [id number] 07:09:00 [place] [address] Patient Name: MAURIZIO WINN MR #: [id number] : 1935 Age/Sex: 84/F Req #: [id number] Adm Physician: MAURICIO AYOUB MD Ordered by: MAURICIO AYOUB MD Report #: [id number] Location: [place] [address] Room/Bed: [facility] Procedure: [id number] C T/CT BRAIN WO Exam Date: 06/02/19 Exam Time: 0641 REPORT STATUS: Signed Exam: Head C T without contrast History: Trauma, fall Comparison studies: [...] MD MRI SHOULDER LEFT WO 2019-04-26 10:02:00 [place] [address] Patient Name: MAURIZIO WINN MR #: [id number] : 1935 Age/Sex: 84/F Req #: [id number] Adm Physician: Ordered by: KAYLA JARAMILLO MD Report #: [id number] Location: MRI Room/Bed: Procedure: [id number] MRI/ MRI SHOULDER LEFT WO Exam Date: Exam Time: REPORT STATUS: Signed MRI of the lef t shoulder without contrast. History: Shoulder pain. Decreased [...] on 04/26/2019 10:06 AM Dictated By: NASIR Austin MD 1006 Transcribe d By: MIKA on 04/26/19 1006 COPY TO: KAYLA JARAMILLO MD [facility] 2 HQGZG6411-36-96 16:35:00 [place] [address] Patient Name: MAURIZIO WINN MR #: [id number] : 1935 Age/Sex: 84/F Req #: [id number] Adm Physician: Ordered by: MAURICIO AYOUB MD Report #: [id number] Location: [facility] Room/Bed: Procedure: [id number] DX/ CHEST 2 VIEWS Exam Date: 04/06/19 [...] 4:38 PM Dictated By: JOCELYN MATHUR MD 37 Transcribed By: CHILANGO Castaneda on 04/06/19 1638 COPY TO: MAURICIO AYOUB MD LUMBAR 3 VIEW 2019-02-08 12:39:00 [place] [address] Patient Name: MAURIZIO WINN MR #: [id number] : 1935 Age/Sex: 84/F Req #: [id number] Adm Physician: Ordered by: KAYLA JARAMILLO MD Report #: [id number] Location: [facility] Room/Bed: Procedure: [id number] DX/L UMBAR 3 VIEW Exam Date: 02/08/19 [...] 12:41 PM Dictated By: KENNETH MATHUR MD 124 Transcribed By: MIKA on 02/08/19 1241 COPY TO: KAYLA JARAMILLO MD Blood Eodkmll1117-12-58 13:38:00* Test Item Value Reference Range Interpretation Comments Blood Culture (test code = 74408312) NO GROWTH AFTER 5 DAYS, [facility]AL [facility]PORT [facility] EY4207-01-37 16:52:00 [place] [address] Patient Name: MAURIZIO WINN MR #: [id number] : 1935 Age/Sex: 84/F Req #: [id number] Adm Physician: Ordered by: TED RUEDA HYDRODYNAMICS TEACHER Report #: [id number] Location: ER Room/Bed: Procedure: [id number] CT /CT BRAIN WO Exam Date: 01/11/19 [...] parietal scalp hematoma without underlying fractures. 2. N o acute postraumatic intracranial hemorrhage. 3. Mild chronic [...] TO: NAY RUEDA NP CT CERVICAL SPINE [id number] 16:52:00 [facility] [address] [place] [address] Patient Name: MAURIZIO WINN MR #: [id number] : 1935 Age/Sex: 84/F Req #: [id number] Adm Physician: Ordered by: TED RUEDA NP Report #: [id number] Location: ER Room/Bed: Procedure: [id number] CT /CT CERVICAL SPINE WO Exam Date: [...] acute left parietal scalp hematoma without underlying fractures . 2. No acute postraumatic intracranial hemorrhage. 3. [...] MIKA on 01/11/191699 COPY TO: TED RUEDA HYDRODYNAMICS TEACHER Creatine Kinase [id number] 16:28:00* Test Item Value Reference Range Interpretation Comments Creatine Kinase MB (test code = 48115-7) 2.30 0-5.0 [facility] CenterTroponin [id number] 16:28:00* Test Item Value Reference Range Interpretation Comments Troponin I (test code = YUF9643) 0.007 0-0.300 [facility] CenterCreatine Kinase BR2238-38-58 16:28:00* Test Item Value Reference Range Interpretation Comments Creatine Kinase MB (test code = 80955-3) 2.30 0-5.0 [facility] CenterTroponin A8593-76-34 16:28:00* Test Item Value Reference Range Interpretation Comments Troponin I (test code = RAB6066) 0.007 0-0.300 [facility] CenterActivated Partial Thromboplast Time 2019-01-11 16:24:00* Test Item Value Reference Range Interpretation Comments Activated Partial Thromboplast Time (test code = 23338-7) 43.3 23.8-35.[address] [facility] CenterActivated Partial Thromboplast Time 2019-01-11 16:24:00* Test Item Value Reference Range Interpretation Comments Activated Partial Thromboplast Time (test code = 99846-4) 43.3 23.8-35.[address] [facility] Centerodium Lqfdm2230-16-93 16:23:00* Test Item Value Reference Range Interpretation Comments Sodium Level (test code = 2951-2) 138 136-145 [facility] CenterPotassium Gkgho7940-57-85 16:23:00* Test Item Value Reference Range Interpretation Comments Potassium Level (test code = 2823-3) 4.0 3.5-5.1 [facility] CenterChloride Xxmgt5682-29-73 16:23:00* Test Item Value Reference Range Interpretation Comments Chloride Level (test code = 2075-0) 102 98-107 [facility] CenterCarbon Dioxide Awhcz6535-05-02 16:23:00* Test Item Value Reference Range Interpretation Comments Carbon Dioxide Level (test code = 2028-9) 27 22-29 [facility] CenterAnion Bsl7660-11-95 16:23:00* Test Item Value Reference Range Interpretation Comments Anion Gap (test code = 40603-1) 13.0 8-16 [facility] CenterBlood Urea Hicbyopk8880-94-22 16:23:00* Test Item Value Reference Range Interpretation Comments Blood Urea Nitrogen (test code = 3094-0) 16 7-26 [facility] CenterCreatinine2019-10-09 16:23:00* Test Item Value Reference Range Interpretation Comments Creatinine (test code = 2160-0) 0.83 0.57-1.11 [facility] CenterBUN/Creatinine Iixbg5635-22-54 16:23:00* Test Item Value Reference Range Interpretation Comments BUN/Creatinine Ratio (test code = 3097-3) 19 6-25 [facility] CenterEstimat Glomerular Filtration Rate 2019-01-11 16:23:00* Test Item Value Reference Range Interpretation Comments Estimat Glomerular Filtration Rate (test code = 117427115) > 60 >60 Ranges were taken from the National Kidney Disease Education Program and the On license of [facility] Kidney Foundation literature.Reference ranges:60 or greater: Xbxevp86-54 ( for 3 consecutive months): Chronic kidney disease 15 or less: Kidney failureCHI Matagorda Regional Medical CenterGlucose Eysbl7576-62-11 16:23:00* Test Item Value Reference Range Interpretation Comments Glucose Level (test code = BFF2424) 93 74-118 [facility] CenterCalcium Majwh7242-73-67 16:23:00* Test Item Value Reference Range Interpretation Comments Calcium Level (test code = 07770-9) 10.1 8.4-10.2 [facility] CenterTotal Xhrberjqe4747-02-72 16:23:00* Test Item Value Reference Range Interpretation Comments Total Bilirubin (test code = 1975-2) 0.5 0.2-1.2 [facility] CenterAspartate Amino Transf (AST/SGOT) 2019-01-11 16:23:00* Test Item Value Reference Range Interpretation Comments Aspartate Amino Transf (AST/SGOT) (test code = Aspartate Amino Transf (AST/SGOT)) 21 5-34 [facility] CenterAlanine Aminotransferase (ALT/SGPT) 2019-01-11 16:23:00* Test Item Value Reference Range Interpretation Comments Alanine Aminotransferase (ALT/SGPT) (test code = 1742-6) 13 0-55 [facility] CenterTotal Sgkvdgk1530-40-50 16:23:00* Test Item Value Reference Range Interpretation Comments Total Protein (test code = 2885-2) 7.0 6.5-8.1 [facility] CenterAlbumin2019-10-09 16:23:00* Test Item Value Reference Range Interpretation Comments Albumin (test code = 1751-7) 3.6 3.5-5.0 [facility] CenterGlobulin2019-10-09 16:23:00* Test Item Value Reference Range Interpretation Comments Globulin (test code = 75085-3) 3.4 2.3-3.5 [facility] CenterAlbumin/Globulin Bxcpl8644-57-92 16:23:00 * Test Item Value Reference Range Interpretation Comments Albumin/Globulin Ratio (test code = 1759-0) 1.1 0.8-2.0 [facility] CenterAlkaline Bpnmagzqszw5105-11-69 16:23:00* Test Item Value Reference Range Interpretation Comments Alkaline Phosphatase (test code = 6768-6) 40 40-150 [facility] CenterCreatine Pjyksp0043-55-60 16:23:00* Test Item Value Reference Range Interpretation Comments Creatine Kinase (test code = 2157-6) 89 29-[address] [facility] Medical Centerodium Zvoqi3341-37-41 16:23:00* Test Item Value Reference Range Interpretation Comments Sodium Level (test code = 2951-2) 138 136-145 [facility] CenterPotassium Ehvou7692-71-18 16:23:00* Test Item Value Reference Range Interpretation Comments Potassium Level (test code = 2823-3) 4.0 3.5-5.1 [facility] CenterChloride Djmyz7054-29-66 16:23:00* Test Item Value Reference Range Interpretation Comments Chloride Level (test code = 2075-0) 102 98-107 [facility] CenterCarbon Dioxide Ljmwm1259-80-39 16:23:00* Test Item Value Reference Range Interpretation Comments Carbon Dioxide Level (test code = 2028-9) 27 22-29 [facility] CenterAnion Rlf8333-16-00 16:23:00* Test Item Value Reference Range Interpretation Comments Anion Gap (test code = 80591-4) 13.0 8-16 [facility] CenterBlood Urea Dztwdvun7055-28-74 16:23:00* Test Item Value Reference Range Interpretation Comments Blood Urea Nitrogen (test code = 3094-0) 16 7-26 [facility] CenterCreatinine2019-10-09 16:23:00* Test Item Value Reference Range Interpretation Comments Creatinine (test code = 2160-0) 0.83 0.57-1.11 [facility] CenterBUN/Creatinine Gppkq5121-12-18 16:23:00* Test Item Value Reference Range Interpretation Comments BUN/Creatinine Ratio (test code = 3097-3) 19 6-25 [facility] CenterEstimat Glomerular Filtration Rate 2019-01-11 16:23:00* Test Item Value Reference Range Interpretation Comments Estimat Glomerular Filtration Rate (test code = 206834765) > 60 >60 Ranges were taken from the National Kidney Disease Education Program and the [facility] Foundation literature.Reference ranges:60 or greater: Jiieeu98-14 ( for 3 consecutive months): Chronic kidney disease 15 or less: Kidney failureSt. [facility]'s South [facility] CenterGlucose Hncsf2772-00-37 16:23:00* Test Item Value Reference Range Interpretation Comments Glucose Level (test code = IPX7718) 93 74-118 [facility] CenterCalcium Fmciu4612-58-04 16:23:00* Test Item Value Reference Range Interpretation Comments Calcium Level (test code = 26069-4) 10.1 8.4-10.2 [facility] CenterTotal Kcharcxiz8186-00-69 16:23:00* Test Item Value Reference Range Interpretation Comments Total Bilirubin (test code = 1975-2) 0.5 0.2-1.2 [facility] CenterAspartate Amino Transf (AST/SGOT) 2019-01-11 16:23:00* Test Item Value Reference Range Interpretation Comments Aspartate Amino Transf (AST/SGOT) (test code = Aspartate Amino Transf (AST/SGOT)) 21 5-34 [facility] CenterAlanine Aminotransferase (ALT/SGPT) 2019-01-11 16:23:00* Test Item Value Reference Range Interpretation Comments Alanine Aminotransferase (ALT/SGPT) (test code = 1742-6) 13 0-55 [facility] CenterTotal Menkclu7265-91-88 16:23:00* Test Item Value Reference Range Interpretation Comments Total Protein (test code = 2885-2) 7.0 6.5-8.1 [facility] CenterAlbumin2019-10-09 16:23:00* Test Item Value Reference Range Interpretation Comments Albumin (test code = 1751-7) 3.6 3.5-5.0 [facility] CenterGlobulin2019-10-09 16:23:00* Test Item Value Reference Range Interpretation Comments Globulin (test code = 85956-8) 3.4 2.3-3.5 [facility] CenterAlbumin/Globulin Taucb1623-32-96 16:23:00 * Test Item Value Reference Range Interpretation Comments Albumin/Globulin Ratio (test code = 1759-0) 1.1 0.8-2.0 [facility] CenterAlkaline Tbbbidgteoh4929-14-16 16:23:00* Test Item Value Reference Range Interpretation Comments Alkaline Phosphatase (test code = 6768-6) 40 40-150 [facility] CenterCreatine Sjbrje3193-78-83 16:23:00* Test Item Value Reference Range Interpretation Comments Creatine Kinase (test code = 2157-6) 89 29-168 [facility] CenterProthrombin Wavn9570-98-23 16:10:00* Test Item Value Reference Range Interpretation Comments Prothrombin Time (test code = 5902-2) 22.1 11.9-14.[address] [facility] CenterProthromb Time International Ratio 2019-01-11 16:10:00* Test Item Value Reference Range Interpretation Comments Prothromb Time International Ratio (test code = 6301-6) 1.86 Oral Anticoagulant Therapy INR Values:1. Low Intensity Therapy 1.5 - 2.02 . Moderate Intensity Therapy 2.0 - 3.03. High Intensity Therapy(1) 2.5 - 3. 54. High Intensity Therapy(2) 3.0 - 4.05. Panic Value INR > 5.0 [facility] CenterProthrombin Htqi6815-40-48 16:10:00* Test Item Value Reference Range Interpretation Comments Prothrombin Time (test code = 5902-2) 22.1 11.9-14.[address] [facility] CenterProthromb Time International Ratio 2019-01-11 16:10:00* Test Item Value Reference Range Interpretation Comments Prothromb Time International Ratio (test code = 6301-6) 1.86 Oral Anticoagulant Therapy INR Values:1. Low Intensity Therapy 1.5 - 2.02 . Moderate Intensity Therapy 2.0 - 3.03. High Intensity Therapy(1) 2.5 - 3. 54. High Intensity Therapy(2) 3.0 - 4.05. Panic Value INR > 5.0 [facility] CenterWhite Blood Qdunl2685-85-87 16:01:00* Test Item Value Reference Range Interpretation Comments White Blood Count (test code = 6690-2) 6.99 4.8-10.8 [facility] CenterRed Blood Jpnjr8362-25-27 16:01:00* Test Item Value Reference Range Interpretation Comments Red Blood Count (test code = 789-8) 4.22 3.6-5.1 [facility] CenterHemoglobin2019-10-09 16:01:00* Test Item Value Reference Range Interpretation Comments Hemoglobin (test code = 85260-7) 12.5 12.0-16.0 [facility] CenterHematocrit2019-10-09 16:01:00* Test Item Value Reference Range Interpretation Comments Hematocrit (test code = 4544-3) 38.9 34.2-44.1 [facility] CenterMean Corpuscular Jfutga6636-44-13 16:01:00* Test Item Value Reference Range Interpretation Comments Mean Corpuscular Volume (test code = 787-2) 92.2 81-99 [facility] CenterMean Corpuscular Bzjnazyami5041-58-84 16:01:00* Test Item Value Reference Range Interpretation Comments Mean Corpuscular Hemoglobin (test code = 785-6) 29.6 28-32 [facility] Hem[facility] Concent 2019-01-11 16:01:00* Test Item Value Reference Range Interpretation Comments Mean Corpuscular Hemoglobin Concent (test code = 786-4) 32.1 31-35 [facility] CenterRed Cell Distribution Vimls0494-07-06 16:01:00* Test Item Value Reference Range Interpretation Comments Red Cell Distribution Width (test code = 91198-1) 14.2 11.7 -14.4 [facility] CenterPlatelet Kotxb5166-82-55 16:01:00* Test Item Value Reference Range Interpretation Comments Platelet Count (test code = 777-3) 188 140-360 [facility] CenterNeutrophils (%) (Auto)2019-01-11 16:01:00 * Test Item Value Reference Range Interpretation Comments Neutrophils (%) (Auto) (test code = 10333-1) 63.0 38.7-80.0 [facility] CenterLymphocytes (%) (Auto)2019-01-11 16:01:00 * Test Item Value Reference Range Interpretation Comments Lymphocytes (%) (Auto) (test code = 736-9) 22.0 18.0-39.1 [facility] CenterMonocytes (%) (Auto)2019-01-11 16:01:00* Test Item Value Reference Range Interpretation Comments Monocytes (%) (Auto) (test code = 5905-5) 10.2 4.4-11.3 [facility] CenterEosinophils (%) (Auto)2019-01-11 16:01:00 * Test Item Value Reference Range Interpretation Comments Eosinophils (%) (Auto) (test code = 713-8) 3.9 0.0-6.0 [facility] CenterBasophils (%) (Auto)2019-01-11 16:01:00* Test Item Value Reference Range Interpretation Comments Basophils (%) (Auto) (test code = 706-2) 0.6 0.0-1.0 [facility] CenterIM GRANULOCYTES %2019-01-11 16:01:00* Test Item Value Reference Range Interpretation Comments IM GRANULOCYTES % (test code = IM GRANULOCYTES %) 0.3 0.0- 1.0 [facility] CenterNeutrophils # (Auto)2019-01-11 16:01:00* Test Item Value Reference Range Interpretation Comments Neutrophils # (Auto) (test code = 751-8) 4.4 2.1-6.9 [facility] CenterLymphocytes # (Auto)2019-01-11 16:01:00* Test Item Value Reference Range Interpretation Comments Lymphocytes # (Auto) (test code = 84650-8) 1.5 1.0-3.2 [facility] CenterMonocytes # (Auto)2019-01-11 16:01:00* Test Item Value Reference Range Interpretation Comments Monocytes # (Auto) (test code = 742-7) 0.7 0.2-0.8 [facility] CenterEosinophils # (Auto)2019-01-11 16:01:00* Test Item Value Reference Range Interpretation Comments Eosinophils # (Auto) (test code = 711-2) 0.3 0.0-0.4 [facility] CenterBasophils # (Auto)2019-01-11 16:01:00* Test Item Value Reference Range Interpretation Comments Basophils # (Auto) (test code = 704-7) 0.0 0.0-0.1 [facility] CenterAbsolute Immature Granulocyte (auto 2019-01-11 16:01:00* Test Item Value Reference Range Interpretation Comments Absolute Immature Granulocyte (auto (ginger t code = Absolute Immature Granulocyte (auto) 0.02 0-0.1 [facility] CenterWhite Blood Juhfw6747-04-05 16:01:00* Test Item Value Reference Range Interpretation Comments White Blood Count (test code = 6690-2) 6.99 4.8-10.8 [facility] CenterRed Blood Pmalf6178-20-41 16:01:00* Test Item Value Reference Range Interpretation Comments Red Blood Count (test code = 789-8) 4.22 3.6-5.1 [facility] CenterMean Corpuscular Spmepf2060-54-79 16:01:00* Test Item Value Reference Range Interpretation Comments Mean Corpuscular Volume (test code = 787-2) 92.2 81-99 [facility] CenterMean Corpuscular Widmnjudbn0433-73-52 16:01:00* Test Item Value Reference Range Interpretation Comments Mean Corpuscular Hemoglobin (test code = 785-6) 29.6 28-32 [facility] CenterMean Corpuscular Hemoglobin Concent 2019-01-11 16:01:00* Test Item Value Reference Range Interpretation Comments Mean Corpuscular Hemoglobin Concent (test code = 786-4) 32.1 31-35 [facility] CenterRed Cell Distribution Wghsi2163-07-10 16:01:00* Test Item Value Reference Range Interpretation Comments Red Cell Distribution Width (test code = 24612-1) 14.2 11.7 -14.4 [facility] CenterPlatelet Ysbyr6202-13-90 16:01:00* Test Item Value Reference Range Interpretation Comments Platelet Count (test code = 777-3) 188 140-360 [facility] CenterNeutrophils (%) (Auto)2019-01-11 16:01:00 * Test Item Value Reference Range Interpretation Comments Neutrophils (%) (Auto) (test code = 31300-0) 63.0 38.7-80.0 [facility] CenterLymphocytes (%) (Auto)2019-01-11 16:01:00 * Test Item Value Reference Range Interpretation Comments Lymphocytes (%) (Auto) (test code = 736-9) 22.0 18.0-39.1 [facility] CenterMonocytes (%) (Auto)2019-01-11 16:01:00* Test Item Value Reference Range Interpretation Comments Monocytes (%) (Auto) (test code = 5905-5) 10.2 4.4-11.3 [facility] CenterEosinophils (%) (Auto)2019-01-11 16:01:00 * Test Item Value Reference Range Interpretation Comments Eosinophils (%) (Auto) (test code = 713-8) 3.9 0.0-6.0 [facility] CenterBasophils (%) (Auto)2019-01-11 16:01:00* Test Item Value Reference Range Interpretation Comments Basophils (%) (Auto) (test code = 706-2) 0.6 0.0-1.0 [facility] CenterIM GRANULOCYTES %2019-01-11 16:01:00* Test Item Value Reference Range Interpretation Comments IM GRANULOCYTES % (test code = IM GRANULOCYTES %) 0.3 0.0- 1.0 [facility] CenterNeutrophils # (Auto)2019-01-11 16:01:00* Test Item Value Reference Range Interpretation Comments Neutrophils # (Auto) (test code = 751-8) 4.4 2.1-6.9 [facility] CenterLymphocytes # (Auto)2019-01-11 16:01:00* Test Item Value Reference Range Interpretation Comments Lymphocytes # (Auto) (test code = 10373-4) 1.5 1.0-3.2 [facility] CenterMonocytes # (Auto)2019-01-11 16:01:00* Test Item Value Reference Range Interpretation Comments Monocytes # (Auto) (test code = 742-7) 0.7 0.2-0.8 [facility] CenterEosinophils # (Auto)2019-01-11 16:01:00* Test Item Value Reference Range Interpretation Comments Eosinophils # (Auto) (test code = 711-2) 0.3 0.0-0.4 [facility] CenterBasophils # (Auto)2019-01-11 16:01:00* Test Item Value Reference Range Interpretation Comments Basophils # (Auto) (test code = 704-7) 0.0 0.0-0.1 [facility] CenterAbsolute Immature Granulocyte (auto 2019-01-11 16:01:00* Test Item Value Reference Range Interpretation Comments Absolute Immature Granulocyte (auto (ginger t code = Absolute Immature Granulocyte (auto) 0.02 0-0.1 [facility] CenterBedside Igpyxap3888-60-86 15:36:00* Test Item Value Reference Range Interpretation Comments Bedside Glucose (test code = 38374-3) 96 70-120 Meter ID: [id number]. [facility] CenterBlood Culture 2019-01-11 13:38:00* Test Item Value Reference Range Interpretation Comments Blood Culture (test code = 80322266) NO GROWTH AFTER [address] CenterCR MAMM BILATERAL CORA CAD DIGITAL 2019-01-11 08:27:46 - SCR MAMM BILATERAL CORA CAD DIGITALBILATERAL DIGITAL SCREENING MAMMOGRAM 3D/2D WITH CAD: 01/11/2019CLINICAL: Asymptomatic. Digital breast tomosynthesis was performed in addition to routine CC and MLO views. Current mammographic images were evaluated by either a DFMSim M-Vu or a [employer] ImageChecker CAD (computer aided detection system). Comparison is made to exams dated 11/01/2017 mammogram, 10/29/2016 mammogram, and 10/30/2015 mammogram - [facility]-. There are scattered fibroglandular tissues in both breasts. There are benign vascular calcifications in both breasts. No suspicious mass, architectural distortion, malignant type calcification, or lymph node abnormality detected. Breast architecture is stable compared to prior exams.IMPRESSION: BENIGNThere is no mammographic evidence of malignancy. Resume annual screening mammography in one year. Anabel Johnson M.D. dm/penrad:01/11/2019 08:27:46 Brick Siding Applicator: Nerissa Elkins , [facility]-FWletter sent: BIRADS 1-2 Normal Mammogram BI-RADS: 2 Benign Blood Bttcjma9952-76-85 13:38:00* Test Item Value Reference Range Interpretation Comments Blood Culture (test code = 56789945) NO GROWTH AFTER [address] [facility] CenterBedside Cfkzrlj3046-84-86 11:55:00* Test Item Value Reference Range Interpretation Comments Bedside Glucose (test code = 78467-6) 99 70-120 Meter ID: [id number] St[facility] Medical Centerodium Level 2019-01-10 07:46:00* Test Item Value Reference Range Interpretation Comments Sodium Level (test code = 2951-2) 139 136-145 [facility] CenterPotassium Nxouo2744-88-94 07:46:00* Test Item Value Reference Range Interpretation Comments Potassium Level (test code = 2823-3) 4.0 3.5-5.1 [facility] CenterChloride Ebfsc3749-35-81 07:46:00* Test Item Value Reference Range Interpretation Comments Chloride Level (test code = 2075-0) 106 98-107 [facility] CenterCarbon Dioxide Whpfm7363-63-95 07:46:00* Test Item Value Reference Range Interpretation Comments Carbon Dioxide Level (test code = 2028-9) 27 22-29 [facility] CenterAnion Fma5246-25-48 07:46:00* Test Item Value Reference Range Interpretation Comments Anion Gap (test code = 42038-2) 10.0 8-16 [facility] CenterBlood Urea Azvmcpdj5215-05-24 07:46:00* Test Item Value Reference Range Interpretation Comments Blood Urea Nitrogen (test code = 3094-0) 11 7-26 [facility] CenterCreatinine2019-10-08 07:46:00* Test Item Value Reference Range Interpretation Comments Creatinine (test code = 2160-0) 0.66 0.57-1.11 [facility] CenterBUN/Creatinine Fotzs0685-72-52 07:46:00* Test Item Value Reference Range Interpretation Comments BUN/Creatinine Ratio (test code = 3097-3) 17 6- [facility] CenterEstimat Glomerular Filtration Rate 2019-01-10 07:46:00* Test Item Value Reference Range Interpretation Comments Estimat Glomerular Filtration Rate (test code = 499150371) > 60 >60 Ranges were taken from the National Kidney Disease Education Program and the [facility] literature.Reference ranges:60 or greater: Dllhdm74-09 ( for 3 consecutive months): Chronic kidney disease 15 or less: Kidney failureSt. [facility] CenterGlucose Hfuuh3741-75-40 07:46:00* Test Item Value Reference Range Interpretation Comments Glucose Level (test code = QHG3919) 107 74-118 [facility] CenterCalcium Mwdwm7708-12-51 07:46:00* Test Item Value Reference Range Interpretation Comments Calcium Level (test code = 83211-9) 8.8 8.4-10.2 [facility] CenterWhite Blood Pumgx9121-89-19 07:33:00* Test Item Value Reference Range Interpretation Comments White Blood Count (test code = 6690-2) 4.54 4.8-10.[address] [facility] CenterRed Blood Xbvfd3146-99-32 07:33:00* Test Item Value Reference Range Interpretation Comments Red Blood Count (test code = 789-8) 3.05 3.6-5.[address] [facility] CenterHemoglobin2019-10-08 07:33:00* Test Item Value Reference Range Interpretation Comments Hemoglobin (test code = 64926-5) 9.2 12.0-16.[address] [facility] CenterHematocrit2019-10-08 07:33:00* Test Item Value Reference Range Interpretation Comments Hematocrit (test code = 4544-3) 28.9 34.2-44.[address] [facility] CenterMean Corpuscular Fwnnab7866-65-20 07:33:00* Test Item Value Reference Range Interpretation Comments Mean Corpuscular Volume (test code = 787-2) 94.8 81-99 [facility] CenterMean Corpuscular Lnbrsgbjra6415-57-24 07:33:00* Test Item Value Reference Range Interpretation Comments Mean Corpuscular Hemoglobin (test code = 785-6) 30.2 28-32 [facility] CenterMean Corpuscular Hemoglobin Concent 2019-01-10 07:33:00* Test Item Value Reference Range Interpretation Comments Mean Corpuscular Hemoglobin Concent (test code = 786-4) 31.8 31-35 [facility] CenterRed Cell Distribution Ckkiz3169-87-95 07:33:00* Test Item Value Reference Range Interpretation Comments Red Cell Distribution Width (test code = 97435-6) 14.2 11.7 -14.4 [facility] CenterPlatelet Oixer4247-91-68 07:33:00* Test Item Value Reference Range Interpretation Comments Platelet Count (test code = 777-3) 134 140-[address] [facility] CenterNeutrophils (%) (Auto)2019-01-10 07:33:00 * Test Item Value Reference Range Interpretation Comments Neutrophils (%) (Auto) (test code = 22724-0) 66.6 38.7-80.0 [facility] CenterLymphocytes (%) (Auto)2019-01-10 07:33:00 * Test Item Value Reference Range Interpretation Comments Lymphocytes (%) (Auto) (test code = 736-9) 16.3 18.0-39.[address] [facility] CenterMonocytes (%) (Auto)2019-01-10 07:33:00* Test Item Value Reference Range Interpretation Comments Monocytes (%) (Auto) (test code = 5905-5) 11.7 4.4-11.[address] [facility] CenterEosinophils (%) (Auto)2019-01-10 07:33:00 * Test Item Value Reference Range Interpretation Comments Eosinophils (%) (Auto) (test code = 713-8) 4.6 0.0-6.0 [facility] CenterBasophils (%) (Auto)2019-01-10 07:33:00* Test Item Value Reference Range Interpretation Comments Basophils (%) (Auto) (test code = 706-2) 0.4 0.0-1.0 [facility] CenterIM GRANULOCYTES %2019-01-10 07:33:00* Test Item Value Reference Range Interpretation Comments IM GRANULOCYTES % (test code = IM GRANULOCYTES %) 0.4 0.0- 1.0 [facility] CenterNeutrophils # (Auto)2019-01-10 07:33:00* Test Item Value Reference Range Interpretation Comments Neutrophils # (Auto) (test code = 751-8) 3.0 2.1-6.9 [facility] CenterLymphocytes # (Auto)2019-01-10 07:33:00* Test Item Value Reference Range Interpretation Comments Lymphocytes # (Auto) (test code = 69480-0) 0.7 1.0-3.[address] [facility] CenterMonocytes # (Auto)2019-01-10 07:33:00* Test Item Value Reference Range Interpretation Comments Monocytes # (Auto) (test code = 742-7) 0.5 0.2-0.8 [facility] CenterEosinophils # (Auto)2019-01-10 07:33:00* Test Item Value Reference Range Interpretation Comments Eosinophils # (Auto) (test code = 711-2) 0.2 0.0-0.4 [facility] CenterBasophils # (Auto)2019-01-10 07:33:00* Test Item Value Reference Range Interpretation Comments Basophils # (Auto) (test code = 704-7) 0.0 0.0-0.1 [facility] CenterAbsolute Immature Granulocyte (auto 2019-01-10 07:33:00* Test Item Value Reference Range Interpretation Comments Absolute Immature Granulocyte (auto (ginger t code = Absolute Immature Granulocyte (auto) 0.02 0-0.1 [facility] CenterB-Type Natriuretic Jfpnklk7866-44-19 14:18:00* Test Item Value Reference Range Interpretation Comments B-Type Natriuretic Peptide (test code = 24366-5) 482.9 0-[address] [facility] CenterBType Natriuretic Uftbdkp2275-76-46 14:18:00* Test Item Value Reference Range Interpretation Comments B-Type Natriuretic Peptide (test code = 64118-2) 482.9 0-[address] [facility] CenterB-Type Natriuretic Ulkrcjo2889-42-42 14:18:00* Test Item Value Reference Range Interpretation Comments B-Type Natriuretic Peptide (test code = 12618-2) 482.9 0-[address] [facility] CenterB-Type Natriuretic Bgokogx6910-65-43 14:18:00* Test Item Value Reference Range Interpretation Comments B-Type Natriuretic Peptide (test code = 16875-4) 482.9 0-[address] [facility] CenterCreatine Kinase [id number] 14:14:00* Test Item Value Reference Range Interpretation Comments Creatine Kinase MB (test code = 06529-3) 1.70 0-5.0 [facility] CenterTroponin [id number] 14:14:00* Test Item Value Reference Range Interpretation Comments Troponin I (test code = EJC5627) < 0.001 0-0.300 [facility] CenterCreatine Kinase JP1059-94-18 14:14:00* Test Item Value Reference Range Interpretation Comments Creatine Kinase MB (test code = 28416-2) 1.70 0-5.0 [facility] CenterTroponin K7020-14-06 14:14:00* Test Item Value Reference Range Interpretation Comments Troponin I (test code = HMQ7971) < 0.001 0-0.300 [facility] CenterUrine KZM0068-49-84 14:09:00* Test Item Value Reference Range Interpretation Comments Urine WBC (test code = 5821-4) 6-10 0-[address] [facility] CenterUrine MEP8525-86-27 14:09:00* Test Item Value Reference Range Interpretation Comments Urine RBC (test code = 49499-1) 6-10 0-[address] [facility] CenterUrine Qulcalfg3180-27-19 14:09:00* Test Item Value Reference Range Interpretation Comments Urine Bacteria (test code = 42287-4) RARE NONE [facility] CenterUrine Epithelial Fedlz5279-21-01 14:09:00 * Test Item Value Reference Range Interpretation Comments Urine Epithelial Cells (test code = 21891-5) FEW NONE [facility] CenterUrine VCX4583-59-33 14:09:00* Test Item Value Reference Range Interpretation Comments Urine WBC (test code = 5821-4) 6-10 0-[address] [facility] CenterUrine XZY7023-87-81 14:09:00* Test Item Value Reference Range Interpretation Comments Urine RBC (test code = 20321-2) 6-10 0-[address] [facility] CenterUrine Azexzarx6228-66-08 14:09:00* Test Item Value Reference Range Interpretation Comments Urine Bacteria (test code = 81286-9) RARE NONE [facility] CenterUrine Epithelial Uvnsb8035-20-17 14:09:00 * Test Item Value Reference Range Interpretation Comments Urine Epithelial Cells (test code = 08223-7) FEW NONE [facility] CenterUrine UTE7678-97-78 14:09:00* Test Item Value Reference Range Interpretation Comments Urine WBC (test code = 5821-4) 6-10 0-[address] [facility] CenterUrine [id number] 14:09:00* Test Item Value Reference Range Interpretation Comments Urine RBC (test code = 17586-6) 6-10 0-[address] [facility] CenterUrine Uwlgfrmf0041-71-86 14:09:00* Test Item Value Reference Range Interpretation Comments Urine Bacteria (test code = 66402-3) RARE NONE [facility] CenterUrine Epithelial Hwnyd0907-34-19 14:09:00 * Test Item Value Reference Range Interpretation Comments Urine Epithelial Cells (test code = 82146-6) FEW NONE [facility] CenterWhite Blood Bxlco8953-71-91 14:07:00* Test Item Value Reference Range Interpretation Comments White Blood Count (test code = 6690-2) 5.84 4.8-10.8 [facility] CenterRed Blood Hekeb6695-05-90 14:07:00* Test Item Value Reference Range Interpretation Comments Red Blood Count (test code = 789-8) 4.01 3.6-5.1 [facility] CenterHemoglobin2019-10-06 14:07:00* Test Item Value Reference Range Interpretation Comments Hemoglobin (test code = 31074-7) 11.9 12.0-16.[address] [facility] CenterHematocrit2019-10-06 14:07:00* Test Item Value Reference Range Interpretation Comments Hematocrit (test code = 4544-3) 36.5 34.2-44.1 [facility] CenterMean Corpuscular Fkuyxl7163-71-95 14:07:00* Test Item Value Reference Range Interpretation Comments Mean Corpuscular Volume (test code = 787-2) 91.0 81-99 [facility] CenterMean Corpuscular Aykegzygzy4735-36-07 14:07:00* Test Item Value Reference Range Interpretation Comments Mean Corpuscular Hemoglobin (test code = 785-6) 29.7 28-32 [facility] CenterMean Corpuscular Hemoglobin Concent 2019-01-08 14:07:00* Test Item Value Reference Range Interpretation Comments Mean Corpuscular Hemoglobin Concent (test code = 786-4) 32.6 31-35 [facility] CenterRed Cell Distribution Vujvy7237-11-78 14:07:00* Test Item Value Reference Range Interpretation Comments Red Cell Distribution Width (test code = 70674-4) 14.0 11.7 -14.4 [facility] CenterPlatelet Rkxlo1675-30-49 14:07:00* Test Item Value Reference Range Interpretation Comments Platelet Count (test code = 777-3) 216 140-360 [facility] CenterNeutrophils (%) (Auto)2019-01-08 14:07:00 * Test Item Value Reference Range Interpretation Comments Neutrophils (%) (Auto) (test code = 85279-2) 68.5 38.7-80.0 [facility] CenterLymphocytes (%) (Auto)2019-01-08 14:07:00 * Test Item Value Reference Range Interpretation Comments Lymphocytes (%) (Auto) (test code = 736-9) 19.9 18.0-39.1 [facility] CenterMonocytes (%) (Auto)2019-01-08 14:07:00* Test Item Value Reference Range Interpretation Comments Monocytes (%) (Auto) (test code = 5905-5) 8.2 4.4-11.3 [facility] CenterEosinophils (%) (Auto)2019-01-08 14:07:00 * Test Item Value Reference Range Interpretation Comments Eosinophils (%) (Auto) (test code = 713-8) 2.4 0.0-6.0 [facility] CenterBasophils (%) (Auto)2019-01-08 14:07:00* Test Item Value Reference Range Interpretation Comments Basophils (%) (Auto) (test code = 706-2) 0.7 0.0-1.0 [facility] CenterIM GRANULOCYTES %2019-01-08 14:07:00* Test Item Value Reference Range Interpretation Comments IM GRANULOCYTES % (test code = IM GRANULOCYTES %) 0.3 0.0- 1.0 [facility] CenterNeutrophils # (Auto)2019-01-08 14:07:00* Test Item Value Reference Range Interpretation Comments Neutrophils # (Auto) (test code = 751-8) 4.0 2.1-6.9 [facility] CenterLymphocytes # (Auto)2019-01-08 14:07:00* Test Item Value Reference Range Interpretation Comments Lymphocytes # (Auto) (test code = 23862-5) 1.2 1.0-3.2 [facility] CenterMonocytes # (Auto)2019-01-08 14:07:00* Test Item Value Reference Range Interpretation Comments Monocytes # (Auto) (test code = 742-7) 0.5 0.2-0.8 [facility] CenterEosinophils # (Auto)2019-01-08 14:07:00* Test Item Value Reference Range Interpretation Comments Eosinophils # (Auto) (test code = 711-2) 0.1 0.0-0.4 [facility] CenterBasophils # (Auto)2019-01-08 14:07:00* Test Item Value Reference Range Interpretation Comments Basophils # (Auto) (test code = 704-7) 0.0 0.0-0.1 [facility] CenterAbsolute Immature Granulocyte (auto 2019-01-08 14:07:00* Test Item Value Reference Range Interpretation Comments Absolute Immature Granulocyte (auto (ginger t code = Absolute Immature Granulocyte (auto) 0.02 0-0.1 [facility] CenterProthrombin Esrn8724-95-64 14:07:00* Test Item Value Reference Range Interpretation Comments Prothrombin Time (test code = 5902-2) 25.3 11.9-14.[address] [facility] CenterProthromb Time International Ratio 2019-01-08 14:07:00* Test Item Value Reference Range Interpretation Comments Prothromb Time International Ratio (test code = 6301-6) 2.22 Oral Anticoagulant Therapy INR Values:1. Low Intensity Therapy 1.5 - 2.02 . Moderate Intensity Therapy 2.0 - 3.03. High Intensity Therapy(1) 2.5 - 3. 54. High Intensity Therapy(2) 3.0 - 4.05. Panic Value INR > 5.0 [facility] CenterActivated Partial Thromboplast Time 2019-01-08 14:07:00* Test Item Value Reference Range Interpretation Comments Activated Partial Thromboplast Time (test code = 19764-3) 52.2 23.8-35.[address] [facility] CenterProthrombin Rqwr2308-06-47 14:07:00* Test Item Value Reference Range Interpretation Comments Prothrombin Time (test code = 5902-2) 25.3 11.9-14.[address] [facility] CenterProthromb Time International Ratio 2019-01-08 14:07:00* Test Item Value Reference Range Interpretation Comments Prothromb Time International Ratio (test code = 6301-6) 2.22 Oral Anticoagulant Therapy INR Values:1. Low Intensity Therapy 1.5 - 2.02 . Moderate Intensity Therapy 2.0 - 3.03. High Intensity Therapy(1) 2.5 - 3. 54. High Intensity Therapy(2) 3.0 - 4.05. Panic Value INR > 5.0 [facility] CenterActivated Partial Thromboplast Time 2019-01-08 14:07:00* Test Item Value Reference Range Interpretation Comments Activated Partial Thromboplast Time (test code = 82135-5) 52.2 23.8-35.[address] Centerodium Dzbie7499-73-92 14:06:00* Test Item Value Reference Range Interpretation Comments Sodium Level (test code = 2951-2) 138 136-145 [facility] CenterPotassium Frjko0366-38-21 14:06:00* Test Item Value Reference Range Interpretation Comments Potassium Level (test code = 2823-3) 3.9 3.5-5.1 [facility] CenterChloride Omqou8163-87-60 14:06:00* Test Item Value Reference Range Interpretation Comments Chloride Level (test code = 2075-0) 102 98-107 [facility] CenterCarbon Dioxide Jkzqs3550-93-36 14:06:00* Test Item Value Reference Range Interpretation Comments Carbon Dioxide Level (test code = 2028-9) 29 22-29 [facility] CenterAnion [id number] 14:06:00* Test Item Value Reference Range Interpretation Comments Anion Gap (test code = 46843-6) 10.9 8-16 [facility] CenterBlood Urea Ctrlyuai5604-94-45 14:06:00* Test Item Value Reference Range Interpretation Comments Blood Urea Nitrogen (test code = 3094-0) 10 7-26 [facility] CenterCreatinine2019-10-06 14:06:00* Test Item Value Reference Range Interpretation Comments Creatinine (test code = 2160-0) 0.67 0.57-1.11 [facility] CenterBUN/Creatinine Ahfkz4642-93-57 14:06:00* Test Item Value Reference Range Interpretation Comments BUN/Creatinine Ratio (test code = 3097-3) 15 09-27 [facility] CenterEstimat Glomerular Filtration Rate 2019-01-08 14:06:00* Test Item Value Reference Range Interpretation Comments Estimat Glomerular Filtration Rate (test code = 326477100) > 60 >60 Ranges were taken from the National Kidney Disease Education Program and the On license of [facility] Kidney Foundation literature.Reference ranges:60 or greater: Tuxmld22-52 ( for 3 consecutive months): Chronic kidney disease 15 or less: Kidney failureSt. [facility] CenterGlucose Aomta0877-97-97 14:06:00* Test Item Value Reference Range Interpretation Comments Glucose Level (test code = UNE3820) 139 74-[address] [facility] CenterCalcium Zywcv0230-38-16 14:06:00* Test Item Value Reference Range Interpretation Comments Calcium Level (test code = 28513-1) 9.5 8.4-10.2 [facility] CenterLactic Acid Uemdn7900-95-74 14:06:00* Test Item Value Reference Range Interpretation Comments Lactic Acid Level (test code = Lactic Acid Level) 12.7 4.5- 19.8 [facility] CenterTotal Meacbopif2762-24-85 14:06:00* Test Item Value Reference Range Interpretation Comments Total Bilirubin (test code = 1975-2) 0.5 0.2-1.2 [facility] CenterAspartate Amino Transf (AST/SGOT) 2019-01-08 14:06:00* Test Item Value Reference Range Interpretation Comments Aspartate Amino Transf (AST/SGOT) (test code = Aspartate Amino Transf (AST/SGOT)) 18 5-34 [facility] CenterAlanine Aminotransferase (ALT/SGPT) 2019-01-08 14:06:00* Test Item Value Reference Range Interpretation Comments Alanine Aminotransferase (ALT/SGPT) (test code = 1742-6) 10 0-55 [facility] CenterTotal Kfhhwte2037-16-12 14:06:00* Test Item Value Reference Range Interpretation Comments Total Protein (test code = 2885-2) 6.5 6.5-8.1 [facility] CenterAlbumin2019-10-06 14:06:00* Test Item Value Reference Range Interpretation Comments Albumin (test code = 1751-7) 3.5 3.5-5.0 [facility] CenterGlobulin2019-10-06 14:06:00* Test Item Value Reference Range Interpretation Comments Globulin (test code = 39969-6) 3.0 2.3-3.5 [facility] CenterAlbumin/Globulin Fffqj8622-36-58 14:06:00 * Test Item Value Reference Range Interpretation Comments Albumin/Globulin Ratio (test code = 1759-0) 1.2 0.8-2.0 [facility] CenterAlkaline Dwugouatboh8894-23-48 14:06:00* Test Item Value Reference Range Interpretation Comments Alkaline Phosphatase (test code = 6768-6) 30 40-[address] [facility] CenterCreatine Zeayjf2684-30-28 14:06:00* Test Item Value Reference Range Interpretation Comments Creatine Kinase (test code = 2157-6) 55 29-168 [facility] CenterLactic Acid Ouhwy9666-93-96 14:06:00* Test Item Value Reference Range Interpretation Comments Lactic Acid Level (test code = Lactic Acid Level) 12.7 4.5- 19.8 [facility] CenterTotal Gzdckjhod2669-00-90 14:06:00* Test Item Value Reference Range Interpretation Comments Total Bilirubin (test code = 1975-2) 0.5 0.2-1.2 [facility] CenterAspartate Amino Transf (AST/SGOT) 2019-01-08 14:06:00* Test Item Value Reference Range Interpretation Comments Aspartate Amino Transf (AST/SGOT) (test code = Aspartate Amino Transf (AST/SGOT)) 18 5-34 [facility] CenterAlanine Aminotransferase (ALT/SGPT) 2019-01-08 14:06:00* Test Item Value Reference Range Interpretation Comments Alanine Aminotransferase (ALT/SGPT) (test code = 1742-6) 10 0-55 [facility] CenterTotal Tickdzz3730-96-66 14:06:00* Test Item Value Reference Range Interpretation Comments Total Protein (test code = 2885-2) 6.5 6.5-8.1 [facility] CenterAlbumin2019-10-06 14:06:00* Test Item Value Reference Range Interpretation Comments Albumin (test code = 1751-7) 3.5 3.5-5.0 [facility] CenterGlobulin2019-10-06 14:06:00* Test Item Value Reference Range Interpretation Comments Globulin (test code = 30129-4) 3.0 2.3-3.5 [facility] CenterAlbumin/Globulin Yjqot8558-71-16 14:06:00 * Test Item Value Reference Range Interpretation Comments Albumin/Globulin Ratio (test code = 1759-0) 1.2 0.8-2.0 [facility] CenterAlkaline Twhrpbqfobo1916-17-16 14:06:00* Test Item Value Reference Range Interpretation Comments Alkaline Phosphatase (test code = 6768-6) 30 40-[address] [facility] CenterCreatine Lshdtv3429-69-44 14:06:00* Test Item Value Reference Range Interpretation Comments Creatine Kinase (test code = 2157-6) 55 29-168 [facility] CenterLactic Acid Odpwi9181-31-21 14:06:00* Test Item Value Reference Range Interpretation Comments Lactic Acid Level (test code = Lactic Acid Level) 12.7 4.5- 19.8 [facility] CenterLactic Acid Bsueo7954-90-27 14:06:00* Test Item Value Reference Range Interpretation Comments Lactic Acid Level (test code = Lactic Acid Level) 12.7 4.5- 19.8 [facility] CenterUrine Dohtv5031-92-66 13:59:00* Test Item Value Reference Range Interpretation Comments Urine Color (test code = 5778-6) YELLOW YELLOW [facility] CenterUrine Rdwzasr6365-42-91 13:59:00* Test Item Value Reference Range Interpretation Comments Urine Clarity (test code = 32693-1) CLEAR CLEAR [facility] CenterUrine Specific Jlidpco5070-64-49 13:59:00 * Test Item Value Reference Range Interpretation Comments Urine Specific Drayden (test code = 5811-5) 1.010 1.010-1.[address] [facility] CenterUrine oT7098-22-94 13:59:00* Test Item Value Reference Range Interpretation Comments Urine pH (test code = 68010-5) 7 5-7 [facility] CenterUrine Leukocyte Grpsupjw4345-09-35 13:59:00* Test Item Value Reference Range Interpretation Comments Urine Leukocyte Esterase (test code = 03427-2) TRACE NEGATIV E H [facility] CenterUrine Wfcpudc2846-53-23 13:59:00* Test Item Value Reference Range Interpretation Comments Urine Nitrite (test code = 63241-2) NEGATIVE NEGATIVE [facility] CenterUrine Jtenvia9258-45-27 13:59:00* Test Item Value Reference Range Interpretation Comments Urine Protein (test code = 75875-9) 1+ NEGATIVE H [facility] CenterUrine Glucose (UA)2019-01-08 13:59:00* Test Item Value Reference Range Interpretation Comments Urine Glucose (UA) (test code = 35288-8) NEGATIVE NEGATIVE [facility] CenterUrine Nmbgnpt7202-78-11 13:59:00* Test Item Value Reference Range Interpretation Comments Urine Ketones (test code = 88342-2) NEGATIVE NEGATIVE [facility] CenterUrine Rocfxxoyidwx3256-74-59 13:59:00* Test Item Value Reference Range Interpretation Comments Urine Urobilinogen (test code = 17143-6) 0.2 0.2-1 [facility] CenterUrine Sksfbwitz2048-84-27 13:59:00* Test Item Value Reference Range Interpretation Comments Urine Bilirubin (test code = 1977-8) NEGATIVE NEGATIVE [facility] CenterUrine Ofdxj7654-42-78 13:59:00* Test Item Value Reference Range Interpretation Comments Urine Blood (test code = 73980-5) TRACE NEGATIVE H [facility] CenterUrine Yulxt1366-27-81 13:59:00* Test Item Value Reference Range Interpretation Comments Urine Color (test code = 5778-6) YELLOW YELLOW [facility] CenterUrine Ushvhde1511-40-37 13:59:00* Test Item Value Reference Range Interpretation Comments Urine Clarity (test code = 56751-9) CLEAR CLEAR [facility] CenterUrine Specific Wiypvwu8099-76-28 13:59:00 * Test Item Value Reference Range Interpretation Comments Urine Specific [place] (test code = 5811-5) 1.010 1.010-1.[address] [facility] tJ4497-12-44 13:59:00* Test Item Value Reference Range Interpretation Comments Urine pH (test code = 95101-1) 7 5-7 [facility] CenterU[facility] Leukocyte Cnrnwdlw4706-64-13 13:59:00* Test Item Value Reference Range Interpretation Comments Urine Leukocyte Esterase (test code = 23780-8) TRACE NEGATIV E H [facility] CenterUrine Hkheuop0450-46-20 13:59:00* Test Item Value Reference Range Interpretation Comments Urine Nitrite (test code = 14504-7) NEGATIVE NEGATIVE [facility] CenterU[facility] Bezhtib7239-82-66 13:59:00* Test Item Value Reference Range Interpretation Comments Urine Protein (test code = 70695-7) 1+ NEGATIVE H [facility] CenterUrine Glucose (UA)2019-01-08 13:59:00* Test Item Value Reference Range Interpretation Comments Urine Glucose (UA) (test code = 16679-9) NEGATIVE NEGATIVE [facility] CenterU[facility] Mrawitd1558-46-40 13:59:00* Test Item Value Reference Range Interpretation Comments Urine Ketones (test code = 74461-0) NEGATIVE NEGATIVE [facility] Iuziikvxhhsj6077-57-62 13:59:00* Test Item Value Reference Range Interpretation Comments Urine Urobilinogen (test code = 77226-8) 0.2 0.2-1 [facility] CenterU[facility] Ipawguljb0300-19-87 13:59:00* Test Item Value Reference Range Interpretation Comments Urine Bilirubin (test code = 1977-8) NEGATIVE NEGATIVE [facility] Ftjqe3556-00-47 13:59:00* Test Item Value Reference Range Interpretation Comments Urine Blood (test code = 80148-1) TRACE NEGATIVE H [facility] Jrmzm5811-30-61 13:59:00* Test Item Value Reference Range Interpretation Comments Urine Color (test code = 5778-6) YELLOW YELLOW [facility] Xulokan4947-44-03 13:59:00* Test Item Value Reference Range Interpretation Comments Urine Clarity (test code = 75698-3) CLEAR CLEAR [facility] Specific Ivpysiu9990-97-87 13:59:00 * Test Item Value Reference Range Interpretation Comments Urine Specific [place] (test code = 5811-5) 1.010 1.010-1.[address] [facility] pX0697-61-07 13:59:00* Test Item Value Reference Range Interpretation Comments Urine pH (test code = 02674-4) 7 5-7 [facility] Leukocyte Apafluop8369-11-40 13:59:00* Test Item Value Reference Range Interpretation Comments Urine Leukocyte Esterase (test code = 49596-8) TRACE NEGATIV E H [facility] CenterU[facility] Brvpnul5382-09-44 13:59:00* Test Item Value Reference Range Interpretation Comments Urine Nitrite (test code = 13971-5) NEGATIVE NEGATIVE [facility] CenterU[facility] Qofpotq2328-83-66 13:59:00* Test Item Value Reference Range Interpretation Comments Urine Protein (test code = 72638-4) 1+ NEGATIVE H [facility] CenterUrine Glucose (UA)2019-01-08 13:59:00* Test Item Value Reference Range Interpretation Comments Urine Glucose (UA) (test code = 49128-9) NEGATIVE NEGATIVE [facility] CenterU[facility] Jimzkna6714-31-28 13:59:00* Test Item Value Reference Range Interpretation Comments Urine Ketones (test code = 03108-5) NEGATIVE NEGATIVE [facility] CenterU[facility] Wkucvzzriqre0063-83-25 13:59:00* Test Item Value Reference Range Interpretation Comments Urine Urobilinogen (test code = 58069-2) 0.2 0.2-1 [facility] Hcflkwfyr1666-64-95 13:59:00* Test Item Value Reference Range Interpretation Comments Urine Bilirubin (test code = 1977-8) NEGATIVE NEGATIVE [facility] CenterU[facility] Fnjkw6310-69-86 13:59:00* Test Item Value Reference Range Interpretation Comments Urine Blood (test code = 25949-4) TRACE NEGATIVE H [facility] Lncdmha5083-93-18 15:50:00* Test Item Value Reference Range Interpretation Comments Bedside Glucose (test code = 44178-4) 92 70-120 Meter ID: [id number] [facility] Glucose 2018-10-28 15:50:00* Test Item Value Reference Range Interpretation Comments Bedside Glucose (test code = 87424-4) 92 70-120 Meter ID: [id number] [facility] I1502-46-21 14:47:00 [place] [address] Patient Name: MAURIZIO WINN MR #: [id number] : 1935 Age/Sex: 83/F Req #: [id number] Adm Physician: MAURICIO AYOUB MD Ordered by: MAURICIO AYOUB MD Report #: [id number] Location: MED/SURG2 Room/Bed: [facility] Procedure: [id number] C T/CT CHEST W Exam Date: 10/28/18 Exam Time: 1420 REPORT STATUS: Signed EXAM: CT Ches t WITH intravenous contrast 10/28/2018 9:54 AM INDICATION: Pulmonary Nodule COMPARISON: None TECHNIQUE: Chest was scanned utilizing a multidetector alejandro theodore scanner from the lung apex through the level of the adrenal glands after a dministration of IV contrast. Coronal and sagittal reformations were obtained. Routine protocol was performed. IV CONTRAST: 100mL Isovue 370 RADIATIO N DOSE: Total DLP: 549 mGy*cm. Dose modulation, iterative reconstruction, and/ or weight based adjustment of the mA/kV was utilized to reduce the radiation d ose to as low as reasonably achievable. COMPLICATIONS: None FINDINGS: LINES/ TUBES: Right IJ tunneled chest port with tip terminating at the superi or cavoatrial junction. LUNGS AND AIRWAYS: The central airways are paten t. No focal consolidation or pulmonary edema. The [...] lobe calcified granuloma. Along with calcified subcentimeter righ t hilar lymph nodes, this likely represents sequela [...] 2:57 PM Dictated By: JOCELYN MATHUR MD 1457 Transcribed By: MIKA on 10/28/18 1 457 COPY TO: MAURICIO AYOUB MD CHEST 2 DRKME3677-44-15 14:42:00 [place] [address] Patient Name: MAURIZIO WINN MR #: [id number] : 4 Age/Sex: 83/F Req #: [id number] Adm Physician: MAURICIO AYOUB MD Ordered by: MAURICIO AYOUB MD Report #: [id number] Location: MED/SURG2 Room/Bed: [facility] Procedure: [id number] D X/CHEST 2 VIEWS Exam Date: 10/26/18 [...] PM Dictated By: JUAN FRANCISCO MURO MD 144 Transcribed By: MIKA on 10/26/18 1447 COPY TO: MAURICIO AYOUB MD Urine FDQ6855-50-21 06:55:00* Test Item Value Reference Range Interpretation Comments Urine WBC (test code = 5821-4) 21-50 0-[address] [facility] CenterU[facility] XFO2415-87-89 06:55:00* Test Item Value Reference Range Interpretation Comments Urine RBC (test code = 67928-7) 6-10 0-[address] [facility] CenterU[facility] Pvzqohlv5825-21-84 06:55:00* Test Item Value Reference Range Interpretation Comments Urine Bacteria (test code = 34878-5) MODERATE NONE H [facility] CenterUrine Epithelial Ywqgt5802-85-62 06:55:00 * Test Item Value Reference Range Interpretation Comments Urine Epithelial Cells (test code = 14291-9) MANY NONE [facility] CenterU[facility] Hnmdz6615-23-43 06:52:00* Test Item Value Reference Range Interpretation Comments Urine Color (test code = 5778-6) YELLOW YELLOW [facility] CenterU[facility] Otgjfqy8596-38-66 06:52:00* Test Item Value Reference Range Interpretation Comments Urine Clarity (test code = 39454-2) CLEAR CLEAR [facility] CenterU[facility] Specific Ugyijtv1017-80-20 06:52:00 * Test Item Value Reference Range Interpretation Comments Urine Specific [place] (test code = 5811-5) 1.015 1.010-1.[address] [facility] CenterU[facility] mI5649-44-75 06:52:00* Test Item Value Reference Range Interpretation Comments Urine pH (test code = 38505-9) 7 5-7 [facility] CenterU[facility] Leukocyte Mqlfkjzx2535-09-41 06:52:00* Test Item Value Reference Range Interpretation Comments Urine Leukocyte Esterase (test code = 57290-9) TRACE NEGATIV E H [facility] CenterU[facility] Jypyosv3356-63-26 06:52:00* Test Item Value Reference Range Interpretation Comments Urine Nitrite (test code = 04906-1) NEGATIVE NEGATIVE [facility] CenterU[facility] Pnshhyw6581-33-58 06:52:00* Test Item Value Reference Range Interpretation Comments Urine Protein (test code = 34918-8) TRACE NEGATIVE H [facility] CenterUrine Glucose (UA)2018-10-26 06:52:00* Test Item Value Reference Range Interpretation Comments Urine Glucose (UA) (test code = 34848-9) NEGATIVE NEGATIVE [facility] CenterU[facility] Turdkmd9097-32-23 06:52:00* Test Item Value Reference Range Interpretation Comments Urine Ketones (test code = 68864-5) NEGATIVE NEGATIVE [facility] Sxvjyrvkztem6451-16-78 06:52:00* Test Item Value Reference Range Interpretation Comments Urine Urobilinogen (test code = 96256-9) 0.2 0.2-1 [facility] CenterU[facility] Cjvpahqtb7305-66-20 06:52:00* Test Item Value Reference Range Interpretation Comments Urine Bilirubin (test code = 1977-8) NEGATIVE NEGATIVE [facility] CenterUrine Wrxrv3224-91-83 06:52:00* Test Item Value Reference Range Interpretation Comments Urine Blood (test code = 30054-6) TRACE NEGATIVE [facility] Centerodium Qsdrz3562-60-34 20:34:00* Test Item Value Reference Range Interpretation Comments Sodium Level (test code = 2951-2) 142 136-145 [facility] CenterPotassium Qocjr4351-34-95 20:34:00* Test Item Value Reference Range Interpretation Comments Potassium Level (test code = 2823-3) 3.8 3.5-5.1 [facility] CenterChloride Xbyzm7810-48-73 20:34:00* Test Item Value Reference Range Interpretation Comments Chloride Level (test code = 2075-0) 104 98-107 [facility] CenterCarbon Dioxide Ajepb0706-35-67 20:34:00* Test Item Value Reference Range Interpretation Comments Carbon Dioxide Level (test code = 2028-9) 28 22-29 [facility] CenterAnion Dpi9346-47-02 20:34:00* Test Item Value Reference Range Interpretation Comments Anion Gap (test code = 62397-4) 13.8 8-16 [facility] CenterBlood Urea Laftyfje0704-52-85 20:34:00* Test Item Value Reference Range Interpretation Comments Blood Urea Nitrogen (test code = 3094-0) 19 7-26 [facility] CenterCreatinine2019-07-23 20:34:00* Test Item Value Reference Range Interpretation Comments Creatinine (test code = 2160-0) 0.74 0.57-1.11 [facility] CenterBUN/Creatinine Iyiej1880-73-50 20:34:00* Test Item Value Reference Range Interpretation Comments BUN/Creatinine Ratio (test code = 3097-3) 26 6-[address] [facility] CenterEstimat Glomerular Filtration Rate 2018-10-25 20:34:00* Test Item Value Reference Range Interpretation Comments Estimat Glomerular Filtration Rate (test code = 227142388) > 60 >60 Ranges were taken from the National Kidney Disease Education Program and the [facility] [employer] literature.Reference ranges:60 or greater: Foarbj48-96 ( for 3 consecutive months): Chronic kidney disease 15 or less: Kidney failureSt. [facility]'s [facility] CenterGlucose Ubuxh7237-58-42 20:34:00* Test Item Value Reference Range Interpretation Comments Glucose Level (test code = GFA6255) 159 74-[address] [facility] CenterCalcium Boath9960-94-56 20:34:00* Test Item Value Reference Range Interpretation Comments Calcium Level (test code = 65191-3) 9.7 8.4-10.2 [facility] CenterTotal Ltsipgdim8418-73-16 20:34:00* Test Item Value Reference Range Interpretation Comments Total Bilirubin (test code = 1975-2) 0.3 0.2-1.2 [facility] CenterAspartate Amino Transf (AST/SGOT) 2018-10-25 20:34:00* Test Item Value Reference Range Interpretation Comments Aspartate Amino Transf (AST/SGOT) (test code = Aspartate Amino Transf (AST/SGOT)) 17 5-34 [facility] CenterAlanine Aminotransferase (ALT/SGPT) 2018-10-25 20:34:00* Test Item Value Reference Range Interpretation Comments Alanine Aminotransferase (ALT/SGPT) (test code = 1742-6) 11 0-55 [facility] CenterTotal Tpuxwng4368-38-94 20:34:00* Test Item Value Reference Range Interpretation Comments Total Protein (test code = 2885-2) 6.0 6.5-8.[address] [facility] CenterAlbumin2019-07-23 20:34:00* Test Item Value Reference Range Interpretation Comments Albumin (test code = 1751-7) 3.4 3.5-5.[address] [facility] CenterGlobulin2019-07-23 20:34:00* Test Item Value Reference Range Interpretation Comments Globulin (test code = 98477-8) 2.6 2.3-3.5 [facility] CenterAlbumin/Globulin Dzmil1902-19-98 20:34:00 * Test Item Value Reference Range Interpretation Comments Albumin/Globulin Ratio (test code = 1759-0) 1.3 0.8-2.0 [facility] CenterAlkaline Akkkmhbikup6590-45-38 20:34:00* Test Item Value Reference Range Interpretation Comments Alkaline Phosphatase (test code = 6768-6) 42 40-150 [facility] CenterProthrombin Vmda2319-37-78 20:27:00* Test Item Value Reference Range Interpretation Comments Prothrombin Time (test code = 5902-2) 22.9 11.9-14.[address] [facility] CenterProthromb Time International Ratio 2018-10-25 20:27:00* Test Item Value Reference Range Interpretation Comments Prothromb Time International Ratio (test code = 6301-6) 1.95 Oral Anticoagulant Therapy INR Values:1. Low Intensity Therapy 1.5 - 2.02 . Moderate Intensity Therapy 2.0 - 3.03. High Intensity Therapy(1) 2.5 - 3. 54. High Intensity Therapy(2) 3.0 - 4.05. Panic Value INR > 5.0 [facility] CenterWhite Blood Jcmau6089-54-42 20:14:00* Test Item Value Reference Range Interpretation Comments White Blood Count (test code = 6690-2) 6.44 4.8-10.8 [facility] CenterRed Blood Uzmpa4624-88-55 20:14:00* Test Item Value Reference Range Interpretation Comments Red Blood Count (test code = 789-8) 3.86 3.6-5.1 [facility] CenterHemoglobin2019-07-23 20:14:00* Test Item Value Reference Range Interpretation Comments Hemoglobin (test code = 63826-2) 11.7 12.0-16.[address] [facility] CenterHematocrit2019-07-23 20:14:00* Test Item Value Reference Range Interpretation Comments Hematocrit (test code = 4544-3) 35.4 34.2-44.1 [facility] CenterMean Corpuscular Xgiykb0272-46-06 20:14:00* Test Item Value Reference Range Interpretation Comments Mean Corpuscular Volume (test code = 787-2) 91.7 81-99 [facility] CenterMean Corpuscular Excxkjksez9990-00-02 20:14:00* Test Item Value Reference Range Interpretation Comments Mean Corpuscular Hemoglobin (test code = 785-6) 30.3 28-32 [facility] CenterMean Corpuscular Hemoglobin Concent 2018-10-25 20:14:00* Test Item Value Reference Range Interpretation Comments Mean Corpuscular Hemoglobin Concent (test code = 786-4) 33.1 31-35 [facility] CenterRed Cell Distribution Rhcmj8420-26-05 20:14:00* Test Item Value Reference Range Interpretation Comments Red Cell Distribution Width (test code = 21307-6) 13.4 11.7 -14.4 [facility] CenterPlatelet Gvjmd1382-00-40 20:14:00* Test Item Value Reference Range Interpretation Comments Platelet Count (test code = 777-3) 191 140-360 [facility] CenterNeutrophils (%) (Auto)2018-10-25 20:14:00 * Test Item Value Reference Range Interpretation Comments Neutrophils (%) (Auto) (test code = 20475-5) 56.5 38.7-80.0 [facility] CenterLymphocytes (%) (Auto)2018-10-25 20:14:00 * Test Item Value Reference Range Interpretation Comments Lymphocytes (%) (Auto) (test code = 736-9) 28.6 18.0-39.1 [facility] CenterMonocytes (%) (Auto)2018-10-25 20:14:00* Test Item Value Reference Range Interpretation Comments Monocytes (%) (Auto) (test code = 5905-5) 10.2 4.4-11.3 [facility] CenterEosinophils (%) (Auto)2018-10-25 20:14:00 * Test Item Value Reference Range Interpretation Comments Eosinophils (%) (Auto) (test code = 713-8) 3.6 0.0-6.0 [facility] CenterBasophils (%) (Auto)2018-10-25 20:14:00* Test Item Value Reference Range Interpretation Comments Basophils (%) (Auto) (test code = 706-2) 0.6 0.0-1.0 [facility] CenterIM GRANULOCYTES %2018-10-25 20:14:00* Test Item Value Reference Range Interpretation Comments IM GRANULOCYTES % (test code = IM GRANULOCYTES %) 0.5 0.0- 1.0 [facility] CenterNeutrophils # (Auto)2018-10-25 20:14:00* Test Item Value Reference Range Interpretation Comments Neutrophils # (Auto) (test code = 751-8) 3.6 2.1-6.9 [facility] CenterLymphocytes # (Auto)2018-10-25 20:14:00* Test Item Value Reference Range Interpretation Comments Lymphocytes # (Auto) (test code = 46432-7) 1.8 1.0-3.2 [facility] CenterMonocytes # (Auto)2018-10-25 20:14:00* Test Item Value Reference Range Interpretation Comments Monocytes # (Auto) (test code = 742-7) 0.7 0.2-0.8 [facility] CenterEosinophils # (Auto)2018-10-25 20:14:00* Test Item Value Reference Range Interpretation Comments Eosinophils # (Auto) (test code = 711-2) 0.2 0.0-0.4 [facility] CenterBasophils # (Auto)2018-10-25 20:14:00* Test Item Value Reference Range Interpretation Comments Basophils # (Auto) (test code = 704-7) 0.0 0.0-0.1 [facility] CenterAbsolute Immature Granulocyte (auto 2018-10-25 20:14:00* Test Item Value Reference Range Interpretation Comments Absolute Immature Granulocyte (auto (ginger t code = Absolute Immature Granulocyte (auto) 0.03 0-0.1 [facility] CenterBlood Bodhprj5427-85-77 07:15:00* Test Item Value Reference Range Interpretation Comments Blood Culture (test code = 36953913) NO GROWTH AFTER 5 DAYS, FINAL REPORT [facility]2018-12-18 07:15:00* Test Item Value Reference Range Interpretation Comments Blood Culture (test code = 59532098) NO GROWTH AFTER 5 DAYS, FINAL REPORT [facility]2018-12-16 07:15:00* Test Item Value Reference Range Interpretation Comments Blood Culture (test code = 37307391) NO GROWTH AFTER 72 HOURS [facility]2018-12-16 07:11:00* Test Item Value Reference Range Interpretation Comments Blood Culture (test code = 600-7) Organism: ESCHERICHIA COLI-ESBL [facility]2018-12-16 07:11:00* Test Item Value Reference Range Interpretation Comments Blood Culture (test code = 600-7) Organism: ESCHERICHIA COLI-ESBL [facility]2018-12-16 07:11:00* Test Item Value Reference Range Interpretation Comments Blood Culture (test code = 600-7) No Result Data Provided [facility]2018-12-16 07:11:00* Test Item Value Reference Range Interpretation Comments Blood Culture (test code = 600-7) No Result Data Provided [facility]2018-12-16 07:11:00* Test Item Value Reference Range Interpretation Comments Blood Culture (test code = 600-7) No Result Data Provided [facility]2018-12-15 08:09:00* Test Item Value Reference Range Interpretation Comments Urine Culture (test code = 630-4) Organism: ESCHERICHIA COLI-ESBL [facility]2018-12-15 08:09:00* Test Item Value Reference Range Interpretation Comments Urine Culture (test code = 630-4) Organism: ESCHERICHIA COLI-ESBL [facility]2018-12-15 08:09:00* Test Item Value Reference Range Interpretation Comments Urine Culture (test code = 630-4) No Result Data Provided [facility]2018-12-15 08:09:00* Test Item Value Reference Range Interpretation Comments Urine Culture (test code = 630-4) No Result Data Provided [facility] CenterUrine Kgbdkzs3075-65-40 08:09:00* Test Item Value Reference Range Interpretation Comments Urine Culture (test code = 630-4) No Result Data Provided [facility] CenterMRI SPINE THORACIC MF9781-78-88 17:30:00 [facility] [address] [place] [address] Patient Name: MAURIZIO WINN MR #: [id number] : 4 Age/Sex: 83/F Req #: [id number] Adm Physician: MAURICIO AYOUB MD Ordered by: TOBY CLIFFORD MD Report #: [id number] Location: [facility] Room/Bed: [place] [address] Procedure: [id number] MRI/MRI SPINE THORACIC WO Exam Date: 03/17/18 Exam T jamar: 5146 REPORT STATUS: Signed History:83-year-old female status post [...] TO: TOBY CLIFFORD MD MRI SPINE LUMBAR TI6523-54-14 17:15:00 [place] [address] Patient Name: MAURIZIO WINN MR #: [id number] : 1935 Age/Sex: 83/F Req #: [id number] Adm Physician: MAURICIO AYOUB MD Ordered by: TOBY CLIFFORD MD Report #: [id number] Location: [facility] Room/Bed: [place] [address] Procedure: [id number] MRI/MRI SPINE LUMBAR WO Exam Date: 03/17/18 Exam Jeremiah e: 1856 REPORT STATUS: Signed MR I SPINE LUMBAR [...] 03/18/181729 COPY TO: TOBY CLIFFORD MD Creatine Hhyuhm5856-87-31 07:55:00* Test Item Value Reference Range Interpretation Comments Creatine Kinase (test code = 2157-6) 101 29-168 [facility] CenterCreatine Kinase PO3731-61-12 07:55:00* Test Item Value Reference Range Interpretation Comments Creatine Kinase MB (test code = 92806-6) 1.40 0-5.0 [facility] CenterTroponin C7793-27-92 07:55:00* Test Item Value Reference Range Interpretation Comments Troponin I (test code = OVN7398) 0.006 0-0.300 [facility] CenterCreatine Txjzli4985-55-57 07:55:00* Test Item Value Reference Range Interpretation Comments Creatine Kinase (test code = 2157-6) 101 29-168 [facility] CenterCreatine Kinase ZL4766-00-92 07:55:00* Test Item Value Reference Range Interpretation Comments Creatine Kinase MB (test code = 44461-4) 1.40 0-5.0 [facility] CenterTroponin A4977-80-59 07:55:00* Test Item Value Reference Range Interpretation Comments Troponin I (test code = GKQ2950) 0.006 0-0.300 [facility] CenterTriglycerides Ddmah4000-72-32 01:14:00* Test Item Value Reference Range Interpretation Comments Triglycerides Level (test code = 2571-8) 112 0-149 [facility] CenterCholesterol Ulbfc5981-60-41 01:14:00* Test Item Value Reference Range Interpretation Comments Cholesterol Level (test code = 2093-3) 95 0-199 Less than 200 mg/dL Low Bqze809 - 239 mg/dL Borderline Gvvv949 m g/dl and greater High Risk [facility] CenterLDL Fkfnazhurxx9385-57-16 01:14:00* Test Item Value Reference Range Interpretation Comments LDL Cholesterol (test code = 2089-1) 35 60-[address] [facility] CenterHDL Dlafnvxgzbi1326-42-61 01:14:00* Test Item Value Reference Range Interpretation Comments HDL Cholesterol (test code = 2085-9) 38 40-[address] [facility] CenterCholesterol/HDL Zgnie6910-21-69 01:14:00 * Test Item Value Reference Range Interpretation Comments Cholesterol/HDL Ratio (test code = 9830-1) 2.5 3.0-3.[address] [facility] CenterTriglycerides Lumah7200-23-96 01:14:00* Test Item Value Reference Range Interpretation Comments Triglycerides Level (test code = 2571-8) 112 0-149 [facility] CenterCholesterol Hiqge0546-50-90 01:14:00* Test Item Value Reference Range Interpretation Comments Cholesterol Level (test code = 2093-3) 95 0-199 Less than 200 mg/dL Low Yklj372 - 239 mg/dL Borderline Odsi441 m g/dl and greater High Risk [facility] CenterLDL Ohcpdodebxl4473-81-32 01:14:00* Test Item Value Reference Range Interpretation Comments LDL Cholesterol (test code = 2089-1) 35 60-130 L [facility] Jcrefjcoclr8491-94-32 01:14:00* Test Item Value Reference Range Interpretation Comments HDL Cholesterol (test code = 2085-9) 38 40-[address] [facility] CenterCholesterol/HDL Ohten6358-31-94 01:14:00 * Test Item Value Reference Range Interpretation Comments Cholesterol/HDL Ratio (test code = 9830-1) 2.5 3.0-3.[address] [facility] CenterTriglycerides Uouqn7665-46-70 01:14:00* Test Item Value Reference Range Interpretation Comments Triglycerides Level (test code = 2571-8) 112 0-149 [facility] CenterCholesterol Sshdc0322-78-55 01:14:00* Test Item Value Reference Range Interpretation Comments Cholesterol Level (test code = 2093-3) 95 0-199 Less than 200 mg/dL Low Dvzt018 - 239 mg/dL Borderline Dqqh939 m g/dl and greater High Risk [facility] CenterLDL Etefhxxurda6808-88-89 01:14:00* Test Item Value Reference Range Interpretation Comments LDL Cholesterol (test code = 2089-1) 35 60-130 L [facility] Rdfeiqemzmh1825-69-04 01:14:00* Test Item Value Reference Range Interpretation Comments HDL Cholesterol (test code = 2085-9) 38 40-[address] [facility] CenterCholesterol/HDL Urbpm8477-31-90 01:14:00 * Test Item Value Reference Range Interpretation Comments Cholesterol/HDL Ratio (test code = 9830-1) 2.5 3.0-3.[address] [facility] CenterTriglycerides Dbfin7763-09-48 01:14:00* Test Item Value Reference Range Interpretation Comments Triglycerides Level (test code = 2571-8) 112 0-149 [facility] CenterCholesterol Yychh7337-64-80 01:14:00* Test Item Value Reference Range Interpretation Comments Cholesterol Level (test code = 2093-3) 95 0-199 Less than 200 mg/dL Low Ceqe030 - 239 mg/dL Borderline Iwdp038 m g/dl and greater High Risk [facility] CenterLDL Ipxktzkjbcb3355-34-80 01:14:00* Test Item Value Reference Range Interpretation Comments LDL Cholesterol (test code = 2089-1) 35 60-130 L [facility] Gophrnkqgjk8980-37-71 01:14:00* Test Item Value Reference Range Interpretation Comments HDL Cholesterol (test code = 2085-9) 38 40-[address] [facility] CenterCholesterol/HDL Wwmob0977-55-68 01:14:00 * Test Item Value Reference Range Interpretation Comments Cholesterol/HDL Ratio (test code = 9830-1) 2.5 3.0-3.[address] [facility] CenterTriglycerides Sskey5727-41-29 01:14:00* Test Item Value Reference Range Interpretation Comments Triglycerides Level (test code = 2571-8) 112 0-149 [facility] CenterCholesterol Xrrui8125-88-11 01:14:00* Test Item Value Reference Range Interpretation Comments Cholesterol Level (test code = 2093-3) 95 0-199 Less than 200 mg/dL Low Jdpr138 - 239 mg/dL Borderline Gqes794 m g/dl and greater High Risk [facility] CenterLDL Dadvojusqst0311-36-00 01:14:00* Test Item Value Reference Range Interpretation Comments LDL Cholesterol (test code = 2089-1) 35 60-130 [facility]L Pbccwoadzno4252-40-40 01:14:00* Test Item Value Reference Range Interpretation Comments HDL Cholesterol (test code = 2085-9) 38 40-[address] [facility] CenterCholesterol/HDL Bkhzl9575-39-02 01:14:00 * Test Item Value Reference Range Interpretation Comments Cholesterol/HDL Ratio (test code = 9830-1) 2.5 3.0-3.[address] [facility] CenterBedside Pvdxwqv3047-19-58 20:35:00* Test Item Value Reference Range Interpretation Comments Bedside Glucose (test code = 56276-4) 106 70-120 Meter ID: [id number]. [facility] CenterThyroid Stimulating Hormone (TSH)2018-03-17 15:07:00* Test Item Value Reference Range Interpretation Comments Thyroid Stimulating Hormone (TSH) (test code = 89861-3) 0.768 0.350-4.940 [facility] CenterThyroid Stimulating Hormone (TSH) 2018-03-17 15:07:00* Test Item Value Reference Range Interpretation Comments Thyroid Stimulating Hormone (TSH) (test code = 08678-4) 0.768 0.350-4.940 [facility] CenterThyroid Stimulating Hormone (TSH) 2018-03-17 15:07:00* Test Item Value Reference Range Interpretation Comments Thyroid Stimulating Hormone (TSH) (test code = 79568-4) 0.768 0.350-4.940 [facility] CenterThyroid Stimulating Hormone (TSH) 2018-03-17 15:07:00* Test Item Value Reference Range Interpretation Comments Thyroid Stimulating Hormone (TSH) (test code = 58471-7) 0.768 0.350-4.940 [facility] CenterThyroid Stimulating Hormone (TSH) 2018-03-17 15:07:00* Test Item Value Reference Range Interpretation Comments Thyroid Stimulating Hormone (TSH) (test code = 06704-7) 0.768 0.350-4.940 [facility] CenterCT LUMBAR SPINE GG3713-68-33 13:26:00 [place] [address] Patient Name: MAURIZIO WINN MR #: [id number] : 1935 Age/Sex: 83/F Req #: [id number] Adm Physician: MAURICIO AYOUB MD Ordered by: MARCIO MAYORGA MD Report #: [id number] Location: [facility] Room/Bed: [facility]-9 Procedure: [id number] CT/CT LUMBAR SPINE WO Exam Date: 03/17/18 [...] in the bilateral sacroiliac joints. L1-L2: Disc bulg e without gross canal or foraminal stenosis. L2-L3: Disc bulge without ifeanyi s canal or foraminal stenosis. L3-L4: At least [...] PM Dictated B y: BENTLEY SAINI MD 1339 COPY TO: MARCIO MAYORGA MD CHEST SINGLE (PORTABLE)2018-03-17 09:19:00 [place] [address] Patient Name: MAURIZIO WINN MR #: [id number] : 1935 Age/Sex: 83/F Req #: [id number] Adm Physician: Ordered by: CHOLO DELGADO MD Report #: [id number] Location: ER Room/Bed: Procedure: DX/C HEST SINGLE (PORTABLE) Exam Date: Exam Time: REPORT STATUS: Signed PROCEDURE: CHES T SINGLE (PORTABLE) COMPARISON: None. INDICATIONS: fall FINDINGS: Right subclavian central venous port catheter tip projects over the expec lachelle region of the superior cavoatrial junction. Lungs [...] 9:19 Dictated By: MENDOZA JORGENSEN MD 8 COPY TO: KARAN DELGADO MD HIP LEFT 2-3 VW (+/- PELVIS)2018-03-17 09:17:00 [place] [address] Patient Name: MAURIZIO WINN MR #: [id number] : 1935 Age/Sex: 83/F Req #: [id number] Adm Physician: Ordered by: CHOLO DELGADO MD Report #: [id number] Location: ER Room/Bed: Procedure: DX/H IP LEFT 2-3 VW (+/- PELVIS) [...] TO: CHOLO DELGADO MD CT CERVICAL SPINE IQ7865-76-51 08:57:00 [place] [address] Patient Name: MAURIZIO WINN MR #: [id number] : 1935 Age/Sex: 83/F Req #: [id number] Adm Physician: Ordered by: CHOLO DELGADO MD Report #: [id number] Location: ER Room/Bed: Procedure: [id number] CT/C T CERVICAL SPINE WO Exam Date: 03/17/18 Exam Time: 0 810 REPORT STATUS: Signed CT CER VICAL SPINE WO HISTORY: Fall COMPARISON: Concurrent head [employer] NIQUE: CT of the cervical spine without [...] is seen in the right thyroid lobe. Mil d bilateral carotid bulb calcifications are present. IMPRESSION: 1. No acute osseous abnormalities. 2. Mild multilevel spondylosis, most promine nt from C4-C5 to C6-C7. 3. Grade 1 anterolisthesis of C7 on T1 due to promine nt left facet arthrosis. Signed by: Dr. Bentley Saini M.D. on 03/17/2018 9:02 AM Dictated By: BENTLEY SAINI MD 1 Transcribed By: MIKA on 03/17/18901 COPY TO: CHOLO DELGADO MD CT BRAIN [id number] 08:50:00 [place] [address] Patient Name: MAURIZIO WINN MR #: [id number] : 1935 Age/Sex: 83/F Req #: [id number] Adm Physician: Ordered by: CHOLO DELGADO MD Report #: [id number] Location: ER Room/Bed: Procedure: [id number] CT/C T BRAIN WO Exam Date: 03/17/18 [...] according to patient size, and/or utilization of iterativ e reconstruction technique. DISCUSSION: Scalp/Skull: Unremarkable. B rain [...] 8:57 AM Dictated By: BENTLEY SAINI MD E lectronically Signed By: BENTLEY SAINI MD on 03/17/18856 Transcribed By: Sona WONG on 03/17/18856 COPY TO: CHOLO DELGADO MD Urine WBC 2018-03-17 08:04:00* Test Item Value Reference Range Interpretation Comments Urine WBC (test code = 5821-4) 11-20 0-[address] [facility] CenterUrine PDQ6944-08-40 08:04:00* Test Item Value Reference Range Interpretation Comments Urine RBC (test code = 15501-3) 11-20 0-[address] [facility] CenterUrine Arydvozi5816-45-35 08:04:00* Test Item Value Reference Range Interpretation Comments Urine Bacteria (test code = 51071-9) MANY NONE H [facility] CenterUrine Epithelial Qleyp0558-79-42 08:04:00 * Test Item Value Reference Range Interpretation Comments Urine Epithelial Cells (test code = 27432-3) RARE NONE [facility] CenterUrine Wsjzh3911-06-97 07:53:00* Test Item Value Reference Range Interpretation Comments Urine Color (test code = 5778-6) YELLOW YELLOW [facility] CenterUrine Qixmznc8610-44-35 07:53:00* Test Item Value Reference Range Interpretation Comments Urine Clarity (test code = 29412-4) HAZY CLEAR [facility] Specific Lspvako3714-81-26 07:53:00 * Test Item Value Reference Range Interpretation Comments Urine Specific Drayden (test code = 5811-5) 1.015 1.010-1.[address] [facility] CenterUrine jM3018-43-88 07:53:00* Test Item Value Reference Range Interpretation Comments Urine pH (test code = 25105-7) 6 5-7 [facility] Leukocyte Qjcmvtky0041-46-87 07:53:00* Test Item Value Reference Range Interpretation Comments Urine Leukocyte Esterase (test code = 5799-2) 2+ NEGATIVE H [facility] Evimvqu4025-82-89 07:53:00* Test Item Value Reference Range Interpretation Comments Urine Nitrite (test code = 75267-9) NEGATIVE NEGATIVE [facility] Gwabgto9446-82-69 07:53:00* Test Item Value Reference Range Interpretation Comments Urine Protein (test code = 5804-0) TRACE NEGATIVE H [facility] Glucose (UA)2018-03-17 07:53:00* Test Item Value Reference Range Interpretation Comments Urine Glucose (UA) (test code = 2349-9) NEGATIVE NEGATIVE [facility] Sxtetrh2487-14-48 07:53:00* Test Item Value Reference Range Interpretation Comments Urine Ketones (test code = 77369-5) NEGATIVE NEGATIVE [facility] Jxkuvfpwickl0347-34-75 07:53:00* Test Item Value Reference Range Interpretation Comments Urine Urobilinogen (test code = 86319-0) 0.2 0.2-1 [facility] Lstrkdrvm0894-08-34 07:53:00* Test Item Value Reference Range Interpretation Comments Urine Bilirubin (test code = 1978-6) NEGATIVE NEGATIVE [facility] CenterUrine Urfvx3592-98-99 07:53:00* Test Item Value Reference Range Interpretation Comments Urine Blood (test code = 92477-2) 4+ NEGATIVE H [facility] Centerodium Ewuox2359-79-65 07:47:00* Test Item Value Reference Range Interpretation Comments Sodium Level (test code = 2951-2) 136 136-145 [facility] CenterPotassium Lsjyv9230-32-46 07:47:00* Test Item Value Reference Range Interpretation Comments Potassium Level (test code = 2823-3) 4.2 3.5-5.1 [facility] CenterChloride Gechr5128-82-99 07:47:00* Test Item Value Reference Range Interpretation Comments Chloride Level (test code = 2075-0) 99 98-107 [facility] CenterCarbon Dioxide Vsxaw8822-09-43 07:47:00* Test Item Value Reference Range Interpretation Comments Carbon Dioxide Level (test code = 2028-9) 26 22-29 [facility] CenterAnion Pub5699-34-64 07:47:00* Test Item Value Reference Range Interpretation Comments Anion Gap (test code = 31258-7) 15.2 8-16 [facility] CenterBlood Urea Dxeixtee5068-22-92 07:47:00* Test Item Value Reference Range Interpretation Comments Blood Urea Nitrogen (test code = 3094-0) 27 7-[address] [facility] CenterCreatinine2018-12-13 07:47:00* Test Item Value Reference Range Interpretation Comments Creatinine (test code = 2160-0) 0.84 0.57-1.11 [facility] CenterBUN/Creatinine Vaqvv2245-65-70 07:47:00* Test Item Value Reference Range Interpretation Comments BUN/Creatinine Ratio (test code = 3097-3) 32 6-[address] [facility] CenterEstimat Glomerular Filtration Rate 2018-03-17 07:47:00* Test Item Value Reference Range Interpretation Comments Estimat Glomerular Filtration Rate (test code = 427336523) > 60 >60 Ranges were taken from the National Kidney Disease Education Program and the [facility] Kid[facility] Foundation literature.Reference ranges:60 or greater: Nxpbwj48-46 ( for 3 consecutive months): Chronic kidney disease 15 or less: Kidney failureSt. [facility]'s [facility] Medical CenterGlucose Dxoru1437-94-15 07:47:00* Test Item Value Reference Range Interpretation Comments Glucose Level (test code = LYR6791) 145 74-[address] [facility] CenterCalcium Mtbll9269-06-42 07:47:00* Test Item Value Reference Range Interpretation Comments Calcium Level (test code = 92362-2) 10.0 8.4-10.2 [facility] CenterMagnesium Zihsy6414-00-16 07:47:00* Test Item Value Reference Range Interpretation Comments Magnesium Level (test code = 10578-9) 1.7 1.3-2.1 [facility] CenterTotal Mtozbsrgp6744-07-07 07:47:00* Test Item Value Reference Range Interpretation Comments Total Bilirubin (test code = 1975-2) 0.8 0.2-1.2 [facility] CenterAspartate Amino Transf (AST/SGOT) 2018-03-17 07:47:00* Test Item Value Reference Range Interpretation Comments Aspartate Amino Transf (AST/SGOT) (test code = Aspartate Amino Transf (AST/SGOT)) 25 5-34 [facility] CenterAlanine Aminotransferase (ALT/SGPT) 2018-03-17 07:47:00* Test Item Value Reference Range Interpretation Comments Alanine Aminotransferase (ALT/SGPT) (test code = 1742-6) 23 0-55 [facility] CenterTotal Rjfoswo1625-29-36 07:47:00* Test Item Value Reference Range Interpretation Comments Total Protein (test code = 2885-2) 6.5 6.5-8.1 [facility] CenterAlbumin2018-12-13 07:47:00* Test Item Value Reference Range Interpretation Comments Albumin (test code = 1751-7) 3.3 3.5-5.[address] [facility] CenterGlobulin2018-12-13 07:47:00* Test Item Value Reference Range Interpretation Comments Globulin (test code = 01474-4) 3.2 2.3-3.5 [facility] CenterAlbumin/Globulin Zakla1548-81-78 07:47:00 * Test Item Value Reference Range Interpretation Comments Albumin/Globulin Ratio (test code = 1759-0) 1.0 0.8-2.0 [facility] CenterAlkaline Mpaaijfrnvd3156-61-75 07:47:00* Test Item Value Reference Range Interpretation Comments Alkaline Phosphatase (test code = 6768-6) 29 40-[address] [facility] CenterMagnesium Xzwdr3341-72-32 07:47:00* Test Item Value Reference Range Interpretation Comments Magnesium Level (test code = 55171-7) 1.7 1.3-2.1 [facility]res[facility] Rlozz0924-95-20 07:47:00* Test Item Value Reference Range Interpretation Comments Magnesium Level (test code = 43368-4) 1.7 1.3-2.1 [facility] CenterMagnesium Nrgvo9848-37-19 07:47:00* Test Item Value Reference Range Interpretation Comments Magnesium Level (test code = 66945-8) 1.7 1.3-2.1 [facility] CenterMagnesium Hgetn5664-05-32 07:47:00* Test Item Value Reference Range Interpretation Comments Magnesium Level (test code = 87731-5) 1.7 1.3-2.1 [facility] CenterLactic Acid Ottdb8497-40-23 07:36:00* Test Item Value Reference Range Interpretation Comments Lactic Acid Level (test code = Lactic Acid Level) 10.1 4.5- 19.8 [facility] CenterLactic Acid Hcgyh3692-85-95 07:36:00* Test Item Value Reference Range Interpretation Comments Lactic Acid Level (test code = Lactic Acid Level) 10.1 4.5- 19.8 [facility] CenterProthrombin Nlxv1136-79-98 07:35:00* Test Item Value Reference Range Interpretation Comments Prothrombin Time (test code = 5902-2) 24.2 11.9-14.[address] [facility] CenterProthromb Time International Ratio 2018-03-17 07:35:00* Test Item Value Reference Range Interpretation Comments Prothromb Time International Ratio (test code = 6301-6) 2.00 Oral Anticoagulant Therapy INR Values:1. Low Intensity Therapy 1.5 - 2.02 . Moderate Intensity Therapy 2.0 - 3.03. High Intensity Therapy(1) 2.5 - 3. 54. High Intensity Therapy(2) 3.0 - 4.05. Panic Value INR > 5.0 [facility] CenterActivated Partial Thromboplast Time 2018-03-17 07:35:00* Test Item Value Reference Range Interpretation Comments Activated Partial Thromboplast Time (test code = 90310-9) 50.3 23.8-35.[address] [facility] CenterActivated Partial Thromboplast Time 2018-03-17 07:35:00* Test Item Value Reference Range Interpretation Comments Activated Partial Thromboplast Time (test code = 06907-8) 50.3 23.8-35.[address] [facility] CenterWhite Blood Qdjnx9140-36-97 07:32:00* Test Item Value Reference Range Interpretation Comments White Blood Count (test code = 6690-2) 8.26 4.8-10.8 [facility] CenterRed Blood Qbjar1626-57-12 07:32:00* Test Item Value Reference Range Interpretation Comments Red Blood Count (test code = 789-8) 3.91 3.6-5.1 [facility] CenterHemoglobin2018-12-13 07:32:00* Test Item Value Reference Range Interpretation Comments Hemoglobin (test code = 46046-6) 12.2 12.0-16.0 [facility] CenterHematocrit2018-12-13 07:32:00* Test Item Value Reference Range Interpretation Comments Hematocrit (test code = 4544-3) 36.5 34.2-44.1 [facility] CenterMean Corpuscular Jqqslw3333-97-25 07:32:00* Test Item Value Reference Range Interpretation Comments Mean Corpuscular Volume (test code = 787-2) 93.4 81-99 [facility] CenterMean Corpuscular Axbpneyrev2452-01-23 07:32:00* Test Item Value Reference Range Interpretation Comments Mean Corpuscular Hemoglobin (test code = 785-6) 31.2 28-32 [facility] CenterMean Corpuscular Hemoglobin Concent 2018-03-17 07:32:00* Test Item Value Reference Range Interpretation Comments Mean Corpuscular Hemoglobin Concent (test code = 786-4) 33.4 31-35 [facility] CenterRed Cell Distribution Svhbx6981-99-49 07:32:00* Test Item Value Reference Range Interpretation Comments Red Cell Distribution Width (test code = 80056-1) 14.2 11.7 -14.4 [facility] CenterPlatelet Bkill9868-02-24 07:32:00* Test Item Value Reference Range Interpretation Comments Platelet Count (test code = 777-3) 174 140-360 [facility] CenterNeutrophils (%) (Auto)2018-03-17 07:32:00 * Test Item Value Reference Range Interpretation Comments Neutrophils (%) (Auto) (test code = 98510-5) 78.3 38.7-80.0 [facility] CenterLymphocytes (%) (Auto)2018-03-17 07:32:00 * Test Item Value Reference Range Interpretation Comments Lymphocytes (%) (Auto) (test code = 736-9) 12.0 18.0-39.[address] [facility] CenterMonocytes (%) (Auto)2018-03-17 07:32:00* Test Item Value Reference Range Interpretation Comments Monocytes (%) (Auto) (test code = 5905-5) 9.0 4.4-11.3 [facility] CenterEosinophils (%) (Auto)2018-03-17 07:32:00 * Test Item Value Reference Range Interpretation Comments Eosinophils (%) (Auto) (test code = 713-8) 0.2 0.0-6.0 [facility] CenterBasophils (%) (Auto)2018-03-17 07:32:00* Test Item Value Reference Range Interpretation Comments Basophils (%) (Auto) (test code = 706-2) 0.1 0.0-1.0 [facility] CenterIM GRANULOCYTES %2018-03-17 07:32:00* Test Item Value Reference Range Interpretation Comments IM GRANULOCYTES % (test code = IM GRANULOCYTES %) 0.4 0.0- 1.0 [facility] CenterNeutrophils # (Auto)2018-03-17 07:32:00* Test Item Value Reference Range Interpretation Comments Neutrophils # (Auto) (test code = 751-8) 6.5 2.1-6.9 [facility] CenterLymphocytes # (Auto)2018-03-17 07:32:00* Test Item Value Reference Range Interpretation Comments Lymphocytes # (Auto) (test code = 77654-9) 1.0 1.0-3.2 [facility] CenterMonocytes # (Auto)2018-03-17 07:32:00* Test Item Value Reference Range Interpretation Comments Monocytes # (Auto) (test code = 742-7) 0.7 0.2-0.8 [facility] CenterEosinophils # (Auto)2018-03-17 07:32:00* Test Item Value Reference Range Interpretation Comments Eosinophils # (Auto) (test code = 711-2) 0.0 0.0-0.4 [facility] CenterBasophils # (Auto)2018-03-17 07:32:00* Test Item Value Reference Range Interpretation Comments Basophils # (Auto) (test code = 704-7) 0.0 0.0-0.1 [facility] CenterAbsolute Immature Granulocyte (auto 2018-03-17 07:32:00* Test Item Value Reference Range Interpretation Comments Absolute Immature Granulocyte (auto (ginger t code = Absolute Immature Granulocyte (auto) 0.03 0-0.1 [facility] CenterBedside Clfgqbc3604-93-24 08:06:00* Test Item Value Reference Range Interpretation Comments Bedside Glucose (test code = 64575-1) 101 70-120 Meter ID: [id number]. [facility]'s [facility] CenterWhite Blood Count 2016-08-17 10:57:00* Test Item Value Reference Range Interpretation Comments White Blood Count (test code = 6690-2) 5.6 4.5-10.6 [facility] CenterRed Blood Ioloe6835-90-03 10:57:00* Test Item Value Reference Range Interpretation Comments Red Blood Count (test code = 789-8) 4.00 3.6-5.1 [facility] CenterHemoglobin2017-05-15 10:57:00* Test Item Value Reference Range Interpretation Comments Hemoglobin (test code = 25238-6) 12.5 11.6-14.5 [facility] CenterHematocrit2017-05-15 10:57:00* Test Item Value Reference Range Interpretation Comments Hematocrit (test code = 4544-3) 37.7 34.2-44.1 [facility] CenterMean Corpuscular Beenyw1319-12-91 10:57:00* Test Item Value Reference Range Interpretation Comments Mean Corpuscular Volume (test code = 787-2) 94.3 81-99 [facility] CenterMean Corpuscular Byobulzbsk1103-99-44 10:57:00* Test Item Value Reference Range Interpretation Comments Mean Corpuscular Hemoglobin (test code = 785-6) 31.3 28-32 [facility] CenterMean Corpuscular Hemoglobin Concent 2016-08-17 10:57:00* Test Item Value Reference Range Interpretation Comments Mean Corpuscular Hemoglobin Concent (test code = 786-4) 33.2 31-35 [facility] CenterRed Cell Distribution Cjvvx2218-31-36 10:57:00* Test Item Value Reference Range Interpretation Comments Red Cell Distribution Width (test code = 17414-5) 13.3 11.7 -14.4 [facility] CenterPlatelet Anbrz0600-43-23 10:57:00* Test Item Value Reference Range Interpretation Comments Platelet Count (test code = 777-3) 180 140-360 [facility] CenterNeutrophils (%) (Auto)2016-08-17 10:57:00 * Test Item Value Reference Range Interpretation Comments Neutrophils (%) (Auto) (test code = 96998-4) 52.9 38.7-80.0 [facility] CenterLymphocytes (%) (Auto)2016-08-17 10:57:00 * Test Item Value Reference Range Interpretation Comments Lymphocytes (%) (Auto) (test code = 736-9) 33.6 18.0-39.1 [facility] CenterMonocytes (%) (Auto)2016-08-17 10:57:00* Test Item Value Reference Range Interpretation Comments Monocytes (%) (Auto) (test code = 5905-5) 9.8 4.4-11.3 [facility] CenterEosinophils (%) (Auto)2016-08-17 10:57:00 * Test Item Value Reference Range Interpretation Comments Eosinophils (%) (Auto) (test code = 713-8) 3.0 0.0-6.0 [facility] CenterBasophils (%) (Auto)2016-08-17 10:57:00* Test Item Value Reference Range Interpretation Comments Basophils (%) (Auto) (test code = 706-2) 0.5 0.0-1.0 [facility] CenterIM GRANULOCYTES %2016-08-17 10:57:00* Test Item Value Reference Range Interpretation Comments IM GRANULOCYTES % (test code = IM GRANULOCYTES %) 0.2 0.0- 1.0 [facility] CenterNeutrophils # (Auto)2016-08-17 10:57:00* Test Item Value Reference Range Interpretation Comments Neutrophils # (Auto) (test code = 751-8) 3.0 2.1-6.9 [facility] CenterLymphocytes # (Auto)2016-08-17 10:57:00* Test Item Value Reference Range Interpretation Comments Lymphocytes # (Auto) (test code = 78873-9) 1.9 1.0-3.2 [facility])2016-08-17 10:57:00* Test Item Value Reference Range Interpretation Comments Monocytes # (Auto) (test code = 742-7) 0.6 0.2-0.8 [facility] (Auto)2016-08-17 10:57:00* Test Item Value Reference Range Interpretation Comments Eosinophils # (Auto) (test code = 711-2) 0.2 0.0-0.4 [facility] (Auto)2016-08-17 10:57:00* Test Item Value Reference Range Interpretation Comments Basophils # (Auto) (test code = 704-7) 0.0 0.0-0.1 [facility] Center[facility] Granulocyte (auto 2016-08-17 10:57:00* Test Item Value Reference Range Interpretation Comments Absolute Immature Granulocyte (auto (ginger t code = Absolute Immature Granulocyte (auto) 0.01 0-0.1 [facility]
[2020-01-23 16:01] LABS: BASOPHILS # (AUTO) 0.1 (0.0-0.1); BASOPHILS % 0.9 % (0.0-1.0); EOSINOPHILS % 0.6 % (0.0-6.0); HEMOGLOBIN 10.3 g/dL (12.0-16.0); LYMPHOCYTES # (AUTO) 0.9 (1.0-3.2); LYMPHOCYTES % 12.6 % (18.0-39.1); MEAN CORPUSCULAR HEMOGLOBIN 23.4 pg (28-32); MEAN CORPUSCULAR HGB CONC 29.4 g/dL (31-35); MEAN CORPUSCULAR VOLUME 79.5 fL (81-99); MONOCYTES # (AUTO) 0.7 (0.2-0.8); MONOCYTES % 10.7 % (4.4-11.3); NEUTROPHILS % 74.8 % (38.7-80.0); PLATELET COUNT 317 x10e3/uL (140-360); RED CELL DISTRIBUTION WIDTH 17.4 % (11.7-14.4)
[2020-01-23 16:20] LABS: ALBUMIN 3.4 g/dL (3.5-5.0); ANION GAP 15.9 mmol/L (8-16); CALCIUM 9.8 mg/dL (8.4-10.2); CREATININE, SERUM 0.89 mg/dL (0.57-1.11); POTASSIUM 3.9 mmol/L (3.5-5.1)
[2020-01-23 16:28] LABS: CREATINE KINASE MB 2.3 ng/mL (0-5.0)
[2020-01-23] MEDS ORDERED: MORPHINE SULFATE 2 MG/ML SYR 1ML IV PRN (16:30)
[2020-01-23] MEDS ORDERED: ONDANSETRON HCL INJ 2MG/ML 2ML 2 MG/ML VIAL IV PRN (16:30)
--- NOTE | 2020-01-23 17:04 | Diagnostic Imaging Report ---
EXAM: CT of the abdomen and pelvis with intravenous contrast HISTORY: ^diarrheal illness ^[id number] ^1630 COMPARISON: 08/15/2019 TECHNIQUE: Abdomen and pelvis were scanned utilizing a multidetector helical scanner. Coronal and sagittal reformations were obtained. Scan was performed during the portal venous phase. DOSE REDUCTION: The examination was performed according to the departmental dose-optimization program, which includes automated exposure control, adjustment of the mA and/or kV according to patient size and/or use of iterative reconstruction technique. FINDINGS: LINES and TUBES: None. LOWER THORAX: Small bilateral pleural effusions. Cardiomegaly. Coronary calcifications. HEPATOBILIARY: 1 cm pericaval hypodense lesion. Low hepatic attenuation. No biliary ductal dilation. GALLBLADDER: Cholecystectomy. SPLEEN: No splenomegaly. PANCREAS: No focal masses or ductal dilatation. ADRENALS: No adrenal nodules. KIDNEYS/URETERS: Kidneys enhance symmetrically. No hydronephrosis. Subcentimeter hypodensity in the left kidney is too small to characterize. No stones. GI TRACT: Diverticulosis, most severe at the sigmoid colon, without evidence of acute diverticulitis. No abnormal distention, wall thickening, or evidence of bowel obstruction. Appendix is normal. PELVIC ORGANS/BLADDER: Bladder stones with debris. LYMPH NODES: No lymphadenopathy. VESSELS: Scattered vascular calcifications. PERITONEUM / RETROPERITONEUM: No free air or fluid. BONES: Scattered degenerative changes. Old T11 compression fracture. SOFT TISSUES: Unremarkable. IMPRESSION: 1. No findings to explain this patient's diarrhea. 2. Additional stable findings as described above. Specifically, recommend nonemergent multiphase CT or MRI for evaluation of the indeterminate liver lesion. Signed by: Lucio Howell MD on 01/23/2020 5:01 PM
--- OUTSIDE RECORDS SUMMARY | 2020-01-23 17:34 | XMS REPORT | Continuity of Care Document ---
Author Author [facility] t Organization [facility] Address 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 Name Role Phone ANITRA SHARPE, MD MARTÍNEZ PCP TED MILLER Attphys Unavailable HAMPEL, MEDINA Attphys Unavailable AYOUB, SOUHEIL Attphys Unavailable ELLA, I SALMAN Attphys Unavailable TIERRA, S AMBICA Attphys Unavailable SHEBIB, ZAHER Admphys Unavailable AYOUB, SOUHEIL Admphys Unavailable Payers Payer Name Policy Type Policy Number Effective Date Expiration Date S [facility] Ppo [id number] 2019 00:00:00 [facility] Medicare A & B [id number] 1999 00:00:00 [facility] Cdc Review Covid19 [id number] [facility] [id number] 2011 00:00:00 [facility] Problems Condition Name Condition Details Condition Category Status Onset Date Resolution Date Last Treatment Date Treating Clinician Comments Source Pyelonephritis Pyelonephritis Problem Active 2015-09-20 00:00:00 [facility] Confusion Confusion Problem Active 2014-06-24 00:00:00 [facility] Fall at home Fall at home Problem Active 2014-06-24 00:00:00 [facility] Urinary tract infection UTI (urinary tract infection) Problem Active 2014-06-24 00:00:00 [facility] Chest pain Chest pain Problem Active [facility] Diarrhea Diarrhea Problem Active [facility] Syncope Syncope Problem Active [facility] Gastrointestinal hemorrhage GIH (gastrointestinal hemorrhage) Problem Active [facility] Urinary tract infection due to extended- spectrum beta lactamase (ESBL)-producing Klebsiella Problem Active [facility] Allergies, Adverse Reactions, Alerts Allergy Name Allergy Type Status Severity Reaction(s) Onset Date Inacti ve Date Treating Clinician Comments Source Sulfa (Sulfonamide Antibiotics) Allergy to substance Active 2019-10-09 00:00:00 [facility] Morphine Allergy to substance Active 2019-10-09 00:00:00 [facility] Sulfa (Sulfonamide Antibiotics) DA Active 2015-08-25 00 :00:00 [facility] nitrofurantoin DA Active 2015-08-25 00:00:00 [facility] ciprofloxacin DA Active 2015-08-25 00:00:00 [facility] Nitrofurantoin Allergy to substance Active Mild RASH 2009-11-20 00:00 :00 [facility] Ciprofloxacin Allergy to substance Active Mild RASH 2009-11-20 00:00: 00 [facility] Family History Family Member Diagnosis Comments Start Date Stop Date Source 33 FATHER Family history of malignant neoplasm [facility] 33 FATHER Family history of leukemia [facility] 33 FATHER Family history of myocardial infarction [facility] 32 MOTHER Family history of congestive heart failure [facility] 32 MOTHER Family history of malignant neoplasm [facility] 09 BROTHER Family history of malignant neoplasm of bone [facility] 18 DAUGHTER Family history of diabetes mellitus [facility] 18 DAUGHTER Family history of arthritis [facility] Social History Social Habit Start Date Stop Date Quantity Comments Source Sex Assigned At 1935 00:00:00 1935 00:00:00 Female [facility] Medications Ordered Medication Name Filled Medication Name Start Date Stop Da te Current Medication? Ordering Clinician Indication Dosage Frequency Signature (SIG) Comments Components Source Cefuroxime Axetil (Ceftin) 250 Mg/5 Ml SUSP.RECON Cefu roxime Axetil (Ceftin) 250 Mg/5 Ml SUSP.RECON 2017-05-14 12:51:00 2018-03-17 00:00:00 No 500 Twice A Day [facility] Fenofibrate,Micronized (Fenofibrate) 134 Mg CAPSULE Fe nofibrate,Micronized (Fenofibrate) 134 Mg CAPSULE Yes 134 Daily [facility] Fluoxetine Hcl Fluoxetine Hcl Yes 40 Daily [facility] Furosemide Furosemide Yes 40 As Needed [facility] Gabapentin Gabapentin Yes 600 Three Times A Day [facility] Glimepiride Glimepiride Yes 2 Daily [facility] Hydrocodone Bit/Acetaminophen ([place] 7.5-325 Tablet) 1 Each TABLET Hydrocodone Bit/Acetaminophen ([place] 7.5-325 Tablet) 1 Each TABLET Yes 1 Every 6 Hours [facility] Levothyroxine Sodium Levothyroxine Sodium Yes 50 Daily [facility] Lisinopril Lisinopril Yes 20 Twice A Day [facility] Methenamine Hippurate Methenamine Hippurate Yes 1 Twice A Day [facility] Metoprolol Tartrate Metoprolol Tartrate Yes 50 Three Times A Day [facility] Omeprazole Omeprazole Yes 20 Daily I [facility] Rivaroxaban (Xarelto) 10 Mg TABLET Rivaroxaban (Xarelto) 10 Mg TABLET Yes 15 Daily [facility] Hydralazine Hcl Hydralazine Hcl 2019-10-03 00:00:00 No 25 Three Times A Day [facility] Methenamine Hippurate (Hiprex) 1 Gm TABLET Methenamine Hippurate (Hiprex) 1 Gm TABLET 2019-10-03 00:00:00 No 1 Every 12 Hours [facility] Metoprolol Tartrate Metoprolol Tartrate 2019-10-03 00:00:00 No 50 Twice A Day [facility] Cephalexin Cephalexin 2019-01-09 00:00:00 No 250 Twi ce A Day [facility] Warfarin Sodium Warfarin Sodium 2019-01-09 00:00:00 No 2 Daily [facility] Calcium Carbonate/Vitamin D3 (Calcium 500+D Tablet Cortney w) 1 Each TAB.CHEW Calcium Carbonate/Vitamin D3 (Calcium 500+D Tablet Chew) 1 Each TAB.CHEW 2018-03-17 00:00:00 No 4 Twice A Day [facility] Cefuroxime Axetil (Cefuroxime) 500 Mg TABLET Cefuroxim e Axetil (Cefuroxime) 500 Mg TABLET 2018-03-17 00:00:00 No 500 3XWK [facility] Glimepiride Glimepiride 2018-03-17 00:00:00 No 2 D aily [facility] Hydrocodone Bit/Acetaminophen ([place] 7.5-325 Tablet) 1 Each TABLET Hydrocodone Bit/Acetaminophen ([place] 7.5-325 Tablet) 1 Each TABLET 2018-03-05 3 00:00:00 No 1 As Needed [facility] Lactobac Cmb #3/Fos/Pantethine (Probiotic & Acidophilu s Cap) 1 Each CAPSULE Lactobac Cmb #3/Fos/Pantethine (Probiotic & Acidophilus Cap) 1 Each CAPSULE 2018-03-17 00:00:00 No 1 Twice A Day [facility] Omeprazole Omeprazole 2018-03-17 00:00:00 No 20 Namrata ly [facility] Phenazopyridine Hcl Phenazopyridine Hcl 2018-03-17 00:00:00 No 200 Twice A Day [facility] Fesoterodine Fumarate (Toviaz) 4 Mg TAB.ER.24H Fesoter odine Fumarate (Toviaz) 4 Mg TAB.ER.24H 2016-08-20 00:00:00 No 4 Daily [facility] Fluoxetine Hcl (Prozac) 20 Mg CAPSULE Fluoxetine Hcl (Prozac) 20 Mg CAPSULE 2016-08-20 00:00:00 No 40 Daily [facility] Alclometasone Dipropionate Alclometasone Dipropionate 2016 00:00:00 No Twice A Day [facility] Estradiol (Estrace) 42.5 Gm CR Estradiol (Estrace) 42.5 Gm CR 2016-08-19 00:00:00 No 1 2XWK [facility] Hydrocodone Bit/Acetaminophen ([place] 10-325 Tablet) 1 Each TABLET Hydrocodone Bit/Acetaminophen ([place] 10-325 Tablet) 1 Each TABLET 2016-08-19 00:00:00 No As Needed [facility] Doxycycline Hyclate Doxycycline Hyclate 2014-11-15 00:00:00 No 100 Twice A Day [facility] Fluoxetine Hcl (Prozac) 20 Mg CAPSULE Fluoxetine Hcl (Prozac) 20 Mg CAPSULE 2014-11-14 00:00:00 No 20 Daily [facility] Gabapentin Gabapentin 2014-11-14 00:00:00 No 200 Twice Daily Breakfast & Lunch [facility] Hydrocodone Bit/Acetaminophen (Hydrocodon-Acetaminophe n 5-325) 1 Each TABLET Hydrocodone Bit/Acetaminophen (Hydrocodon-Acetaminophen 5-325) 1 Each TABLET 2014-11-14 00:00:00 No 1 Every 4 Hours as nee ded for Pain [facility] Amlodipine Besylate/Benazepril (Amlodipine-Benazepril 5-10 Mg) 1 Each CAPSULE Amlodipine Besylate/Benazepril (Amlodipine-Benazepril 5-10 Mg) 1 Each CAPSULE 2014-06-24 00:00:00 No [facility] Atenolol Atenolol 2014-06-24 00:00:00 [facility] Cefuroxime Cefuroxime 2014-06-24 00:00:00 [facility] Citracel + D Citracel + D 2014-06-24 00:00:00 No [facility] Fenofibrate Fenofibrate 2014-06-24 00:00:00 [facility] Fish Oil Fish Oil 2014-06-24 00:00:00 [facility] Fluoxetine Fluoxetine 2014-06-24 00:00:00 [facility] Glimepiride Glimepiride 2014-06-24 00:00:00 [facility] Hydrochlorothiazide Hydrochlorothiazide 2014-06-24 00:00:00 [facility] L-Thyroxine L-Thyroxine 2014-06-24 00:00:00 [facility] Lyrica Lyrica 2014-06-24 00:00:00 [facility] Omeprazole Omeprazole 2014-06-24 00:00:00 [facility] Propoxyphene Propoxyphene 2014-06-24 00:00:00 [facility] Theragran-M Theragran-M 2014-06-24 00:00:00 [facility] Warfarin Warfarin 2014-06-24 00:00:00 [facility] Zolpidem Zolpidem 2014-06-24 00:00:00 [facility] Vital Signs Vital Name Observation Time Observation Value Comments Source Weight 2020-01-16 06:55:00 175 [lb_av] [facility] BMI (Body Mass Index) 2020-01-16 06:55:00 30.0 kg/m2 [facility] Body Temperature 2019-10-09 07:45:00 97.4 [degF] [facility] Procedures Procedure Date / Time Performed Performing Clinician [facility] CYSTOSCOPY AND TREATMENT 2019-10-09 00:00:00 [facility] X-ray of chest, two views 2019-10-04 00:00:00 [facility] I [facility] Computed tomography of abdomen and pelvis with contrast 00:00:00 [facility] X-ray of chest, two views 2019-08-14 00:00:00 [facility] Computed tomography of brain without radiopaque contrast 00:00:00 AYOUBMAURICIO [place] [facility] COLONOSCOPY W/LESION REMOVAL 2019-05-31 00:00:00 [facility] MRI joint upr extrem w/o dye 2019-04-26 00:00:00 [facility] X-ray of chest, two views 2019-04-06 00:00:00 AYOUBMAURICIO [place] [facility] Plan of Care Planned Activity Planned Date Details Comments Source Instructions Urinary Tract Infection - Women [facility] Encounters Start Date/Time End Date/Time Encounter Type Admission Type [facility] Facility Care Department Encounter ID Source 2020-01-16 07:30:00 2020-01-16 09:47:00 Departed Emergency Room [facility] [id number] [facility] 2019-10-09 05:15:00 2019-10-09 05:15:00 Registered Surgical Day Car e 3 MEDINA JEWELL [facility] [id number] [facility] 2019-08-14 13:07:00 2019-08-21 13:44:00 Discharged Inpatient 1 JEANNINE AYOUBRONNI [facility] [id number] [facility] 2019-08-14 02:47:00 2019-08-14 07:00:00 Departed Emergency Room 1 TED MILLER [facility] [id number] [facility] 2019-05-31 16:11:00 2019-06-04 13:47:00 Discharged Inpatient (obs) 1 JEANNINE AYOUBRONNI [facility] [id number] [facility] 2019-04-26 07:25:00 2019-04-26 07:25:00 Registered Clinic 3 LA AN, [facility] [id number] [facility] 2019-04-06 14:53:00 2019-04-06 14:53:00 [id number] [facility] 2019-02-08 10:36:00 2019-02-08 10:36:00 Registered Clinic 3 SHAMEKA WEISS [facility] [id number] [facility] 2019-01-11 14:54:00 2019-01-11 18:45:00 Departed Emergency Room 1 MARCIO MAYORGA [facility] [id number] [facility] 2019-01-08 15:12:00 2019-01-10 14:44:00 Discharged Inpatient [facility] [id number] [facility] 2018-10-25 17:44:00 2018-10-28 19:06:00 Discharged Inpatient 9 JEANNINE AYOUBRONNI [facility] [id number] [facility] 2018-03-20 13:55:00 2018-03-21 16:48:00 Discharged Inpatient 1 JEANNINE AYOUBRONNI [facility] [id number] [facility] 2017-12-27 13:06:00 2017-12-27 13:06:00 Registered Clinic [facility] [id number] [facility] 2017-05-14 10:39:00 2017-05-14 14:00:00 Departed Emergency Room [facility] [id number] [facility] 2016-08-20 07:10:00 2016-08-20 07:10:00 Registered Surgical Day Care [facility] [id number] [facility] Results Test Description Test Time Test Comments Results Result Comments Source CT ABDOMEN/PELVIS W 2020-01-23 16:53:00 [facility] 1935 Sex: F [facility] [address] [address] Patient Name: MAURIZIO WINN MR #: [id number] : 1935 Age/Sex: 85/F Req #: [id number] Adm Physician: Ordered by: TED MILLER DO Report #: [id number] Location: ER Room/Bed: Procedure: [id number] CT/CT ABDOMEN/PELVIS W Exam Date: 01/23/20 Exam Time: 1630 REPORT STATUS: Signed EXAM: CT of the abdomen and pelvis with intravenous contrast HISTORY: diarrheal illness [id number] COMPARISON: 08/15/2019 TECHNIQUE: Abdomen and pelvis were scanned utilizing a multidetector helical scanner. Coronal and sagittal reformations were obtained. Scan was performed during the portal venous phase. DOSE REDUCTION: The examination was performed according to the departmental dose- optimization program, which includes automated exposure control, adjustment of the mA and/or kV according to patient size and/or use of iterative reconstruction technique. FINDINGS: LINES and TUBES: None. LOWER THORAX: Small bilateral pleural effusions. Cardiomegaly. Coronary calcifications. HEPATOBILIARY: 1 cm pericaval hypodense lesion. Low hepatic attenuation. No biliary ductal dilation. GALLBLADDER: Cholecystectomy. SPLEEN: No splenomegaly. PANCREAS: No focal masses or ductal dilatation. ADRENALS: No adrenal nodules. KIDNEYS/URETERS: Kidneys enhance symmetrically. No hydronephrosis. Subcentimeter hypodensity in the left kidney is too small to characterize. No stones. GI TRACT: Diverticulosis, most severe at the sigmoid colon, without evidence of acute diverticulitis. No abnormal distention, wall thickening, or evidence of bowel obstruction. Appendix is normal. PELVIC ORGANS/BLADDER: Bladder stones with debris. LYMPH NODES: No lymphadenopathy. VESSELS: Scattered vascular calcifications. PERITONEUM / RETROPERITONEUM: No free air or fluid. BONES: Scattered degenerative changes. Old T11 compression fracture. SOFT TISSUES: Unremarkable. IMPRESSION: 1. No findings to explain this patient's diarrhea. 2. Additional stable findings as described above. Specifically, recommend nonemergent multiphase CT or MRI for evaluation of the indeterminate liver lesion. Signed by: Lucio Garcia MD on 01/23/2020 5:01 PM Dictated By: LUCIO GARCIA DO 00 Transcribed By: MIKA on 01/23/201700 COPY TO: TED MILLER DO Blood leukocytes automated count (number/volume) 2020-01-16 07:10:00 Test Item White Blood Count (test code = 6690-2) 7.14 4.8-10.8 [facility] count (number/volume)2020-01-16 07:10:00* Test Item Value Reference Range Interpretation Comments Red Blood Count (test code = 789-8) 4.18 3.6-5.1 [facility] hemoglobin measurement (moles/volume)2020-01-16 07:10:00* Test Item Value Reference Range Interpretation Comments Hemoglobin (test code = 91492-4) 10.1 12.0-16.0 [facility] hematocrit (volume fraction)2020-01-16 07:10:00* Test Item Value Reference Range Interpretation Comments Hematocrit (test code = 4544-3) 33.8 34.2-44.1 [facility] erythrocyte mean corpuscular [id number] 07:10:00* Test Item Value Reference Range Interpretation Comments Mean Corpuscular Volume (test code = 787-2) 80.9 81-99 [facility] eryth[facility] mean corpuscular hemoglobin (mass per erythrocyte)2020-01-16 07:10:00* Test Item Value Reference Range Interpretation Comments Mean Corpuscular Hemoglobin (test code = 785-6) 24.2 28-32 [facility] erythrocyte mean corpuscular hemoglobin concentration measurement (mass/volume)2020-01-16 07:10:00* Test Item Value Reference Range Interpretation Comments Mean Corpuscular Hemoglobin Concent (test code = 786-4) 29.9 31-35 [facility] TexasRDW [id number] 07:10:00* Test Item Value Reference Range Interpretation Comments Red Cell Distribution Width (test code = 27625-8) 17.4 11.7 -14.4 [facility] platelet count (count/volume)2020-01-16 07:10:00* Test Item Value Reference Range Interpretation Comments Platelet Count (test code = 777-3) 300 140-360 [facility] count as percentage of total [id number] 07:10:00* Test Item Value Reference Range Interpretation Comments Neutrophils (%) (Auto) (test code = 28896-4) 65.5 38.7-80.0 [facility] lymphocyte count as percentage ot total imtfliiqiv0619-84-54 07:10:00* Test Item Value Reference Range Interpretation Comments Lymphocytes (%) (Auto) (test code = 736-9) 19.6 18.0-39.1 [facility] monocyte count as percentage of total egyzcbsyfm5319-68-13 07:10:00* Test Item Value Reference Range Interpretation Comments Monocytes (%) (Auto) (test code = 5905-5) 12.3 4.4-11.3 [facility] eosinophil count as percentage of total [id number] 07:10:00* Test Item Value Reference Range Interpretation Comments Eosinophils (%) (Auto) (test code = 713-8) 1.5 0.0-6.0 [facility] basophil count as percentage of total [id number] 07:10:00* Test Item Value Reference Range Interpretation Comments Basophils (%) (Auto) (test code = 706-2) 0.8 0.0-1.0 [facility] TexasFluoroscopic procedure less than one hour [id number] 07:10:00* Test Item Value Reference Range Interpretation Comments IM GRANULOCYTES % (test code = IM GRANULOCYTES %) 0.3 0.0- 1.0 [facility] neutrophil count 2020-01-16 07:10:00* Test Item Value Reference Range Interpretation Comments Neutrophils # (Auto) (test code = 751-8) 4.7 2.1-6.9 [facility] lymphocytes count (number/volume) 2020-01-16 07:10:00* Test Item Value Reference Range Interpretation Comments Lymphocytes # (Auto) (test code = 30247-5) 1.4 1.0-3.2 [facility] monocytes automated count (number/volume)2020-01-16 07:10:00* Test Item Value Reference Range Interpretation Comments Monocytes # (Auto) (test code = 742-7) 0.9 0.2-0.8 [facility] eosinophil count 2020-01-16 07:10:00* Test Item Value Reference Range Interpretation Comments Eosinophils # (Auto) (test code = 711-2) 0.1 0.0-0.4 [facility] basophil count (count/volume)2020-01-16 07:10:00* Test Item Value Reference Range Interpretation Comments Basophils # (Auto) (test code = 704-7) 0.1 0.0-0.1 [facility] TexasFluoroscopic procedure less than one hour [id number] 07:10:00* Test Item Value Reference Range Interpretation Comments Absolute Immature Granulocyte (auto (ginger t code = Absolute Immature Granulocyte (auto) 0.02 0-0.1 [facility] TexasProthrombin time (PT) in platelet poor plasma by coagulation [id number] 07:10:00* Test Item Value Reference Range Interpretation Comments Prothrombin Time (test code = 5902-2) 19.3 11.9-14.5 [facility] TexasINR in Platelet poor plasma by Coagulation [id number] 07:10:00* Test Item Value Reference Range Interpretation Comments Prothromb Time International Ratio (test code = 6301-6) 1.55 Oral Anticoagulant Therapy INR Values:1. Low Intensity Therapy 1.5 - 2.02 . Moderate Intensity Therapy 2.0 - 3.03. High Intensity Therapy(1) 2.5 - 3. 54. High Intensity Therapy(2) 3.0 - 4.05. Panic Value INR > 5.0 [facility] TexasActivated partial thromboplastin time (aPTT) in platelet poor plasma by coagulation [id number] 07:10:00* Test Item Value Reference Range Interpretation Comments Activated Partial Thromboplast Time (test code = 05593-0) 38.9 23.8-35.5 [facility] TexasUrine color [id number] 07:10:00* Test Item Value Reference Range Interpretation Comments Urine Color (test code = 5778-6) YELLOW YELLOW [facility] Texas[facility] [id number] 07:10:00* Test Item Value Reference Range Interpretation Comments Urine Clarity (test code = 41792-9) SL CLOUDY CLEAR [facility] by Test strip 2020-01-16 07:10:00* Test Item Value Reference Range Interpretation Comments Urine Specific [place] (test code = 5811-5) 1.020 1.010-1.02 5 [facility] pH measurement by automated test [id number] 07:10:00* Test Item Value Reference Range Interpretation Comments Urine pH (test code = 40537-0) 8 5-7 [facility] leukocyte esterase detection by [id number] 07:10:00* Test Item Value Reference Range Interpretation Comments Urine Leukocyte Esterase (test code = 5799-2) MODERATE NEGATIVE [facility] Texas[facility] nitrite [id number] 07:10:00* Test Item Value Reference Range Interpretation Comments Urine Nitrite (test code = 47285-6) POSITIVE NEGATIVE [facility] protein measurement by test strip (mass/volume)2020-01-16 07:10:00* Test Item Value Reference Range Interpretation Comments Urine Protein (test code = 5804-0) 1+ NEGATIVE [facility] glucose [id number] 07:10:00* Test Item Value Reference Range Interpretation Comments Urine Glucose (UA) (test code = 2349-9) NEGATIVE NEGATIVE [facility] Texas[facility] ketones detection by automated test [id number] 07:10:00* Test Item Value Reference Range Interpretation Comments Urine Ketones (test code = 29529-1) NEGATIVE NEGATIVE [facility] Texas[facility] urobilinogen measurement by test strip (mass/volume)2020-01-16 07:10:00* Test Item Value Reference Range Interpretation Comments Urine Urobilinogen (test code = 63613-3) 0.2 0.2-1 [facility] total bilirubin measurement (mass/volume)2020-01-16 07:10:00* Test Item Value Reference Range Interpretation Comments Urine Bilirubin (test code = 1978-6) NEGATIVE NEGATIVE [facility] Texas[facility] erythrocytes [id number] 07:10:00* Test Item Value Reference Range Interpretation Comments Urine Blood (test code = 39000-6) TRACE NEGATIVE [facility] urine sediment leukocyte count by microscopy (number/high power field)2020-01-16 07:10:00* Test Item Value Reference Range Interpretation Comments Urine WBC (test code = 5821-4) >50 0-5 [facility] TexasErythrocytes detection in urine sediment by light [id number] 07:10:00* Test Item Value Reference Range Interpretation Comments Urine RBC (test code = 56700-5) 0-5 0-5 [facility] TexasBacteria detection in urine sediment by light [id number] 07:10:00* Test Item Value Reference Range Interpretation Comments Urine Bacteria (test code = 50547-1) MANY NONE [facility] TexasEpithelial cells detection in urine sediment by light [id number] 07:10:00* Test Item Value Reference Range Interpretation Comments Urine Epithelial Cells (test code = 68826-5) FEW NONE [facility] or plasma sodium measurement (moles/volume)2020-01-16 07:10:00* Test Item Value Reference Range Interpretation Comments Sodium Level (test code = 2951-2) 138 136-145 [facility] [facility] plasma potassium measurement (moles/volume)2020-01-16 07:10:00* Test Item Value Reference Range Interpretation Comments Potassium Level (test code = 2823-3) 4.3 3.5-5.1 [facility] chloride measurement (moles/volume)2020-01-16 07:10:00* Test Item Value Reference Range Interpretation Comments Chloride Level (test code = 2075-0) 100 98-107 [facility] carbon dioxide, total measurement (moles/volume)2020-01-16 07:10:00* Test Item Value Reference Range Interpretation Comments Carbon Dioxide Level (test code = 2028-9) 28 22-29 [facility] anion nbd0298-55-07 07:10:00* Test Item Value Reference Range Interpretation Comments Anion Gap (test code = 78822-8) 14.3 8-16 [facility] urea nitrogen measurement (mass/volume)2020-01-16 07:10:00* Test Item Value Reference Range Interpretation Comments Blood Urea Nitrogen (test code = 3094-0) 20 7-26 [facility] creatinine measurement (mass/volume)2020-01-16 07:10:00* Test Item Value Reference Range Interpretation Comments Creatinine (test code = 2160-0) 0.88 0.57-1.11 [facility] urea nitrogen/creatinine mass qhoog0981-86-57 07:10:00* Test Item Value Reference Range Interpretation Comments BUN/Creatinine Ratio (test code = 3097-3) 23 6-25 [facility] TexasEstimated glomerular filtration rate (GFR) sdaasrubrtwlu6674-42-27 07:10:00* Test Item Value Reference Range Interpretation Comments Estimat Glomerular Filtration Rate (test code = 234529358) > 60 >60 Ranges were taken from the National Kidney Disease Education Program and the [facility] literature.Reference ranges:60 or greater: Uobexs49-27 ( for 3 consecutive months): Chronic kidney disease 15 or less: Kidney failureWoman's Hospital of TexasGlucose aufolcfmyta5703-07-01 07:10:00* Test Item Value Reference Range Interpretation Comments Glucose Level (test code = GNT1787) 170 74-118 [facility] calcium measurement (mass/volume)2020-01-16 07:10:00* Test Item Value Reference Range Interpretation Comments Calcium Level (test code = 02705-6) 10.7 8.4-10.2 [facility] magnesium measurement (mass/volume)2020-01-16 07:10:00* Test Item Value Reference Range Interpretation Comments Magnesium Level (test code = 04659-7) 1.3 1.3-2.1 [facility] total bilirubin measurement (mass/volume)2020-01-16 07:10:00* Test Item Value Reference Range Interpretation Comments Total Bilirubin (test code = 1975-2) 0.9 0.2-1.2 [facility] TexasFluoroscopic procedure less than one hour ynjmwbcq6918-46-62 07:10:00* Test Item Value Reference Range Interpretation Comments Aspartate Amino Transf (AST/SGOT) (test code = Aspartate Amino Transf (AST/SGOT)) 36 5-34 [facility]er[facility] or plasma alanine aminotransferase measurement (enzymatic activity/volume)2020-01-16 07:10:00* Test Item Value Reference Range Interpretation Comments Alanine Aminotransferase (ALT/SGPT) (test code = 1742-6) 20 0-55 [facility]er[facility] or plasma protein measurement (mass/volume)2020-01-16 07:10:00* Test Item Value Reference Range Interpretation Comments Total Protein (test code = 2885-2) 7.1 6.5-8.1 [facility] albumin measurement (mass/volume)2020-01-16 07:10:00* Test Item Value Reference Range Interpretation Comments Albumin (test code = 1751-7) 3.7 3.5-5.0 [facility] TexasPlasma globulin measurement (mass/volume) 2020-01-16 07:10:00* Test Item Value Reference Range Interpretation Comments Globulin (test code = 62237-3) 3.4 2.3-3.5 [facility]er[facility] albumin/globulin mass flobe0942-68-70 07:10:00* Test Item Value Reference Range Interpretation Comments Albumin/Globulin Ratio (test code = 1759-0) 1.1 0.8-2.0 [facility] plasma alkaline phosphatase measurement (enzymatic activity/volume)2020-01-16 07:10:00* Test Item Value Reference Range Interpretation Comments Alkaline Phosphatase (test code = 6768-6) 46 40-150 [facility] TexasBNP Pbz-qQpp6990-46-13 07:10:00* Test Item Value Reference Range Interpretation Comments B-Type Natriuretic Peptide (test code = 00718-9) 428.7 0-100 [facility]er[facility] or plasma creatine kinase measurement (enzymatic activity/volume)2020-01-16 07:10:00* Test Item Value Reference Range Interpretation Comments Creatine Kinase (test code = 2157-6) 69 29-168 [facility]er[facility] or plasma creatine kinase MB measurement (mass/volume)2020-01-16 07:10:00* Test Item Value Reference Range Interpretation Comments Creatine Kinase MB (test code = 65663-4) 2.10 0-5.0 [facility] of TexasTroponin I measurement by highly sensitive enzyme gqpghetkzny0867-68-88 07:10:00* Test Item Value Reference Range Interpretation Comments Troponin I (test code = 65769-1) 0.018 0-0.300 [facility] C-SPINE W/O YKHW3845-20-90 07:21:00 Name: MAURIZIO WINN [facility] : 1935 Age/S: 84 / F [address] [place] [address] Unit #: [id number] Loc: [place] [address] Phys: Jinny Enriquez mmed DO Acct: [id number] Di s Date: Status: REG ER PHONE #: Exam Date: 01/02/2020 0700 FAX #: Reason: NECK PAIN EXAMS: CPT CODE: [id number] CT C-SPINE W/ O CONT 6[address]58 CT cervical spine without contrast 01/02/2020 HISTORY: Neck pain. PROCEDURE: M ti axial images from the skull base to [...] 1 Signed Report (CONTINUED) Name: MAURIZIO WINN [facility] : 1935 Age/S: 84 / F [address] [place] [address] Unit #: [id number] Loc: [place] [address] Phys: Nba Enriquez DO Acct: [id number] Dis Date: tus: REG ER PHONE #: [phone] Exam Date : 01/02/2020 0700 FAX #: [phone] Reason: NECK JEWELS N EXAMS: CPT CODE: [id number] CT C-SPINE W/O CONT 97875 <Continued> stenosis. IMPRESSION: 1. No fracture or dislocation involving cervical spine. 2. Straightening of cervical spine may be related to patient positioning or muscle spasm. 3. Moderate right neural foraminal narrowing at C4-5. 4. Other mild degenerative changes as described. SL: [id number] at 0721 Reported and signed by: Justin Buck M.D. CC: Nba Enriquez DO Technologist:Marina Valderrama RT(R)(CT) CTDI: DLP: Trnscb Date/Time: 01/02/2020 (720) [email or web address] Orig Print D/T: S: 01/02/2020 (723) PAGE 2 Signed Report VORNLQS7216-10-60 07:17:00* Test Item Value Reference Range Interpretation [...] for Legal orEmployment evaluation purposes. BASIC METABOLIC IWVHG2133-39-71 07:17:00* Test Item Value Reference Range Interpretation [...] CA) 9.7 mg/dL 8.0-10.5 N HEPATIC FUNCTION FBHFK2091-49-71 07:17:00* Test Item Value Reference Range Interpretation [...] code = ALKP) 46 IUnit/L 20-125 N VEAJPSXV-Q6357-98-29 07:17:00* Test Item Value Reference Range Interpretation Comments TROPONIN-I (test code = TROPI) 0.017 ng/mL 0.000-0.045 N Negative: <= 0.045 Positive: >= 0.046 Correlation with serial results, other cardiac markers andclinical findings is necessary to determine the clinicalsignificance of this result. Results using different methodologies should not be comparedto one another as quantitative results may vary by method. PROTHROMBIN WLER9305-17-73 07:15:00* Test Item Value Reference Range Interpretation [...] Infarction (to prevent recurrent infarct). THROMBOPLASTIN TIME NQCTPDN1305-86-24 07:15:00* Test Item Value Reference Range Interpretation Comments THROMBOPLASTIN TIME PARTIAL (test code = PTT) 28.9 Seconds 25.0-39. 5 N Therapeutic Range: 50.4 - 88.3 Seconds Effective 07/19/2018 - CT HEAD/BRAIN W/O XFUK8827-44-20 07:03:00 Name: MAURIZIO WINN [facility] : 1935 Age/S: 84 / F [address] [place] [address] Blvd Unit #: [id number] Loc: [place] [address] Phys: Nba Enriquez DO Acct: [id number] Dis Date: Status: REG ER PHONE #: [phone] Exam Date: 01/02/2020 0700 FAX #: [phone] Reason: fall/ head injury EXAMS: CPT CODE: [id number] CT HEAD/BRAIN W/O CONT 49294 CT head without contrast 01/02/2020 HISTORY: Fall. [...] moderate chronic microvascu lar ischemic changes. SL: [id number] at 0703 Reported and signed by: Justin Buck M.D. CC: Nba Enriquez DO Technologist:Marina Valderrama RT(R)(CT) CTDI: DLP: Trnscb Date/Time: 01/02/2020 (702) [email or web address] Orig Print D/T: S: 01/02/2020 (705) PAGE 1 Signed Report CBC W/AUTO WUKC1076-05-50 06:59:00* Test Item Value Reference Range Interpretation [...] = MDIFF) NO - XR PELVIS 04/06 VFUWJ5675-66-04 06:30:00 FAX: Nba Fernando DO [phone] [place]: St: REG Name: MAURIZIO RAGSDALE [facility] : [birth year] Age/S: 84/F [address] [place] [address] Unit #: [id number] [facility] [place] [address] Phys: Nba Enriquez DO Acct: [id number] Dis Date: Status: REG ER PHONE #: [phone] Exam Date: 01/02/2020 0623 FAX #: [phone] Reason: PELVIC PAIN EXAMS: CPT CODE: [id number] XR PELVIS 1/2 VIEWS 68916 Study: - XR PELVIS 1/2 VIEWS 01/01 6:12 AM Patient Name: MAURIZIO WINN MR: [id number] : 1935; Age: 84 years y/o Female [...] joints. The soft tissues are normal. SL: [facility] [place]- Electronic ally Signed by Daya Muniz on 01/02/2020 at 0630 Reported and signed by: Gregor calderon M.D. CC: Nba Enriquez DO Brianne hnologist: RT Kendall([place]) Trnscrd Date/T jamar/By: 01/02/2020 (30) : By: [email or web address] Orig Print D/T: S: 0 (5186) PAGE 1 Signed Report - XR CHEST 1 T2800-27-65 06:29:00 FAX: Nba Fernando DO [phone] [place]: St: REG Name: MAURIZIO RAGSDALE [facility] : [birth year] Age/S: 84/F [address] [place] [address] Unit #: [id number] Loc: [place] [address] Phys: Nba Enriquez DO Acct: [id number] Dis Date: Status: REG ER PHONE #: [phone] Exam Date: 01/02/2020 06 FAX #: [phone] Reason: CHEST PAIN EXAMS: CPT CODE: [id number] XR CHEST 1 V 59784 Study: - XR CHEST 1 V 01/02/2020 6 :12 AM Patient Name: MAURIZIO WINN MR: [id number] OB: 1935; Age: 84 years y/o [...] Signed Report (CONTINUED) FAX: Nba Fernando DO [phone] [place]: St: REG Name: MAURIZIO WINN [facility] : 1935 Age/S: 84/F [address] [place] [address] Unit #: [id number] Loc: [place] [address] Phys: RovertochrisNba DICKSON Acct: [id number] Dis Date: Status: REG ER PHONE #: [phone] Exam Date: 01/02/2020 06 FAX #: [phone] Reason: CHEST PAIN EXAMS: CPT CODE: [id number] XR CHEST 1 V 70773 <Continued> CC: Nba Enriquez DO Technologist: Krista Polo, RT(R) Trnscrd Date/Time/By: 01/02/2020 (628) : By: [email or web address] Orig Print D/T: S: 01/02/2020 (32) PAGE 2 Signed Report Bacteria identification in wound by cqbjhtg8610-04-84 14:52:00* Test Item Value Reference Range Interpretation Comments Wound Culture (test code = 6462-6) ESCHERICHIA COLI [facility] TexasCapillary blood glucose measurement by glucometer (mass/volume)2019-10-09 06:04:00* Test Item Value Reference Range Interpretation Comments Bedside Glucose (test code = 04142-9) 159 70-120 Meter ID: [id number]'s Hospital of TexasFluoroscopic procedure less than one hour cbbwqaaa1216-51-68 12:23:00* Test Item Value Reference Range Interpretation [...] Pathology Laboratories are certified under the C linical Laboratory Improvement Amendments of 1988 (CLIA), 42 U.S.C. section 263a , to perform high complexity tests.Testing performed by [facility] [address] [place], [place] [phone] Director: Vinay Alarcon M.D.CLIA # [id number] [facility] 2 RAZBT8502-47-27 12:18:00 [place] [address] Patient Name: MAURIZIO WINN MR #: [id number] : 1935 Age/Sex: 84/F Req #: [id number] [facility] Physician: Ordered by: MEDINA JEWELL MD Report #: [id number] Location: OR Room/Bed: Procedure: [id number] DX/CHEST 2 VIEWS Exam Date: 10/04/19 Exam [...] Interpretation Comments Platelet Estimate (test code = 37813-3) ADEQUATE [facility] TexasPlatelet sgpcrvlqju2468-87-86 10:58:00* Test Item Value Reference Range Interpretation Comments Platelet Morphology Comment (test code = 75170-4) NORMAL [facility] TexasBlood polychromasia detection by light szjkqmtgup1730-71-57 10:58:00* Test Item Value Reference Range Interpretation Comments Polychromasia (test code = 35922-1) FEW [facility] TexasBlood hypochromia detection by light ctyaucgzjk6506-72-73 10:58:00* Test Item Value Reference Range Interpretation Comments Hypochromasia (test code = 728-6) SLIGHT [facility] TexasBlood anisocytosis detection by light grnfmmqwwx1703-04-16 10:58:00* Test Item Value Reference Range Interpretation Comments Anisocytosis (test code = 702-1) SLIGHT [facility] TexasRBC hcewztciqx1672-77-20 10:58:00* Test Item Value Reference Range Interpretation Comments Red Cell Morphology Comment (test code = 6742-1) ABNORMAL [facility] TexasCT ABDOMEN/PELVIS O3863-38-05 09:12:00 [facility] [address] [place] [address] Patient Name: MAURIZIO WINN MR #: [id number] : 1935 Age/Sex: 84/F Req #: [id number] Adm Physician: MAURICIO AYOUB MD Ordered by: AUSTYN VERA MD Repor t #: [id number] Location: [facility] Room/Bed : [facility] Procedure: [id number] CT/CT ABDOMEN/PE LVIS W Exam Date: 08/15/19 Exam Time: 1511 REPORT STATUS: Signed EXAM: CT Abdomen an [...] or solid mass lesions. PELVIC ORGANS/B LADDER: Cable calcifications at the bladder neck. Asymmetric soft [...] COPY TO: AUSTYN VERA MD Procalcitonin (PCT) uubmx6603-02-57 12:15:00* Test Item Value Reference Range Interpretation Comments Procalcitonin (test code = 587713478) 0.06 0.00-0.08 A procalcitonin (PCT) level above [...] any concentrations <2 ng/mL are obtained.Performed at: [facility] [id number] Director: Julian Valentin MD, Phone: [phone]'s Hospital of TexasBlood hxqitth2234-24-86 13:15:00* Test Item Value Reference Range Interpretation Comments Blood Culture (test code = 12559460) NO GROWTH AFTER 5 DAYS, FINAL REPORT [facility] TexasFluoroscopic procedure less than one hour tlksjher7040-59-07 13:10:00* Test Item Value Reference Range Interpretation Comments Lactic Acid Level (test code = Lactic Acid Level) 1.9 0.5- 2.0 [facility] of TexasCHEST SINGLE (PORTABLE)2019-08-14 12:11:00 [place] [address] Patient Name: MAURIZIO WINN MR #: [id number] : 1935 Age/Sex: 84/F Req #: [id number] Adm Physician: Ordered by: MARCIO ZACARIAS DO Report #: [id number] Location: ER Room/Bed: Procedure: [id number] DX/CHEST SIN GLE (PORTABLE) Exam Date: 08/14/19 [...] 08/14/19 1214 COPY TO: MARCIO ZACARIAS DO Bacterial urine jdbjlup7926-52-27 11:18:00* Test Item Value Reference Range Interpretation Comments Urine Culture (test code = 630-4) ESCHERICHIA COLI-ESBL [facility] 2 KSXDT1040-96-94 05:36:00 [facility] [address] [place] [address] Patient Name: MAURIZIO WINN MR #: [id number] : 1935 Age/Sex: 84/F Req #: [id number] Adm Physician: Ordered by: TED MILLER DO Report #: [id number] Location: ER Room/Bed: Procedure: [id number] DX/CHEST 2 VIEWS Exam Date: 08/14/19 Exam Time: 034 REPORT STATUS: Signed EXAMINATION: CHEST 2 VIE [...] 08/14/19537 COPY TO: TED MILLER DO Bedside Kmnsejs2304-44-04 20:58:00* Test Item Value Reference Range Interpretation Comments Bedside Glucose (test code = 86490-3) 138 70-120 H Meter ID: [id number]'s Hospital of TexasUrine Vqqoh3936-13-36 20:33:00* Test Item Value Reference Range Interpretation Comments Urine Color (test code = 5778-6) YELLOW YELLOW [facility] HospitalU[facility] Evqyeph1933-34-58 20:33:00* Test Item Value Reference Range Interpretation Comments Urine Clarity (test code = 94779-0) HAZY CLEAR [facility] TexasUrine Specific Muhypxa1789-01-21 20:33:00 * Test Item Value Reference Range Interpretation Comments Urine Specific [place] (test code = 5811-5) 1.015 1.010-1.02 5 [facility] TexasUrine aW7676-75-43 20:33:00* Test Item Value Reference Range Interpretation Comments Urine pH (test code = 55801-7) 6 5-7 [facility] Texas[facility] Leukocyte Dapyzuev6493-24-49 20:33:00* Test Item Value Reference Range Interpretation Comments Urine Leukocyte Esterase (test code = 5799-2) NEGATIVE NEGATIVE [facility] TexasUrine Oewwyru7538-67-84 20:33:00* Test Item Value Reference Range Interpretation Comments Urine Nitrite (test code = 73336-1) NEGATIVE NEGATIVE [facility] TexasUrine Sruwrlr9316-10-52 20:33:00* Test Item Value Reference Range Interpretation Comments Urine Protein (test code = 5804-0) NEGATIVE NEGATIVE [facility] TexasUrine Glucose (UA)2019-06-03 20:33:00* Test Item Value Reference Range Interpretation Comments Urine Glucose (UA) (test code = 2349-9) NEGATIVE NEGATIVE [facility] TexasUrine Lzclqmx5001-15-27 20:33:00* Test Item Value Reference Range Interpretation Comments Urine Ketones (test code = 00094-7) NEGATIVE NEGATIVE [facility] TexasU[facility] Dkzgefxgkjol4908-23-88 20:33:00* Test Item Value Reference Range Interpretation Comments Urine Urobilinogen (test code = 13362-6) 0.2 0.2-1 [facility] TexasU[facility] Cghktsvaf6651-98-29 20:33:00* Test Item Value Reference Range Interpretation Comments Urine Bilirubin (test code = 1978-6) NEGATIVE NEGATIVE [facility] TexasU[facility] Expgd9654-23-26 20:33:00* Test Item Value Reference Range Interpretation Comments Urine Blood (test code = 78835-6) NEGATIVE NEGATIVE [facility] TexasU[facility] EUW0128-64-26 20:33:00* Test Item Value Reference Range Interpretation Comments Urine WBC (test code = 5821-4) >50 0-5 H [facility] TexasUrine SGX7499-37-57 20:33:00* Test Item Value Reference Range Interpretation Comments Urine RBC (test code = 86574-3) NONE 0-5 [facility] TexasUrine Flpzrsdh5723-43-30 20:33:00* Test Item Value Reference Range Interpretation Comments Urine Bacteria (test code = 00497-4) MANY NONE H [facility] TexasUrine Epithelial Kcmqs4660-25-00 20:33:00 * Test Item Value Reference Range Interpretation Comments Urine Epithelial Cells (test code = 71117-2) MANY NONE [facility] TexasHemoglobin2020-02-29 18:48:00* Test Item Value Reference Range Interpretation Comments Hemoglobin (test code = 64363-9) 10.6 12.0-16.0 L [facility] TexasHematocrit2020-02-29 18:48:00* Test Item Value Reference Range Interpretation Comments Hematocrit (test code = 4544-3) 33.4 34.2-44.1 L [facility] of TexasCT BRAIN NO7636-24-26 07:09:00 [facility] [address] [place] [address] Patient Name: MAURIZIO WINN MR #: [id number] : 1935 Age/Sex: 84/F Req #: [id number] Adm Physician: MAURICIO AYOUB MD Ordered by: MAURICIO AYOUB MD Report #: [id number] Location: MED/SURG2 Room/Bed: [facility] Procedure: 9570-4082 C T/CT BRAIN WO Exam Date: 06/02/19 [...] SHOULDER LEFT WO 2019-04-26 10:02:00 [place] [address] Patient Name: MAURIZIO WINN MR #: [id number] : 1935 Age/Sex: 84[id number] Req #: [id number] Adm Physician: Ordered by: KAYLA JARAMILLO MD Report #: [id number] Location: MRI Room/Bed: Procedure: 2800-9782 MRI/ MRI SHOULDER LEFT WO Exam Date: [...] COPY TO: KAYLA JARAMILLO MD CHEST 2 MEOVW1085-53-74 16:35:00 [place] [address] Patient Name: MAURIZIO WINN MR #: [id number] : 1935 Age/Sex: 84/F Req #: [id number] Adm Physician: Ordered by: MAURICIO AYOUB MD Report #: [id number] Location: [facility] Room/Bed: Procedure: [id number] DX/ CHEST 2 VIEWS Exam Date: 04/06/19 [...] MD 37 Transcribed By: CHILANGO Castaneda on 04/06/191637 COPY TO: MAURICIO AYOUB MD LUMBAR 3 VIEW 2019-02-08 12:39:00 [place] [address] Patient Name: MAURIZIO WINN MR #: [id number] : 1935 Age/Sex: 84/F Req #: [id number] Adm Physician: Ordered by: KAYLA JARAMILLO MD Report #: [id number] Location: [facility] Room/Bed: Procedure: [id number] DX/L UMBAR 3 VIEW Exam Date: 02/08/19 [...] 1241 COPY TO: KAYLA JARAMILLO MD Blood Nelgcya2918-61-27 13:38:00* Test Item Value Reference Range Interpretation Comments Blood Culture (test code = 32010575) NO GROWTH AFTER 5 DAYS, FINAL REPORT [facility] BRAIN VD2253-14-25 16:52:00 [facility] [address] [place] [address] Patient Name: MAURIZIO WINN MR #: [id number] : 1935 Age/Sex: 84/F Req #: [id number] Adm Physician: Ordered by: TED RUEDA [employer] Report #: [id number] Location: ER Room/Bed: Procedure: [id number] CT /CT BRAIN WO Exam Date: 01/11/19 [...] TO: NAY RUEDA NP CT CERVICAL SPINE UL2614-72-59 16:52:00 [place] [address] Patient Name: MAURIZIO WINN MR #: [id number] : 1935 Age/Sex: 84/F Req #: [id number] Adm Physician: Ordered by: TED RUEDA NP Report #: [id number] Location: ER Room/Bed: Procedure: [id number] CT /CT CERVICAL SPINE WO Exam Date: [...] MIKA on 01/11/191699 COPY TO: TED RUEDA [employer] Creatine Kinase EQ5541-62-33 16:28:00* Test Item Value Reference Range Interpretation Comments Creatine Kinase MB (test code = 31152-6) 2.30 0-5.0 [place] 13555019-10-09 16:28:00* Test Item Value Reference Range Interpretation Comments Troponin I (test code = ORA5364) 0.007 0-0.300 [facility] TexasCreatine Kinase GG2051-95-95 16:28:00* Test Item Value Reference Range Interpretation Comments Creatine Kinase MB (test code = 39277-0) 2.30 0-5.0 [place] 13555019-10-09 16:28:00* Test Item Value Reference Range Interpretation Comments Troponin I (test code = CWO2051) 0.007 0-0.300 [facility] TexasActivated Partial Thromboplast Time 2019-01-11 16:24:00* Test Item Value Reference Range Interpretation Comments Activated Partial Thromboplast Time (test code = 85530-3) 43.3 23.8-35.5 H [facility] TexasActivated Partial Thromboplast Time 2019-01-11 16:24:00* Test Item Value Reference Range Interpretation Comments Activated Partial Thromboplast Time (test code = 37239-3) 43.3 23.8-35.5 H [facility] Ksdjd4910-17-51 16:23:00* Test Item Value Reference Range Interpretation Comments Sodium Level (test code = 2951-2) 138 136-145 [facility] TexasPotassium Uwxbg1885-04-46 16:23:00* Test Item Value Reference Range Interpretation Comments Potassium Level (test code = 2823-3) 4.0 3.5-5.1 [facility] TexasChloride Kaucc2474-50-21 16:23:00* Test Item Value Reference Range Interpretation Comments Chloride Level (test code = 2075-0) 102 98-107 [facility] TexasCarbon Dioxide Ceqnq6560-94-68 16:23:00* Test Item Value Reference Range Interpretation Comments Carbon Dioxide Level (test code = 2028-9) 27 22-29 [facility] TexasAnion Oid1015-89-37 16:23:00* Test Item Value Reference Range Interpretation Comments Anion Gap (test code = 70086-5) 13.0 8-16 [facility] TexasBlood Urea Fnbclyly8289-08-43 16:23:00* Test Item Value Reference Range Interpretation Comments Blood Urea Nitrogen (test code = 3094-0) 16 7-26 [facility] TexasCreatinine2019-10-09 16:23:00* Test Item Value Reference Range Interpretation Comments Creatinine (test code = 2160-0) 0.83 0.57-1.11 [facility] TexasBUN/Creatinine Lqjxg6914-34-02 16:23:00* Test Item Value Reference Range Interpretation Comments BUN/Creatinine Ratio (test code = 3097-3) 19 6-25 [facility] TexasEstimat Glomerular Filtration Rate 2019-01-11 16:23:00* Test Item Value Reference Range Interpretation Comments Estimat Glomerular Filtration Rate (test code = 379170757) > 60 >60 Ranges were taken from the National Kidney Disease Education Program and the [facility] Kidney Foundation literature.Reference ranges:60 or greater: Ksvuzo91-75 ( for 3 consecutive months): Chronic kidney disease 15 or less: Kidney failureWoman's Hospital of TexasGlucose Iokio8964-93-29 16:23:00* Test Item Value Reference Range Interpretation Comments Glucose Level (test code = VPF2030) 93 74-118 [facility] TexasCalcium Aecgn4915-28-96 16:23:00* Test Item Value Reference Range Interpretation Comments Calcium Level (test code = 60540-8) 10.1 8.4-10.2 [facility] TexasTotal Aizibehhl6157-75-44 16:23:00* Test Item Value Reference Range Interpretation Comments Total Bilirubin (test code = 1975-2) 0.5 0.2-1.2 [facility] TexasAspartate Amino Transf (AST/SGOT) 2019-01-11 16:23:00* Test Item Value Reference Range Interpretation Comments Aspartate Amino Transf (AST/SGOT) (test code = Aspartate Amino Transf (AST/SGOT)) 21 5-34 [facility] TexasAlanine Aminotransferase (ALT/SGPT) 2019-01-11 16:23:00* Test Item Value Reference Range Interpretation Comments Alanine Aminotransferase (ALT/SGPT) (test code = 1742-6) 13 0-55 [facility] TexasTotal Iaghgfj6811-98-37 16:23:00* Test Item Value Reference Range Interpretation Comments Total Protein (test code = 2885-2) 7.0 6.5-8.1 [facility] TexasAlbumin2019-10-09 16:23:00* Test Item Value Reference Range Interpretation Comments Albumin (test code = 1751-7) 3.6 3.5-5.0 [facility] TexasGlobulin2019-10-09 16:23:00* Test Item Value Reference Range Interpretation Comments Globulin (test code = 63060-4) 3.4 2.3-3.5 [facility] TexasAlbumin/Globulin Gdjzx7078-05-32 16:23:00 * Test Item Value Reference Range Interpretation Comments Albumin/Globulin Ratio (test code = 1759-0) 1.1 0.8-2.0 [facility] TexasAlkaline Gppeqzumrnz9813-82-46 16:23:00* Test Item Value Reference Range Interpretation Comments Alkaline Phosphatase (test code = 6768-6) 40 40-150 [facility] TexasCreatine Isdlne7577-68-41 16:23:00* Test Item Value Reference Range Interpretation Comments Creatine Kinase (test code = 2157-6) 89 29-168 [facility]odium Rpaow0140-38-92 16:23:00* Test Item Value Reference Range Interpretation Comments Sodium Level (test code = 2951-2) 138 136-145 [facility] TexasPotassium Yvtay3413-97-72 16:23:00* Test Item Value Reference Range Interpretation Comments Potassium Level (test code = 2823-3) 4.0 3.5-5.1 [facility] TexasChloride Yvkqi5685-99-14 16:23:00* Test Item Value Reference Range Interpretation Comments Chloride Level (test code = 2075-0) 102 98-107 [facility] TexasCarbon Dioxide Vklvr4859-63-47 16:23:00* Test Item Value Reference Range Interpretation Comments Carbon Dioxide Level (test code = 2028-9) 27 22-29 [facility] TexasAnion Zaq9704-97-21 16:23:00* Test Item Value Reference Range Interpretation Comments Anion Gap (test code = 53677-9) 13.0 8-16 [facility] TexasBlood Urea Ukccvayy5445-61-85 16:23:00* Test Item Value Reference Range Interpretation Comments Blood Urea Nitrogen (test code = 3094-0) 16 7-26 [facility] TexasCreatinine2019-10-09 16:23:00* Test Item Value Reference Range Interpretation Comments Creatinine (test code = 2160-0) 0.83 0.57-1.11 [facility] TexasBUN/Creatinine Mlytt2384-47-73 16:23:00* Test Item Value Reference Range Interpretation Comments BUN/Creatinine Ratio (test code = 3097-3) 19 6-25 [facility] TexasEstimat Glomerular Filtration Rate 2019-01-11 16:23:00* Test Item Value Reference Range Interpretation Comments Estimat Glomerular Filtration Rate (test code = 434181049) > 60 >60 Ranges were taken from the National Kidney Disease Education Program and the [facility] Kidney Foundation literature.Reference ranges:60 or greater: Pvffwp82-81 ( for 3 consecutive months): Chronic kidney disease 15 or less: Kidney failureWoman's Hospital of TexasGlucose Blakq0727-91-42 16:23:00* Test Item Value Reference Range Interpretation Comments Glucose Level (test code = YOE4552) 93 74-118 [facility] TexasCalcium Ypfmw4843-93-83 16:23:00* Test Item Value Reference Range Interpretation Comments Calcium Level (test code = 84557-8) 10.1 8.4-10.2 [facility] TexasTotal Zkagjqypp5209-52-84 16:23:00* Test Item Value Reference Range Interpretation Comments Total Bilirubin (test code = 1975-2) 0.5 0.2-1.2 [facility] TexasAspartate Amino Transf (AST/SGOT) 2019-01-11 16:23:00* Test Item Value Reference Range Interpretation Comments Aspartate Amino Transf (AST/SGOT) (test code = Aspartate Amino Transf (AST/SGOT)) 21 5-34 [facility] TexasAlanine Aminotransferase (ALT/SGPT) 2019-01-11 16:23:00* Test Item Value Reference Range Interpretation Comments Alanine Aminotransferase (ALT/SGPT) (test code = 1742-6) 13 0-55 [facility] Scvdgxq0662-54-73 16:23:00* Test Item Value Reference Range Interpretation Comments Total Protein (test code = 2885-2) 7.0 6.5-8.1 [facility] TexasAlbumin2019-10-09 16:23:00* Test Item Value Reference Range Interpretation Comments Albumin (test code = 1751-7) 3.6 3.5-5.0 [facility] TexasGlobulin2019-10-09 16:23:00* Test Item Value Reference Range Interpretation Comments Globulin (test code = 50108-9) 3.4 2.3-3.5 [facility] TexasAlbumin/Globulin Jnzcy5653-21-86 16:23:00 * Test Item Value Reference Range Interpretation Comments Albumin/Globulin Ratio (test code = 1759-0) 1.1 0.8-2.0 [facility] TexasAlkaline Eqlpmaeqmwt6433-20-21 16:23:00* Test Item Value Reference Range Interpretation Comments Alkaline Phosphatase (test code = 6768-6) 40 40-150 [facility] TexasCreatine Bcqyyg0043-76-90 16:23:00* Test Item Value Reference Range Interpretation Comments Creatine Kinase (test code = 2157-6) 89 29-168 [facility] TexasProthrombin Rvli8760-99-46 16:10:00* Test Item Value Reference Range Interpretation Comments Prothrombin Time (test code = 5902-2) 22.1 11.9-14.5 H [facility] TexasProthromb Time International Ratio 2019-01-11 16:10:00* Test Item Value Reference Range Interpretation Comments Prothromb Time International Ratio (test code = 6301-6) 1.86 Oral Anticoagulant Therapy INR Values:1. Low Intensity Therapy 1.5 - 2.02 . Moderate Intensity Therapy 2.0 - 3.03. High Intensity Therapy(1) 2.5 - 3. 54. High Intensity Therapy(2) 3.0 - 4.05. Panic Value INR > 5.0 [facility] TexasProthrombin Chfr2797-36-17 16:10:00* Test Item Value Reference Range Interpretation Comments Prothrombin Time (test code = 5902-2) 22.1 11.9-14.5 H [facility] of TexasProthromb Time International Ratio 2019-01-11 16:10:00* Test Item Value Reference Range Interpretation Comments Prothromb Time International Ratio (test code = 6301-6) 1.86 Oral Anticoagulant Therapy INR Values:1. Low Intensity Therapy 1.5 - 2.02 . Moderate Intensity Therapy 2.0 - 3.03. High Intensity Therapy(1) 2.5 - 3. 54. High Intensity Therapy(2) 3.0 - 4.05. Panic Value INR > 5.0 [facility] TexasWhite Blood Vjrib2042-05-04 16:01:00* Test Item Value Reference Range Interpretation Comments White Blood Count (test code = 6690-2) 6.99 4.8-10.8 [facility] TexasRed Blood Frybz2597-22-19 16:01:00* Test Item Value Reference Range Interpretation Comments Red Blood Count (test code = 789-8) 4.22 3.6-5.1 [facility] TexasHemoglobin2019-10-09 16:01:00* Test Item Value Reference Range Interpretation Comments Hemoglobin (test code = 93926-0) 12.5 12.0-16.0 [facility] TexasHematocrit2019-10-09 16:01:00* Test Item Value Reference Range Interpretation Comments Hematocrit (test code = 4544-3) 38.9 34.2-44.1 [facility] TexasMean Corpuscular Okscwa5010-08-46 16:01:00* Test Item Value Reference Range Interpretation Comments Mean Corpuscular Volume (test code = 787-2) 92.2 81-99 [facility] TexasMean Corpuscular Etrsqesced8280-72-35 16:01:00* Test Item Value Reference Range Interpretation Comments Mean Corpuscular Hemoglobin (test code = 785-6) 29.6 28-32 [facility] TexasMean Corpuscular Hemoglobin Concent 2019-01-11 16:01:00* Test Item Value Reference Range Interpretation Comments Mean Corpuscular Hemoglobin Concent (test code = 786-4) 32.1 31-35 [facility] TexasRed Cell Distribution Jouur6696-64-60 16:01:00* Test Item Value Reference Range Interpretation Comments Red Cell Distribution Width (test code = 90771-5) 14.2 11.7 -14.4 [facility] TexasPlatelet Ncioy9700-46-67 16:01:00* Test Item Value Reference Range Interpretation Comments Platelet Count (test code = 777-3) 188 140-360 [facility] TexasNeutrophils (%) (Auto)2019-01-11 16:01:00 * Test Item Value Reference Range Interpretation Comments Neutrophils (%) (Auto) (test code = 28572-0) 63.0 38.7-80.0 [facility] TexasLymphocytes (%) (Auto)2019-01-11 16:01:00 * Test Item Value Reference Range Interpretation Comments Lymphocytes (%) (Auto) (test code = 736-9) 22.0 18.0-39.1 [facility] TexasMonocytes (%) (Auto)2019-01-11 16:01:00* Test Item Value Reference Range Interpretation Comments Monocytes (%) (Auto) (test code = 5905-5) 10.2 4.4-11.3 [facility] TexasEosinophils (%) (Auto)2019-01-11 16:01:00 * Test Item Value Reference Range Interpretation Comments Eosinophils (%) (Auto) (test code = 713-8) 3.9 0.0-6.0 [facility] TexasBasophils (%) (Auto)2019-01-11 16:01:00* Test Item Value Reference Range Interpretation Comments Basophils (%) (Auto) (test code = 706-2) 0.6 0.0-1.0 [facility] TexasIM GRANULOCYTES %2019-01-11 16:01:00* Test Item Value Reference Range Interpretation Comments IM GRANULOCYTES % (test code = IM GRANULOCYTES %) 0.3 0.0- 1.0 [facility] TexasNeutrophils # (Auto)2019-01-11 16:01:00* Test Item Value Reference Range Interpretation Comments Neutrophils # (Auto) (test code = 751-8) 4.4 2.1-6.9 [facility] TexasLymphocytes # (Auto)2019-01-11 16:01:00* Test Item Value Reference Range Interpretation Comments Lymphocytes # (Auto) (test code = 80272-2) 1.5 1.0-3.2 [facility] TexasMonocytes # (Auto)2019-01-11 16:01:00* Test Item Value Reference Range Interpretation Comments Monocytes # (Auto) (test code = 742-7) 0.7 0.2-0.8 [facility] TexasEosinophils # (Auto)2019-01-11 16:01:00* Test Item Value Reference Range Interpretation Comments Eosinophils # (Auto) (test code = 711-2) 0.3 0.0-0.4 [facility] TexasBasophils # (Auto)2019-01-11 16:01:00* Test Item Value Reference Range Interpretation Comments Basophils # (Auto) (test code = 704-7) 0.0 0.0-0.1 [facility] TexasAbsolute Immature Granulocyte (auto 2019-01-11 16:01:00* Test Item Value Reference Range Interpretation Comments Absolute Immature Granulocyte (auto (ginger t code = Absolute Immature Granulocyte (auto) 0.02 0-0.1 [facility] TexasWhite Blood Ebvpd8713-63-73 16:01:00* Test Item Value Reference Range Interpretation Comments White Blood Count (test code = 6690-2) 6.99 4.8-10.8 [facility] TexasRed Blood Hlegz8423-04-33 16:01:00* Test Item Value Reference Range Interpretation Comments Red Blood Count (test code = 789-8) 4.22 3.6-5.1 [facility] TexasMean Corpuscular Jhyqza2217-78-92 16:01:00* Test Item Value Reference Range Interpretation Comments Mean Corpuscular Volume (test code = 787-2) 92.2 81-99 [facility] TexasMean Corpuscular Lujrdyfqmn2304-82-44 16:01:00* Test Item Value Reference Range Interpretation Comments Mean Corpuscular Hemoglobin (test code = 785-6) 29.6 28-32 [facility] TexasMean Corpuscular Hemoglobin Concent 2019-01-11 16:01:00* Test Item Value Reference Range Interpretation Comments Mean Corpuscular Hemoglobin Concent (test code = 786-4) 32.1 31-35 [facility] TexasRed Cell Distribution Fxvtc9317-61-68 16:01:00* Test Item Value Reference Range Interpretation Comments Red Cell Distribution Width (test code = 31593-1) 14.2 11.7 -14.4 [facility] TexasPlatelet Txvdj0265-74-10 16:01:00* Test Item Value Reference Range Interpretation Comments Platelet Count (test code = 777-3) 188 140-360 [facility] TexasNeutrophils (%) (Auto)2019-01-11 16:01:00 * Test Item Value Reference Range Interpretation Comments Neutrophils (%) (Auto) (test code = 55473-3) 63.0 38.7-80.0 [facility] TexasLymphocytes (%) (Auto)2019-01-11 16:01:00 * Test Item Value Reference Range Interpretation Comments Lymphocytes (%) (Auto) (test code = 736-9) 22.0 18.0-39.1 [facility] TexasMonocytes (%) (Auto)2019-01-11 16:01:00* Test Item Value Reference Range Interpretation Comments Monocytes (%) (Auto) (test code = 5905-5) 10.2 4.4-11.3 [facility] TexasEosinophils (%) (Auto)2019-01-11 16:01:00 * Test Item Value Reference Range Interpretation Comments Eosinophils (%) (Auto) (test code = 713-8) 3.9 0.0-6.0 [facility] TexasBasophils (%) (Auto)2019-01-11 16:01:00* Test Item Value Reference Range Interpretation Comments Basophils (%) (Auto) (test code = 706-2) 0.6 0.0-1.0 [facility] TexasIM GRANULOCYTES %2019-01-11 16:01:00* Test Item Value Reference Range Interpretation Comments IM GRANULOCYTES % (test code = IM GRANULOCYTES %) 0.3 0.0- 1.0 [facility] TexasNeutrophils # (Auto)2019-01-11 16:01:00* Test Item Value Reference Range Interpretation Comments Neutrophils # (Auto) (test code = 751-8) 4.4 2.1-6.9 [facility] TexasLymphocytes # (Auto)2019-01-11 16:01:00* Test Item Value Reference Range Interpretation Comments Lymphocytes # (Auto) (test code = 53572-1) 1.5 1.0-3.2 [facility] TexasMonocytes # (Auto)2019-01-11 16:01:00* Test Item Value Reference Range Interpretation Comments Monocytes # (Auto) (test code = 742-7) 0.7 0.2-0.8 [facility] TexasEosinophils # (Auto)2019-01-11 16:01:00* Test Item Value Reference Range Interpretation Comments Eosinophils # (Auto) (test code = 711-2) 0.3 0.0-0.4 [facility] TexasBasophils # (Auto)2019-01-11 16:01:00* Test Item Value Reference Range Interpretation Comments Basophils # (Auto) (test code = 704-7) 0.0 0.0-0.1 [facility] TexasAbsolute Immature Granulocyte (auto 2019-01-11 16:01:00* Test Item Value Reference Range Interpretation Comments Absolute Immature Granulocyte (auto (ginger t code = Absolute Immature Granulocyte (auto) 0.02 0-0.1 [facility] TexasBedside Djrffzv3312-16-02 15:36:00* Test Item Value Reference Range Interpretation Comments Bedside Glucose (test code = 87852-8) 96 70-120 Meter ID: [id number]'s Hospital of TexasBlood Culture 2019-01-11 13:38:00* Test Item Value Reference Range Interpretation Comments Blood Culture (test code = 30537150) NO GROWTH AFTER 72 HOURS [facility]CR [facility] B[facility] CORA CAD DIGITAL 2019-01-11 08:27:46 - SCR MAMM BILATERAL CORA CAD DIGITALBILATERAL DIGITAL SCREENING MAMMOGRAM 3D/2D WITH CAD: 01/11/2019CLINICAL: Asymptomatic. Digital breast tomosynthesis was performed in addition to routine CC and MLO views. Current mammographic images were evaluated by either a Sodbuster M-Vu or a [employer] ImageChecker CAD (computer aided detection system). Comparison is made to exams dated 11/01/2017 mammogram, 10/29/2016 mammogram, and 10/30/2015 mammogram - [facility]-. There are scattered fibroglandular tissues in both breasts. There are benign vascular calcifications in both breasts. No suspicious mass, architectural distortion, malignant type calcification, or lymph node abnormality detected. Breast architecture is stable compared to prior exams.IMPRESSION: BENIGNThere is no mammographic evidence of malignancy. Resume annual screening mammography in one year. Anabel iraheta/patricia:01/11/2019 08:27:46 Desk Manager: Nerissa BONILLA, [facility]-FWletter sent: BIRADS 1-2 Normal Mammogram BI-RADS: 2 Benign Blood Nbmtoey2110-94-47 13:38:00* Test Item Value Reference Range Interpretation Comments Blood Culture (test code = 48974611) NO GROWTH AFTER 48 HOURS [facility] TexasBedside Fnlyqzh6629-51-57 11:55:00* Test Item Value Reference Range Interpretation Comments Bedside Glucose (test code = 08457-5) 99 70-120 Meter ID: [id number] [place] [facility]odium Level 2019-01-10 07:46:00* Test Item Value Reference Range Interpretation Comments Sodium Level (test code = 2951-2) 139 136-145 [facility] TexasPotassium Ahyll0284-85-40 07:46:00* Test Item Value Reference Range Interpretation Comments Potassium Level (test code = 2823-3) 4.0 3.5-5.1 [facility] TexasChloride Yzdjn4788-87-86 07:46:00* Test Item Value Reference Range Interpretation Comments Chloride Level (test code = 2075-0) 106 98-107 [facility] TexasCarbon Dioxide Tfiyf4688-49-41 07:46:00* Test Item Value Reference Range Interpretation Comments Carbon Dioxide Level (test code = 2028-9) 27 22-29 [facility] TexasAnion Nar2407-64-99 07:46:00* Test Item Value Reference Range Interpretation Comments Anion Gap (test code = 15172-3) 10.0 8-16 [facility] TexasBlood Urea Aujbrogv8307-47-31 07:46:00* Test Item Value Reference Range Interpretation Comments Blood Urea Nitrogen (test code = 3094-0) 11 7-26 [facility] TexasCreatinine2019-10-08 07:46:00* Test Item Value Reference Range Interpretation Comments Creatinine (test code = 2160-0) 0.66 0.57-1.11 [facility] TexasBUN/Creatinine Iuqin5142-06-03 07:46:00* Test Item Value Reference Range Interpretation Comments BUN/Creatinine Ratio (test code = 3097-3) 17 6-25 [facility] TexasEstimat Glomerular Filtration Rate 2019-01-10 07:46:00* Test Item Value Reference Range Interpretation Comments Estimat Glomerular Filtration Rate (test code = 972207832) > 60 >60 Ranges were taken from the National Kidney Disease Education Program and the [facility] Kidney Foundation literature.Reference ranges:60 or greater: Syjohq26-95 ( for 3 consecutive months): Chronic kidney disease 15 or less: Kidney failureWoman's Hospital of TexasGlucose Bccgv0554-99-73 07:46:00* Test Item Value Reference Range Interpretation Comments Glucose Level (test code = GIU4321) 107 74-118 [facility] TexasCalcium Ljppo4517-32-10 07:46:00* Test Item Value Reference Range Interpretation Comments Calcium Level (test code = 61754-8) 8.8 8.4-10.2 [facility] TexasWhite Blood Wvmaw9208-05-06 07:33:00* Test Item Value Reference Range Interpretation Comments White Blood Count (test code = 6690-2) 4.54 4.8-10.8 L [facility] TexasRed Blood Iznnq9525-17-60 07:33:00* Test Item Value Reference Range Interpretation Comments Red Blood Count (test code = 789-8) 3.05 3.6-5.1 L [facility] TexasHemoglobin2019-10-08 07:33:00* Test Item Value Reference Range Interpretation Comments Hemoglobin (test code = 37589-3) 9.2 12.0-16.0 L [facility] TexasHematocrit2019-10-08 07:33:00* Test Item Value Reference Range Interpretation Comments Hematocrit (test code = 4544-3) 28.9 34.2-44.1 L [facility] TexasMean Corpuscular Iyertv4004-96-50 07:33:00* Test Item Value Reference Range Interpretation Comments Mean Corpuscular Volume (test code = 787-2) 94.8 81-99 [facility] TexasMean Corpuscular Cifdzhunch5958-35-41 07:33:00* Test Item Value Reference Range Interpretation Comments Mean Corpuscular Hemoglobin (test code = 785-6) 30.2 28-32 [facility] TexasMean Corpuscular Hemoglobin Concent 2019-01-10 07:33:00* Test Item Value Reference Range Interpretation Comments Mean Corpuscular Hemoglobin Concent (test code = 786-4) 31.8 31-35 [facility] TexasRed Cell Distribution Ibuvw3470-10-03 07:33:00* Test Item Value Reference Range Interpretation Comments Red Cell Distribution Width (test code = 84373-8) 14.2 11.7 -14.4 [facility] TexasPlatelet Sypsm1514-77-98 07:33:00* Test Item Value Reference Range Interpretation Comments Platelet Count (test code = 777-3) 134 140-360 L [facility] TexasNeutrophils (%) (Auto)2019-01-10 07:33:00 * Test Item Value Reference Range Interpretation Comments Neutrophils (%) (Auto) (test code = 63883-8) 66.6 38.7-80.0 [facility] TexasLymphocytes (%) (Auto)2019-01-10 07:33:00 * Test Item Value Reference Range Interpretation Comments Lymphocytes (%) (Auto) (test code = 736-9) 16.3 18.0-39.1 L [facility] TexasMonocytes (%) (Auto)2019-01-10 07:33:00* Test Item Value Reference Range Interpretation Comments Monocytes (%) (Auto) (test code = 5905-5) 11.7 4.4-11.3 H [facility] TexasEosinophils (%) (Auto)2019-01-10 07:33:00 * Test Item Value Reference Range Interpretation Comments Eosinophils (%) (Auto) (test code = 713-8) 4.6 0.0-6.0 [facility] TexasBasophils (%) (Auto)2019-01-10 07:33:00* Test Item Value Reference Range Interpretation Comments Basophils (%) (Auto) (test code = 706-2) 0.4 0.0-1.0 [facility] TexasIM GRANULOCYTES %2019-01-10 07:33:00* Test Item Value Reference Range Interpretation Comments IM GRANULOCYTES % (test code = IM GRANULOCYTES %) 0.4 0.0- 1.0 [facility] TexasNeutrophils # (Auto)2019-01-10 07:33:00* Test Item Value Reference Range Interpretation Comments Neutrophils # (Auto) (test code = 751-8) 3.0 2.1-6.9 [facility] TexasLymphocytes # (Auto)2019-01-10 07:33:00* Test Item Value Reference Range Interpretation Comments Lymphocytes # (Auto) (test code = 03323-0) 0.7 1.0-3.2 L [facility] TexasMonocytes # (Auto)2019-01-10 07:33:00* Test Item Value Reference Range Interpretation Comments Monocytes # (Auto) (test code = 742-7) 0.5 0.2-0.8 [facility] TexasEosinophils # (Auto)2019-01-10 07:33:00* Test Item Value Reference Range Interpretation Comments Eosinophils # (Auto) (test code = 711-2) 0.2 0.0-0.4 [facility] TexasBasophils # (Auto)2019-01-10 07:33:00* Test Item Value Reference Range Interpretation Comments Basophils # (Auto) (test code = 704-7) 0.0 0.0-0.1 [facility] TexasAbsolute Immature Granulocyte (auto 2019-01-10 07:33:00* Test Item Value Reference Range Interpretation Comments Absolute Immature Granulocyte (auto (ginger t code = Absolute Immature Granulocyte (auto) 0.02 0-0.1 [facility] TexasB-Type Natriuretic Iaulwab5593-11-43 14:18:00* Test Item Value Reference Range Interpretation Comments B-Type Natriuretic Peptide (test code = 73849-3) 482.9 0-100 H [facility] TexasB-Type Natriuretic Qqjeggk7591-08-99 14:18:00* Test Item Value Reference Range Interpretation Comments B-Type Natriuretic Peptide (test code = 07959-3) 482.9 0-100 H [facility] TexasB-Type Natriuretic Hhhcjst7629-15-14 14:18:00* Test Item Value Reference Range Interpretation Comments B-Type Natriuretic Peptide (test code = 10863-8) 482.9 0-100 H [facility] TexasB-Type Natriuretic Tmoryqe8949-89-54 14:18:00* Test Item Value Reference Range Interpretation Comments B-Type Natriuretic Peptide (test code = 40209-8) 482.9 0-100 H [facility] TexasCreatine Kinase KZ7377-23-92 14:14:00* Test Item Value Reference Range Interpretation Comments Creatine Kinase MB (test code = 19244-3) 1.70 0-5.0 [facility] TexasTroponin [id number] 14:14:00* Test Item Value Reference Range Interpretation Comments Troponin I (test code = SIT6079) < 0.001 0-0.300 [facility] TexasCreatine Kinase UU1484-55-80 14:14:00* Test Item Value Reference Range Interpretation Comments Creatine Kinase MB (test code = 68272-5) 1.70 0-5.0 [facility] TexasTroponin Q6997-23-93 14:14:00* Test Item Value Reference Range Interpretation Comments Troponin I (test code = YJG5322) < 0.001 0-0.300 [facility] TexasUrine QYJ7357-27-50 14:09:00* Test Item Value Reference Range Interpretation Comments Urine WBC (test code = 5821-4) 6-10 0-5 H [facility] TexasUrine [id number] 14:09:00* Test Item Value Reference Range Interpretation Comments Urine RBC (test code = 92433-2) 6-10 0-5 H [facility] TexasUrine Qwoqpogj0705-57-44 14:09:00* Test Item Value Reference Range Interpretation Comments Urine Bacteria (test code = 98604-4) RARE NONE [facility] TexasUrine Epithelial Vruwb6978-05-79 14:09:00 * Test Item Value Reference Range Interpretation Comments Urine Epithelial Cells (test code = 57628-5) FEW NONE [facility] TexasUrine [id number] 14:09:00* Test Item Value Reference Range Interpretation Comments Urine WBC (test code = 5821-4) 6-10 0-5 [facility] MOU5712-10-73 14:09:00* Test Item Value Reference Range Interpretation Comments Urine RBC (test code = 62341-0) 6-10 0-5 [facility] Gmroowsc4443-04-35 14:09:00* Test Item Value Reference Range Interpretation Comments Urine Bacteria (test code = 80353-4) RARE NONE [facility] Epithelial Jhosa2473-33-30 14:09:00 * Test Item Value Reference Range Interpretation Comments Urine Epithelial Cells (test code = 01108-0) FEW NONE [facility] REN2267-78-34 14:09:00* Test Item Value Reference Range Interpretation Comments Urine WBC (test code = 5821-4) 6-10 0-5 [facility] NSQ6739-93-88 14:09:00* Test Item Value Reference Range Interpretation Comments Urine RBC (test code = 83061-2) 6-10 0-5 [facility] Kszqwgeg4627-02-15 14:09:00* Test Item Value Reference Range Interpretation Comments Urine Bacteria (test code = 58644-5) RARE NONE [facility] Epithelial Vejcx7954-80-23 14:09:00 * Test Item Value Reference Range Interpretation Comments Urine Epithelial Cells (test code = 56909-7) FEW NONE [facility] TexasWhite Blood Ghwuv6669-48-55 14:07:00* Test Item Value Reference Range Interpretation Comments White Blood Count (test code = 6690-2) 5.84 4.8-10.8 [facility] TexasRed Blood Owvyb7453-53-30 14:07:00* Test Item Value Reference Range Interpretation Comments Red Blood Count (test code = 789-8) 4.01 3.6-5.1 [facility]emoglobin2019-10-06 14:07:00* Test Item Value Reference Range Interpretation Comments Hemoglobin (test code = 34919-7) 11.9 12.0-16.0 L [facility] TexasHematocrit2019-10-06 14:07:00* Test Item Value Reference Range Interpretation Comments Hematocrit (test code = 4544-3) 36.5 34.2-44.1 [facility] TexasMean Corpuscular Ryzbgq3362-48-60 14:07:00* Test Item Value Reference Range Interpretation Comments Mean Corpuscular Volume (test code = 787-2) 91.0 81-99 [facility] TexasMean Corpuscular Byrjnanznl7747-61-42 14:07:00* Test Item Value Reference Range Interpretation Comments Mean Corpuscular Hemoglobin (test code = 785-6) 29.7 28-32 [facility] TexasMean Corpuscular Hemoglobin Concent 2019-01-08 14:07:00* Test Item Value Reference Range Interpretation Comments Mean Corpuscular Hemoglobin Concent (test code = 786-4) 32.6 31-35 [facility] TexasRed Cell Distribution Diivs4504-52-03 14:07:00* Test Item Value Reference Range Interpretation Comments Red Cell Distribution Width (test code = 85898-4) 14.0 11.7 -14.4 [facility] TexasPlatelet Kzggy1245-66-71 14:07:00* Test Item Value Reference Range Interpretation Comments Platelet Count (test code = 777-3) 216 140-360 [facility] TexasNeutrophils (%) (Auto)2019-01-08 14:07:00 * Test Item Value Reference Range Interpretation Comments Neutrophils (%) (Auto) (test code = 48178-8) 68.5 38.7-80.0 [facility] TexasLymphocytes (%) (Auto)2019-01-08 14:07:00 * Test Item Value Reference Range Interpretation Comments Lymphocytes (%) (Auto) (test code = 736-9) 19.9 18.0-39.1 [facility] TexasMonocytes (%) (Auto)2019-01-08 14:07:00* Test Item Value Reference Range Interpretation Comments Monocytes (%) (Auto) (test code = 5905-5) 8.2 4.4-11.3 [facility] TexasEosinophils (%) (Auto)2019-01-08 14:07:00 * Test Item Value Reference Range Interpretation Comments Eosinophils (%) (Auto) (test code = 713-8) 2.4 0.0-6.0 [facility] TexasBasophils (%) (Auto)2019-01-08 14:07:00* Test Item Value Reference Range Interpretation Comments Basophils (%) (Auto) (test code = 706-2) 0.7 0.0-1.0 [facility] TexasIM GRANULOCYTES %2019-01-08 14:07:00* Test Item Value Reference Range Interpretation Comments IM GRANULOCYTES % (test code = IM GRANULOCYTES %) 0.3 0.0- 1.0 [facility] TexasNeutrophils # (Auto)2019-01-08 14:07:00* Test Item Value Reference Range Interpretation Comments Neutrophils # (Auto) (test code = 751-8) 4.0 2.1-6.9 [facility] TexasLymphocytes # (Auto)2019-01-08 14:07:00* Test Item Value Reference Range Interpretation Comments Lymphocytes # (Auto) (test code = 86875-1) 1.2 1.0-3.2 [facility] TexasMonocytes # (Auto)2019-01-08 14:07:00* Test Item Value Reference Range Interpretation Comments Monocytes # (Auto) (test code = 742-7) 0.5 0.2-0.8 [facility] TexasEosinophils # (Auto)2019-01-08 14:07:00* Test Item Value Reference Range Interpretation Comments Eosinophils # (Auto) (test code = 711-2) 0.1 0.0-0.4 [facility] TexasBasophils # (Auto)2019-01-08 14:07:00* Test Item Value Reference Range Interpretation Comments Basophils # (Auto) (test code = 704-7) 0.0 0.0-0.1 [facility] TexasAbsolute Immature Granulocyte (auto 2019-01-08 14:07:00* Test Item Value Reference Range Interpretation Comments Absolute Immature Granulocyte (auto (ginger t code = Absolute Immature Granulocyte (auto) 0.02 0-0.1 [facility] TexasProthrombin Iudj0281-80-82 14:07:00* Test Item Value Reference Range Interpretation Comments Prothrombin Time (test code = 5902-2) 25.3 11.9-14.5 H [facility] TexasProthromb Time International Ratio 2019-01-08 14:07:00* Test Item Value Reference Range Interpretation Comments Prothromb Time International Ratio (test code = 6301-6) 2.22 Oral Anticoagulant Therapy INR Values:1. Low Intensity Therapy 1.5 - 2.02 . Moderate Intensity Therapy 2.0 - 3.03. High Intensity Therapy(1) 2.5 - 3. 54. High Intensity Therapy(2) 3.0 - 4.05. Panic Value INR > 5.0 [facility] TexasActivated Partial Thromboplast Time 2019-01-08 14:07:00* Test Item Value Reference Range Interpretation Comments Activated Partial Thromboplast Time (test code = 33038-1) 52.2 23.8-35.5 H [facility] TexasProthrombin Ktmz6776-68-16 14:07:00* Test Item Value Reference Range Interpretation Comments Prothrombin Time (test code = 5902-2) 25.3 11.9-14.5 [facility] TexasProthromb Time International Ratio 2019-01-08 14:07:00* Test Item Value Reference Range Interpretation Comments Prothromb Time International Ratio (test code = 6301-6) 2.22 Oral Anticoagulant Therapy INR Values:1. Low Intensity Therapy 1.5 - 2.02 . Moderate Intensity Therapy 2.0 - 3.03. High Intensity Therapy(1) 2.5 - 3. 54. High Intensity Therapy(2) 3.0 - 4.05. Panic Value INR > 5.0 [facility] TexasActivated Partial Thromboplast Time 2019-01-08 14:07:00* Test Item Value Reference Range Interpretation Comments Activated Partial Thromboplast Time (test code = 75573-1) 52.2 23.8-35.5 [facility] Tangn0046-40-14 14:06:00* Test Item Value Reference Range Interpretation Comments Sodium Level (test code = 2951-2) 138 136-145 [facility] TexasPotassium Trman5705-61-62 14:06:00* Test Item Value Reference Range Interpretation Comments Potassium Level (test code = 2823-3) 3.9 3.5-5.1 [facility] TexasChloride Edsaf5574-70-19 14:06:00* Test Item Value Reference Range Interpretation Comments Chloride Level (test code = 2075-0) 102 98-107 [facility] TexasCarbon Dioxide Bebdm7737-02-31 14:06:00* Test Item Value Reference Range Interpretation Comments Carbon Dioxide Level (test code = 2028-9) 29 22-29 [facility] TexasAnion Kiz7050-65-85 14:06:00* Test Item Value Reference Range Interpretation Comments Anion Gap (test code = 84440-2) 10.9 8-16 [facility] TexasBlood Urea Jstyramy4690-22-53 14:06:00* Test Item Value Reference Range Interpretation Comments Blood Urea Nitrogen (test code = 3094-0) 10 7-26 [facility] TexasCreatinine2019-10-06 14:06:00* Test Item Value Reference Range Interpretation Comments Creatinine (test code = 2160-0) 0.67 0.57-1.11 [facility] TexasBUN/Creatinine Rfuqx2775-89-63 14:06:00* Test Item Value Reference Range Interpretation Comments BUN/Creatinine Ratio (test code = 3097-3) 15 6-25 [facility] TexasEstimat Glomerular Filtration Rate 2019-01-08 14:06:00* Test Item Value Reference Range Interpretation Comments Estimat Glomerular Filtration Rate (test code = 579089266) > 60 >60 Ranges were taken from the National Kidney Disease Education Program and the [facility] Foundation literature.Reference ranges:60 or greater: Muxmjs87-96 ( for 3 consecutive months): Chronic kidney disease 15 or less: Kidney failureWoman's Hospital of TexasGlucose Fnpbk9479-21-62 14:06:00* Test Item Value Reference Range Interpretation Comments Glucose Level (test code = CDX8627) 139 74-118 H [facility] TexasCalcium Vcphn4750-48-73 14:06:00* Test Item Value Reference Range Interpretation Comments Calcium Level (test code = 94952-4) 9.5 8.4-10.2 [facility] TexasLactic Acid Gubdo0872-05-92 14:06:00* Test Item Value Reference Range Interpretation Comments Lactic Acid Level (test code = Lactic Acid Level) 12.7 4.5- 19.8 [facility] TexasTotal Gdtfbkqyx6719-24-85 14:06:00* Test Item Value Reference Range Interpretation Comments Total Bilirubin (test code = 1975-2) 0.5 0.2-1.2 [facility] TexasAspartate Amino Transf (AST/SGOT) 2019-01-08 14:06:00* Test Item Value Reference Range Interpretation Comments Aspartate Amino Transf (AST/SGOT) (test code = Aspartate Amino Transf (AST/SGOT)) 18 5-34 [facility] TexasAlanine Aminotransferase (ALT/SGPT) 2019-01-08 14:06:00* Test Item Value Reference Range Interpretation Comments Alanine Aminotransferase (ALT/SGPT) (test code = 1742-6) 10 0-55 [facility] TexasTotal Yejgcyy2921-25-75 14:06:00* Test Item Value Reference Range Interpretation Comments Total Protein (test code = 2885-2) 6.5 6.5-8.1 [facility] TexasAlbumin2019-10-06 14:06:00* Test Item Value Reference Range Interpretation Comments Albumin (test code = 1751-7) 3.5 3.5-5.0 [facility] TexasGlobulin2019-10-06 14:06:00* Test Item Value Reference Range Interpretation Comments Globulin (test code = 51120-1) 3.0 2.3-3.5 [facility] TexasAlbumin/Globulin Xmsux0589-63-70 14:06:00 * Test Item Value Reference Range Interpretation Comments Albumin/Globulin Ratio (test code = 1759-0) 1.2 0.8-2.0 [facility] TexasAlkaline Eldyutkcxsl9669-33-36 14:06:00* Test Item Value Reference Range Interpretation Comments Alkaline Phosphatase (test code = 6768-6) 30 40-150 L [facility] TexasCreatine Pnedrj5329-07-46 14:06:00* Test Item Value Reference Range Interpretation Comments Creatine Kinase (test code = 2157-6) 55 29-168 [facility] TexasLactic Acid Sopvj6923-48-23 14:06:00* Test Item Value Reference Range Interpretation Comments Lactic Acid Level (test code = Lactic Acid Level) 12.7 4.5- 19.8 [facility] TexasTotal Skpieirsz9993-45-82 14:06:00* Test Item Value Reference Range Interpretation Comments Total Bilirubin (test code = 1975-2) 0.5 0.2-1.2 [facility] TexasAspartate Amino Transf (AST/SGOT) 2019-01-08 14:06:00* Test Item Value Reference Range Interpretation Comments Aspartate Amino Transf (AST/SGOT) (test code = Aspartate Amino Transf (AST/SGOT)) 18 5-34 [facility] TexasAlanine Aminotransferase (ALT/SGPT) 2019-01-08 14:06:00* Test Item Value Reference Range Interpretation Comments Alanine Aminotransferase (ALT/SGPT) (test code = 1742-6) 10 0-55 [facility] TexasTotal Bcxjdmi1588-87-42 14:06:00* Test Item Value Reference Range Interpretation Comments Total Protein (test code = 2885-2) 6.5 6.5-8.1 [facility] TexasAlbumin2019-10-06 14:06:00* Test Item Value Reference Range Interpretation Comments Albumin (test code = 1751-7) 3.5 3.5-5.0 [facility] TexasGlobulin2019-10-06 14:06:00* Test Item Value Reference Range Interpretation Comments Globulin (test code = 57203-1) 3.0 2.3-3.5 [facility] TexasAlbumin/Globulin Yymrx5544-98-27 14:06:00 * Test Item Value Reference Range Interpretation Comments Albumin/Globulin Ratio (test code = 1759-0) 1.2 0.8-2.0 [facility] TexasAlkaline Xxwhnxtcxst5447-50-87 14:06:00* Test Item Value Reference Range Interpretation Comments Alkaline Phosphatase (test code = 6768-6) 30 40-150 L [facility] TexasCreatine Rflwrh9371-02-67 14:06:00* Test Item Value Reference Range Interpretation Comments Creatine Kinase (test code = 2157-6) 55 29-168 [facility] TexasLactic Acid Whonl8717-46-22 14:06:00* Test Item Value Reference Range Interpretation Comments Lactic Acid Level (test code = Lactic Acid Level) 12.7 4.5- 19.8 [facility] TexasLactic Acid Qobuu9417-22-51 14:06:00* Test Item Value Reference Range Interpretation Comments Lactic Acid Level (test code = Lactic Acid Level) 12.7 4.5- 19.8 [facility] TexasUrine Srbon0190-51-39 13:59:00* Test Item Value Reference Range Interpretation Comments Urine Color (test code = 5778-6) YELLOW YELLOW [facility] TexasUrine Mtvbweb6910-48-84 13:59:00* Test Item Value Reference Range Interpretation Comments Urine Clarity (test code = 26143-7) CLEAR CLEAR [facility] TexasUrine Specific Enubgwz2381-42-75 13:59:00 * Test Item Value Reference Range Interpretation Comments Urine Specific [place] (test code = 5811-5) 1.010 1.010-1.02 5 [facility] TexasUrine sE5461-05-90 13:59:00* Test Item Value Reference Range Interpretation Comments Urine pH (test code = 33259-5) 7 5-7 [facility] TexasUrine Leukocyte Xmciyopc9481-62-84 13:59:00* Test Item Value Reference Range Interpretation Comments Urine Leukocyte Esterase (test code = 38193-5) TRACE NEGATIV E H [facility] TexasUrine Cyacpbr8861-69-88 13:59:00* Test Item Value Reference Range Interpretation Comments Urine Nitrite (test code = 03661-5) NEGATIVE NEGATIVE [facility] TexasUrine Youzatt0684-81-23 13:59:00* Test Item Value Reference Range Interpretation Comments Urine Protein (test code = 42260-4) 1+ NEGATIVE H [facility] TexasUrine Glucose (UA)2019-01-08 13:59:00* Test Item Value Reference Range Interpretation Comments Urine Glucose (UA) (test code = 68351-2) NEGATIVE NEGATIVE [facility] TexasUrine Lunjegm7418-36-03 13:59:00* Test Item Value Reference Range Interpretation Comments Urine Ketones (test code = 20048-6) NEGATIVE NEGATIVE [facility] Wbolyqxxfhqs9258-14-93 13:59:00* Test Item Value Reference Range Interpretation Comments Urine Urobilinogen (test code = 27099-6) 0.2 0.2-1 [facility] TexasU[facility] Qjwmwydwx3464-58-64 13:59:00* Test Item Value Reference Range Interpretation Comments Urine Bilirubin (test code = 1977-8) NEGATIVE NEGATIVE [facility] TexasU[facility] Ppjvl6618-64-89 13:59:00* Test Item Value Reference Range Interpretation Comments Urine Blood (test code = 65200-9) TRACE NEGATIVE H [facility] TexasUrine Psefc0852-39-52 13:59:00* Test Item Value Reference Range Interpretation Comments Urine Color (test code = 5778-6) YELLOW YELLOW [facility] TexasU[facility] Oupenfx6091-90-23 13:59:00* Test Item Value Reference Range Interpretation Comments Urine Clarity (test code = 84513-2) CLEAR CLEAR [facility] TexasUrine Specific Fwuscfm1461-80-41 13:59:00 * Test Item Value Reference Range Interpretation Comments Urine Specific [place] (test code = 5811-5) 1.010 1.010-1.02 5 [facility] TexasUrine fZ2941-41-34 13:59:00* Test Item Value Reference Range Interpretation Comments Urine pH (test code = 71751-9) 7 5-7 [facility] TexasU[facility] Leukocyte Ojppoprg5892-21-55 13:59:00* Test Item Value Reference Range Interpretation Comments Urine Leukocyte Esterase (test code = 35492-1) TRACE NEGATIV E H [facility] TexasUrine Lqrxqjo1930-07-35 13:59:00* Test Item Value Reference Range Interpretation Comments Urine Nitrite (test code = 92530-5) NEGATIVE NEGATIVE [facility] Jjoeuxn6872-94-79 13:59:00* Test Item Value Reference Range Interpretation Comments Urine Protein (test code = 70794-5) 1+ NEGATIVE H [facility] Glucose (UA)2019-01-08 13:59:00* Test Item Value Reference Range Interpretation Comments Urine Glucose (UA) (test code = 81047-5) NEGATIVE NEGATIVE [facility] TexasU[facility] Sdwpmhi5897-76-53 13:59:00* Test Item Value Reference Range Interpretation Comments Urine Ketones (test code = 28948-6) NEGATIVE NEGATIVE [facility] Wzixojaanuyh8682-40-20 13:59:00* Test Item Value Reference Range Interpretation Comments Urine Urobilinogen (test code = 72968-1) 0.2 0.2-1 [facility] TexasU[facility] Xkyjlpckj8280-56-62 13:59:00* Test Item Value Reference Range Interpretation Comments Urine Bilirubin (test code = 1977-8) NEGATIVE NEGATIVE [facility] Sadfr1710-26-21 13:59:00* Test Item Value Reference Range Interpretation Comments Urine Blood (test code = 26570-1) TRACE NEGATIVE H [facility] TexasU[facility] Gqknz5690-32-43 13:59:00* Test Item Value Reference Range Interpretation Comments Urine Color (test code = 5778-6) YELLOW YELLOW [facility] TexasU[facility] Zaueesi1460-61-50 13:59:00* Test Item Value Reference Range Interpretation Comments Urine Clarity (test code = 08661-3) CLEAR CLEAR [facility] TexasU[facility] Specific Isrxklw9432-13-94 13:59:00 * Test Item Value Reference Range Interpretation Comments Urine Specific [place] (test code = 5811-5) 1.010 1.010-1.02 5 [facility] TexasU[facility] vI8595-36-06 13:59:00* Test Item Value Reference Range Interpretation Comments Urine pH (test code = 16477-9) 7 5-7 [facility] Leukocyte Axxcwmem6481-98-50 13:59:00* Test Item Value Reference Range Interpretation Comments Urine Leukocyte Esterase (test code = 28078-9) TRACE NEGATIV E H [facility] Sqgjvxa9706-41-54 13:59:00* Test Item Value Reference Range Interpretation Comments Urine Nitrite (test code = 06550-1) NEGATIVE NEGATIVE [facility] Ibwmyxn5485-82-65 13:59:00* Test Item Value Reference Range Interpretation Comments Urine Protein (test code = 16198-6) 1+ NEGATIVE H [facility] TexasU[facility] Glucose (UA)2019-01-08 13:59:00* Test Item Value Reference Range Interpretation Comments Urine Glucose (UA) (test code = 02910-3) NEGATIVE NEGATIVE [facility] Lwubtiw7679-16-19 13:59:00* Test Item Value Reference Range Interpretation Comments Urine Ketones (test code = 35497-2) NEGATIVE NEGATIVE [facility] Stzzhfekctrj4410-94-15 13:59:00* Test Item Value Reference Range Interpretation Comments Urine Urobilinogen (test code = 05001-8) 0.2 0.2-1 [facility] TexasU[facility] Xznabujmy8875-90-50 13:59:00* Test Item Value Reference Range Interpretation Comments Urine Bilirubin (test code = 1977-8) NEGATIVE NEGATIVE [facility] Bhibz9170-61-74 13:59:00* Test Item Value Reference Range Interpretation Comments Urine Blood (test code = 58179-5) TRACE NEGATIVE H [facility] Hfxxpyn6790-59-63 15:50:00* Test Item Value Reference Range Interpretation Comments Bedside Glucose (test code = 41681-2) 92 70-120 Meter ID: [id number] [facility] Glucose 2018-10-28 15:50:00* Test Item Value Reference Range Interpretation Comments Bedside Glucose (test code = 82202-1) 92 70-120 [facility]: [id number] [facility] K[facility]63-[facility]-84 14:47:00 [facility] [address] [address] Patient Name: MAURIZIO WINN MR #: [id number] : 1935 Age/Sex: 83/F Req #: [id number] Adm Physician: MAURICIO AYOUB MD Ordered by: MAURICIO AYOUB MD Report #: [id number] Location: MED/SURG Room/Bed: [facility] Procedure: [id number] C T/CT CHEST W Exam Date: 10/28/18 [...] 2:57 PM Dictated By: JOCELYN MATHUR MD 2668 Transcribed By: MIKA on 10/28/18 1 457 COPY TO: MAURICIO AYOUB MD CHEST 2 OJEID0047-64-74 14:42:00 [address] [address] Patient Name: MAURIZIO WINN MR #: [id number] : 4 Age/Sex: 83/F Req #: [id number] Adm Physician: MAURICIO AYOUB MD Ordered by: MAURICIO AYOUB MD Report #: [id number] Location: MED/SURG2 Room/Bed: [facility] Procedure: [id number] D X/CHEST 2 VIEWS Exam Date: 10/26/18 [...] 10/26/181446 COPY TO: MAURICIO AYOUB MD Urine UIR8368-27-09 06:55:00* Test Item Value Reference Range Interpretation Comments Urine WBC (test code = 5821-4) 21-50 0-5 H [facility] GPL6726-01-81 06:55:00* Test Item Value Reference Range Interpretation Comments Urine RBC (test code = 87731-9) 6-10 0-5 H [facility] Hvppngfr7719-68-48 06:55:00* Test Item Value Reference Range Interpretation Comments Urine Bacteria (test code = 19485-0) MODERATE NONE [facility] Epithelial Yckrc9820-54-23 06:55:00 * Test Item Value Reference Range Interpretation Comments Urine Epithelial Cells (test code = 60980-5) MANY NONE [facility] Pskry3100-59-71 06:52:00* Test Item Value Reference Range Interpretation Comments Urine Color (test code = 5778-6) YELLOW YELLOW [facility] TexasU[facility] Dskgcmt4706-81-00 06:52:00* Test Item Value Reference Range Interpretation Comments Urine Clarity (test code = 01378-4) CLEAR CLEAR [facility] TexasU[facility] Specific Tibirim2615-22-16 06:52:00 * Test Item Value Reference Range Interpretation Comments Urine Specific [place] (test code = 5811-5) 1.015 1.010-1.02 5 [facility] TexasU[facility] cE6181-31-62 06:52:00* Test Item Value Reference Range Interpretation Comments Urine pH (test code = 63972-0) 7 5-7 [facility] TexasU[facility] Leukocyte Lfnccrvg3424-11-36 06:52:00* Test Item Value Reference Range Interpretation Comments Urine Leukocyte Esterase (test code = 74464-4) TRACE NEGATIV E H [facility] TexasU[facility] Jbirxbp4222-07-67 06:52:00* Test Item Value Reference Range Interpretation Comments Urine Nitrite (test code = 95391-9) NEGATIVE NEGATIVE [facility] TexasU[facility] Iyzkqgt2497-38-36 06:52:00* Test Item Value Reference Range Interpretation Comments Urine Protein (test code = 61242-0) TRACE NEGATIVE H [facility] TexasU[facility] Glucose (UA)2018-10-26 06:52:00* Test Item Value Reference Range Interpretation Comments Urine Glucose (UA) (test code = 61425-6) NEGATIVE NEGATIVE [facility] Ajioeqf1757-16-28 06:52:00* Test Item Value Reference Range Interpretation Comments Urine Ketones (test code = 47765-0) NEGATIVE NEGATIVE [facility] Ixyjmzwuhnav6531-53-66 06:52:00* Test Item Value Reference Range Interpretation Comments Urine Urobilinogen (test code = 76697-6) 0.2 0.2-1 [facility] TexasU[facility] Mojivoass0007-93-29 06:52:00* Test Item Value Reference Range Interpretation Comments Urine Bilirubin (test code = 1977-8) NEGATIVE NEGATIVE [facility] Htuso3129-34-79 06:52:00* Test Item Value Reference Range Interpretation Comments Urine Blood (test code = 27395-6) TRACE NEGATIVE [facility] Klbtl1375-74-35 20:34:00* Test Item Value Reference Range Interpretation Comments Sodium Level (test code = 2951-2) 142 136-145 [facility] TexasPotassium Eitxs1511-12-27 20:34:00* Test Item Value Reference Range Interpretation Comments Potassium Level (test code = 2823-3) 3.8 3.5-5.1 [facility] TexasChloride Pbdrj0118-02-97 20:34:00* Test Item Value Reference Range Interpretation Comments Chloride Level (test code = 2075-0) 104 98-107 [facility] TexasCarbon Dioxide Tcsik3989-84-43 20:34:00* Test Item Value Reference Range Interpretation Comments Carbon Dioxide Level (test code = 2028-9) 28 22-29 [facility] TexasAnion Fya2693-20-84 20:34:00* Test Item Value Reference Range Interpretation Comments Anion Gap (test code = 81650-8) 13.8 8-16 [facility] TexasBlood Urea Alttpppc7944-08-02 20:34:00* Test Item Value Reference Range Interpretation Comments Blood Urea Nitrogen (test code = 3094-0) 19 7-26 [facility] TexasCreatinine2019-07-23 20:34:00* Test Item Value Reference Range Interpretation Comments Creatinine (test code = 2160-0) 0.74 0.57-1.11 [facility] TexasBUN/Creatinine Vnhlc2526-94-34 20:34:00* Test Item Value Reference Range Interpretation Comments BUN/Creatinine Ratio (test code = 3097-3) 26 6-25 H [facility] of TexasEstimat Glomerular Filtration Rate 2018-10-25 20:34:00* Test Item Value Reference Range Interpretation Comments Estimat Glomerular Filtration Rate (test code = 556011239) > 60 >60 Ranges were taken from the National Kidney Disease Education Program and the [facility] literature.Reference ranges:60 or greater: Qcncpy51-90 ( for 3 consecutive months): Chronic kidney disease 15 or less: Kidney failureWoman's Hospital of TexasGlucose Hpsrf1609-77-90 20:34:00* Test Item Value Reference Range Interpretation Comments Glucose Level (test code = JCH4653) 159 74-118 H [facility] TexasCalcium Ssvwm7743-49-64 20:34:00* Test Item Value Reference Range Interpretation Comments Calcium Level (test code = 74457-6) 9.7 8.4-10.2 [facility] TexasTotal Bogguqcvv9312-57-59 20:34:00* Test Item Value Reference Range Interpretation Comments Total Bilirubin (test code = 1975-2) 0.3 0.2-1.2 [facility] of TexasAspartate Amino Transf (AST/SGOT) 2018-10-25 20:34:00* Test Item Value Reference Range Interpretation Comments Aspartate Amino Transf (AST/SGOT) (test code = Aspartate Amino Transf (AST/SGOT)) 17 5-34 [facility] of TexasAlanine Aminotransferase (ALT/SGPT) 2018-10-25 20:34:00* Test Item Value Reference Range Interpretation Comments Alanine Aminotransferase (ALT/SGPT) (test code = 1742-6) 11 0-55 [facility] TexasTotal Mvauiwm8443-97-08 20:34:00* Test Item Value Reference Range Interpretation Comments Total Protein (test code = 2885-2) 6.0 6.5-8.1 L [facility] of TexasAlbumin2019-07-23 20:34:00* Test Item Value Reference Range Interpretation Comments Albumin (test code = 1751-7) 3.4 3.5-5.0 L [facility] of TexasGlobulin2019-07-23 20:34:00* Test Item Value Reference Range Interpretation Comments Globulin (test code = 97007-3) 2.6 2.3-3.5 [facility] TexasAlbumin/Globulin Owewj5231-18-95 20:34:00 * Test Item Value Reference Range Interpretation Comments Albumin/Globulin Ratio (test code = 1759-0) 1.3 0.8-2.0 [facility] TexasAlkaline Cpoahpekonx2986-44-31 20:34:00* Test Item Value Reference Range Interpretation Comments Alkaline Phosphatase (test code = 6768-6) 42 40-150 [facility] TexasProthrombin Fiol7166-06-29 20:27:00* Test Item Value Reference Range Interpretation Comments Prothrombin Time (test code = 5902-2) 22.9 11.9-14.5 H [facility] of TexasProthromb Time International Ratio 2018-10-25 20:27:00* Test Item Value Reference Range Interpretation Comments Prothromb Time International Ratio (test code = 6301-6) 1.95 Oral Anticoagulant Therapy INR Values:1. Low Intensity Therapy 1.5 - 2.02 . Moderate Intensity Therapy 2.0 - 3.03. High Intensity Therapy(1) 2.5 - 3. 54. High Intensity Therapy(2) 3.0 - 4.05. Panic Value INR > 5.0 [facility] of TexasWhite Blood Wljnn3972-71-76 20:14:00* Test Item Value Reference Range Interpretation Comments White Blood Count (test code = 6690-2) 6.44 4.8-10.8 [facility] of TexasRed Blood Mbmhk3074-32-14 20:14:00* Test Item Value Reference Range Interpretation Comments Red Blood Count (test code = 789-8) 3.86 3.6-5.1 [facility] TexasHemoglobin2019-07-23 20:14:00* Test Item Value Reference Range Interpretation Comments Hemoglobin (test code = 33184-3) 11.7 12.0-16.0 L [facility] of TexasHematocrit2019-07-23 20:14:00* Test Item Value Reference Range Interpretation Comments Hematocrit (test code = 4544-3) 35.4 34.2-44.1 [facility] of TexasMean Corpuscular Hafehh5519-50-24 20:14:00* Test Item Value Reference Range Interpretation Comments Mean Corpuscular Volume (test code = 787-2) 91.7 81-99 [facility] TexasMean Corpuscular Wmkmunulfk0379-19-09 20:14:00* Test Item Value Reference Range Interpretation Comments Mean Corpuscular Hemoglobin (test code = 785-6) 30.3 28-32 [facility] of TexasMean Corpuscular Hemoglobin Concent 2018-10-25 20:14:00* Test Item Value Reference Range Interpretation Comments Mean Corpuscular Hemoglobin Concent (test code = 786-4) 33.1 31-35 [facility] of TexasRed Cell Distribution Rbonv6789-92-25 20:14:00* Test Item Value Reference Range Interpretation Comments Red Cell Distribution Width (test code = 72353-9) 13.4 11.7 -14.4 [facility] of TexasPlatelet Opdux3537-35-30 20:14:00* Test Item Value Reference Range Interpretation Comments Platelet Count (test code = 777-3) 191 140-360 [facility] TexasNeutrophils (%) (Auto)2018-10-25 20:14:00 * Test Item Value Reference Range Interpretation Comments Neutrophils (%) (Auto) (test code = 56310-0) 56.5 38.7-80.0 [facility] of TexasLymphocytes (%) (Auto)2018-10-25 20:14:00 * Test Item Value Reference Range Interpretation Comments Lymphocytes (%) (Auto) (test code = 736-9) 28.6 18.0-39.1 [facility] TexasMonocytes (%) (Auto)2018-10-25 20:14:00* Test Item Value Reference Range Interpretation Comments Monocytes (%) (Auto) (test code = 5905-5) 10.2 4.4-11.3 [facility] TexasEosinophils (%) (Auto)2018-10-25 20:14:00 * Test Item Value Reference Range Interpretation Comments Eosinophils (%) (Auto) (test code = 713-8) 3.6 0.0-6.0 [facility] TexasBasophils (%) (Auto)2018-10-25 20:14:00* Test Item Value Reference Range Interpretation Comments Basophils (%) (Auto) (test code = 706-2) 0.6 0.0-1.0 [facility] of TexasIM GRANULOCYTES %2018-10-25 20:14:00* Test Item Value Reference Range Interpretation Comments IM GRANULOCYTES % (test code = IM GRANULOCYTES %) 0.5 0.0- 1.0 [facility] TexasNeutrophils # (Auto)2018-10-25 20:14:00* Test Item Value Reference Range Interpretation Comments Neutrophils # (Auto) (test code = 751-8) 3.6 2.1-6.9 [facility] TexasLymphocytes # (Auto)2018-10-25 20:14:00* Test Item Value Reference Range Interpretation Comments Lymphocytes # (Auto) (test code = 55068-8) 1.8 1.0-3.2 [facility] TexasMonocytes # (Auto)2018-10-25 20:14:00* Test Item Value Reference Range Interpretation Comments Monocytes # (Auto) (test code = 742-7) 0.7 0.2-0.8 [facility] TexasEosinophils # (Auto)2018-10-25 20:14:00* Test Item Value Reference Range Interpretation Comments Eosinophils # (Auto) (test code = 711-2) 0.2 0.0-0.4 [facility] TexasBasophils # (Auto)2018-10-25 20:14:00* Test Item Value Reference Range Interpretation Comments Basophils # (Auto) (test code = 704-7) 0.0 0.0-0.1 [facility] of TexasAbsolute Immature Granulocyte (auto 2018-10-25 20:14:00* Test Item Value Reference Range Interpretation Comments Absolute Immature Granulocyte (auto (ginger t code = Absolute Immature Granulocyte (auto) 0.03 0-0.1 [facility] Mzziqca9181-43-32 07:15:00* Test Item Value Reference Range Interpretation Comments Blood Culture (test code = 19268863) NO GROWTH AFTER 5 DAYS, FINAL REPORT [facility]2018-12-18 07:15:00* Test Item Value Reference Range Interpretation Comments Blood Culture (test code = 03473444) NO GROWTH AFTER 5 DAYS, FINAL REPORT [facility]2018-12-16 07:15:00* Test Item Value Reference Range Interpretation Comments Blood Culture (test code = 42250073) NO GROWTH AFTER [address] [facility]2018-12-16 07:11:00* Test Item Value Reference Range Interpretation Comments Blood Culture (test code = 600-7) Organism: ESCHERICHIA COLI-ESBL [facility]2018-12-16 07:11:00* Test Item Value Reference Range Interpretation Comments Blood Culture (test code = 600-7) Organism: ESCHERICHIA COLI-ESBL [facility]2018-12-16 07:11:00* Test Item Value Reference Range Interpretation Comments Blood Culture (test code = 600-7) No Result Data Provided [facility]2018-12-16 07:11:00* Test Item Value Reference Range Interpretation Comments Blood Culture (test code = 600-7) No Result Data Provided [facility]2018-12-16 07:11:00* Test Item Value Reference Range Interpretation Comments Blood Culture (test code = 600-7) No Result Data Provided [facility]2018-12-15 08:09:00* Test Item Value Reference Range Interpretation Comments Urine Culture (test code = 630-4) Organism: ESCHERICHIA COLI-ESBL [facility]2018-12-15 08:09:00* Test Item Value Reference Range Interpretation Comments Urine Culture (test code = 630-4) Organism: ESCHERICHIA COLI-ESBL [facility]2018-12-15 08:09:00* Test Item Value Reference Range Interpretation Comments Urine Culture (test code = 630-4) No Result Data Provided [facility]2018-12-15 08:09:00* Test Item Value Reference Range Interpretation Comments Urine Culture (test code = 630-4) No Result Data Provided [facility]2018-12-15 08:09:00* Test Item Value Reference Range Interpretation Comments Urine Culture (test code = 630-4) No Result Data Provided [facility] TexasMRI SPINE THORACIC [id number] 17:30:00 [facility] [address] [place] [address] Patient Name: MAURIZIO WINN MR #: [id number] : 4 Age/Sex: 83/F Req #: [id number] Adm Physician: MAURICIO AYOUB MD Ordered by: TOBY CLIFFORD MD Report #: [id number] Location: [facility] Room/Bed: [address] Procedure: [id number] MRI/MRI SPINE THORACIC WO Exam Date: 03/17/18 Exam T jamar: [id number] REPORT STATUS: Signed History:83-year-old female status post [...] TO: TOBY CLIFFORD MD MRI SPINE LUMBAR QY2478-17-06 17:15:00 [place] [address] Patient Name: MAURIZIO WINN MR #: [id number] : 1935 Age/Sex: 83/F Req #: [id number] Adm Physician: MAURICIO AYOUB MD Ordered by: TOBY CLIFFORD MD Report #: [id number] Location: [facility] Room/Bed: [place] [address] Procedure: [id number] MRI/MRI SPINE LUMBAR WO Exam Date: 03/17/18 Exam Jeremiah e: [id number] REPORT STATUS: Signed MR I SPINE LUMBAR [...] 03/18/181729 COPY TO: TOBY CLIFFORD MD Creatine Yktqza5509-54-78 07:55:00* Test Item Value Reference Range Interpretation Comments Creatine Kinase (test code = 2157-6) 101 29-168 [facility] TexasCreatine Kinase HP6623-73-31 07:55:00* Test Item Value Reference Range Interpretation Comments Creatine Kinase MB (test code = 13566-1) 1.40 0-5.0 [facility] TexasTroponin R9068-84-01 07:55:00* Test Item Value Reference Range Interpretation Comments Troponin I (test code = DIC8300) 0.006 0-0.300 [facility] TexasCreatine Frtexe8891-09-78 07:55:00* Test Item Value Reference Range Interpretation Comments Creatine Kinase (test code = 2157-6) 101 29-168 [facility] TexasCreatine Kinase BC5252-65-99 07:55:00* Test Item Value Reference Range Interpretation Comments Creatine Kinase MB (test code = 62781-9) 1.40 0-5.0 [facility] TexasTroponin Y9030-73-66 07:55:00* Test Item Value Reference Range Interpretation Comments Troponin I (test code = LRW4498) 0.006 0-0.300 [facility] TexasTriglycerides Pbqmu6102-00-11 01:14:00* Test Item Value Reference Range Interpretation Comments Triglycerides Level (test code = 2571-8) 112 0-149 [facility] TexasCholesterol Rtfwj5047-39-92 01:14:00* Test Item Value Reference Range Interpretation Comments Cholesterol Level (test code = 2093-3) 95 0-199 Less than 200 mg/dL Low Yzrg322 - 239 mg/dL Borderline Tjci888 m g/dl and greater High Risk [facility] of TexasLDL Uvmvqejobda8432-14-72 01:14:00* Test Item Value Reference Range Interpretation Comments LDL Cholesterol (test code = 2089-1) 35 60-130 L [facility] Jwcjvmymxcn0496-05-18 01:14:00* Test Item Value Reference Range Interpretation Comments HDL Cholesterol (test code = 2085-9) 38 40-60 L [facility] TexasCholesterol/HDL Cfonr1505-17-94 01:14:00 * Test Item Value Reference Range Interpretation Comments Cholesterol/HDL Ratio (test code = 9830-1) 2.5 3.0-3.6 L [facility] TexasTriglycerides Vhnzu8712-61-46 01:14:00* Test Item Value Reference Range Interpretation Comments Triglycerides Level (test code = 2571-8) 112 0-149 [facility] TexasCholesterol Gnxce9981-79-92 01:14:00* Test Item Value Reference Range Interpretation Comments Cholesterol Level (test code = 2093-3) 95 0-199 Less than 200 mg/dL Low Lirg509 - 239 mg/dL Borderline Ljps020 m g/dl and greater High Risk [facility] of TexasLDL Irqyqlgxphm5113-22-04 01:14:00* Test Item Value Reference Range Interpretation Comments LDL Cholesterol (test code = 2089-1) 35 60-130 [facility] Mmvfikcujtt6018-85-35 01:14:00* Test Item Value Reference Range Interpretation Comments HDL Cholesterol (test code = 2085-9) 38 40-60 L [facility] TexasCholesterol/HDL Buvwp2466-90-92 01:14:00 * Test Item Value Reference Range Interpretation Comments Cholesterol/HDL Ratio (test code = 9830-1) 2.5 3.0-3.6 L [facility] TexasTriglycerides Gcble1549-93-62 01:14:00* Test Item Value Reference Range Interpretation Comments Triglycerides Level (test code = 2571-8) 112 0-149 [facility] TexasCholesterol Jkvvj5061-19-46 01:14:00* Test Item Value Reference Range Interpretation Comments Cholesterol Level (test code = 2093-3) 95 0-199 Less than 200 mg/dL Low Uzmx607 - 239 mg/dL Borderline Ntjd881 m g/dl and greater High Risk [facility] of TexasLDL Abptofzdxob9416-10-96 01:14:00* Test Item Value Reference Range Interpretation Comments LDL Cholesterol (test code = 2089-1) 35 60-130 L [facility] Xlbonambmur4202-15-11 01:14:00* Test Item Value Reference Range Interpretation Comments HDL Cholesterol (test code = 2085-9) 38 40-60 L [facility] TexasCholesterol/HDL Mgaps6936-47-77 01:14:00 * Test Item Value Reference Range Interpretation Comments Cholesterol/HDL Ratio (test code = 9830-1) 2.5 3.0-3.6 L [facility] TexasTriglycerides Wbhmy2492-01-05 01:14:00* Test Item Value Reference Range Interpretation Comments Triglycerides Level (test code = 2571-8) 112 0-149 [facility] TexasCholesterol Xhttu9160-86-63 01:14:00* Test Item Value Reference Range Interpretation Comments Cholesterol Level (test code = 2093-3) 95 0-199 Less than 200 mg/dL Low Odpx868 - 239 mg/dL Borderline Xfzj889 m g/dl and greater High Risk [facility] TexasLDL Behgisyrljf8095-56-89 01:14:00* Test Item Value Reference Range Interpretation Comments LDL Cholesterol (test code = 2089-1) 35 60-130 L [facility] Twmofnannxd2080-69-99 01:14:00* Test Item Value Reference Range Interpretation Comments HDL Cholesterol (test code = 2085-9) 38 40-60 L [facility] TexasCholesterol/HDL Wxgrn2655-80-15 01:14:00 * Test Item Value Reference Range Interpretation Comments Cholesterol/HDL Ratio (test code = 9830-1) 2.5 3.0-3.6 L [facility] TexasTriglycerides Ebpkq6956-09-34 01:14:00* Test Item Value Reference Range Interpretation Comments Triglycerides Level (test code = 2571-8) 112 0-149 [facility] TexasCholesterol Uqlei3964-57-56 01:14:00* Test Item Value Reference Range Interpretation Comments Cholesterol Level (test code = 2093-3) 95 0-199 Less than 200 mg/dL Low Fxur785 - 239 mg/dL Borderline Zcyx764 m g/dl and greater High Risk [facility] of TexasLDL Gsaulxddedv8373-26-39 01:14:00* Test Item Value Reference Range Interpretation Comments LDL Cholesterol (test code = 2089-1) 35 60-130 L [facility] of TexasHDL Tgmxgltxlng4394-93-44 01:14:00* Test Item Value Reference Range Interpretation Comments HDL Cholesterol (test code = 2085-9) 38 40-60 L [facility] TexasCholesterol/HDL Ceeia3900-55-72 01:14:00 * Test Item Value Reference Range Interpretation Comments Cholesterol/HDL Ratio (test code = 9830-1) 2.5 3.0-3.6 L [facility] TexasBedside Szgsxxz8562-53-42 20:35:00* Test Item Value Reference Range Interpretation Comments Bedside Glucose (test code = 23000-0) 106 70-120 Meter ID: [id number]'s Hospital of TexasThyroid Stimulating Hormone (TSH)2018-03-17 15:07:00* Test Item Value Reference Range Interpretation Comments Thyroid Stimulating Hormone (TSH) (test code = 00901-4) 0.768 0.350-4.940 [facility] TexasThyroid Stimulating Hormone (TSH) 2018-03-17 15:07:00* Test Item Value Reference Range Interpretation Comments Thyroid Stimulating Hormone (TSH) (test code = 55792-2) 0.768 0.350-4.940 [facility] TexasThyroid Stimulating Hormone (TSH) 2018-03-17 15:07:00* Test Item Value Reference Range Interpretation Comments Thyroid Stimulating Hormone (TSH) (test code = 57301-7) 0.768 0.350-4.940 [facility] TexasThyroid Stimulating Hormone (TSH) 2018-03-17 15:07:00* Test Item Value Reference Range Interpretation Comments Thyroid Stimulating Hormone (TSH) (test code = 85798-7) 0.768 0.350-4.940 [facility] TexasThyroid Stimulating Hormone (TSH) 2018-03-17 15:07:00* Test Item Value Reference Range Interpretation Comments Thyroid Stimulating Hormone (TSH) (test code = 84827-6) 0.768 0.350-4.940 [facility] of TexasCT LUMBAR SPINE EO0442-67-65 13:26:00 [place] [address] Patient Name: MAURIZIO WINN MR #: [id number] : 1935 Age/Sex: 83/F Req #: [id number] Adm Physician: MAURICIO AYOUB MD Ordered by: MARCIO MAYORGA MD Report #: [id number] Location: [facility] Room/Bed: [place] [address] Procedure: [id number] CT/CT LUMBAR SPINE WO Exam Date: 03/17/18 [...] MD CHEST SINGLE (PORTABLE)2018-03-17 09:19:00 [place] [address] Patient Name: MAURIZIO WINN MR #: [id number] : 1935 Age/Sex: 83/F Req #: [id number] Adm Physician: Ordered by: CHOLO DELGADO MD Report #: [id number] Location: ER Room/Bed: Procedure: [id number] DX/C HEST SINGLE (PORTABLE) Exam Date: Exam [...] 2-3 VW (+/- PELVIS)2018-03-17 09:17:00 [place] [address] Patient Name: MAURIZIO WINN MR #: [id number] : 1935 Age/Sex: 83/F Req #: [id number] Adm Physician: Ordered by: CHOLO DELGADO MD Report #: [id number] Location: ER Room/Bed: Procedure: [id number] DX/H IP LEFT 2-3 VW (+/- PELVIS) [...] MD on 03/17/18916 Transcribed By: DREW on 0917 COPY TO: CHOLO DELGADO MD CT CERVICAL SPINE TG4185-22-98 08:57:00 [place] [address] Patient Name: MAURIZIO WINN MR #: [id number] : 1935 Age/Sex: 83/F Req #: [id number] Adm Physician: Ordered by: CHOLO DELGADO MD Report #: [id number] Location: ER Room/Bed: Procedure: [id number] CT/C T CERVICAL SPINE WO Exam Date: 03/17/18 Exam Time: 0 810 REPORT STATUS: Signed CT CER VICAL SPINE WO HISTORY: Fall COMPARISON: 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: CT of the cervical spine without [...] COPY TO: CHOLO DELGADO MD CT BRAIN CK2035-04-50 08:50:00 [place] [address] Patient Name: MAURIZIO WINN MR #: [id number] : 1935 Age/Sex: 83/F Req #: [id number] Adm Physician: Ordered by: CHOLO DELGADO MD Report #: [id number] Location: ER Room/Bed: Procedure: [id number] CT/C T BRAIN WO Exam Date: 03/17/18 [...] (test code = 5821-4) 11-20 0-5 H [facility] TexasUrine WON9567-46-29 08:04:00* Test Item Value Reference Range Interpretation Comments Urine RBC (test code = 08501-0) 11-20 0-5 H [facility] TexasUrine Arlzprfm2424-32-12 08:04:00* Test Item Value Reference Range Interpretation Comments Urine Bacteria (test code = 37991-4) MANY NONE H [facility] TexasUrine Epithelial Ujdxm3891-17-96 08:04:00 * Test Item Value Reference Range Interpretation Comments Urine Epithelial Cells (test code = 23387-4) RARE NONE [facility] TexasUrine Wcjzn0203-50-47 07:53:00* Test Item Value Reference Range Interpretation Comments Urine Color (test code = 5778-6) YELLOW YELLOW [facility] TexasUrine Yqmxhxi2387-53-28 07:53:00* Test Item Value Reference Range Interpretation Comments Urine Clarity (test code = 41735-0) HAZY CLEAR [facility] TexasUrine Specific Ydtmrfg4085-07-37 07:53:00 * Test Item Value Reference Range Interpretation Comments Urine Specific [place] (test code = 5811-5) 1.015 1.010-1.02 5 [facility] TexasUrine nK6741-80-71 07:53:00* Test Item Value Reference Range Interpretation Comments Urine pH (test code = 85382-8) 6 5-7 [facility] TexasUrine Leukocyte Obsvokig4139-55-82 07:53:00* Test Item Value Reference Range Interpretation Comments Urine Leukocyte Esterase (test code = 5799-2) 2+ NEGATIVE H [facility] TexasUrine Otzzpwd3165-94-26 07:53:00* Test Item Value Reference Range Interpretation Comments Urine Nitrite (test code = 13634-7) NEGATIVE NEGATIVE [facility] TexasUrine Iiipmek1785-29-96 07:53:00* Test Item Value Reference Range Interpretation Comments Urine Protein (test code = 5804-0) TRACE NEGATIVE H [facility] TexasUrine Glucose (UA)2018-03-17 07:53:00* Test Item Value Reference Range Interpretation Comments Urine Glucose (UA) (test code = 2349-9) NEGATIVE NEGATIVE [facility] Fzssdel3388-03-06 07:53:00* Test Item Value Reference Range Interpretation Comments Urine Ketones (test code = 94442-9) NEGATIVE NEGATIVE [facility] TexasUrine Oprpejwngsbz8561-05-69 07:53:00* Test Item Value Reference Range Interpretation Comments Urine Urobilinogen (test code = 65743-4) 0.2 0.2-1 [facility] TexasUrine Eywvbhxxt6203-11-53 07:53:00* Test Item Value Reference Range Interpretation Comments Urine Bilirubin (test code = 1978-6) NEGATIVE NEGATIVE [facility] Fxxpx1036-97-10 07:53:00* Test Item Value Reference Range Interpretation Comments Urine Blood (test code = 96292-4) 4+ NEGATIVE [facility] Fpbfs2035-15-26 07:47:00* Test Item Value Reference Range Interpretation Comments Sodium Level (test code = 2951-2) 136 136-145 [facility] TexasPotassium Doqvu1568-16-21 07:47:00* Test Item Value Reference Range Interpretation Comments Potassium Level (test code = 2823-3) 4.2 3.5-5.1 [facility] TexasChloride Qmzix8585-69-15 07:47:00* Test Item Value Reference Range Interpretation Comments Chloride Level (test code = 2075-0) 99 98-107 [facility] TexasCarbon Dioxide Buhgl7290-26-75 07:47:00* Test Item Value Reference Range Interpretation Comments Carbon Dioxide Level (test code = 2028-9) 26 22-29 [facility] TexasAnion Cks1445-72-49 07:47:00* Test Item Value Reference Range Interpretation Comments Anion Gap (test code = 00090-1) 15.2 8-16 [facility] TexasBlood Urea Filfscye9462-77-66 07:47:00* Test Item Value Reference Range Interpretation Comments Blood Urea Nitrogen (test code = 3094-0) 27 7-26 H [facility] TexasCreatinine2018-12-13 07:47:00* Test Item Value Reference Range Interpretation Comments Creatinine (test code = 2160-0) 0.84 0.57-1.11 [facility] TexasBUN/Creatinine Qtajx4067-86-39 07:47:00* Test Item Value Reference Range Interpretation Comments BUN/Creatinine Ratio (test code = 3097-3) 32 6-25 H [facility] of TexasEstimat Glomerular Filtration Rate 2018-03-17 07:47:00* Test Item Value Reference Range Interpretation Comments Estimat Glomerular Filtration Rate (test code = 405024437) > 60 >60 Ranges were taken from the National Kidney Disease Education Program and the [facility] literature.Reference ranges:60 or greater: Kfudth16-79 ( for 3 consecutive months): Chronic kidney disease 15 or less: Kidney failureWoman's Hospital of TexasGlucose Teqsq3250-65-25 07:47:00* Test Item Value Reference Range Interpretation Comments Glucose Level (test code = EEQ1702) 145 74-118 H [facility] TexasCalcium Qkyhi4838-66-27 07:47:00* Test Item Value Reference Range Interpretation Comments Calcium Level (test code = 30552-9) 10.0 8.4-10.2 [facility] TexasMagnesium Fcfkn3843-80-43 07:47:00* Test Item Value Reference Range Interpretation Comments Magnesium Level (test code = 96532-3) 1.7 1.3-2.1 [facility] TexasTotal Rlwthhcwy7625-63-37 07:47:00* Test Item Value Reference Range Interpretation Comments Total Bilirubin (test code = 1975-2) 0.8 0.2-1.2 [facility] of TexasAspartate Amino Transf (AST/SGOT) 2018-03-17 07:47:00* Test Item Value Reference Range Interpretation Comments Aspartate Amino Transf (AST/SGOT) (test code = Aspartate Amino Transf (AST/SGOT)) 25 5-34 [facility] of TexasAlanine Aminotransferase (ALT/SGPT) 2018-03-17 07:47:00* Test Item Value Reference Range Interpretation Comments Alanine Aminotransferase (ALT/SGPT) (test code = 1742-6) 23 0-55 [facility] [id number] 07:47:00* Test Item Value Reference Range Interpretation Comments Total Protein (test code = 2885-2) 6.5 6.5-8.1 [facility]Albumin2018-12-13 07:47:00* Test Item Value Reference Range Interpretation Comments Albumin (test code = 1751-7) 3.3 3.5-5.0 L [facility] TexasGlobulin2018-12-13 07:47:00* Test Item Value Reference Range Interpretation Comments Globulin (test code = 40152-3) 3.2 2.3-3.5 [facility] TexasAlbumin/Globulin [id number] 07:47:00 * Test Item Value Reference Range Interpretation Comments Albumin/Globulin Ratio (test code = 1759-0) 1.0 0.8-2.0 [facility] TexasAlkaline [id number] 07:47:00* Test Item Value Reference Range Interpretation Comments Alkaline Phosphatase (test code = 6768-6) 29 40-150 L [facility] TexasMagnesium [id number] 07:47:00* Test Item Value Reference Range Interpretation Comments Magnesium Level (test code = 01299-5) 1.7 1.3-2.1 [facility] TexasMagnesium [id number] 07:47:00* Test Item Value Reference Range Interpretation Comments Magnesium Level (test code = 31990-4) 1.7 1.3-2.1 [facility] [id number] 07:47:00* Test Item Value Reference Range Interpretation Comments Magnesium Level (test code = 75660-1) 1.7 1.3-2.1 [facility] [id number] 07:47:00* Test Item Value Reference Range Interpretation Comments Magnesium Level (test code = 01064-0) 1.7 1.3-2.1 [facility] TexasLactic Acid [id number] 07:36:00* Test Item Value Reference Range Interpretation Comments Lactic Acid Level (test code = Lactic Acid Level) 10.1 4.5- 19.8 [facility] TexasLactic Acid [id number] 07:36:00* Test Item Value Reference Range Interpretation Comments Lactic Acid Level (test code = Lactic Acid Level) 10.1 4.5- 19.8 [facility] TexasProthrombin [id number] 07:35:00* Test Item Value Reference Range Interpretation Comments Prothrombin Time (test code = 5902-2) 24.2 11.9-14.5 H [facility] TexasProthromb Time International Ratio 2018-03-17 07:35:00* Test Item Value Reference Range Interpretation Comments Prothromb Time International Ratio (test code = 6301-6) 2.00 Oral Anticoagulant Therapy INR Values:1. Low Intensity Therapy 1.5 - 2.02 . Moderate Intensity Therapy 2.0 - 3.03. High Intensity Therapy(1) 2.5 - 3. 54. High Intensity Therapy(2) 3.0 - 4.05. Panic Value INR > 5.0 [facility] TexasActivated Partial Thromboplast Time 2018-03-17 07:35:00* Test Item Value Reference Range Interpretation Comments Activated Partial Thromboplast Time (test code = 40365-2) 50.3 23.8-35.5 H [facility]Act[facility] Partial Thromboplast Time 2018-03-17 07:35:00* Test Item Value Reference Range Interpretation Comments Activated Partial Thromboplast Time (test code = 02485-7) 50.3 23.8-35.5 H [facility] TexasWhite Blood [id number] 07:32:00* Test Item Value Reference Range Interpretation Comments White Blood Count (test code = 6690-2) 8.26 4.8-10.8 [facility] TexasRed Blood [id number] 07:32:00* Test Item Value Reference Range Interpretation Comments Red Blood Count (test code = 789-8) 3.91 3.6-5.1 [facility] TexasHemoglobin2018-12-13 07:32:00* Test Item Value Reference Range Interpretation Comments Hemoglobin (test code = 15293-9) 12.2 12.0-16.0 [facility] TexasHematocrit2018-12-13 07:32:00* Test Item Value Reference Range Interpretation Comments Hematocrit (test code = 4544-3) 36.5 34.2-44.1 [facility] TexasMean Corpuscular [id number] 07:32:00* Test Item Value Reference Range Interpretation Comments Mean Corpuscular Volume (test code = 787-2) 93.4 81-99 [facility]Mean Corpuscular Cliafgkldl1876-53-66 07:32:00* Test Item Value Reference Range Interpretation Comments Mean Corpuscular Hemoglobin (test code = 785-6) 31.2 28-32 [facility] TexasMean Corpuscular Hemoglobin Concent 2018-03-17 07:32:00* Test Item Value Reference Range Interpretation Comments Mean Corpuscular Hemoglobin Concent (test code = 786-4) 33.4 31-35 [facility] TexasRed Cell Distribution [id number] 07:32:00* Test Item Value Reference Range Interpretation Comments Red Cell Distribution Width (test code = 37401-6) 14.2 11.7 -14.4 [facility] TexasPlatelet [id number] 07:32:00* Test Item Value Reference Range Interpretation Comments Platelet Count (test code = 777-3) 174 140-360 [facility] TexasNeutrophils (%) (Auto)2018-03-17 07:32:00 * Test Item Value Reference Range Interpretation Comments Neutrophils (%) (Auto) (test code = 22890-1) 78.3 38.7-80.0 [facility] TexasLymphocytes (%) (Auto)2018-03-17 07:32:00 * Test Item Value Reference Range Interpretation Comments Lymphocytes (%) (Auto) (test code = 736-9) 12.0 18.0-39.1 L [facility] TexasMonocytes (%) (Auto)2018-03-17 07:32:00* Test Item Value Reference Range Interpretation Comments Monocytes (%) (Auto) (test code = 5905-5) 9.0 4.4-11.3 [facility] TexasEosinophils (%) (Auto)2018-03-17 07:32:00 * Test Item Value Reference Range Interpretation Comments Eosinophils (%) (Auto) (test code = 713-8) 0.2 0.0-6.0 [facility] TexasBasophils (%) (Auto)2018-03-17 07:32:00* Test Item Value Reference Range Interpretation Comments Basophils (%) (Auto) (test code = 706-2) 0.1 0.0-1.0 [facility] TexasIM GRANULOCYTES %2018-03-17 07:32:00* Test Item Value Reference Range Interpretation Comments IM GRANULOCYTES % (test code = IM GRANULOCYTES %) 0.4 0.0- 1.0 [facility] TexasNeutrophils # (Auto)2018-03-17 07:32:00* Test Item Value Reference Range Interpretation Comments Neutrophils # (Auto) (test code = 751-8) 6.5 2.1-6.9 [facility] TexasLymphocytes # (Auto)2018-03-17 07:32:00* Test Item Value Reference Range Interpretation Comments Lymphocytes # (Auto) (test code = 34537-6) 1.0 1.0-3.2 [facility] TexasMonocytes # (Auto)2018-03-17 07:32:00* Test Item Value Reference Range Interpretation Comments Monocytes # (Auto) (test code = 742-7) 0.7 0.2-0.8 [facility] TexasEosinophils # (Auto)2018-03-17 07:32:00* Test Item Value Reference Range Interpretation Comments Eosinophils # (Auto) (test code = 711-2) 0.0 0.0-0.4 [facility] TexasBasophils # (Auto)2018-03-17 07:32:00* Test Item Value Reference Range Interpretation Comments Basophils # (Auto) (test code = 704-7) 0.0 0.0-0.1 [facility] TexasAbsolute Immature Granulocyte (auto 2018-03-17 07:32:00* Test Item Value Reference Range Interpretation Comments Absolute Immature Granulocyte (auto (ginger t code = Absolute Immature Granulocyte (auto) 0.03 0-0.1 [facility] TexasBedside [id number] 08:06:00* Test Item Value Reference Range Interpretation Comments Bedside Glucose (test code = 02335-3) 101 70-120 Meter ID: [id number]'s Hospital of TexasWhite Blood Count 2016-08-17 10:57:00* Test Item Value Reference Range Interpretation Comments White Blood Count (test code = 6690-2) 5.6 4.5-10.6 [facility] TexasRed Blood [id number] 10:57:00* Test Item Value Reference Range Interpretation Comments Red Blood Count (test code = 789-8) 4.00 3.6-5.1 [facility] TexasHemoglobin2017-05-15 10:57:00* Test Item Value Reference Range Interpretation Comments Hemoglobin (test code = 31806-5) 12.5 11.6-14.5 [facility] TexasHematocrit2017-05-15 10:57:00* Test Item Value Reference Range Interpretation Comments Hematocrit (test code = 4544-3) 37.7 34.2-44.1 [facility] TexasMean Corpuscular Paumpw4988-67-30 10:57:00* Test Item Value Reference Range Interpretation Comments Mean Corpuscular Volume (test code = 787-2) 94.3 81-99 [facility] TexasMean Corpuscular Eicvgrplrh1752-30-66 10:57:00* Test Item Value Reference Range Interpretation Comments Mean Corpuscular Hemoglobin (test code = 785-6) 31.3 28-32 [facility] TexasMean Corpuscular Hemoglobin Concent 2016-08-17 10:57:00* Test Item Value Reference Range Interpretation Comments Mean Corpuscular Hemoglobin Concent (test code = 786-4) 33.2 31-35 [facility] TexasRed Cell Distribution [id number] 10:57:00* Test Item Value Reference Range Interpretation Comments Red Cell Distribution Width (test code = 64254-3) 13.3 11.7 -14.4 [facility] TexasPlatelet [id number] 10:57:00* Test Item Value Reference Range Interpretation Comments Platelet Count (test code = 777-3) 180 140-360 [facility] TexasNeutrophils (%) (Auto)2016-08-17 10:57:00 * Test Item Value Reference Range Interpretation Comments Neutrophils (%) (Auto) (test code = 76784-7) 52.9 38.7-80.0 [facility] TexasLymphocytes (%) (Auto)2016-08-17 10:57:00 * Test Item Value Reference Range Interpretation Comments Lymphocytes (%) (Auto) (test code = 736-9) 33.6 18.0-39.1 [facility] TexasMonocytes (%) (Auto)2016-08-17 10:57:00* Test Item Value Reference Range Interpretation Comments Monocytes (%) (Auto) (test code = 5905-5) 9.8 4.4-11.3 [facility] TexasEosinophils (%) (Auto)2016-08-17 10:57:00 * Test Item Value Reference Range Interpretation Comments Eosinophils (%) (Auto) (test code = 713-8) 3.0 0.0-6.0 [facility] TexasBasophils (%) (Auto)2016-08-17 10:57:00* Test Item Value Reference Range Interpretation Comments Basophils (%) (Auto) (test code = 706-2) 0.5 0.0-1.0 [facility] TexasIM GRANULOCYTES %2016-08-17 10:57:00* Test Item Value Reference Range Interpretation Comments IM GRANULOCYTES % (test code = IM GRANULOCYTES %) 0.2 0.0- 1.0 [facility] TexasNeutrophils # (Auto)2016-08-17 10:57:00* Test Item Value Reference Range Interpretation Comments Neutrophils # (Auto) (test code = 751-8) 3.0 2.1-6.9 [facility] TexasLymphocytes # (Auto)2016-08-17 10:57:00* Test Item Value Reference Range Interpretation Comments Lymphocytes # (Auto) (test code = 78545-1) 1.9 1.0-3.2 [facility] TexasMonocytes # (Auto)2016-08-17 10:57:00* Test Item Value Reference Range Interpretation Comments Monocytes # (Auto) (test code = 742-7) 0.6 0.2-0.8 [facility] TexasEosinophils # (Auto)2016-08-17 10:57:00* Test Item Value Reference Range Interpretation Comments Eosinophils # (Auto) (test code = 711-2) 0.2 0.0-0.4 [facility] TexasBasophils # (Auto)2016-08-17 10:57:00* Test Item Value Reference Range Interpretation Comments Basophils # (Auto) (test code = 704-7) 0.0 0.0-0.1 [facility] TexasAbsolute Immature Granulocyte (auto 2016-08-17 10:57:00* Test Item Value Reference Range Interpretation Comments Absolute Immature Granulocyte (auto (ginger t code = Absolute Immature Granulocyte (auto) 0.01 0-0.1 [facility]
[2020-01-23] MEDS ORDERED: PIPER-TAZ 3.375 GM 50 ML IV SCH (18:00)
--- NOTE | 2020-01-23 18:06 | NUR ---
INFECTIOUS DISEASE CONSULT NOTE DR. AUSTYN VERA CC: dizzy, diarrhea HPI: This is a very pleasant 85 year old female who is well known to me for many years. She is a patient of Dr. Villa as well. She follows up with me in the office for frequent UTI's. She is on suppressive treatment with Hipprex and Ceftin. She presented with weakness and diarrhea ongoing for one day. Examined patient in the ED. PMH: UTI, HTN, T2DM PAST SURGICAL HX: bladder surgery FAMILY HX: HTN SOCIAL HX: denies smoking drinking ROS: + fatigue +diarrhea ALL 14 POINT ROS NEG UNLESS OTHERWISE NOTED LABS: per chart RADIOLOGY: pending IMPRESSION: UTI Diarrhea -r/o Cdiff -r/o Colitis PLAN: get stool sample if able Cefepime and Flagyl for now get CXR, get CT ABD/Pelvis get labs work-up pending Tatiana Lawrence MSN, DRY HOUSE OPERATOR, AGACNP-BC examined with Dr. Austyn Vera
--- NOTE | 2020-01-23 18:29 | NUR ---
Recvd patient from ER, AAOx3, PATIENT RESTING IN BED, CALL LIGHT IN REACH, NOT IN [place] DISTRESS
[2020-01-23 18:34] VITALS: BP 156/83
[2020-01-23] MEDS ORDERED: SODIUM CHLORIDE 0.9% 50ML 50 ML ONE (18:44)
[2020-01-23] MEDS ORDERED: IOPAMIDOL 370 MG/ML 200 ML INFUS..BTL INJ ONE (18:44)
--- NOTE | 2020-01-23 19:31 | Diagnostic Imaging Report ---
EXAMINATION: CHEST SINGLE (PORTABLE) INDICATION: Evaluate for aspiration. COMPARISON: 10/04/2019 FINDINGS: TUBES and LINES: Right Port-A-Cath which terminates in the right atrium. LUNGS: Normal lung volumes. There is prominent interstitial lung markings and hazy opacification of bilateral lung bases. There is a stable calcified granuloma in the right lung base. No consolidations. PLEURA: No pleural effusion or pneumothorax. HEART AND MEDIASTINUM: The cardiomediastinal silhouette is enlarged. There is atherosclerotic calcification of the thoracic aortic knob. BONES AND SOFT TISSUES: Degenerative changes in the spine and shoulders. Soft tissues are unremarkable. UPPER ABDOMEN: No free air under the diaphragm. IMPRESSION: 1. Cardiomegaly with mild interstitial pulmonary edema. 2. Hazy opacification the bilateral lung bases may represent atelectasis and/or aspiration proper clinical context. Signed by: Keesha Restrepo MD on 01/23/2020 7:27 PM
[2020-01-23 20:00] VITALS: BP 157/82
[2020-01-23] MEDS: SODIUM CHLORIDE 0.9% 1000ML 1,000 ML IV SCH (20:14)
[2020-01-23] MEDS: CEFEPIME 1GM/NS 0.9% 50 ML 50 ML IV SCH (20:15)
[2020-01-23] MEDS: METRONIDAZOLE 500MG/NS 100ML 100 ML IV SCH (20:15)
[2020-01-23] MEDS ORDERED: FUROSEMIDE 40 MG TAB PO PRN (20:30)
[2020-01-23] MEDS: GABAPENTIN 300 MG CAP PO SCH (21:00)
[2020-01-23] MEDS: METOPROLOL TARTRATE 50 MG TAB PO SCH (21:00)
[2020-01-23] MEDS ORDERED: CEFEPIME HCL 1 GM VIAL IV SCH (22:00)
[2020-01-23 22:48] VITALS: BP 157/82
[2020-01-23 23:11] VITALS: BP 157/82
--- NOTE | 2020-01-23 23:39 | NUR ---
pt resting comfortably in bed no signs of distress no complaints at this time
[2020-01-24] VITALS (8 sets, daily range): BP systolic 122–156; BP diastolic 62–92
[2020-01-24] MEDS ORDERED: HYDROCODONE/APAP 7.5MG-325MG 1 EA TAB PO SCH
[2020-01-24] MEDS: SODIUM CHLORIDE 0.9% 1000ML 1,000 ML IV SCH ×4 (00:30→21:14)
[2020-01-24] MEDS: METRONIDAZOLE 500MG/NS 100ML 100 ML IV SCH ×3 (01:51→15:51)
[2020-01-24 02:16] LABS: CLARITY,URINE SL CLOUDY (CLEAR); COLOR,URINE YELLOW (YELLOW)
[2020-01-24 02:17] LABS: BILIRUBIN,URINE NEGATIVE (NEGATIVE); KETONES,URINE NEGATIVE (NEGATIVE); LEUKOCYTE ESTERASE ,URINE SMALL (NEGATIVE); NITRITE,URINE NEGATIVE (NEGATIVE); PROTEIN,URINE DIPSTICK 1+ (NEGATIVE); URINE UROBILINOGEN 0.2 mg/dL (0.2 - 1)
[2020-01-24 02:26] LABS: BACTERIA,URINE MODERATE /HPF; EPITHELIAL CELLS,URINE MANY /LPF
[2020-01-24] MEDS: CEFEPIME 1GM/NS 0.9% 50 ML 50 ML IV SCH ×3 (03:00→21:14)
[2020-01-24] MEDS: HYDROCODONE/APAP 7.5MG-325MG 1 EA TAB PO PRN ×4 (03:05→23:27)
[2020-01-24 07:08] LABS: BASOPHILS # (AUTO) 0.1 (0.0-0.1); BASOPHILS % 0.9 % (0.0-1.0); EOSINOPHILS # (AUTO) 0.1 (0.0-0.4); EOSINOPHILS % 1.1 % (0.0-6.0); HEMATOCRIT 31.9 % (34.2-44.1); HEMOGLOBIN 9.2 g/dL (12.0-16.0); LYMPHOCYTES # (AUTO) 0.8 (1.0-3.2); LYMPHOCYTES % 13.5 % (18.0-39.1); MEAN CORPUSCULAR HEMOGLOBIN 23.4 pg (28-32); MEAN CORPUSCULAR HGB CONC 28.8 g/dL (31-35); MONOCYTES # (AUTO) 0.6 (0.2-0.8); MONOCYTES % 11.3 % (4.4-11.3); NEUTROPHILS # (AUTO) 4.1 (2.1-6.9); NEUTROPHILS % 72.8 % (38.7-80.0); PLATELET COUNT 263 x10e3/uL (140-360); RED BLOOD COUNT 3.94 x10e6/uL (3.6-5.1); RED CELL DISTRIBUTION WIDTH 17.4 % (11.7-14.4)
[2020-01-24 07:19] LABS: ALANINE AMINOTRANSFERASE 12 IU/L (0-55); ALBUMIN/GLOBULIN RATIO 1.1 (0.8-2.0); ALKALINE PHOSPHATASE 35 IU/L (40-150); ANION GAP 12.6 mmol/L (8-16); BLOOD UREA NITROGEN 24 mg/dL (7-26); BUN/CREATININE RATIO 28 (6-25); CALCIUM 8.6 mg/dL (8.4-10.2); CARBON DIOXIDE 23 mmol/L (22-29); CHLORIDE 104 mmol/L (98-107); CREATININE, SERUM 0.87 mg/dL (0.57-1.11); EST GLOMERULAR FILTRATION RATE > 60 ML/MIN (60-); GLUCOSE 183 mg/dL (74-118); POTASSIUM 3.6 mmol/L (3.5-5.1); SODIUM 136 mmol/L (136-145)
[2020-01-24 07:43] LABS: CREATINE KINASE MB 2.9 ng/mL (0-5.0)
[2020-01-24] MEDS: (Fenofibrate,Micronized (Fenofibrate) 134 MG) PO SCH (09:00)
[2020-01-24] MEDS: (Methenamine Hippurate 1 GM) PO SCH ×2 (09:00→16:14)
[2020-01-24] MEDS: PANTOPRAZOLE SOD 40 MG TABEC PO SCH (10:04)
[2020-01-24] MEDS: METOPROLOL TARTRATE 50 MG TAB PO SCH ×3 (10:04→21:14)
[2020-01-24] MEDS: GLIMEPIRIDE 2 MG TAB PO SCH (10:04)
[2020-01-24] MEDS: FLUOXETINE HCL 20 MG CAP PO SCH (10:05)
[2020-01-24] MEDS: GABAPENTIN 300 MG CAP PO SCH ×3 (10:05→21:14)
[2020-01-24] MEDS: RIVAROXABAN 15 MG TABLET PO SCH (10:05)
[2020-01-24] MEDS: LEVOTHYROXINE SODIUM 50 MCG TAB PO SCH (10:05)
[2020-01-24] MEDS: LISINOPRIL 10 MG TAB PO SCH ×2 (10:05→15:51)
[2020-01-24 13:28] LABS: CREATINE KINASE MB 3.8 ng/mL (0-5.0)
--- NOTE | 2020-01-24 14:44 | NUR ---
INFECTIOUS DISEASE CONSULT NOTE DR. AUSTYN VERA CC: dizzy, diarrhea HPI: This is a very pleasant 85 year old female who is well known to me for many years. She is a patient of Dr. Villa as well. She follows up with me in the office for frequent UTI's. She is on suppressive treatment with Hipprex and Ceftin. She presented with weakness and diarrhea ongoing for one day. Examined patient in the ED. PMH: UTI, HTN, T2DM PAST SURGICAL HX: bladder surgery FAMILY HX: HTN SOCIAL HX: denies smoking drinking ROS: + fatigue +diarrhea ALL 14 POINT ROS NEG UNLESS OTHERWISE NOTED PHYSICAL EXAM: VS: reviewed GENERAL: alert, awake, oriented HEENT: normocephalic, atraumatic CV: s1. s2. no s3. s4 CHEST: rhonchi, symmetric expansion ABD: soft, non-tender EXT: moves all, no joint swelling NEURO: no large deficits LABS: per chart RADIOLOGY: pending IMPRESSION: UTI Diarrhea Aspiration PNA PLAN: get stool sample if able Cefepime and Flagyl for now blood cultures and urine cultures pending work-up still pending Tatiana Lawrence MSN, RE RECORDING MIXER, AGACNP-BC examined with Dr. Austyn Vera
--- NOTE | 2020-01-24 14:45 | NUR ---
Addendum to consult on 01/22: PHYSICAL EXAM: VS: reviewed GENERAL: alert, awake, oriented HEENT: normocephalic, atraumatic CV: s1. s2. no s3. s4 CHEST: rhonchi, symmetric expansion ABD: soft, non-tender EXT: moves all, no joint swelling NEURO: no large deficits
--- NOTE | 2020-01-24 15:54 | NUR ---
OBS DAY 1. SENT TO R1 FOR LOC DETERMINATION
--- NOTE | 2020-01-24 22:29 | NUR ---
PATIENT CALLED NURSE TO ROOM AND C/O SEVERE ITCHING AFTER GETTING IV ANTIBIOTIC CEFEPIME PT ALSO STATES SHE'S ALLERGIC TO MANY ATB AND THOSE DO THIS TO HER TOO. CALLED ATTENDING AND LEFT CARLYG FOR CALL BACK. WILL CONT TO MONITOR.
--- NOTE | 2020-01-24 23:10 | NUR ---
UNABLE TO GET ATTENDING TO CALL BACK CALLED AND LEFT MSG FOR DR VERA TO CALL ABOUT PT ITCHING STILL CONTINUING. AWATING CALL BACK, WILL CONT TO MONITOR.
[2020-01-24] MEDS ORDERED: DIPHENHYDRAMINE HCL 25 MG CAP PO STA (23:16)
--- NOTE | 2020-01-24 23:17 | NUR ---
WAS ABLE TO SPEAK WITH DR AYOUB AND ORDERED PO BENADRYL FOR THE PT AND STATES TO NOTIFY DR VERA OF PT REACTION. STILL AWAITING CALL BACK FROM DR VERA.
--- NOTE | 2020-01-24 23:19 | NUR ---
DR VERA CALLED AND NOTIFIED OF PT CURRENT CONDITION, ORDER GIVEN BY DR AYOUB AND HE ORDERED FOR THE CEFEPIME TO BE D/C WILL FOLLOWUP TOMORROW. WILL CONT TO MONITOR.
[2020-01-24] MEDS ORDERED: DIPHENHYDRAMINE HCL 25 MG CAP PO PRN (23:30)
[2020-01-25] VITALS (7 sets, daily range): BP systolic 126–152; BP diastolic 62–87
[2020-01-25] MEDS: METRONIDAZOLE 500MG/NS 100ML 100 ML IV SCH ×2 (01:34→10:00)
[2020-01-25 06:23] LABS: BASOPHILS % 0.8 % (0.0-1.0); EOSINOPHILS # (AUTO) 0.1 (0.0-0.4); EOSINOPHILS % 1.9 % (0.0-6.0); HEMATOCRIT 32.9 % (34.2-44.1); HEMOGLOBIN 9.6 g/dL (12.0-16.0); LYMPHOCYTES # (AUTO) 1.1 (1.0-3.2); MEAN CORPUSCULAR HEMOGLOBIN 23.6 pg (28-32); MEAN CORPUSCULAR HGB CONC 29.2 g/dL (31-35); MEAN CORPUSCULAR VOLUME 80.8 fL (81-99); MONOCYTES # (AUTO) 0.9 (0.2-0.8); MONOCYTES % 17.6 % (4.4-11.3); NEUTROPHILS # (AUTO) 3.1 (2.1-6.9); NEUTROPHILS % 59.3 % (38.7-80.0); PLATELET COUNT 275 x10e3/uL (140-360); RED BLOOD COUNT 4.07 x10e6/uL (3.6-5.1); RED CELL DISTRIBUTION WIDTH 17.3 % (11.7-14.4)
[2020-01-25 06:43] LABS: INR 2.75; PROTHROMBIN TIME 30.4 seconds (11.9-14.5)
[2020-01-25 06:44] LABS: PARTIAL THROMBOPLASTIN TIME 47.9 seconds (23.8-35.5)
[2020-01-25 06:47] LABS: ALBUMIN 3.1 g/dL (3.5-5.0); CALCIUM 8.4 mg/dL (8.4-10.2); CREATININE, SERUM 0.9 mg/dL (0.57-1.11)
[2020-01-25] MEDS: PANTOPRAZOLE SOD 40 MG TABEC PO SCH (07:30)
--- NOTE | 2020-01-25 07:31 | NUR ---
PATIENT IN BED RESTING WITH NO S/S OF DISTRESS. IV FLUID INFUSING ORDERED. BED IN LOWER POSITION, CALL LIGHT AT REACH.
[2020-01-25] MEDS: (Fenofibrate,Micronized (Fenofibrate) 134 MG) PO SCH (09:00)
[2020-01-25] MEDS: (Methenamine Hippurate 1 GM) PO SCH ×2 (09:00→17:00)
[2020-01-25] MEDS: SODIUM CHLORIDE 0.9% 1000ML 1,000 ML IV SCH (09:10)
[2020-01-25] MEDS: GABAPENTIN 300 MG CAP PO SCH ×3 (09:12→20:56)
[2020-01-25] MEDS: LEVOTHYROXINE SODIUM 50 MCG TAB PO SCH (09:12)
[2020-01-25] MEDS: RIVAROXABAN 15 MG TABLET PO SCH (09:12)
[2020-01-25] MEDS: GLIMEPIRIDE 2 MG TAB PO SCH (09:12)
[2020-01-25] MEDS: LISINOPRIL 10 MG TAB PO SCH ×2 (09:12→17:14)
[2020-01-25] MEDS: FLUOXETINE HCL 20 MG CAP PO SCH (09:12)
[2020-01-25] MEDS: METOPROLOL TARTRATE 50 MG TAB PO SCH ×3 (09:13→20:56)
[2020-01-25] MEDS: HYDROCODONE/APAP 7.5MG-325MG 1 EA TAB PO PRN (11:20)
--- NOTE | 2020-01-25 11:53 | NUR ---
MD IN TO SEE PATIENT, NEW ORDER RECEIVED. PATIENT SITTING UP IN BED EATING LUNCH, CALL LIGHT AT REACH.
[2020-01-25] MEDS: FUROSEMIDE 40 MG TAB PO SCH (12:12)
--- NOTE | 2020-01-25 15:40 | NUR ---
PATIENT ASSISTED TO THE BED SIDE COMMODE AND BACK TO BED, HAD A LARGE BM. REPOSITIONED IN BED. BED IN LOWER POSITION AND LOCKED. CALL LIGHT AT REACH, BED ALARM ACTIVATED.
--- NOTE | 2020-01-25 16:21 | NUR ---
INFECTIOUS DISEASE PROGRESS NOTE DR. AUSTYN VERA CC: dizzy, diarrhea HPI: This is a very pleasant 85 year old female who is well known to me for many years. She is a patient of Dr. Villa as well. She follows up with me in the office for frequent UTI's. She is on suppressive treatment with Hipprex and Ceftin. She presented with weakness and diarrhea ongoing for one day. Examined patient in the ED. ROS: + fatigue +diarrhea ALL 14 POINT ROS NEG UNLESS OTHERWISE NOTED PHYSICAL EXAM: VS: reviewed GENERAL: Sleeping, not holding a conversation HEENT: normocephalic, atraumatic CV: s1. s2. no s3. s4 CHEST: rhonchi, symmetric expansion ABD: soft, non-tender EXT: moves all, no joint swelling NEURO: no large deficits LABS: per chart RADIOLOGY: pending IMPRESSION: UTI Diarrhea Aspiration PNA plan: lethargic, will d/c flagyl d/c hydrocodone, not holding conversation repeat CXR work-up so far negative work-up still pending Tatiana Lawrence MSN, BUSINESS CONSULT, AGACNP-BC examined with Dr. Austyn Vera
[2020-01-25] MEDS ORDERED: TRAMADOL HCL 50 MG TAB PO PRN (16:30)
[2020-01-25 17:01] LABS: FREE THYROXINE INDEX 2.3218 (1.4-3.8); THYROID STIMULATING HORMONE 4.142 uIU/mL (0.350-4.940)
--- NOTE | 2020-01-25 17:41 | NUR ---
PATIENT NOTED WITH SOME CONFUSION, WANDERING IN THE ROOM AND ASKING FOR HER MOTHER. REDIRECTED AND ASSISTED BACK TO BED. HUMAN RESOURCES SUPPORT SPECIALIST NOTIFIED. NEW ORDER RECEIVED TO TRANSFER PATIENT TO ROOM 297. PATIENT IN ROOM 297, IN BED RESTING WITH NO S/S OF DISTRESS. BED IN LOWER POSITION AND LOCKED. CALL LIGHT AT REACH. INSTRUCTED TO CALL FOR ASSISTANCE NEEDED WITH RETURN DEMONSTRATION. BED ALARM ACTIVATED.
--- NOTE | 2020-01-25 19:07 | Diagnostic Imaging Report ---
EXAMINATION: CHEST SINGLE (PORTABLE) INDICATION: Cough and suspicious for aspiration. COMPARISON: Multiple prior chest x-rays including most recent on 01/23/2020. FINDINGS: TUBES and LINES: Right Port-A-Cath which terminates in the right atrium. LUNGS: Slightly decreased low lung volumes. No interval changes in prominent interstitial lung markings and hazy opacification of bilateral lung bases. There is a stable calcified granuloma in the right lung base. No consolidations. PLEURA: No pleural effusion or pneumothorax. HEART AND MEDIASTINUM: The cardiomediastinal silhouette is enlarged. There is atherosclerotic calcification of the thoracic aortic knob. BONES AND SOFT TISSUES: Degenerative changes in the spine and shoulders. Soft tissues are unremarkable. UPPER ABDOMEN: No free air under the diaphragm. IMPRESSION: 1. Cardiomegaly with mild pulmonary vascular congestion. 2. No interval changes in hazy opacification the bilateral lung bases which may represent atelectasis and/or aspiration in the proper clinical context. No new chest finding. Signed by: Keesha Restrepo MD on 01/25/2020 7:03 PM
--- NOTE | 2020-01-25 19:17 | NUR ---
Bedside report received from day nurse. Pt is asleep in bed. Rise an fall of chest noted. No distress noted. Call light within reach.
[2020-01-26] VITALS: BP 140/90
--- NOTE | 2020-01-26 | NUR ---
Pt frequently trying to climb out of bed to get to bedside commode without assistance. Pt does not like to wait stating that she has already half wet her diaper by the time someone arrives after she has called. Offered teaching on use of [place] for the night so that pt may be able to get some rest. Pt agreed to use of [place] which was set up at this time.
[2020-01-26 04:00] VITALS: BP 126/54
--- NOTE | 2020-01-26 07:00 | NUR ---
BEDSIDE SHIFT REPORT RECEIVED FROM THE ASSEMBLY DEPARTMENT SUPERVISOR RN. CALL LIGHT WITH IN EASY REACH. BED IS LOW AND LOCKED. SIDE RAILS X2. BED ALARM IS ON.
[2020-01-26 08:00] VITALS: BP 132/85
[2020-01-26] MEDS: PANTOPRAZOLE SOD 40 MG TABEC PO SCH (08:30)
--- NOTE | 2020-01-26 08:30 | NUR ---
PT IS AAOX4. EDUCATED PT ABOUT FALL PRECAUTIONS. PT VERBALIZED UNDERSTANDING. CALL LIGHT WITH IN EASY REACH. INSTRUCTED PT TO USE CALL LIGHT FOR ALL THE NEEDS. BED IS LOW AND LOCKED. SIDE RAILS X2. BED ALARM IS ON. PT DENIES NEEDS AT THIS TIME.
[2020-01-26 08:35] VITALS: BP 132/85
[2020-01-26] MEDS: FLUOXETINE HCL 20 MG CAP PO SCH (08:48)
[2020-01-26] MEDS: GLIMEPIRIDE 2 MG TAB PO SCH (08:48)
[2020-01-26] MEDS: FUROSEMIDE 40 MG TAB PO SCH (08:48)
[2020-01-26] MEDS: METOPROLOL TARTRATE 50 MG TAB PO SCH ×2 (08:48→16:00)
[2020-01-26] MEDS: LEVOTHYROXINE SODIUM 50 MCG TAB PO SCH (08:48)
[2020-01-26] MEDS: LISINOPRIL 10 MG TAB PO SCH ×2 (08:48→17:39)
[2020-01-26] MEDS: RIVAROXABAN 15 MG TABLET PO SCH (08:48)
[2020-01-26] MEDS: GABAPENTIN 300 MG CAP PO SCH ×2 (08:48→16:00)
[2020-01-26] MEDS: (Methenamine Hippurate 1 GM) PO SCH ×2 (09:00→17:00)
[2020-01-26] MEDS: (Fenofibrate,Micronized (Fenofibrate) 134 MG) PO SCH (09:00)
[2020-01-26 12:00] VITALS: BP 150/84
[2020-01-26 16:00] VITALS: BP 161/90
--- NOTE | 2020-01-26 17:37 | NUR ---
INFECTIOUS DISEASE PROGRESS NOTE DR. AUSTYN VERA CC: dizzy, diarrhea HPI: This is a very pleasant 85 year old female who is well known to me for many years. She is a patient of Dr. Villa as well. She follows up with me in the office for frequent UTI's. She is on suppressive treatment with Hipprex and Ceftin. She presented with weakness and diarrhea ongoing for one day. Examined patient in the ED. ROS: + fatigue +diarrhea ALL 14 POINT ROS NEG UNLESS OTHERWISE NOTED PHYSICAL EXAM: VS: reviewed GENERAL: Sleeping, not holding a conversation HEENT: normocephalic, atraumatic CV: s1. s2. no s3. s4 CHEST: rhonchi, symmetric expansion ABD: soft, non-tender EXT: moves all, no joint swelling NEURO: no large deficits LABS: per chart RADIOLOGY: pending IMPRESSION: UTI Diarrhea Aspiration PNA plan: no need for antibiotics diarrhea resolved recommend stopping Hydrocodone and trying Tramadol -likely hydrocodone is contributing to falls and confusion Tatiana Lawrence MSN, PRESSURE TESTER, AGACNP-BC examined with Dr. Austyn Vera
--- NOTE | 2020-01-26 18:07 | NUR ---
RICARDO TO D/C PT PER DR. VERA AND DR. Yonatan AYOUB
== END 2020-01-26 18:59 | disposition home or self-care (01) | DRG 871 ==
LOC: ER 15:55 → ERHOLD 17:30 → MED/SURG3 18:20 → OBSVTOIN 01-25 08:14 → MED/SURG3 01-25 17:40
DX: A41.9 Sepsis, unspecified organism (principal); J69.0 Pneumonitis due to inhalation of food and vomit; N39.0 Urinary tract infection, site not specified; Z16.24 Resistance to multiple antibiotics; I50.9 Heart failure, unspecified; I48.91 Unspecified atrial fibrillation; E03.9 Hypothyroidism, unspecified; Z87.440 Personal history of urinary (tract) infections; K21.9 Gastro-esophageal reflux disease without esophagitis; E78.5 Hyperlipidemia, unspecified; Z09 Encounter for follow-up examination after completed treatment for conditions other than malignant neoplasm; Z86.718 Personal history of other venous thrombosis and embolism; Z88.1 Allergy status to other antibiotic agents; Z88.5 Allergy status to narcotic agent; Z88.2 Allergy status to sulfonamides; E11.9 Type 2 diabetes mellitus without complications; I25.10 Atherosclerotic heart disease of native coronary artery without angina pectoris; Z82.49 Family history of ischemic heart disease and other diseases of the circulatory system; I11.0 Hypertensive heart disease with heart failure; Z11.59 Encounter for screening for other viral diseases; Z79.84 Long term (current) use of oral hypoglycemic drugs; T40.2X5A Adverse effect of other opioids, initial encounter
CPT/HCPCS: 36415; 71045; 74177; 80053; 81001; 82550; 82553; 82948; 83690; 83880; 84436; 84443; 84479; 84484; 85025; 85610; 85730; 87040; 87086; 99251; 99284; G0378; J0692; J2543; J7030; Q9967

== ENCOUNTER 2020-03-11 15:06 | Inpatient (IN) | payer MEDICARE, OTHER ==
[~2020-03-11] VITALS: Ht 162.6 cm; Wt 88.1 kg
[2020-03-11 16:53] LABS: HEMATOCRIT 35.3 % (34.2-44.1); HEMOGLOBIN 10.3 g/dL (12.0-16.0); MEAN CORPUSCULAR HGB CONC 29.2 g/dL (31-35); MEAN CORPUSCULAR VOLUME 78.8 fL (81-99); PLATELET COUNT 267 x10e3/uL (140-360); RED BLOOD COUNT 4.48 x10e6/uL (3.6-5.1); RED CELL DISTRIBUTION WIDTH 21.7 % (11.7-14.4)
[2020-03-11 17:15] LABS: ALANINE AMINOTRANSFERASE 11 IU/L (0-55); ALBUMIN 3.7 g/dL (3.5-5.0); ALBUMIN/GLOBULIN RATIO 1.1 (0.8-2.0); ALKALINE PHOSPHATASE 47 IU/L (40-150); ANION GAP 13.7 mmol/L (8-16); BLOOD UREA NITROGEN 17 mg/dL (7-26); BUN/CREATININE RATIO 21 (6-25); CALCIUM 9.9 mg/dL (8.4-10.2); CARBON DIOXIDE 25 mmol/L (22-29); CHLORIDE 102 mmol/L (98-107); CREATINE KINASE 40 IU/L (29-168); CREATININE, SERUM 0.82 mg/dL (0.57-1.11); EST GLOMERULAR FILTRATION RATE > 60 ML/MIN (60-); GLUCOSE 132 mg/dL (74-118); POTASSIUM 3.7 mmol/L (3.5-5.1); SODIUM 137 mmol/L (136-145)
[2020-03-11] MEDS: CEFTRIAXONE SOD 1 GM/NS 50 ML 50 ML IV SCH (21:00)
[2020-03-11 21:33] LABS: CLARITY,URINE CLOUDY (CLEAR); COLOR,URINE YELLOW (YELLOW); KETONES,URINE NEGATIVE (NEGATIVE); LEUKOCYTE ESTERASE ,URINE SMALL (NEGATIVE); NITRITE,URINE POSITIVE (NEGATIVE); PROTEIN,URINE DIPSTICK 1+ (NEGATIVE); URINE UROBILINOGEN 0.2 mg/dL (0.2 - 1)
[2020-03-11 21:38] LABS: BACTERIA,URINE MANY /HPF; EPITHELIAL CELLS,URINE MODERATE /LPF; WBC,URINE (MAN) 21-50 /HPF (0-5)
[2020-03-11] MEDS ORDERED: GABAPENTIN 300 MG CAP ONE (21:41)
[2020-03-11 21:45] VITALS: BP 147/78
[2020-03-11] MEDS ORDERED: GABAPENTIN 300 MG CAP PO ONE (21:45)
[2020-03-11] MEDS ORDERED: DEXTROSE 50% SYRINGE 50 ML IV PRN (21:45)
[2020-03-11 22:15] VITALS: BP 147/78
[2020-03-11] MEDS ORDERED: AMLODIPINE BESYL5 MG PO (22:39)
[2020-03-11] MEDS ORDERED: CALCIUM CARBON500 MG PO (22:39)
[2020-03-11] MEDS ORDERED: HYDRALAZINE HCL25 MG PO (22:39)
[2020-03-12] VITALS (7 sets, daily range): BP systolic 119–158; BP diastolic 54–89
[2020-03-12] MEDS ORDERED: FUROSEMIDE 40 MG TAB PO PRN (00:15)
[2020-03-12] MEDS ORDERED: PANTOPRAZOLE SOD 40 MG TABEC PO PRN (00:15)
[2020-03-12] MEDS: HYDROCODONE/APAP 7.5MG-325MG 1 EA TAB PO PRN ×2 (00:40→17:59)
[2020-03-12 02:35] LABS: CREATINE KINASE MB 2.4 ng/mL (0-5.0)
[2020-03-12] MEDS: LEVOTHYROXINE SODIUM 50 MCG TAB PO SCH (05:39)
[2020-03-12 05:50] LABS: EOSINOPHILS % (MANUAL) 1 % (0-7); LYMPHOCYTES % (MANUAL) 8 % (19-48); MONOCYTES % (MANUAL) 5 % (3.4-9.0); NEUTROPHILS % (MANUAL) 86 % (40-74); PLATELET ESTIMATE ADEQUATE; PLATELET MORPHOLOGY COMMENT FEW LARGE
[2020-03-12 05:51] LABS: HYPOCHROMASIA MARKED
[2020-03-12 05:53] LABS: ANISOCYTOSIS SLIGHT
[2020-03-12 06:13] LABS: BASOPHILS % 0.7 % (0.0-1.0); EOSINOPHILS # (AUTO) 0.1 (0.0-0.4); EOSINOPHILS % 1.2 % (0.0-6.0); HEMATOCRIT 32.2 % (34.2-44.1); LYMPHOCYTES # (AUTO) 0.8 (1.0-3.2); LYMPHOCYTES % 14.5 % (18.0-39.1); MEAN CORPUSCULAR HGB CONC 29.5 g/dL (31-35); MONOCYTES # (AUTO) 0.8 (0.2-0.8); MONOCYTES % 13.3 % (4.4-11.3); NEUTROPHILS # (AUTO) 4.1 (2.1-6.9); PLATELET COUNT 208 x10e3/uL (140-360); RED BLOOD COUNT 4.13 x10e6/uL (3.6-5.1); RED CELL DISTRIBUTION WIDTH 21.5 % (11.7-14.4)
[2020-03-12 06:40] LABS: ALANINE AMINOTRANSFERASE 10 IU/L (0-55); ALBUMIN 3.2 g/dL (3.5-5.0); ALKALINE PHOSPHATASE 35 IU/L (40-150); ANION GAP 11.2 mmol/L (8-16); BLOOD UREA NITROGEN 16 mg/dL (7-26); BUN/CREATININE RATIO 22 (6-25); CALCIUM 9.5 mg/dL (8.4-10.2); CARBON DIOXIDE 27 mmol/L (22-29); CHLORIDE 103 mmol/L (98-107); CREATININE, SERUM 0.73 mg/dL (0.57-1.11); EST GLOMERULAR FILTRATION RATE > 60 ML/MIN (60-); GLUCOSE 107 mg/dL (74-118); HEMOGLOBIN 9.5 g/dL (12.0-16.0); POTASSIUM 3.2 mmol/L (3.5-5.1); SODIUM 138 mmol/L (136-145)
[2020-03-12] MEDS: INSULIN REGULAR, HUMAN 100 UNIT/1 ML 3ML VIAL SQ SCH ×4 (07:30→21:00)
[2020-03-12 08:19] LABS: ANISOCYTOSIS SLIGHT; HYPOCHROMASIA SLIGHT; OVALOCYTES FEW; POIKILOCYTOSIS SLIGHT; RBC MORPHOLOGY COMMENT ABNORMAL
[2020-03-12 08:20] LABS: PLATELET ESTIMATE ADEQUATE; PLATELET MORPHOLOGY COMMENT NORMAL
[2020-03-12] MEDS ORDERED: LISINOPRIL 10 MG TAB PO SCH (09:00)
[2020-03-12] MEDS ORDERED: LEVOTHYROXINE SODIUM 50 MCG TAB PO SCH (09:00)
[2020-03-12] MEDS ORDERED: FENOFIBRATE 48 MG TAB PO SCH (09:00)
[2020-03-12] MEDS ORDERED: RIVAROXABAN 10 MG TABLET PO SCH (09:00)
[2020-03-12] MEDS: GLIMEPIRIDE 2 MG TAB PO SCH (12:01)
[2020-03-12] MEDS: HYDRALAZINE HCL 25 MG TAB PO SCH ×3 (12:02→21:46)
[2020-03-12] MEDS: METOPROLOL TARTRATE 50 MG TAB PO SCH ×3 (12:02→21:46)
[2020-03-12] MEDS: FLUOXETINE HCL 20 MG CAP PO SCH (12:03)
[2020-03-12] MEDS: OYST-CAL-D 500MG TABLET PO SCH ×2 (12:03→17:12)
[2020-03-12] MEDS: AMLODIPINE BESYLATE 5 MG TAB PO SCH ×2 (12:03→17:00)
[2020-03-12] MEDS: GABAPENTIN 300 MG CAP PO SCH ×3 (12:03→21:46)
[2020-03-12] MEDS: FENOFIBRATE 145 MG TAB PO SCH (12:04)
[2020-03-12 15:07] LABS: CREATINE KINASE MB 2.7 ng/mL (0-5.0)
[2020-03-12] MEDS: LISINOPRIL 20 MG TAB PO SCH (17:00)
[2020-03-12] MEDS: NON-FORMULARY MEDICATION (Methenamine Hippurate 1 GM) PO SCH (17:00)
[2020-03-12] MEDS: RIVAROXABAN 15 MG TABLET PO SCH (17:10)
[2020-03-12] MEDS ORDERED: POTASSIUM CHLORIDE 10MEQ EA PO ONE (17:30)
[2020-03-12] MEDS: CEFTRIAXONE SOD 1 GM/NS 50 ML 50 ML IV SCH (21:46)
[2020-03-12] MEDS ORDERED: SODIUM CHLORIDE 0.9% 50ML 50 ML ONE (22:00)
[2020-03-13] VITALS (8 sets, daily range): BP systolic 108–152; BP diastolic 59–98
[2020-03-13] MEDS: HYDROCODONE/APAP 7.5MG-325MG 1 EA TAB PO PRN ×2 (00:35→16:35)
[2020-03-13 06:02] LABS: BASOPHILS # (AUTO) 0.1 (0.0-0.1); BASOPHILS % 0.9 % (0.0-1.0); EOSINOPHILS # (AUTO) 0.1 (0.0-0.4); EOSINOPHILS % 1.5 % (0.0-6.0); HEMOGLOBIN 9.8 g/dL (12.0-16.0); LYMPHOCYTES # (AUTO) 1.1 (1.0-3.2); MEAN CORPUSCULAR HEMOGLOBIN 23.2 pg (28-32); MEAN CORPUSCULAR HGB CONC 29.7 g/dL (31-35); MONOCYTES # (AUTO) 0.8 (0.2-0.8); MONOCYTES % 13.4 % (4.4-11.3); NEUTROPHILS # (AUTO) 3.8 (2.1-6.9); NEUTROPHILS % 64.5 % (38.7-80.0); PLATELET COUNT 232 x10e3/uL (140-360); RED BLOOD COUNT 4.23 x10e6/uL (3.6-5.1); RED CELL DISTRIBUTION WIDTH 21.9 % (11.7-14.4)
[2020-03-13 06:22] LABS: ANION GAP 10.6 mmol/L (8-16); BLOOD UREA NITROGEN 19 mg/dL (7-26); BUN/CREATININE RATIO 25 (6-25); CALCIUM 10.2 mg/dL (8.4-10.2); CARBON DIOXIDE 27 mmol/L (22-29); CHLORIDE 105 mmol/L (98-107); CREATININE, SERUM 0.76 mg/dL (0.57-1.11); EST GLOMERULAR FILTRATION RATE > 60 ML/MIN (60-); GLUCOSE 77 mg/dL (74-118); POTASSIUM 3.6 mmol/L (3.5-5.1); SODIUM 139 mmol/L (136-145)
[2020-03-13] MEDS: LEVOTHYROXINE SODIUM 50 MCG TAB PO SCH (07:07)
[2020-03-13] MEDS: INSULIN REGULAR, HUMAN 100 UNIT/1 ML 3ML VIAL SQ SCH ×4 (07:30→21:20)
[2020-03-13 08:46] LABS: HYPOCHROMASIA MODERATE; OVALOCYTES FEW; RBC MORPHOLOGY COMMENT ABNORMAL
[2020-03-13 08:48] LABS: ANISOCYTOSIS MARKED
[2020-03-13 08:50] LABS: PLATELET ESTIMATE ADEQUATE; PLATELET MORPHOLOGY COMMENT FEW LARGE
[2020-03-13] MEDS: NON-FORMULARY MEDICATION (Methenamine Hippurate 1 GM) PO SCH ×2 (09:00→16:41)
[2020-03-13] MEDS: GLIMEPIRIDE 2 MG TAB PO SCH (09:12)
[2020-03-13] MEDS: HYDRALAZINE HCL 25 MG TAB PO SCH ×3 (09:12→22:45)
[2020-03-13] MEDS: METOPROLOL TARTRATE 50 MG TAB PO SCH ×3 (09:13→21:19)
[2020-03-13] MEDS: GABAPENTIN 300 MG CAP PO SCH ×3 (09:13→21:18)
[2020-03-13] MEDS: OYST-CAL-D 500MG TABLET PO SCH ×2 (09:18→21:17)
[2020-03-13] MEDS: AMLODIPINE BESYLATE 5 MG TAB PO SCH ×2 (09:18→22:48)
[2020-03-13] MEDS: FENOFIBRATE 145 MG TAB PO SCH (09:19)
[2020-03-13] MEDS: FLUOXETINE HCL 20 MG CAP PO SCH (09:19)
[2020-03-13] MEDS: LISINOPRIL 20 MG TAB PO SCH ×2 (09:19→21:00)
[2020-03-13] MEDS: RIVAROXABAN 15 MG TABLET PO SCH (16:41)
[2020-03-13] MEDS: CEFTRIAXONE SOD 1 GM/NS 50 ML 50 ML IV SCH (21:18)
[2020-03-14] VITALS (7 sets, daily range): BP systolic 115–141; BP diastolic 57–98
[2020-03-14] MEDS: INSULIN REGULAR, HUMAN 100 UNIT/1 ML 3ML VIAL SQ SCH ×4 (07:30→21:00)
[2020-03-14] MEDS: LEVOTHYROXINE SODIUM 50 MCG TAB PO SCH (07:31)
[2020-03-14] MEDS: NON-FORMULARY MEDICATION (Methenamine Hippurate 1 GM) PO SCH ×2 (09:00→16:59)
[2020-03-14] MEDS: GLIMEPIRIDE 2 MG TAB PO SCH (10:23)
[2020-03-14] MEDS: GABAPENTIN 300 MG CAP PO SCH ×3 (10:24→21:00)
[2020-03-14] MEDS: METOPROLOL TARTRATE 50 MG TAB PO SCH ×3 (10:24→21:00)
[2020-03-14] MEDS: HYDRALAZINE HCL 25 MG TAB PO SCH ×3 (10:24→21:00)
[2020-03-14] MEDS: AMLODIPINE BESYLATE 5 MG TAB PO SCH ×2 (10:25→21:00)
[2020-03-14] MEDS: FLUOXETINE HCL 20 MG CAP PO SCH (10:25)
[2020-03-14] MEDS: OYST-CAL-D 500MG TABLET PO SCH ×2 (10:25→21:00)
[2020-03-14] MEDS: LISINOPRIL 20 MG TAB PO SCH ×2 (10:25→21:00)
[2020-03-14] MEDS: FENOFIBRATE 145 MG TAB PO SCH (10:26)
[2020-03-14] MEDS ORDERED: SODIUM CHLORIDE 0.9% 250ML 250 ML ONE (16:35)
[2020-03-14] MEDS: RIVAROXABAN 15 MG TABLET PO SCH (16:49)
[2020-03-14] MEDS: MEROPENEM 500MG/ NS 50ML 50 ML IV SCH (16:49)
[2020-03-14] MEDS: HYDROCODONE/APAP 7.5MG-325MG 1 EA TAB PO PRN ×2 (16:59→22:05)
[2020-03-14] MEDS: VANCOMYCIN 750MG/NS 150ML IVPB 150 ML IV SCH (18:05)
[2020-03-14] MEDS: TOBRAMYCIN/DEXAMETHASONE(OPTH) 5 ML BTL OP SCH (18:11)
[2020-03-15] VITALS (7 sets, daily range): BP systolic 116–163; BP diastolic 62–81
[2020-03-15] MEDS: VANCOMYCIN 750MG/NS 150ML IVPB 150 ML IV SCH ×2 (05:00→17:16)
[2020-03-15] MEDS: LEVOTHYROXINE SODIUM 50 MCG TAB PO SCH (05:03)
[2020-03-15] MEDS: INSULIN REGULAR, HUMAN 100 UNIT/1 ML 3ML VIAL SQ SCH ×3 (07:30→16:30)
[2020-03-15] MEDS: NON-FORMULARY MEDICATION (Methenamine Hippurate 1 GM) PO SCH ×2 (09:00→17:00)
[2020-03-15] MEDS: TOBRAMYCIN/DEXAMETHASONE(OPTH) 5 ML BTL OP SCH ×2 (09:17→17:16)
[2020-03-15] MEDS: MEROPENEM 500MG/ NS 50ML 50 ML IV SCH ×3 (09:17→16:00)
[2020-03-15] MEDS: FLUOXETINE HCL 20 MG CAP PO SCH (09:18)
[2020-03-15] MEDS: OYST-CAL-D 500MG TABLET PO SCH (09:18)
[2020-03-15] MEDS: HYDRALAZINE HCL 25 MG TAB PO SCH ×2 (09:18→15:00)
[2020-03-15] MEDS: GABAPENTIN 300 MG CAP PO SCH ×2 (09:18→15:00)
[2020-03-15] MEDS: AMLODIPINE BESYLATE 5 MG TAB PO SCH (09:18)
[2020-03-15] MEDS: LISINOPRIL 20 MG TAB PO SCH (09:18)
[2020-03-15] MEDS: METOPROLOL TARTRATE 50 MG TAB PO SCH ×2 (09:18→15:00)
[2020-03-15] MEDS: FENOFIBRATE 145 MG TAB PO SCH (09:18)
[2020-03-15] MEDS: GLIMEPIRIDE 2 MG TAB PO SCH (09:18)
[2020-03-15] MEDS: RIVAROXABAN 15 MG TABLET PO SCH (17:16)
== END 2020-03-15 19:58 | DRG 871 ==
LOC: ER 16:30 → ERHOLD 21:05 → MED/SURG 21:45 → MED/SURG3 03-14 12:32
DX: A41.9 Sepsis, unspecified organism (principal); I50.23 Acute on chronic systolic (congestive) heart failure; N10 Acute pyelonephritis; Z16.12 Extended spectrum beta lactamase (ESBL) resistance; B95.2 Enterococcus as the cause of diseases classified elsewhere; I48.91 Unspecified atrial fibrillation; D64.9 Anemia, unspecified; E11.40 Type 2 diabetes mellitus with diabetic neuropathy, unspecified; I11.0 Hypertensive heart disease with heart failure; Z86.718 Personal history of other venous thrombosis and embolism; Z79.01 Long term (current) use of anticoagulants; Z86.711 Personal history of pulmonary embolism
CPT/HCPCS: 36415; 71045; 80048; 80053; 81001; 82550; 82553; 82948; 83880; 84484; 85007; 85025; 85027; 87086; 87186; 93005; 97139; 99284; J0696; J1817; J7050; J7799; U0002

== ENCOUNTER 2020-04-03 12:48 | Inpatient (IN) | payer MEDICARE, OTHER ==
[~2020-04-03] VITALS: Ht 162.6 cm; Wt 88.0 kg
[~2020-04-03 12:48] MED LIST changes: +AMLODIPINE BESYL5 MG PO; +CALCIUM CARBON500 MG PO
[2020-04-03 15:12] LABS: BASOPHILS % 0.4 % (0.0-1.0); EOSINOPHILS % 0.1 % (0.0-6.0); HEMATOCRIT 36.3 % (34.2-44.1); LYMPHOCYTES # (AUTO) 0.7 (1.0-3.2); MEAN CORPUSCULAR HEMOGLOBIN 23.9 pg (28-32); MEAN CORPUSCULAR HGB CONC 30.3 g/dL (31-35); MEAN CORPUSCULAR VOLUME 78.7 fL (81-99); MONOCYTES # (AUTO) 1.5 (0.2-0.8); NEUTROPHILS # (AUTO) 7.6 (2.1-6.9); NEUTROPHILS % 76.6 % (38.7-80.0); PLATELET COUNT 392 x10e3/uL (140-360); RED BLOOD COUNT 4.61 x10e6/uL (3.6-5.1); RED CELL DISTRIBUTION WIDTH 22.5 % (11.7-14.4)
[2020-04-03 15:18] LABS: INR 3.64; PROTHROMBIN TIME 37.6 seconds (11.9-14.5)
[2020-04-03 15:19] LABS: PARTIAL THROMBOPLASTIN TIME 54.2 seconds (23.8-35.5)
[2020-04-03 15:27] LABS: ALBUMIN 2.9 g/dL (3.5-5.0); ALBUMIN/GLOBULIN RATIO 0.7 (0.8-2.0); ANION GAP 16.2 mmol/L (8-16); CALCIUM 9.6 mg/dL (8.4-10.2); CREATININE, SERUM 1.31 mg/dL (0.57-1.11); POTASSIUM 4.2 mmol/L (3.5-5.1)
[2020-04-03 15:37] LABS: CREATINE KINASE MB 1.9 ng/mL (0-5.0)
[2020-04-03] MEDS ORDERED: ONDANSETRON HCL INJ 2MG/ML 2ML 2 MG/ML VIAL IV PRN (17:30)
[2020-04-03] MEDS: SODIUM CHLORIDE 0.9% 1000ML 1,000 ML IV SCH (17:59)
[2020-04-03] MEDS: MEROPENEM 1GM 100 ML IV SCH (17:59)
[2020-04-03 18:52] VITALS: BP 98/85
[2020-04-03 19:14] VITALS: BP 98/85
[2020-04-03 20:00] VITALS: BP 98/85
[2020-04-03] MEDS: INSULIN LISPRO 100 UNIT/1 ML 3ML VIAL SQ SCH (21:00)
[2020-04-04] VITALS (8 sets, daily range): BP systolic 102–142; BP diastolic 55–98
[2020-04-04] MEDS: SODIUM CHLORIDE 0.9% 1000ML 1,000 ML IV SCH (01:13)
[2020-04-04] MEDS: LINEZOLID 600 MG/D5W 300ML 300 ML IV SCH ×3 (01:13→20:48)
[2020-04-04 01:43] LABS: CREATINE KINASE MB 2.3 ng/mL (0-5.0)
[2020-04-04] MEDS: MEROPENEM 1GM 100 ML IV SCH ×2 (05:15→17:52)
[2020-04-04 05:50] LABS: BASOPHILS % 0.4 % (0.0-1.0); EOSINOPHILS % 0.4 % (0.0-6.0); HEMATOCRIT 32.4 % (34.2-44.1); HEMOGLOBIN 9.7 g/dL (12.0-16.0); LYMPHOCYTES # (AUTO) 0.9 (1.0-3.2); MEAN CORPUSCULAR HEMOGLOBIN 23.1 pg (28-32); MEAN CORPUSCULAR HGB CONC 29.9 g/dL (31-35); MEAN CORPUSCULAR VOLUME 77.1 fL (81-99); MONOCYTES # (AUTO) 1.2 (0.2-0.8); MONOCYTES % 12.6 % (4.4-11.3); NEUTROPHILS # (AUTO) 7.6 (2.1-6.9); NEUTROPHILS % 76.8 % (38.7-80.0); PLATELET COUNT 352 x10e3/uL (140-360); RED CELL DISTRIBUTION WIDTH 22.8 % (11.7-14.4)
[2020-04-04 06:25] LABS: ALBUMIN 2.6 g/dL (3.5-5.0); ALBUMIN/GLOBULIN RATIO 0.7 (0.8-2.0); ANION GAP 14.3 mmol/L (8-16); CREATININE, SERUM 1.14 mg/dL (0.57-1.11); POTASSIUM 4.3 mmol/L (3.5-5.1)
[2020-04-04 06:55] LABS: CREATINE KINASE MB 2.3 ng/mL (0-5.0)
[2020-04-04] MEDS: INSULIN LISPRO 100 UNIT/1 ML 3ML VIAL SQ SCH ×4 (07:30→21:12)
[2020-04-04 18:30] LABS: CLARITY,URINE SL CLOUDY (CLEAR); COLOR,URINE STRAW (YELLOW); KETONES,URINE NEGATIVE (NEGATIVE); LEUKOCYTE ESTERASE ,URINE MODERATE (NEGATIVE); NITRITE,URINE POSITIVE (NEGATIVE); PROTEIN,URINE DIPSTICK 2+ (NEGATIVE); URINE UROBILINOGEN 0.2 mg/dL (0.2 - 1)
[2020-04-04 18:41] LABS: AMORPHOUS SEDIMENT,URINE MODERATE (FEW); BACTERIA,URINE MANY /HPF; EPITHELIAL CELLS,URINE FEW /LPF; TRANSITIONAL EPI CELLS,URINE FEW
[2020-04-04] MEDS: HYDROCODONE/APAP 7.5MG-325MG 1 EA TAB PO PRN (23:54)
[2020-04-05] VITALS (7 sets, daily range): BP systolic 114–157; BP diastolic 69–126
[2020-04-05] MEDS: MEROPENEM 1GM 100 ML IV SCH ×2 (06:05→17:31)
[2020-04-05] MEDS: INSULIN LISPRO 100 UNIT/1 ML 3ML VIAL SQ SCH ×4 (07:30→21:00)
[2020-04-05] MEDS: LINEZOLID 600 MG/D5W 300ML 300 ML IV SCH ×2 (09:00→21:59)
[2020-04-05 10:31] LABS: BASOPHILS % 0.3 % (0.0-1.0); EOSINOPHILS # (AUTO) 0.1 (0.0-0.4); EOSINOPHILS % 0.9 % (0.0-6.0); HEMATOCRIT 34.5 % (34.2-44.1); HEMOGLOBIN 10.3 g/dL (12.0-16.0); LYMPHOCYTES # (AUTO) 0.9 (1.0-3.2); LYMPHOCYTES % 10.8 % (18.0-39.1); MEAN CORPUSCULAR HEMOGLOBIN 23.2 pg (28-32); MEAN CORPUSCULAR HGB CONC 29.9 g/dL (31-35); MEAN CORPUSCULAR VOLUME 77.7 fL (81-99); MONOCYTES # (AUTO) 1.1 (0.2-0.8); MONOCYTES % 12.4 % (4.4-11.3); NEUTROPHILS # (AUTO) 6.5 (2.1-6.9); NEUTROPHILS % 75.1 % (38.7-80.0); PLATELET COUNT 382 x10e3/uL (140-360); RED BLOOD COUNT 4.44 x10e6/uL (3.6-5.1); RED CELL DISTRIBUTION WIDTH 22.9 % (11.7-14.4)
[2020-04-05 10:49] LABS: CALCIUM 8.9 mg/dL (8.4-10.2); CREATININE, SERUM 1.04 mg/dL (0.57-1.11)
[2020-04-05] MEDS: HYDROCODONE/APAP 7.5MG-325MG 1 EA TAB PO PRN (11:52)
[2020-04-06] VITALS (8 sets, daily range): BP systolic 102–150; BP diastolic 65–96
[2020-04-06] MEDS: MEROPENEM 1GM 100 ML IV SCH ×2 (05:36→17:29)
[2020-04-06] MEDS: INSULIN LISPRO 100 UNIT/1 ML 3ML VIAL SQ SCH ×4 (07:30→21:00)
[2020-04-06] MEDS: LINEZOLID 600 MG/D5W 300ML 300 ML IV SCH ×2 (09:00→20:18)
[2020-04-06] MEDS: HYDROCODONE/APAP 7.5MG-325MG 1 EA TAB PO PRN ×2 (10:07→16:37)
[2020-04-06] MEDS: FUROSEMIDE INJ 10 MG/ML 4 ML VIAL IV SCH (16:37)
[2020-04-07] VITALS (8 sets, daily range): BP systolic 98–147; BP diastolic 73–97
[2020-04-07] MEDS: HYDROCODONE/APAP 7.5MG-325MG 1 EA TAB PO PRN ×3 (02:58→20:02)
[2020-04-07] MEDS: MEROPENEM 1GM 100 ML IV SCH ×2 (06:15→17:46)
[2020-04-07 06:33] LABS: INR 1.55; PROTHROMBIN TIME 19.7 seconds (11.9-14.5)
[2020-04-07] MEDS: INSULIN LISPRO 100 UNIT/1 ML 3ML VIAL SQ SCH ×4 (07:30→21:00)
[2020-04-07] MEDS: DEXTROSE 50% SYRINGE 50 ML IV PRN (08:38)
[2020-04-07] MEDS: LINEZOLID 600 MG/D5W 300ML 300 ML IV SCH ×2 (08:51→20:16)
[2020-04-07] MEDS: FUROSEMIDE INJ 10 MG/ML 4 ML VIAL IV SCH (08:52)
[2020-04-08] VITALS (8 sets, daily range): BP systolic 110–147; BP diastolic 60–124
[2020-04-08] MEDS: HYDROCODONE/APAP 7.5MG-325MG 1 EA TAB PO PRN ×2 (03:20→21:04)
[2020-04-08] MEDS: MEROPENEM 1GM 100 ML IV SCH ×2 (06:13→17:36)
[2020-04-08] MEDS: DEXTROSE 50% SYRINGE 50 ML IV PRN ×2 (07:20→07:40)
[2020-04-08] MEDS: INSULIN LISPRO 100 UNIT/1 ML 3ML VIAL SQ SCH ×4 (07:30→21:00)
[2020-04-08] MEDS: LINEZOLID 600 MG/D5W 300ML 300 ML IV SCH ×2 (09:29→21:00)
[2020-04-08] MEDS: FUROSEMIDE INJ 10 MG/ML 4 ML VIAL IV SCH (09:30)
[2020-04-09] VITALS: BP 124/64
[2020-04-09 04:00] VITALS: BP 128/60
[2020-04-09] MEDS: HYDROCODONE/APAP 7.5MG-325MG 1 EA TAB PO PRN (04:07)
[2020-04-09] MEDS: MEROPENEM 1GM 100 ML IV SCH (05:18)
[2020-04-09] MEDS: DEXTROSE 50% SYRINGE 50 ML IV PRN (07:20)
[2020-04-09] MEDS: INSULIN LISPRO 100 UNIT/1 ML 3ML VIAL SQ SCH ×2 (07:30→11:30)
[2020-04-09 08:25] VITALS: BP 135/63
[2020-04-09 09:13] VITALS: BP 135/63
[2020-04-09] MEDS: LINEZOLID 600 MG/D5W 300ML 300 ML IV SCH (09:22)
[2020-04-09] MEDS: FUROSEMIDE INJ 10 MG/ML 4 ML VIAL IV SCH (09:22)
[2020-04-09 11:51] VITALS: BP 147/85
[2020-04-09 16:03] VITALS: BP 135/77
== END 2020-04-09 17:48 | disposition hospice, inpatient (51) | DRG 871 ==
LOC: ER 13:13 → ERHOLD 17:45 → MED/SURG3 20:03
PROC: 02HV33Z Insertion of Infusion Device into Superior Vena Cava, Percutaneous Approach (ICD-10-PCS; principal; 2020-04-04)
PROC: B548ZZA Ultrasonography of Superior Vena Cava, Guidance (ICD-10-PCS; 2020-04-04)
DX: A41.9 Sepsis, unspecified organism (principal); G93.41 Metabolic encephalopathy; I50.23 Acute on chronic systolic (congestive) heart failure; J18.9 Pneumonia, unspecified organism; I48.20 Chronic atrial fibrillation, unspecified; N39.0 Urinary tract infection, site not specified; N28.9 Disorder of kidney and ureter, unspecified; I11.0 Hypertensive heart disease with heart failure; E11.649 Type 2 diabetes mellitus with hypoglycemia without coma; E11.42 Type 2 diabetes mellitus with diabetic polyneuropathy; E03.9 Hypothyroidism, unspecified; Z87.440 Personal history of urinary (tract) infections; E78.5 Hyperlipidemia, unspecified; Z09 Encounter for follow-up examination after completed treatment for conditions other than malignant neoplasm; Z86.718 Personal history of other venous thrombosis and embolism; Z88.1 Allergy status to other antibiotic agents; Z88.5 Allergy status to narcotic agent; Z88.2 Allergy status to sulfonamides; Z66 Do not resuscitate
CPT/HCPCS: 36415; 70450; 71045; 80048; 80053; 81001; 82550; 82553; 82948; 83605; 84484; 85025; 85610; 85730; 87040; 87086; 93005; 93971; 99251; 99284; J1940; J2020; J7030; J7799; U0002